=== PATIENT | female | born 1970 | race Two or more races ===

== ENCOUNTER 2022-10-24 08:59 | Outpatient (REF) | payer OTHER, SELFPAY ==
[2022-10-24 09:10] LABS: MANUAL DIFF FLAG NO
[2022-10-24 09:42] LABS: Basophils Percent Auto 0.9 % (0-2); Eosinophils Absolute Auto 0.1 X10*3/uL (0.0-0.4); Eosinophils Percent Auto 2.9 % (0-4); Hematocrit 35.8 % (37.0-47.0); Hemoglobin 11.8 g/dl (12.0-16.0); Imm Gran Abs Auto 0.01 X10*3/uL (0.00-0.03); Imm Gran Pct Auto 0.2 % (0.0-0.4); Lymphocytes Absolute Auto 1.8 X10*3/uL (1.2-4.9); Lymphocytes Percent Auto 39.3 % (20-40); Mean Corpuscular Hemoglobin 30.6 pg (27.0-33.0); Mean Corpuscular Volume 92.7 fL (80.0-98.0); Mean Platelet Volume 9.3 fL (9.4-12.3); Monocytes Absolute Auto 0.5 X10*3/uL (0.1-1.2); Monocytes Percent Auto 10.7 % (2-11); Neutrophils Absolute Auto 2.1 x10*3/uL (2.0-8.3); Platelet Count 305 X10*3/uL (160-400); Red Blood Count 3.86 X10*6/uL (4.20-5.50); Red Cell Distribution Width 13.1 % (11.0-16.0); White Blood Count 4.5 X10*3/uL (4.8-10.8)
[2022-10-24 10:22] LABS: Alanine Aminotransferase 15 U/L (0-31); Albumin Level 4.3 g/dL (3.5-5.0); Alkaline Phosphatase 57 U/L (39-117); Anion Gap 10 (12-20); Aspartate Amino Transferase 18 U/L (5-31); Bilirubin Total 0.9 mg/dL (0.0-1.0); Blood Urea Nitrogen 10 mg/dL (9-16); Calcium 9.6 mg/dL (8.4-10.2); Carbon Dioxide 28 mmol/L (22-29); Chloride 107 mmol/L (96-108); Cholesterol 212 mg/dL; Estimated Glomerular Filt Rate > 60; Glucose Fasting 81 mg/dL (60-99); HDL Cholesterol 83 mg/dL; LDL Cholesterol Calculated 119 mg/dl; Sodium 141 mmol/L (135-145); Total Protein 6.7 g/dL (6.5-8.0); Triglycerides 53 mg/dL
== END 2022-10-24 09:00 | disposition home or self-care (01) ==
LOC: HO.LAB 08:59
PROVIDERS: PCP Internal Medicine; Visit Provider Internal Medicine
DX: Z00.00 Encounter for general adult medical examination without abnormal findings (principal); D64.9 Anemia, unspecified
CPT/HCPCS: 36415; 80053; 80061; 85025

== ENCOUNTER 2022-11-08 12:28 | Outpatient (REF) | payer OTHER, SELFPAY ==
--- NOTE | ~2022-11-08 | MM_ITS ---
EXAMINATION: MM SCREENING DIGITAL BREAST TOMOSYNTHESIS, BILATERAL CLINICAL INFORMATION: Screening. Asymptomatic. The lifetime risk of breast cancer based on the Tyrer-Cuzick Model is 9.5%. COMPARISON: Mammography: and studies dating back to 11/12/2011. TECHNIQUE: Digital breast tomosynthesis was performed in both the craniocaudal and mediolateral oblique views along with computer-aided detection (CAD). Synthesized 2D images were generated from the tomosynthesis. FINDINGS: The breasts are heterogeneously dense, which may obscure small masses (ACR BI-RADS breast composition Category c). These are the first images status post reduction mammoplasty performed in 2020. This will be a new baseline study. No new suspicious left breast lesions are identified. No suspicious grouping of microcalcifications is identified. About the lateral aspect of the right breast, approximately 4 cm from nipple, there is a circumscribed 7 mm density for which a spot compression film is recommended. I do not definitely see a corresponding lesion on the mediolateral oblique projection within the dense parenchyma. MM/MM tomosynthesis screening BI IMPRESSION: Right breast density for further evaluation. ASSESSMENT: BI-RADS 0: Incomplete - Need Additional Imaging Evaluation RECOMMENDATION: 1. Additional views of the right breast. 2. Targeted ultrasound, if warranted, after review of the additional views. 3. Radiology department staff will contact the patient for additional imaging. This patient's information was entered into a reminder system with a target due date for their next mammogram.
== END 2022-11-08 12:29 | disposition home or self-care (01) ==
LOC: HO.MAMMO 12:28
PROVIDERS: PCP Internal Medicine; Visit Provider Internal Medicine
DX: Z12.31 Encounter for screening mammogram for malignant neoplasm of breast (principal); K64.9 Unspecified hemorrhoids
CPT/HCPCS: 46600; 77063; 77067; 99202

== ENCOUNTER 2022-12-03 13:15 | Outpatient (REF) | payer OTHER, SELFPAY ==
--- NOTE | ~2022-12-03 | MM_ITS ---
EXAMINATION: EXAMINATION: MM DIAGNOSTIC DIGITAL BREAST TOMOSYNTHESIS, RIGHT US DIAGNOSTIC ULTRASOUND BREAST, RIGHT CLINICAL INFORMATION: Recall from screening for question of asymmetric density outer right breast 4 cm from nipple, under 1 cm. History reduction mammoplasty since prior mammography 2016. TC score 10%. COMPARISON: Mammography: 11/08/2022, 04/11/2017, 04/03/2016 TECHNIQUE: Digital breast tomosynthesis is performed. 2D images are generated from the tomosynthesis. The following views are obtained: Spot right CC, rolled right CC x2 Ultrasound right breast is targeted to the outer breast using grayscale imaging and color Doppler without and with harmonics. FINDINGS: There are scattered areas of fibroglandular density (ACR BI-RADS breast composition Category b). The additional views demonstrate a smooth macrolobulated nodular asymmetry anterior outer breast, under 1 cm. Not seen with certainty on prior studies. There is no spiculation or associated calcification. Ultrasound demonstrates grouped microcysts 9:00 position 4 cm from nipple measuring 0.5 x 0.4 cm. No associated color flow. No solid mass or architectural abnormality. Results are discussed with the patient at time of visit. The grouped microcysts on ultrasound may correspond to the mammographic finding. As a precaution, short interval six-month follow-up right mammography will be requested, ultrasound if warranted. MM/MM tomosynthesis added views R IMPRESSION: Grouped microcysts anterior outer right breast, possibly corresponding to finding on recent mammography. ASSESSMENT: BI-RADS 3: Probably Benign RECOMMENDATION: Diagnostic right mammography in 6 months. This patient's information was entered into a reminder system with a target due date for their next mammogram.
== END 2022-12-03 13:16 | disposition home or self-care (01) ==
LOC: HO.MAMMO 13:15
PROVIDERS: PCP Internal Medicine; Visit Provider Internal Medicine
DX: R92.2 Inconclusive mammogram (principal)
CPT/HCPCS: 76642; 77061; 77065

== ENCOUNTER 2022-12-14 06:47 | Day surgery (SDC) | payer OTHER, SELFPAY ==
[2022-12-11 14:46] VITALS: BMI 29.3
--- NOTE | 2022-12-13 11:44 | HO.ANESPROP2 ---
Documented by User: Sosa Samuels NP 12/13/22 11:46 HPI - Anesthesia Eval Consult details Narrative: 52yo F for Exam Under Anesthesia, Hemorrhoidectomy PMFSH Active Problems Active Problems: All Active Problems (Updated 11/08/22 @ 10:13 by Manuel Cormier MD) Bleeding hemorrhoids (Acute) Migraine (Acute) Migraines (Acute) Hemorrhoids (Acute) Physical exam (Acute) Upper respiratory tract infection (Acute) Past Medical History Medical History Arthritis Bleeding hemorrhoids Migraine Family History Family History Mother Asthma Dementia Hypertension COPD (chronic obstructive pulmonary disease) Skin cancer Father Heart attack Prostate cancer Surgical History Surgical History H/O colonoscopy History of colon surgery History of hysterectomy Social History Social History Housing: Apartment Alcohol intake: never Patient Tobacco Use Status: Former Tobacco user Quit Date: 1 yr ago Tobacco use type: Cigarette e-Cigarette/Vaping Use: Never Used Second Hand Smoke Exposure: No Use of substances other than those prescribed or required for medical reasons: No Are you DNR?: No Advance Directives: No Advance Directives Information Provided: Yes service: No Current occupational status: unemployed and disabled Cognitive needs: Yes Hearing needs: No Vision needs: Yes Meds Allergies Allergy/AdvReac Type Severity Reaction Status Date / Time varenicline [From Chantix] AdvReac Mild depression, Verified 12/14/22 07:13 nightmares Home Medications Medication Instructions Recorded Confirmed Last Taken Type cyclobenzaprine 5 mg tablet 5 mg PO BID 07/20/22 12/14/22 Unknown History meloxicam 15 mg tablet 15 mg PO DAILY 07/20/22 12/14/22 Unknown History Vitamin C 12/14/22 12/14/22 Unknown History Exam Exam Date and Time: December 13, 2022 1144 Height,Weight and Vital Signs: Height 5 ft 2 in Weight 72.802 kg Pertinent Lab Results Pertinent Lab Results: Laboratory Tests 10/24/22 10/24/22 09:09 09:09 WBC 4.5 L Hgb 11.8 L Hct 35.8 L Plt Count 305 Sodium 141 Potassium 4.0 Chloride 107 Carbon Dioxide 28 BUN 10 Creatinine 0.71 Assessment and Plan Assessment Anesthesia Assessment: Chart Reviewed Documented by User: Sandra Carmona MD 12/14/22 09:08 PMF Active Problems Active Problems: All Active Problems (Updated 11/08/22 @ 10:13 by Manuel Cormier MD) Bleeding hemorrhoids (Acute) Migraines (Acute) Hemorrhoids (Acute) Physical exam (Acute) Former smoker. Quit about a year ago Past Medical History Medical History Arthritis Bleeding hemorrhoids Migraine Family History Family History Mother Asthma Dementia Hypertension COPD (chronic obstructive pulmonary disease) Skin cancer Father Heart attack Prostate cancer Family history of problems with anesthesia: No Surgical History Surgical History H/O colonoscopy History of colon surgery History of hysterectomy History of Problems with Anesthesia: No Social History Social History Housing: Apartment Alcohol intake: never Patient Tobacco Use Status: Former Tobacco user Quit Date: 1 yr ago Tobacco use type: Cigarette e-Cigarette/Vaping Use: Never Used Second Hand Smoke Exposure: No Use of substances other than those prescribed or required for medical reasons: No Are you DNR?: No Advance Directives: No Advance Directives Information Provided: Yes service: No Current occupational status: unemployed and disabled Cognitive needs: Yes Hearing needs: No Vision needs: Yes Meds Allergies Allergy/AdvReac Type Severity Reaction Status Date / Time varenicline [From Chantix] AdvReac Mild depression, Verified 12/14/22 07:13 nightmares Home Medications Medication Instructions Recorded Confirmed Last Taken Type cyclobenzaprine 5 mg tablet 5 mg PO BID 07/20/22 12/14/22 Unknown History meloxicam 15 mg tablet 15 mg PO DAILY 07/20/22 12/14/22 Unknown History Vitamin C 12/14/22 12/14/22 Unknown History Exam Height,Weight and Vital Signs: Height 5 ft 2 in Weight 72.802 kg Vital Signs Temp Pulse Resp BP Pulse Ox O2 Del Method 12/14/22 07:37 97.0 F 61 16 129/83 98 Room Air Airway Mallampati Class: II TM Dist: >3cm Neck ROM: Full Partial: Upper Loose/Missing/Broken Teeth: Yes (Missing some teeth top and bottom back. Denies broken,loose teeth) Heart: RRR Lungs: CTAB Assessment and Plan Assessment Anesthesia Assessment: Anesthesia Plan Discussed Final Anesthetic Review Family History of Problems with Anesthesia: No History of Problems with Anesthesia: No NPO: Yes ASA Class: II Final Preanesthetic Review: No Changes in Pt Med Stat, Meds/Allgs Chart Reviewed, Consent Obtained/Reviewed and Anes Risks/Benef Reviewed Patient Risk: Low Procedure Risk: Low Assessment/Block/Sedation in SS: Assess/Block/Sedation-SS Anesthetic Plan Anesthetic Plan: GA Disposition: Standard PACU
[2022-12-14] VITALS (11 sets, daily range): BP systolic 115–134; BP diastolic 71–83; PULSE 61–90; RESP 13–18; TEMP 36.1–36.4; O2SAT 94–100
[2022-12-14] MEDS: Lactated Ringers 1,000 ML 100 ML IVCONT (07:52)
--- NOTE | 2022-12-14 08:16 | MHC.SHP ---
Pre-Procedural Eval Section A Date of Service: 12/14/22 Section B Chief Complaint: Unspecified hemorrhoids Details of Present Illness: has bleeding hemorrhoids and wants to proceed with hemorrhoidectomy Relevant Social History: Other (specify) Present Medications: see Short Stay Collaborative assessment Medical History: Significant History ( migraine) Allergies: Allergies Allergy/AdvReac Type Severity Reaction Status Date / Time varenicline [From Chantix] AdvReac Mild depression, Verified 12/14/22 07:13 nightmares Review of Systems Sugical H&P ROS: Negative: Constitution, Cardiovascular, Respiratory, Neurological, Psychiatric, Hem-Onc, Allergic/Immunologic, Gastrointestinal, Musculoskeletal, Integumentary, Endocrine and Eyes/Ears/Nose/Throat and Yes, Specify: Genitourinary ( passage of blood per rectum) Exam Surgical H&P Exam: Normal: HEENT, Normal: Heart, Normal: Lungs, Normal: Extremities, Normal: Abdomen, Normal: Skin and Normal: Neurological Exam Comment: hemorrhoids Plan Diagnosis/Plan: Unchanged I have reviewed the history and physical and performed a pertinent physical examination on my patient. No changes have occurred unless specified. Time Spent With Patient Time: Total time managing care of this patient today ____ minutes.
--- NOTE | 2022-12-14 09:21 | W.PM.OPN ---
Operative Note Operative Note Date of Service: 12/14/22 Narrative: Preop diagnosis: Bleeding hemorrhoids, internal external Postop diagnosis: The same Procedure: Exam under anesthesia, hemorrhoidectomy x2 columns Surgeon: Manuel Cormier MD The patient is a 52-year-old female with a long history of bleeding with her hemorrhoids. She therefore wanted to proceed with hemorrhoidectomy. She understood the technique of the procedure. She was aware of the risks, benefits, and alternatives She was brought to the operating room. She was placed in prone paul-knife position under general anesthesia via endotracheal tube. The buttocks were retracted wide tape laterally. The perianal area was prepped and draped in the usual sterile fashion. A surgical time-out was done. The patient received Cefotan 2 g IV preoperatively Examination of the anal orifice revealed external hemorrhoids on the left and right side. I inserted a Vernon Kearns retractor. I examined the anal canal circumferentially. These hemorrhoidal columns were noted and appeared to be actually a mix of internal and external. There were no other lesions. I applied the Stanley clamp on the hemorrhoidal column on the left to retract this into the field. I made a figure of 8 stitch at its pedicle past the dentate line using chromic 3-0. I made an incision around this hemorrhoidal column to the perianal skin using blade 15. I excised this hemorrhoidal column above the plane of sphincters using Metzenbaum scissors. I closed the incision with a running chromic 3-0 stitch with additional hemostatic [id number] sutures being placed She had was duplicated on the hemorrhoidal column on the right side. Again this was retracted with a Stanley clamp. I made a figure of 8 stitch its pedicle using a chromic 3-0 and made an incision around this hemorrhoidal column to the perianal skin using blade 15. I excised this column about the plane of sphincters enclosed incision with a running chromic 3-0 stitch. I placed a rolled Gelfoam into the anal canal for additional hemostasis. Once hemostasis was confirmed, I infiltrated the perianal area of Marcaine 0.5% for postop analgesia. The procedure was completed . The patient tolerated procedure well. There were no immediate complications. Initial and final counts sponges instruments were correct. Estimated blood loss about 25 cc. The patient was extubated without difficulty and transferred to recovery room stable signs.
[2022-12-14] MEDS: oxyCODONE HCl Immed Release 5 MG TABLET PO (09:43)
[2022-12-14] MEDS: fentaNYL citrate/PF 100 MCG/2 ML VIAL 25 MCG IVPUSH ×4 (09:43→10:23)
[2022-12-14] MEDS: Acetaminophen 325 MG TABLET 650 MG PO (09:48)
== END 2022-12-14 11:43 | disposition home or self-care (01) ==
PROVIDERS: PCP Internal Medicine; Visit Provider Surgery
PROC: (CPT 46260; principal; 2022-12-14 08:30)
PROC: (CPT 46260; 2022-12-14 08:30)
DX: K64.8 Other hemorrhoids (principal); K64.4 Residual hemorrhoidal skin tags; G43.909 Migraine, unspecified, not intractable, without status migrainosus; Z79.1 Long term (current) use of non-steroidal anti-inflammatories (NSAID); Z79.899 Other long term (current) drug therapy; Z88.8 Allergy status to other drugs, medicaments and biological substances; Z87.891 Personal history of nicotine dependence
CPT/HCPCS: 46260; 88304; J1100; J1885; J2250; J2405; J2795; J3010

== ENCOUNTER → 2022-12-27 08:48 | Outpatient (BNVA) | payer OTHER, SELFPAY | PROVIDERS: PCP Family Medicine; Visit Provider Surgery ==

== ENCOUNTER → 2023-01-24 09:14 | Outpatient (BNVA) | payer OTHER, SELFPAY | PROVIDERS: PCP Internal Medicine; Visit Provider Surgery ==

== ENCOUNTER 2023-02-06 10:12 | Emergency (ER) | payer OTHER, SELFPAY ==
--- NOTE | ~2023-02-06 | CT_ITS ---
EXAMINATION: CT ABDOMEN AND PELVIS WITHOUT CONTRAST CLINICAL INFORMATION: Right lower quadrant pain stone versus appendicitis COMPARISON: None available. TECHNIQUE: Multidetector volumetric imaging was performed from the superior aspect of the liver through the pubic symphysis. Sagittal and coronal reformatted images were obtained on the technologist's workstation. This CT examination was performed using dose optimization techniques as appropriate, variously including the following: *Automated exposure control *Adjustment of mA and/or kV according to patient size (this includes techniques or standardized protocols for targeted exams where dose is matched to indication/reason for exam; i.e. extremities or head) *Use of iterative reconstruction technique DLP: 533 mGy-cm FINDINGS: LUNG BASES: Bibasilar atelectasis versus scarring. No pneumothorax. No large pleural effusion. LIVER, GALLBLADDER, AND BILIARY TREE: The liver is normal in size, shape, and attenuation. No focal hepatic lesion or biliary ductal dilatation is present. The gallbladder is unremarkable with no evidence of radiopaque gallstones, gallbladder wall thickening, or obvious pericholecystic inflammatory changes. PANCREAS: Unremarkable. SPLEEN: Unremarkable. ADRENAL GLANDS: Unremarkable. KIDNEYS AND URETERS: Slight dilatation of the right proximal ureter with a 2 mm calcification at the right ureterovesicular junction. No right-sided hydronephrosis. 3 mm calculus in the left renal interpolar/lower pole region without hydronephrosis. BLADDER: Unremarkable. GASTROINTESTINAL TRACT: Post surgical changes with suture anastomosis along the sigmoid colon unremarkable. The small and large bowel are unremarkable. The appendix is unremarkable. ABDOMINAL WALL: No significant hernia is appreciated. LYMPH NODES: No enlarged lymph nodes per size criteria. VASCULAR: Abdominal aorta is nonaneurysmal. PELVIC VISCERA: Unremarkable. OSSEOUS STRUCTURES: Multilevel degenerative changes of the thoracolumbar lumbosacral. Bilateral L5 pars defects. CT/CT abdomen pelvis wo IV con IMPRESSION: 1. Slight dilatation of the right proximal ureter with a 2 mm calcification at the right ureterovesicular junction versus phlebolith in this region. No right-sided hydronephrosis. Correlation with symptomatology. 2. 3 mm calculus in the left renal interpolar/lower pole region without hydronephrosis. 3. Post surgical changes with suture anastomosis along the sigmoid colon unremarkable. 4. Bilateral L5 pars defects.
[2023-02-06 11:12] VITALS: BP 145/85; PULSE 66; RESP 18; TEMP 36.6; O2SAT 98; BMI 29.8
--- NOTE | 2023-02-06 11:12 | ED_ITS ---
HPI - Abdominal Pain General Chief Complaint: Abdominal Pain <JOON Daniels - Last Filed: 02/06/23 11:38> Stated Complaint: low abd pain <JOON Daniels - Last Filed: 02/06/23 11:38> Time Seen by Provider: 02/06/23 13:44 <JOON Daniels - Last Filed: 02/06/23 11:38> Source: patient <Tisha Loja NP - Last Filed: 02/06/23 15:10> Mode of arrival: ambulatory <Tisha Loja NP - Last Filed: 02/06/23 15:10> Limitations: no limitations <Tisha Loja NP - Last Filed: 02/06/23 15:10> History of Present Illness HPI narrative: 52 yo female with history of renal colic who presents to the ER with complaints of right-sided abdominal pain for the last 5 days with no complaints of vomiting, urinary symptoms, fevers or chills. <Tisha Loja NP - Last Filed: 02/06/23 15:10> Related Data Home Medications: Home Medications Medication Instructions Recorded Confirmed cyclobenzaprine 5 mg tablet 5 mg PO BID 07/20/22 02/06/23 meloxicam 15 mg tablet 15 mg PO DAILY 07/20/22 02/06/23 Vitamin C 12/14/22 02/06/23 cholecalciferol (vitamin D3) 10 10 mcg PO DAILY 01/24/23 02/06/23 mcg (400 unit) capsule Previous Rx's Medication Instructions Recorded sumatriptan succinate 25 mg tablet 25 mg PO ONCE PRN migraine 10/18/22 headache 30 days #9 tabs lidocaine 5 % topical patch 1 patch topical DAILY 30 days #30 11/27/22 ea docusate sodium 100 mg capsule 100 mg PO BID #60 caps 12/14/22 (Colace) ibuprofen 800 mg tablet 800 mg PO Q8H #20 tabs 01/17/23 polyethylene glycol 3350 17 17 g PO DAILY PRN constipation 90 01/17/23 gram/dose oral powder (Miralax) days #1,530 grams oxycodone 5 mg tablet 5 mg PO Q8H PRN pain #5 tabs 02/06/23 tamsulosin 0.4 mg capsule (Flomax) 0.4 mg PO DAILY #30 caps 02/06/23 <JOON Daniels - Last Filed: 02/06/23 11:38> Allergies/Adverse Reactions: Allergies Allergy/AdvReac Type Severity Reaction Status Date / Time varenicline [From Chantix] AdvReac Mild depression, Verified 02/06/23 09:58 nightmares <JOON Daniels - Last Filed: 02/06/23 11:38> Review of Systems Review of Systems Yes all other systems are reviewed and are negative <Tisha Loja NP - Last Filed: 02/06/23 15:10> Constitutional: Reports no additional constitutional complaints, Denies body ache(s), Denies chills, Denies fever(s), Denies headache(s) and Denies weakness <Tisha Loja NP - Last Filed: 02/06/23 15:10> Eyes: Reports no additional eye complaints and Denies change in vision <Tisha Loja NP - Last Filed: 02/06/23 15:10> Reports system reviewed and no additional complaints, except as documented, Denies dizziness, Denies headache(s), Denies nasal congestion, Denies nasal discharge and Denies neck pain <Tisha Loja NP - Last Filed: 02/06/23 15:10> Cardiovascular: Reports no additional cardiovascular complaints, Denies chest pain, Denies leg edema and Denies dyspnea <Tisha Loja NP - Last Filed: 02/06/23 15:10> Respiratory: Reports no additional respiratory complaints, Denies cough and Denies dyspnea <Tisha Loja NP - Last Filed: 02/06/23 15:10> Gastrointestinal: Reports no additional gastrointestinal complaints, Reports abdominal pain, Denies diarrhea, Denies nausea and Denies vomiting <Tisha Loja NP - Last Filed: 02/06/23 15:10> Genitourinary: Reports no additional female genitourinary complaints and Denies urinary incontinence <Tisha Loja NP - Last Filed: 02/06/23 15:10> Musculoskeletal: Reports no additional musculoskeletal complaints, Denies back pain, Denies arthralgias, Denies joint swelling, Denies neck pain, Denies numbness and Denies tingling <Tisha Loja NP - Last Filed: 02/06/23 15:10> Skin/Breast: Reports system reviewed and no additional complaints, except as docu and Denies rash <Tisha Loja NP - Last Filed: 02/06/23 15:10> Reports system reviewed and no additional complaints, except as documented, Denies dizziness, Denies headache(s), Denies numbness, Denies tingling and Denies weakness <Tisha Loja NP - Last Filed: 02/06/23 15:10> [facility] Past Medical History Attestation statement: The following information was validated with the patient. <Tisha Loja NP - Last Filed: 02/06/23 15:10> Source: old records reviewed and nursing notes reviewed <Tisha Loja NP - Last Filed: 02/06/23 15:10> Medical History: Medical History Arthritis Bleeding hemorrhoids Migraine <JOON Daniels - Last Filed: 02/06/23 11:38> Surgical History: Surgical History H/O colonoscopy History of colon surgery History of hysterectomy <JOON Daniels - Last Filed: 02/06/23 11:38> Family History Family History: Family History Mother Asthma Dementia Hypertension COPD (chronic obstructive pulmonary disease) Skin cancer Father Heart attack Prostate cancer <JOON Daniels - Last Filed: 02/06/23 11:38> Social History Social History: Social History Housing: Apartment Alcohol intake: never Patient Tobacco Use Status: Former Tobacco user Quit Date: 1 yr ago Tobacco use type: Cigarette Smoked in Last 30 Days: No e-Cigarette/Vaping Use: Never Used Second Hand Smoke Exposure: No Use of substances other than those prescribed or required for medical reasons: No Advance Directives: No Advance Directives Information Provided: No service: No Current occupational status: unemployed and disabled Cognitive needs: Yes Hearing needs: No Vision needs: Yes <JOON Daniels - Last Filed: 02/06/23 11:38> Physical Exam ED Vital Signs: Vital Signs - 24 hr 02/06/23 11:12 02/06/23 14:23 Temperature 98 F 97.5 F Pulse Rate 66 63 Respiratory Rate 18 20 Blood Pressure 145/85 H Pulse Oximetry 98 100 Oxygen Delivery Method Room Air Room Air BMI result Body Mass Index 29.8 <JOON Daniels - Last Filed: 02/06/23 11:38> Vital Signs - 24 hr 02/06/23 11:12 02/06/23 14:23 Temperature 98 F 97.5 F Pulse Rate 66 63 Respiratory Rate 18 20 Blood Pressure 145/85 H Pulse Oximetry 98 100 Oxygen Delivery Method Room Air Room Air BMI result Body Mass Index 29.8 <Tisha Loja NP - Last Filed: 02/06/23 15:10> Const General: cooperative, healthy appearing, comfortable and no acute distress <Tisha Loja NP - Last Filed: 02/06/23 15:10> Orientation/consciousness: patient oriented x3 <Tisha Loja NP - Last Filed: 02/06/23 15:10> Limitations: no limitations <Tisha Loja NP - Last Filed: 02/06/23 15:10> HENMT Head: Yes normal to inspection <Tisha Loja NP - Last Filed: 02/06/23 15:10> Ears: hearing grossly normal bilaterally <Tisha Loja NP - Last Filed: 02/06/23 15:10> Eyes General: appearance normal, both eyes and all related structures <Tisha Loja NP - Last Filed: 02/06/23 15:10> Pupils: Equal, round and reactive pupils present <Tisha Loja NP - Last Filed: 02/06/23 15:10> Neck Neck: Yes normal visual inspection <Tisha Loja METAL SPONGE MAKING MACHINE OPERATOR - Last Filed: 02/06/23 15:10> Chest Chest palpation & inspection: normal inspection of the chest <Tisha Loja METAL SPONGE MAKING MACHINE OPERATOR - Last Filed: 02/06/23 15:10> Resp Effort & Inspection: normal respiratory effort <Tisha Loja METAL SPONGE MAKING MACHINE OPERATOR - Last Filed: 02/06/23 15:10> Cardio Peripheral pulses: Peripheral pulses 2+ throughout <Tisha Loja METAL SPONGE MAKING MACHINE OPERATOR - Last Filed: 02/06/23 15:10> GI Inspection: Yes normal to inspection <Tisha Loja METAL SPONGE MAKING MACHINE OPERATOR - Last Filed: 02/06/23 15:10> Palpation (GI): Soft to palpation and Tenderness to palpation present (GI) in the RLQ <Tisha Loja METAL SPONGE MAKING MACHINE OPERATOR - Last Filed: 02/06/23 15:10> Auscultation: normal bowel sounds <Tisha Loja METAL SPONGE MAKING MACHINE OPERATOR - Last Filed: 02/06/23 15:10> General: Yes no CVA tenderness <Tisha Loja METAL SPONGE MAKING MACHINE OPERATOR - Last Filed: 02/06/23 15:10> Back/Spine/Pelvis Back: no CVA tenderness <Tisha Loja METAL SPONGE MAKING MACHINE OPERATOR - Last Filed: 02/06/23 15:10> Thoracic/Lumbar Spine: thoracic and lumbar spine normal to inspection <Tisha Loja METAL SPONGE MAKING MACHINE OPERATOR - Last Filed: 02/06/23 15:10> Skin General skin exam: no rashes or lesions noted <Tisha Loja METAL SPONGE MAKING MACHINE OPERATOR - Last Filed: 02/06/23 15:10> Neuro General: patient oriented x3 and moves all extremities <Tisha Loja METAL SPONGE MAKING MACHINE OPERATOR - Last Filed: 02/06/23 15:10> Cranial nerves: Yes Equal, round and reactive pupils present <Tisha Loja METAL SPONGE MAKING MACHINE OPERATOR - Last Filed: 02/06/23 15:10> Cognition (Neuro): normal cognition <Tisha Loja METAL SPONGE MAKING MACHINE OPERATOR - Last Filed: 02/06/23 15:10> Gait exam (Neuro): Normal gait present <Tisha Loja METAL SPONGE MAKING MACHINE OPERATOR - Last Filed: 02/06/23 15:10> Extrem General: Yes normal to inspection, Yes no pedal edema and Yes no calf tenderness <Tisha Loja NP - Last Filed: 02/06/23 15:10> Course Course Course Narrative: This is an RME: Additional HPI, ROS, PE not included below will be deferred to primary provider.52-year-old female presents with right lower quadrant pain, told to come in from check be walking in, they were concerned for appendicitis versus kidney stone. Patient reports a stabbing pain to the right lower quadrant intermittent in nature, history of kidney stones. Patient denies urinary symptoms. Denies fevers, chills, chest pain, shortness of breath. Physical exam right lower quadrant tenderness. Vital signs stable. Patient nontoxic appearing. Plan labs, imaging, urine. <JOON Daniels - Last Filed: 02/06/23 11:38> Reevaluation(s) Reevaluation #1: 1355 Ct shows IMPRESSION: 1.? Slight dilatation of the right proximal ureter with a 2 mm calcification at the right ureterovesicular junction versus phlebolith in this region. No right-sided hydronephrosis. Correlation with symptomatology. 2.? 3 mm calculus in the left renal interpolar/lower pole region without hydronephrosis. 3.? Post surgical changes with suture anastomosis along the sigmoid colon unremarkable. 4.? Bilateral L5 pars defects. -labs are unremarkable. UA is negative for infection. patient will be provided with pain control. Anticipate discharge <MARK Webb Last Filed: 02/06/23 15:10> Reevaluation #2: Pain is improved-tolerating p.o., plan for discharge home with patient following up with her own urologist. Reviewed worrisome signs and symptoms of when to return to the emergency room. Comfortable plan for discharge home. <MARK Webb Last Filed: 02/06/23 15:10> Medical Decision Making Medical Decision Making MDM Narrative: 52-year-old female here with 5 days of right-sided abdominal pain with no other associated symptoms. Patient tenderness to the right abdomen with no rebound or guarding. No CVA tenderness. Will check labs, UA, CT <MARK Webb Last Filed: 02/06/23 15:10> Differential Diagnosis Differential Diagnoses: The differential diagnosis associated with the presentation includes <Tisha Loja NP - Last Filed: 02/06/23 15:10> Renal colic, pyelonephritis, appendicitis <Tisha Loja NP - Last Filed: 02/06/23 15:10> Lab Data MDM Lab Attestation statement: I reviewed the patient's lab results. <Tisha Loja NP - Last Filed: 02/06/23 15:10> Result Diagrams: 02/06/23 11:29 02/06/23 11:29 <Te Holm PA - Last Filed: 02/06/23 11:38> Labs: Lab Results 02/06/23 02/06/23 02/06/23 Range/Units 11:28 11:29 11:29 WBC 5.6 (4.8-10.8) X10*3/uL RBC 4.11 L (4.20-5.50) X10*6/uL Hgb 12.9 (12.0-16.0) g/dl Hct 38.3 (37.0-47.0) % MCV 93.2 (80.0-98.0) fL MCH 31.4 (27.0-33.0) pg MCHC 33.7 (31.0-35.0) g/dl RDW 13.7 (11.0-16.0) % Plt Count 352 (160-400) X10*3/uL MPV 9.1 L (9.4-12.3) fL Immature Gran % (Auto) 0.2 (0.0-0.4) % Neut % (Auto) 48.5 (45-73) % Lymph % (Auto) 38.5 (20-40) % [place] % (Auto) 10.7 (2-11) % Eos % (Auto) 1.6 (0-4) % Baso % (Auto) 0.5 (0-2) % Lymph # (Auto) 2.2 (1.2-4.9) X10*3/uL [place] # (Auto) 0.6 (0.1-1.2) X10*3/uL Eos # (Auto) 0.1 (0.0-0.4) X10*3/uL Baso # (Auto) 0.0 (0.0-0.2) X10*3/uL Abs Immat Gran (auto) 0.01 (0.00-0.03) X10*3/uL Absolute Neuts (auto) 2.7 (2.0-8.3) x10*3/uL Absolute Nucleated RBC 0.000 (0.0-0.012) X10*3/uL Nucleated RBC % (auto) 0.0 (0.0-0.2) /100WBC Sodium 142 (135-145) mmol/L Potassium 4.6 (3.3-5.1) mmol/L Chloride 108 (96-108) mmol/L Carbon Dioxide 30 H (22-29) mmol/L Anion Gap 9 L (12-20) BUN 9 (9-16) mg/dL Creatinine 0.72 (0.5-1.4) mg/dL Estim Creat Clear Calc 86.0 Estimated GFR > 60 Random Glucose 89 (60-115) mg/dL Calcium 9.6 (8.4-10.2) mg/dL Magnesium 2.0 (1.6-2.6) mg/dL Total Bilirubin 1.2 H (0.0-1.0) mg/dL AST 26 (5-31) U/L ALT 33 H (0-31) U/L Alkaline Phosphatase 82 (39-117) U/L Total Protein 7.2 (6.5-8.0) g/dL Albumin 4.5 (3.5-5.0) g/dL Lipase 16 (8-78) U/L Urine Color Urine Appearance Urine pH (5.0-9.0) Ur Specific [place] (1.005-1.025) Urine Protein (Neg-Trace) mg/dL Urine Glucose (UA) (Negative) mg/dL Urine Ketones (Negative) mg/dL Urine Blood (Negative) Urine Nitrite (Negative) Ur Leukocyte Esterase (Negative) Urine Test (NEGATIVE) COVID-19 ([facility]ISHA) Negative (Negative) COVID-19 Clin Com See Note 02/06/23 02/06/23 Range/Units 11:29 11:29 WBC (4.8-10.8) X10*3/uL RBC (4.20-5.50) X10*6/uL Hgb (12.0-16.0) g/dl Hct (37.0-47.0) % MCV (80.0-98.0) fL MCH (27.0-33.0) pg MCHC (31.0-35.0) g/dl RDW (11.0-16.0) % Plt Count (160-400) X10*3/uL MPV (9.4-12.3) fL Immature Gran % (Auto) (0.0-0.4) % Neut % (Auto) (45-73) % Lymph % (Auto) (20-40) % [place] % (Auto) (2-11) % Eos % (Auto) (0-4) % Baso % (Auto) (0-2) % Lymph # (Auto) (1.2-4.9) X10*3/uL [place] # (Auto) (0.1-1.2) X10*3/uL Eos # (Auto) (0.0-0.4) X10*3/uL Baso # (Auto) (0.0-0.2) X10*3/uL Abs Immat Gran (auto) (0.00-0.03) X10*3/uL Absolute Neuts (auto) (2.0-8.3) x10*3/uL Absolute Nucleated RBC (0.0-0.012) X10*3/uL Nucleated RBC % (auto) (0.0-0.2) /100WBC Sodium (135-145) mmol/L Potassium (3.3-5.1) mmol/L Chloride (96-108) mmol/L Carbon Dioxide (22-29) mmol/L Anion Gap (12-20) BUN (9-16) mg/dL Creatinine (0.5-1.4) mg/dL Estim Creat Clear Calc Estimated GFR Random Glucose (60-115) mg/dL Calcium (8.4-10.2) mg/dL Magnesium (1.6-2.6) mg/dL Total Bilirubin (0.0-1.0) mg/dL AST (5-31) U/L ALT (0-31) U/L Alkaline Phosphatase (39-117) U/L Total Protein (6.5-8.0) g/dL Albumin (3.5-5.0) g/dL Lipase (8-78) U/L Urine Color Yellow Urine Appearance Clear Urine pH 7.5 (5.0-9.0) Ur Specific [place] 1.010 (1.005-1.025) Urine Protein Negative (Neg-Trace) mg/dL Urine Glucose (UA) Negative (Negative) mg/dL Urine Ketones Negative (Negative) mg/dL Urine Blood Negative (Negative) Urine Nitrite Negative (Negative) Ur Leukocyte Esterase Negative (Negative) Urine Test NEGATIVE (NEGATIVE) COVID-19 (AISHA) (Negative) COVID-19 Clin Com <Te Holm PA - Last Filed: 02/06/23 11:38> Lab Results 02/06/23 02/06/23 02/06/23 Range/Units 11:28 11:29 11:29 WBC 5.6 (4.8-10.8) X10*3/uL RBC 4.11 L (4.20-5.50) X10*6/uL Hgb 12.9 (12.0-16.0) g/dl Hct 38.3 (37.0-47.0) % MCV 93.2 (80.0-98.0) fL MCH 31.4 (27.0-33.0) pg MCHC 33.7 (31.0-35.0) g/dl RDW 13.7 (11.0-16.0) % Plt Count 352 (160-400) X10*3/uL MPV 9.1 L (9.4-12.3) fL Immature Gran % (Auto) 0.2 (0.0-0.4) % Neut % (Auto) 48.5 (45-73) % Lymph % (Auto) 38.5 (20-40) % [place] % (Auto) 10.7 (2-11) % Eos % (Auto) 1.6 (0-4) % Baso % (Auto) 0.5 (0-2) % Lymph # (Auto) 2.2 (1.2-4.9) X10*3/uL [place] # (Auto) 0.6 (0.1-1.2) X10*3/uL Eos # (Auto) 0.1 (0.0-0.4) X10*3/uL Baso # (Auto) 0.0 (0.0-0.2) X10*3/uL Abs Immat Gran (auto) 0.01 (0.00-0.03) X10*3/uL Absolute Neuts (auto) 2.7 (2.0-8.3) x10*3/uL Absolute Nucleated RBC 0.000 (0.0-0.012) X10*3/uL Nucleated RBC % (auto) 0.0 (0.0-0.2) /100WBC Sodium 142 (135-145) mmol/L Potassium 4.6 (3.3-5.1) mmol/L Chloride 108 (96-108) mmol/L Carbon Dioxide 30 H (22-29) mmol/L Anion Gap 9 L (12-20) BUN 9 (9-16) mg/dL Creatinine 0.72 (0.5-1.4) mg/dL Estim Creat Clear Calc 86.0 Estimated GFR > 60 Random Glucose 89 (60-115) mg/dL Calcium 9.6 (8.4-10.2) mg/dL Magnesium 2.0 (1.6-2.6) mg/dL Total Bilirubin 1.2 H (0.0-1.0) mg/dL AST 26 (5-31) U/L ALT 33 H (0-31) U/L Alkaline Phosphatase 82 (39-117) U/L Total Protein 7.2 (6.5-8.0) g/dL Albumin 4.5 (3.5-5.0) g/dL Lipase 16 (8-78) U/L Urine Color Urine Appearance Urine pH (5.0-9.0) Ur Specific [place] (1.005-1.025) Urine Protein (Neg-Trace) mg/dL Urine Glucose (UA) (Negative) mg/dL Urine Ketones (Negative) mg/dL Urine Blood (Negative) Urine Nitrite (Negative) Ur Leukocyte Esterase (Negative) Urine Test (NEGATIVE) COVID-19 ([facility]ISHA) Negative (Negative) COVID-19 Clin Com See Note 02/06/23 02/06/23 Range/Units 11:29 11:29 WBC (4.8-10.8) X10*3/uL RBC (4.20-5.50) X10*6/uL Hgb (12.0-16.0) g/dl Hct (37.0-47.0) % MCV (80.0-98.0) fL MCH (27.0-33.0) pg MCHC (31.0-35.0) g/dl RDW (11.0-16.0) % Plt Count (160-400) X10*3/uL MPV (9.4-12.3) fL Immature Gran % (Auto) (0.0-0.4) % Neut % (Auto) (45-73) % Lymph % (Auto) (20-40) % [place] % (Auto) (2-11) % Eos % (Auto) (0-4) % Baso % (Auto) (0-2) % Lymph # (Auto) (1.2-4.9) X10*3/uL [place] # (Auto) (0.1-1.2) X10*3/uL Eos # (Auto) (0.0-0.4) X10*3/uL Baso # (Auto) (0.0-0.2) X10*3/uL Abs Immat Gran (auto) (0.00-0.03) X10*3/uL Absolute Neuts (auto) (2.0-8.3) x10*3/uL Absolute Nucleated RBC (0.0-0.012) X10*3/uL Nucleated RBC % (auto) (0.0-0.2) /100WBC Sodium (135-145) mmol/L Potassium (3.3-5.1) mmol/L Chloride (96-108) mmol/L Carbon Dioxide (22-29) mmol/L Anion Gap (12-20) BUN (9-16) mg/dL Creatinine (0.5-1.4) mg/dL Estim Creat Clear Calc Estimated GFR Random Glucose (60-115) mg/dL Calcium (8.4-10.2) mg/dL Magnesium (1.6-2.6) mg/dL Total Bilirubin (0.0-1.0) mg/dL AST (5-31) U/L ALT (0-31) U/L Alkaline Phosphatase (39-117) U/L Total Protein (6.5-8.0) g/dL Albumin (3.5-5.0) g/dL Lipase (8-78) U/L Urine Color Yellow Urine Appearance Clear Urine pH 7.5 (5.0-9.0) Ur Specific [place] 1.010 (1.005-1.025) Urine Protein Negative (Neg-Trace) mg/dL Urine Glucose (UA) Negative (Negative) mg/dL Urine Ketones Negative (Negative) mg/dL Urine Blood Negative (Negative) Urine Nitrite Negative (Negative) Ur Leukocyte Esterase Negative (Negative) Urine Test NEGATIVE (NEGATIVE) COVID-19 ([facility]HA) (Negative) COVID-19 Clin Com <Tisha Loja NP - Last Filed: 02/06/23 15:10> Independent Interpretation I performed an independent interpretation of an: CT Scan <Tisha Loja NP - Last Filed: 02/06/23 15:10> Interpretation: I independently reviewed the CT scan of your the radiologist's report <Tisha Loja NP - Last Filed: 02/06/23 15:10> Radiology Impression Discussion of test interpretation with radiology: I have reviewed the radiologist's reading. <Tisha Loja NP - Last Filed: 02/06/23 15:10> Radiologist Impression: [place] [id number] CT Scan Report Signed Patient: Padma Melo MR#: [id number] : 1970 Acct:[id number] Age/Sex: 52 / F ADM Date: 02/06/23 Loc: .ED Attending Dr: Ordering Physician: Te Holm Date of Service: 02/06/23 Procedure(s): CT abdomen pelvis wo IV con Accession Number(s): [id number] cc: Te Holm~ EXAMINATION: CT ABDOMEN AND PELVIS WITHOUT CONTRAST? CLINICAL INFORMATION: Right lower quadrant pain stone versus appendicitis? COMPARISON: None available. TECHNIQUE: Multidetector volumetric imaging was performed from the superior aspect of the liver through the pubic symphysis. Sagittal and coronal reformatted images were obtained on the technologist's workstation.? This CT examination was performed using dose optimization techniques as appropriate, variously including the following: *Automated exposure control *Adjustment of mA and/or kV according to patient size (this includes techniques or standardized protocols for targeted exams where dose is matched to indication/reason for exam; i.e. extremities or head) *Use of iterative reconstruction technique DLP: 533 mGy-cm FINDINGS: LUNG BASES: Bibasilar atelectasis versus scarring. No pneumothorax. No large pleural effusion.? LIVER, GALLBLADDER, AND BILIARY TREE: The liver is normal in size, shape, and attenuation. No focal hepatic lesion or biliary ductal dilatation is present. The gallbladder is unremarkable with no evidence of radiopaque gallstones, gallbladder wall thickening, or obvious pericholecystic inflammatory changes.? PANCREAS: Unremarkable.? SPLEEN: Unremarkable.? ADRENAL GLANDS: Unremarkable.? KIDNEYS AND URETERS: Slight dilatation of the right proximal ureter with a 2 mm calcification at the right ureterovesicular junction. No right-sided hydronephrosis. 3 mm calculus in the left renal interpolar/lower pole region without hydronephrosis. BLADDER: Unremarkable.? GASTROINTESTINAL TRACT: Post surgical changes with suture anastomosis along the sigmoid colon unremarkable. The small and large bowel are unremarkable. The appendix is unremarkable.? ABDOMINAL WALL: No significant hernia is appreciated.? LYMPH NODES: No enlarged lymph nodes per size criteria. VASCULAR: Abdominal aorta is nonaneurysmal. PELVIC VISCERA: Unremarkable.? OSSEOUS STRUCTURES: Multilevel degenerative changes of the thoracolumbar lumbosacral. Bilateral L5 pars defects.? CT/CT abdomen pelvis wo IV con IMPRESSION: 1.? Slight dilatation of the right proximal ureter with a 2 mm calcification at the right ureterovesicular junction versus phlebolith in this region. No right-sided hydronephrosis. Correlation with symptomatology. 2.? 3 mm calculus in the left renal interpolar/lower pole region without hydronephrosis. 3.? Post surgical changes with suture anastomosis along the sigmoid colon unremarkable. <Tisha Loja NP - Last Filed: 02/06/23 15:10> Medications Administered Discontinued Medications Generic Name Dose Route Start Last Admin Trade Name Freq PRN Reason Stop Dose Admin Ketorolac Tromethamine 60 mg 02/06/23 13:51 02/06/23 14:19 Ketorolac Tromethamine 60 Mg/2 Ml Vial IM 02/06/23 13:52 60 mg ONCE ONE Administration <JOON Daniels - Last Filed: 02/06/23 11:38> Medications Administered Discontinued Medications Generic Name Dose Route Start Last Admin Trade Name Fabienne PRN Reason Stop Dose Admin Ketorolac Tromethamine 60 mg 02/06/23 13:51 02/06/23 14:19 Ketorolac Tromethamine 60 Mg/2 Ml Vial IM 02/06/23 13:52 60 mg ONCE ONE Administration <Tisha Loja NP - Last Filed: 02/06/23 15:10> Discharge Plan Discharge Clinical Impression: Calculus of kidney <JOON Daniels - Last Filed: 02/06/23 11:38> Patient Disposition: Home, Self-Care <JOON Daniels - Last Filed: 02/06/23 11:38> Instructions: Kidney Stones (ED) <JOON Daniels - Last Filed: 02/06/23 11:38> Additional Instructions: Follow-up with your urology Return for worsening pain, fever, vomiting <JOON Daniels - Last Filed: 02/06/23 11:38> Prescriptions: New tamsulosin [Flomax] 0.4 mg capsule 0.4 mg PO DAILY Qty: 30 0RF oxycodone 5 mg tablet 5 mg PO Q8H PRN (Reason: pain) Qty: 5 0RF Rx Instructions: Partial Fill upon patient request. No Action lidocaine 5 % adhesive patch,medicated 1 patch topical DAILY 30 Days Qty: 30 0RF Rx Instructions: leave on most painful area for up to 12 hrs ibuprofen 800 mg tablet 800 mg PO Q8H Qty: 20 0RF polyethylene glycol 3350 [Miralax] 17 gram/dose powder 17 g PO DAILY PRN (Reason: constipation) 90 Days Qty: 1530 0RF Vitamin C docusate sodium [Colace] 100 mg capsule 100 mg PO BID Qty: 60 2RF cyclobenzaprine 5 mg tablet 5 mg PO BID meloxicam 15 mg tablet 15 mg PO DAILY sumatriptan succinate 25 mg tablet 25 mg PO ONCE PRN (Reason: migraine headache) 30 Days Qty: 9 1RF cholecalciferol (vitamin D3) 10 mcg (400 unit) capsule 10 mcg PO DAILY <JOON Daniels - Last Filed: 02/06/23 11:38> Referrals: Eusebia Calderon MD [Primary Care Provider] - 1 week <JOON Daniels - Last Filed: 02/06/23 11:38> Interventions: ED Discharge Assessment Last Done: 02/06/23 15:07 <JOON Daniels - Last Filed: 02/06/23 11:38> Discharge Date/Time: 02/06/23 15:07 <JOON Daniels - Last Filed: 02/06/23 11:38>
[2023-02-06 11:35] LABS: MANUAL DIFF FLAG NO
[2023-02-06 11:38] LABS: Basophils Percent Auto 0.5 % (0-2); Eosinophils Absolute Auto 0.1 X10*3/uL (0.0-0.4); Eosinophils Percent Auto 1.6 % (0-4); Hematocrit 38.3 % (37.0-47.0); Hemoglobin 12.9 g/dl (12.0-16.0); Imm Gran Abs Auto 0.01 X10*3/uL (0.00-0.03); Imm Gran Pct Auto 0.2 % (0.0-0.4); Lymphocytes Absolute Auto 2.2 X10*3/uL (1.2-4.9); Lymphocytes Percent Auto 38.5 % (20-40); Mean Corpuscular HGB Conc 33.7 g/dl (31.0-35.0); Mean Corpuscular Hemoglobin 31.4 pg (27.0-33.0); Mean Corpuscular Volume 93.2 fL (80.0-98.0); Mean Platelet Volume 9.1 fL (9.4-12.3); Monocytes Absolute Auto 0.6 X10*3/uL (0.1-1.2); Monocytes Percent Auto 10.7 % (2-11); Neutrophils Absolute Auto 2.7 x10*3/uL (2.0-8.3); Neutrophils Percent Auto 48.5 % (45-73); Platelet Count 352 X10*3/uL (160-400); Red Blood Count 4.11 X10*6/uL (4.20-5.50); Red Cell Distribution Width 13.7 % (11.0-16.0); White Blood Count 5.6 X10*3/uL (4.8-10.8)
[2023-02-06 11:43] LABS: Appearance Urine Clear; Color Urine Yellow; Glucose Urine UA Negative (Negative); Leukocyte Esterase Urine Negative (Negative); Nitrite Urine Negative (Negative); PH 7.5 (5.0-9.0); Urine Blood Negative (Negative); Urine Ketones Negative (Negative); Urine Protein Negative (Neg-Trace)
[2023-02-06 11:52] LABS: Alanine Aminotransferase 33 U/L (0-31); Albumin Level 4.5 g/dL (3.5-5.0); Alkaline Phosphatase 82 U/L (39-117); Anion Gap 9 (12-20); Aspartate Amino Transferase 26 U/L (5-31); Bilirubin Total 1.2 mg/dL (0.0-1.0); Blood Urea Nitrogen 9 mg/dL (9-16); Calcium 9.6 mg/dL (8.4-10.2); Carbon Dioxide 30 mmol/L (22-29); Chloride 108 mmol/L (96-108); Estimated Glomerular Filt Rate > 60; Glucose Random 89 mg/dL (60-115); Lipase 16 U/L (8-78); Potassium 4.6 mmol/L (3.3-5.1); Sodium 142 mmol/L (135-145); Total Protein 7.2 g/dL (6.5-8.0)
[2023-02-06 11:53] LABS: UPreg QC Valid YES; Urine Pregnancy NEGATIVE (NEGATIVE)
[2023-02-06 12:13] LABS: COVID-19 Test Negative (Negative); IDNOW Serial# BCCEAD1C
[2023-02-06] MEDS: Ketorolac Tromethamine 60 MG/2 ML VIAL IM (14:19)
[2023-02-06 14:23] VITALS: PULSE 63; RESP 20; TEMP 36.4; O2SAT 100
== END 2023-02-06 15:07 | disposition home or self-care (01) ==
PROVIDERS: Physician Assistant; Emergency Provider Student in an Organized Health Care Education/Training Program; PCP Internal Medicine
DX: N20.0 Calculus of kidney (principal); R10.30 Lower abdominal pain, unspecified; Z20.822 Contact with and (suspected) exposure to COVID-19; Z87.891 Personal history of nicotine dependence
CPT/HCPCS: 74176; 80053; 81003; 81025; 83690; 83735; 85025; 87635; 96372; 99284; J1885

== ENCOUNTER 2023-02-19 08:08 | Outpatient (REF) | payer OTHER, SELFPAY ==
--- NOTE | ~2023-02-19 | XR_ITS ---
EXAMINATION: XR CERVICAL SPINE CLINICAL INFORMATION: Neck pain COMPARISON: None available. TECHNIQUE: 3 views of the cervical spine were obtained. FINDINGS: Bone alignment is normal. No fracture or dislocation. Degenerative spondylosis from C4-C5 to C6-C7. Normal disc spaces. Normal prevertebral soft tissues. XR/XR cervical spine 2V IMPRESSION: Degenerative changes.
== END 2023-02-19 08:09 | disposition home or self-care (01) ==
LOC: HO.XRAY 08:08
PROVIDERS: PCP Internal Medicine; Visit Provider Internal Medicine
DX: M54.2 Cervicalgia (principal)
CPT/HCPCS: 72040

== ENCOUNTER → 2023-04-05 08:35 | Outpatient (BNVA) | payer OTHER, SELFPAY | PROVIDERS: PCP Internal Medicine; Visit Provider Registered Nurse Emergency | DX: M47.812 Spondylosis without myelopathy or radiculopathy, cervical region (principal); M47.816 Spondylosis without myelopathy or radiculopathy, lumbar region; M51.36 Other intervertebral disc degeneration, lumbar region | CPT/HCPCS: 99202 ==

== ENCOUNTER 2023-04-08 06:28 | Outpatient (REF) | payer OTHER, SELFPAY ==
--- NOTE | ~2023-04-08 | XR_ITS ---
EXAMINATION: XR LUMBOSACRAL SPINE WITH OBLIQUES CLINICAL INFORMATION: Spondylosis without myelopathy or radiculopathy lumbar region COMPARISON: None available. TECHNIQUE: 7 views total including AP, both oblique, and lateral views of the lumbar spine. Lateral view of the lumbosacral junction. FINDINGS: Right ureteral stent overlies the right kidney approximately and the bladder distally. Mild rightward curvature of the lumbar spine. Facet arthritis in the lower lumbar spine. Lumbar vertebral body heights are preserved. Degenerative changes in the imaged lower thoracic spine. Mild multilevel lumbar spondylosis with mild loss of disc space height most notable at L2-L3 and L5-S1. Mild anterolisthesis of L5 on S1. Possible bilateral pars defects difficult to confirm as visualization limited due to overlying bowel. Mild degenerative changes bilateral sacroiliac joints XR/XR lumbar spine 6V w bending IMPRESSION: 1. Right ureteral stent. 2. Mild multilevel lumbar spondylosis with mild loss of disc space height most notable at L2-L3 and L5-S1. Mild anterolisthesis of L5 on S1. Possible bilateral pars defects difficult to confirm as visualization limited due to overlying bowel.
== END 2023-04-08 06:29 | disposition home or self-care (01) ==
LOC: HO.XRAY 06:28
PROVIDERS: PCP Internal Medicine; Visit Provider Registered Nurse Emergency
DX: M47.816 Spondylosis without myelopathy or radiculopathy, lumbar region (principal); M51.36 Other intervertebral disc degeneration, lumbar region
CPT/HCPCS: 72114

== ENCOUNTER 2023-04-15 07:00 | Outpatient (RCR) | payer OTHER, SELFPAY ==
--- NOTE | 2023-03-19 11:11 | MHC.PT.EP ---
[facility] [place] Office [place] Office [place] Office [address] Quarles [address] [phone] F: [phone] F: [phone] F: [phone] F: [phone] Physical Therapy Plan of Care Date of Evaluation: Date of Surgery: Diagnosis: CERVICALGIA Assessment: 52 YO FEMALE REF TO PT FOR CERVICALGIA x 3 YRS , SHE HAS A H/O MIGRAINES AND DENIES RADIC SXS- SHE IS ON DISABILITY FOR LBP AND SPENDS HER DAYS READING THE BIBLE AND GOING TO BUDDHISM- SHE NOTES SHE IS CURRENTLY NOT EXER AND HAS NOT HAD PRIOR PT FOR CERVICALGIA. THE Pt HAS DECR CERV AND ROSA ELENA SH AROM, (+) TISSUE TENSION IN ROSA ELENA UT/ CERV PS MM, (+) POST RC/ SCAP/ CERV MM STRENGTH DEFICITS, DECR POSTURAL AWARENESS, AND FLUCTUATING PAIN IN ROSA ELENA SUBOCCIP/ UT TISSUES. SHE HAS DECR BRENDA TO DRIVING, SLEEPING COMFORTABLY, PROLONGED SITTING, AND PROLONGED READING. THE Pt MAY BENEFIT FROM A TRIAL OF PT TO ADDRESS POSTURE, SOFT TISSUE MOBILITY, DEV A HEP, AND DEV SELF-SX MGMT TECHN. Frequency and Duration: The patient will be seen 2 x WK x 5 WKS Short Term Goals: *Pt INDEP W SELF-CORRECT POSTURE AND DEMON IMPROVED, MORE EFFICIENT BODY MECH W SIMUL ADLs/ WORK TASKS *DECR NECK PAIN TO 2-3/10 W REG ADLs *IMPROVE CERV AND END RANGE SHOULDER AROM Longterm Goals: *Pt WILL IMPROVE UEs/ SCAP / POST RC STRENGTHBY 1 GRADE *Pt RESUME REG ADLs AND INITIATE A FITNESS ROUTINE EVIDENT W IMPROVED NPDI SCORE (AT EVAL 31/50 ) *Pt INDEP W PROGR HEP AND SELF-SX MGMT TECHN Treatment Plan: Modalities to reduce pain, spasms and effusion. Manual therapy to restore motion and function. Therapeutic exercise to improve strength and flexibility. Neuromuscular re-education for posture and balance. Therapeutic activities to return to functional activities of daily living. Electronically signed by: FLACO RAGLAND,PT Please sign and return to therapist. Thank you for your referral.
--- NOTE | 2023-04-15 13:50 | MHC.PT.DC ---
[facility] [place] Office [place] Office [place] Office [address] Abiel Quarles [address] [phone] F: [phone] F: [phone] F: [phone] F: [phone] Physical Therapy Discharge Report Diagnosis: CERVICALGIA Date of Surgery: Date of Evaluation: 03/19/23 Date of Discharge: 04/15/23 Treatments to Date: 5 Cancellations to Date: 3 No Shows to Date: 1 Discharge Status: Achieved Goals Improved Function Independent with HEP Patient Elected to Stop Discharge Summary: THE Pt HAS PROGRESSED IN PT FOR TREATMENT OF HER CERVICALGIA- WE HAVE EDUC HER RE IMPROVED BODY MECHANICS AND POSTURAL AWARENESS TO REDUCE PAIN AND TISSUE TENSION. SHE HAS IMPROVED CERV AROM AND CAN NOW DEMON APPROPRIATE SCAPULAR RETRACTION/ POST RC/ SCAP MUSCLE ACTIV. THE Pt IS INDEP W HER HEP AND FEELS READY FOR DISCHARGE FROM PT AT THIS TIME. HER NPDI SCORE IMPROVED FROM 31/50 AT EVAL TO 16/50 AT D/C. Electronically signed by: FLACO RAGLAND,PT Please sign and return to therapist. Thank you for your referral.
== END 2023-04-15 13:50 | disposition home or self-care (01) ==
LOC: HO.PT 07:00
PROVIDERS: PCP Internal Medicine; Visit Provider Internal Medicine
DX: M54.2 Cervicalgia (principal)
CPT/HCPCS: 97110; 97140; 97162; 97530

== ENCOUNTER 2023-05-03 08:23 | Outpatient (AMB) | payer OTHER, SELFPAY ==
--- NOTE | 2023-05-03 08:29 | A.OFFVIS_ITS ---
Intake Vital Signs 05/03/23 08:30 Height 5 ft 2 in Weight 160 lb 6 oz BMI 29.3 BP 140/84 H Blood Pressure Location Rt brachial Position Sitting Respiration 14 Pulse 72 Pulse Source Pulse Oximeter Pulse Oximetry (%) 98 Oxygen Delivery Method Room Air Intake Visit Reasons: 1 Month Follow Up Allergies sumatriptan Adverse Reaction (Mild, Verified 05/03/23 08:29) sleepiness varenicline [From Chantix] Adverse Reaction (Mild, Verified 05/03/23 08:29) depression, nightmares HPI HPI Comments History of Present Illness Details Padma is a very pleasant 52 year old female who presents back to the [facility] today for follow up. Patient reports that she has been doing PT with minimal relief. It helps when I'm there but then the pain just comes back . Has lidocaine patches at home that she uses with some relief. Denies improvement with baclofen. Today she also c/o bilateral upper neck pain, tried PT in the past but could not tolerate the positioning d/t her lower back pain. Interested in attempting PT again. Prior: Padma is a pleasant 52-year-old female who presents today for evaluation and management of her chronic lower back pain. Patient reports that this pain has been ongoing for at least 10 years without inciting event. Patient denies any radiation of the pain down the leg on either side. Currently pain is an 8/10, but will be 10/10 at times. Patient describes the pain as aching, stabbing, burning. She reports the pain is constant throughout the day and worse with sitting, moving, activity. Patient denies red flag symptoms including loss of bowel, bladder or saddle anesthesia. In terms of conservative therapy patient has a attempted physical therapy in the past without effect, NSAIDs with minimal improvement, muscle relaxants with minimal movement, currently using lidocaine patches with some relief, she has had 1 injection in her back about 2 years ago at [facility] which she reports did not provide her any relief. In terms of muscle damage condition is described as aching, shooting, cramping, spasming, dull, squeezing, burning, tiring, throbbing, stabbing, sharp and tingling. Patient also reported today that she has ongoing neck pain that is causing her headaches. She is currently attending physical therapy for this pain and is under management by her PCP but would like to follow up here at a future date for this pain. Additionally, she has pain in her knee that she would like addressed at a future visit also. Patient's past medical history significant for migraines, eczema, arthritis and hypovitaminosis D. Patient denies implantable devices, pacemaker or defibrillator. Patient denies current use of alcohol, tobacco or illicit substances. [facility] Medical History Abdominal pain Arthritis Bleeding hemorrhoids Constipation by delayed colonic transit Eczema Hemorrhoids Hypovitaminosis D Migraine Surgical History H/O colonoscopy History of colon surgery History of hysterectomy Family History Mother Asthma Dementia Hypertension COPD (chronic obstructive pulmonary disease) Skin cancer Father Heart attack Prostate cancer Social History Housing: Apartment Alcohol intake: never Patient Tobacco Use Status: Former Tobacco user Quit Date: 1 yr ago Tobacco use type: Cigarette e-Cigarette/Vaping Use: Never Used Second Hand Smoke Exposure: No service: No Current occupational status: unemployed and disabled Cognitive needs: Yes Hearing needs: No Vision needs: Yes Review of Systems Const All systems reviewed & are unremarkable except as noted in HPI and below Physical Exam Vital Signs: Last Vital Signs Pulse 72 05/03/23 08:30 Resp 14 05/03/23 08:30 BP 140/84 H 05/03/23 08:30 Pulse Ox 98 05/03/23 08:30 Oxygen Delivery Method Room Air 05/03/23 08:30 BMI result Body Mass Index 29.3 General: awake, alert, oriented. Answers questions appropriately. Fully engaged in examination. Skin: warm, dry, intact without visible rashes or lesions. HEENT: Normocephalic. Conjuntivae clear without exudate. Sclera non-icteric. Hearing intact. Cardiac: External chest normal in appearance. Respiratory: No signs of trauma. No signs of respiratory distress. No cough, audible wheezing or stridor. Abdomen: without gross distension. MS: No obvious swelling or deformities. Able to transition from sit to stand unassisted. Ambulates with bilaterally normal heel strike and toe off Tenderness to palpation across middle trapezius with palpable trigger points Neurological: Oriented to person, place, time and situation. Thought process intact. No gait abnormalities appreciated. Psychiatric: Appropriate mood and affect. Good judgment and insight. Results Reviewed Results Reviewed: 02/19/2023 EXAMINATION: XR CERVICAL SPINE FINDINGS: Bone alignment is normal. No fracture or dislocation. Degenerative spondylosis from C4-C5 to C6-C7. Normal disc spaces. Normal prevertebral soft tissues. IMPRESSION: Degenerative changes. Assessment & Plan Assessment & Plan (1) Spondylosis of cervical spine: Code(s): M47.812 - Spondylosis without myelopathy or radiculopathy, cervical region (2) Facet arthritis of lumbar region: Code(s): M47.816 - Spondylosis without myelopathy or radiculopathy, lumbar region (3) Degenerative disc disease, lumbar: Code(s): M51.36 - Other intervertebral disc degeneration, lumbar region (4) Trapezius muscle strain: Code(s): S46.819A - Strain of other muscles, fascia and tendons at shoulder and upper arm level, unspecified arm, initial encounter Plan Padma is a pleasant 52-year-old female who presented to the office today for f/u lower back pain and upper bilateral neck pain. Will retry PT for bilateral middle trapezius strain. Patient does not want to continue with muscle relaxers as they do not help. She has lidocaine patches at home, declines refill. Again discussed options for treatment including diagnostic interventional testing, epidural steroid injections, peripheral nerve stimulation with Sprint, RFA and more permanent neuromodulation. Informational pamphlets provided. Patient declines injections at this time. She will call if she reconsiders and we will schedule her for fluoroscopy guided L3-L4-DRL5 MBB's under local anesthetic. All questions and concerns have been answered and patient agrees with the plan. Follow up as needed. Orders: Orders PT Evaluation and Treatment Today S46.819A - Strain of other muscles, fascia and tendons at shoulder and upper arm level, unspecified arm, initial encounter Medications: New meloxicam 15 mg PO DAILY 30 tabs 1RF M47.812 - Spondylosis without myelopathy or radiculopathy, cervical region, M47.816 - Spondylosis without myelopathy or radiculopathy, lumbar region, M51.36 - Other intervertebral disc degeneration, lumbar region Coding Level of Care Code Est Pt Level 3 (63270) Diagnoses Spondylosis of cervical spine M47.812 Facet arthritis of lumbar region M47.816 Degenerative disc disease, lumbar M51.36 Trapezius muscle strain S46.811D
[2023-05-03 08:30] VITALS: BP 140/84; PULSE 72; RESP 14; O2SAT 98; BMI 29.3
== END 2023-05-03 09:00 | disposition home or self-care (01) ==
PROVIDERS: PCP Internal Medicine; Visit Provider Registered Nurse Emergency
DX: M47.812 Spondylosis without myelopathy or radiculopathy, cervical region (principal); M47.816 Spondylosis without myelopathy or radiculopathy, lumbar region; M51.36 Other intervertebral disc degeneration, lumbar region; S46.819A Strain of other muscles, fascia and tendons at shoulder and upper arm level, unspecified arm, initial encounter
CPT/HCPCS: 99214

== ENCOUNTER → 2023-05-03 08:23 | Outpatient (BNVA) | payer OTHER, SELFPAY | PROVIDERS: PCP Internal Medicine; Visit Provider Registered Nurse Emergency | DX: S46.819D Strain of other muscles, fascia and tendons at shoulder and upper arm level, unspecified arm, subsequent encounter (principal); M47.812 Spondylosis without myelopathy or radiculopathy, cervical region; M47.816 Spondylosis without myelopathy or radiculopathy, lumbar region; M51.36 Other intervertebral disc degeneration, lumbar region | CPT/HCPCS: 99212 ==

== ENCOUNTER 2023-05-20 07:00 | Outpatient (RCR) | payer OTHER, SELFPAY ==
--- NOTE | 2023-04-17 15:22 | MHC.PT.EP ---
[facility] [place] Office [place] Office [place] Office [address] [phone] F: [phone] F: [phone] F: [phone] F: [phone] Physical Therapy Plan of Care Date of Evaluation: Date of Surgery: Diagnosis: DISC DEGENERATION, LUMBAR REGION, FACET ARTHRITIS, SPONDYLOSIS Assessment: 52 YO FEMALE REF TO PT FOR CHRONIC LBP x APPROX 10 YRS. SHE RESIDES ALONE IN AN APT AND SPENDS HER DAYS READING THE BIBLE AND GOING TO ORIENTAL ORTHODOX- SHE NOTES SHE IS CURRENTLY NOT EXER AND HAS NOT HAD PRIOR PT FOR CERVICALGIA. THE Pt HAS DECR TRUNK AND HIP AROM, (+) TISSUE TENSION IN ROSA ELENA THORACOLUMB PS MM, (+) LUMBOPELVIC/PROX LEs STRENGTH DEFICITS, DECR POSTURAL AWARENESS, AND FLUCTUATING PAIN IN ROSA ELENA LUMBOSACRAL REGION / INTERM Rt PROX LE. SHE HAS DECR BRENDA TO DRIVING, SLEEPING COMFORTABLY, PROLONGED SITTING, AND INCR ACTIVITY. THE Pt MAY BENEFIT FROM PT TO ADDRESS POSTURE, SOFT TISSUE MOBILITY, DEV A HEP, IMPROVE POSTURE, AND DEV SELF-SX MGMT TECHN. [ End ] Frequency and Duration: The patient will be seen 2 x WK x 6 WKS Short Term Goals: *Pt INDEP SELF CORRECT POSTURE AND DEMON WFL SQUAT *INITIATE HEP TO ADDRESS HIP/ LUMBOPELVIC FLEXIBILITY AND STRENGTH *DECR LBP TO 2-3/10 Java Systems Analyst Goals: *Pt INDEP HEP AND SELF-SX MGMT TECHN *Pt INDEP W REG ADLs/ EXER ROUTINE REFLECTED WITH IMPROVED OSWESTRY SCORE (AT EVAL 29/50) *Pt DEMON PROPER BODY MECH W 3:3 SIMUL WORK TASKS Treatment Plan: Modalities to reduce pain, spasms and effusion. Manual therapy to restore motion and function. Therapeutic exercise to improve strength and flexibility. Neuromuscular re-education for posture and balance. Therapeutic activities to return to functional activities of daily living. Electronically signed by: FLACO RAGLAND,PT Please sign and return to therapist. Thank you for your referral.
--- NOTE | 2023-05-20 08:48 | MHC.PT.DC ---
[facility] [place] Office [place] Office [place] Office [address] Abiel Quarles [address] [phone] F: [phone] F: [phone] F: [phone] F: [phone] Physical Therapy Discharge Report Diagnosis: DISC DEGENERATION, LUMBAR REGION, FACET ARTHRITIS, SPONDYLOSIS Date of Surgery: Date of Evaluation: 04/17/23 Date of Discharge: 05/20/23 Treatments to Date: 7 Cancellations to Date: 0 No Shows to Date: 0 Discharge Status: Achieved Goals Improved Function Independent with HEP Discharge Summary: THE Pt IS DISPLAYING OVERALL IMPROVED FUNCT MOB WITHOUT THE PAIN AND GUARDING SHE INITIALLY PRESENTED WITH. HER ADL TOLERANCE HAS INCREASED-> SHE DID A LOT OF SHOPPING OVER THE WEEKEND W/O EXACERBATION OF SXS. THE Pt IS INDEP W HER HEP AND SELF-SX MGMT TECHN. SHE HAS MET HER PT GOALS, DISPLAYING WNL FUNCT SQUAT, HIP MOB, AND TRUNK AROM. SHE IS D/C THIS DATE W HER HEP. Electronically signed by: FLACO RAGLAND,PT Please sign and return to therapist. Thank you for your referral.
== END 2023-05-20 08:47 | disposition home or self-care (01) ==
LOC: HO.PT 07:00
PROVIDERS: PCP Internal Medicine; Visit Provider Registered Nurse Emergency
DX: M51.36 Other intervertebral disc degeneration, lumbar region (principal); M47.816 Spondylosis without myelopathy or radiculopathy, lumbar region
CPT/HCPCS: 97110; 97162; 97530

== ENCOUNTER 2023-06-11 10:46 | Outpatient (REF) | payer OTHER, SELFPAY ==
--- NOTE | ~2023-06-11 | US_ITS ---
EXAMINATION: MM DIAGNOSTIC DIGITAL BREAST TOMOSYNTHESIS, RIGHT US BREAST LIMITED, RIGHT MAMMOGRAPHY: CLINICAL INFORMATION: 6 month Follow-up complicated cluster of cysts right breast 9:00 axis, 4 cm from the nipple. COMPARISON: Mammography: 12/03/2022. 11/08/2022. TECHNIQUE: Digital breast tomosynthesis is performed utilizing full-field digital right 3-D CC and MLO projections along with computer-aided detection (CAD). Synthesized 2D images are generated from the tomosynthesis. FINDINGS: There are scattered areas of fibroglandular density (ACR BI-RADS breast composition Category b). There is a stable oval circumscribed isodense mass in the 9:00 axis of the right breast, anterior one third, measuring 7 mm in length. This will again be evaluated by ultrasound. Otherwise, no suspicious masses, grouped calcifications, or developing architectural distortion are identified in the right breast. ULTRASOUND: CLINICAL INFORMATION: 6 month Follow-up complicated cluster of cysts right breast 9:00 axis, 4 cm from the nipple. COMPARISON: 12/03/2022 ultrasound. TECHNIQUE: Targeted sonographic evaluation right breast was performed using a high frequency linear transducer. Selected archived documentation. FINDINGS: RIGHT BREAST: At the 9:00 axis, 4 cm from the nipple, there is redemonstration of a complicated cyst or cluster of cysts measuring approximately 0.4 x 0.4 x 0.5 cm (previously approximately the same) with a small amount of internal color Doppler signal, and good through transmission. This remains probably benign. US/US breast RT limited mamm only IMPRESSION: Stable probably benign complicated cyst right breast 9:00 axis. Six-month interval follow-up right breast targeted ultrasound recommended to ensure stability when the patient is due for bilateral screening. OVERALL ASSESSMENT: Mammography: BI-RADS 3 - Probably benign finding(s) - 6 month follow-up suggested Ultrasound: BI-RADS 3 - Probably benign finding(s) - 6 month follow-up suggested RECOMMENDATION: 6 Month F/U Results were provided to the patient at time of visit by the technologist. This patient's information was entered into a reminder system with a target due date for their next mammogram.
== END 2023-06-11 10:47 | disposition home or self-care (01) ==
LOC: HO.MAMMO 10:46
PROVIDERS: PCP Internal Medicine; Visit Provider Internal Medicine
DX: R92.2 Inconclusive mammogram (principal)
CPT/HCPCS: 76642; 77061; 77065

== ENCOUNTER → 2023-06-11 11:15 | Outpatient (BNV) | payer OTHER, SELFPAY | PROVIDERS: PCP Internal Medicine; Visit Provider Radiology Diagnostic Radiology | DX: N60.01 Solitary cyst of right breast (principal) | CPT/HCPCS: 76642; 77061; 77065 ==

== ENCOUNTER 2023-07-02 07:16 | Outpatient (AMB) | payer OTHER, SELFPAY ==
--- NOTE | 2023-07-02 07:36 | MHC.PC.OV ---
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 Accompanied by: Self / Same As Patient Allergies sumatriptan Adverse Reaction (Mild, Verified 07/02/23 07:43) sleepiness varenicline [From Chantix] Adverse Reaction (Mild, Verified 07/02/23 07:43) depression, nightmares Medication List - Last Reconciled 07/02/23 by Eusebia Syed MD baclofen 5 mg PO BID PRN [bio freeze roll As directed] cholecalciferol (vitamin D3) 10 mcg PO DAILY docusate sodium (Colace) 100 mg PO BID ibuprofen 800 mg PO Q8H lidocaine 5% 1 patch topical TID PRN 30 days [medline phytoplex lotion As directed] meloxicam 15 mg PO DAILY menthol 0.1% (Eucerin Itch Relief) 1 ea topical .once a day 30 days polyethylene glycol 3350 (Miralax) 17 grams PO DAILY PRN 90 days tamsulosin (Flomax) 0.4 mg PO DAILY [Vitamin C ] Tobacco use date assessed: 10/18/22 Dental Screening Dental Screen Date: 07/02/23 Did you have a dental visit in the last 12 months?: Yes Did you have a dental problem in the last 6 months where you did not have access to dental care?: No Was dental information given to patient?: Patient has dentist HPI HPI Comments History of Present Illness Details This is a 52-year-old female that comes for her physical exam. Last mammogram was this month and showed benign findings and next mammogram should be in 6 months. Last colonoscopy was 2021 in [place], [place] and she said she has colonoscopy every 2 years due to hemicolectomy. She also has constipation and will be referred to Gastroenterology. Complains of diffuse joint pain with no fever or rash and will be referred to rheumatology. No need for Pap smear due to hysterectomy. [facility] Medical History (Updated 07/02/23 @ 08:03 by Eusebia Syed MD) Eczema Constipation by delayed colonic transit Hypovitaminosis D Abdominal pain Arthritis Bleeding hemorrhoids Migraine Hemorrhoids Surgical History History of hemorrhoidectomy H/O colonoscopy History of hysterectomy History of colon surgery Family History (Updated 07/02/23 @ 07:48 by Eusebia Syed MD) Mother Asthma Dementia Hypertension COPD (chronic obstructive pulmonary disease) Skin cancer Father Heart attack Prostate cancer Social History Housing: Apartment Alcohol intake: never Patient Tobacco Use Status: Former Tobacco user Quit Date: 1 yr ago Tobacco use type: Cigarette e-Cigarette/Vaping Use: Never Used Second Hand Smoke Exposure: No service: No Current occupational status: unemployed and disabled Cognitive needs: Yes Hearing needs: No Vision needs: Yes Questionnaire Thrive Questionnaire Date Thrive assessed: 10/18/22 EDIN-7 AMB Questionnaire EDIN-7 Date EDIN - 7 assessed: 10/18/22 Source: Developed by Drs. Owen Hernández, Jamila Lares, Ernie Garcia and colleagues, with an educational zia from [employer]. Review of Systems Const All systems reviewed & are unremarkable except as noted in HPI and below Eyes Reports no additional complaints, Denies change in vision and Denies other visual disturbances Card Denies chest pain at rest, Denies chest pain with activity, Denies edema, Denies irregular heart rhythm, Denies claudication, Denies dyspnea, Denies dyspnea on exertion, Denies orthopnea, Denies paroxysmal nocturnal dyspnea and Denies slow heart rate Resp Denies cough, Denies dyspnea and Denies dyspnea on exertion GI Denies abdominal pain, Denies change in bowel habits, Denies excessive flatus, Denies nausea and Denies vomiting Denies urinary incontinence, Denies urinary hesitancy and Denies urinary urgency Musc Denies atrophy, Denies deformity and Denies limited range of motion Physical exam (Primary Care) Vital Signs: Last Vital Signs BP 122/80 07/02/23 07:37 BMI result Body Mass Index 30.2 Tobacco/Smoking Status: Tobacco use Status Tobacco use date assessed 10/18/22 07/02/23 07:42 Patient Tobacco Use Status Former Tobacco user 07/02/23 07:42 Tobacco use type Cigarette 07/02/23 07:42 e-Cigarette/Vaping Use Never Used 07/02/23 07:42 Thrive Assessment: Date of Thrive Assessment Date Thrive assessed 10/18/22 07/02/23 07:42 Const Orientation/consciousness: patient oriented x3 HENMT Head: Yes normal to inspection, Yes normocephalic and Yes atraumatic Ears: external ears normal Eyes General: appearance normal, both eyes and all related structures Eyelids: Yes eyelids normal Conjunctivae: conjunctivae normal Neck Neck: Yes normal visual inspection and Yes supple Resp Effort & Inspection: normal respiratory effort Auscultation: clear to auscultation bilaterally Cardio Jugular venous distension: no JVD Rate: regular rate Rhythm: regular rhythm Heart sounds: S1 normal heart sound present and S2 normal heart sound present GI Inspection: Yes normal to inspection Palpation (GI): Soft to palpation and nontender Auscultation: normal bowel sounds Skin General skin exam: no rashes or lesions noted Neuro General: patient oriented x3 and no focal motor deficits Extrem General: Yes full ROM Psych Appearance: grossly normal Assessment and Plan Assessment & Plan (1) Physical exam: Code(s): Z00.00 - Encounter for general adult medical examination without abnormal findings Plan: Repeat in a year Orders: Orders EUSEBIA Reflex Titer and Pattern Today M25.50 - Pain in unspecified joint Rheumatoid Factor Today M25.50 - Pain in unspecified joint Erythrocyte Sedimentation Rate Today M25.50 - Pain in unspecified joint CRP High Sensitivity Today M25.50 - Pain in unspecified joint Complete Blood Count Auto Diff Today M25.50 - Pain in unspecified joint XR knee LT 2V Today M25.562 - Pain in left knee XR knee RT 2V Today M25.561 - Pain in right knee Lipid Panel Today E78.5 - Hyperlipidemia, unspecified Comprehensive [place]. Panel Fast Today M25.50 - Pain in unspecified joint Cyclic Citrullinated Peptide Today M25.50 - Pain in unspecified joint Referrals Gastroenterology Referral K59.01 - Slow transit constipation Rheumatology Referral M25.50 - Pain in unspecified joint Orthopedics Referral M25.561 - Pain in right knee, M25.562 - Pain in left knee Medications: Discontinued tamsulosin (Flomax) Discontinued Reason: Patient Completed Course 0.4 mg PO DAILY 30 caps 0RF meloxicam Discontinued Reason: Patient Completed Course 15 mg PO DAILY 30 tabs 1RF M47.812 - Spondylosis without myelopathy or radiculopathy, cervical region, M47.816 - Spondylosis without myelopathy or radiculopathy, lumbar region, M51.36 - Other intervertebral disc degeneration, lumbar region Coding Level of Care Code Est Pt Prev Care 40-64y(74289) Diagnoses Physical exam Z00.00 Time Spent (min) 32
[2023-07-02 07:37] VITALS: BP 122/80; BMI 30.2
== END 2023-07-02 07:59 | disposition home or self-care (01) ==
PROVIDERS: Visit Provider Internal Medicine
DX: Z00.00 Encounter for general adult medical examination without abnormal findings (principal)
CPT/HCPCS: 99396

== ENCOUNTER 2023-07-02 08:09 | Outpatient (REF) | payer OTHER, SELFPAY ==
--- NOTE | ~2023-07-02 | XR_ITS ---
EXAMINATION: XR KNEE, RIGHT XR KNEE, LEFT CLINICAL INFORMATION: Right and left knee pain. COMPARISON: None. TECHNIQUE: AP and lateral views of the right and left knee. FINDINGS: Right Knee: No acute fracture or dislocation. No significant joint space narrowing. Tiny patellofemoral compartment marginal osteophytes. No osseous erosion. Superior patellar enthesophyte. No significant joint effusion. Left Knee: No acute fracture or dislocation. No significant joint space narrowing. Tiny patellofemoral compartment marginal osteophytes. No osseous erosion. Superior patellar enthesophyte. No significant joint effusion. XR/XR knee RT 2V IMPRESSION: Minimal patellofemoral compartment osteoarthritis within the right and left knee.
--- NOTE | ~2023-07-02 | XR_ITS ---
EXAMINATION: XR KNEE, RIGHT XR KNEE, LEFT CLINICAL INFORMATION: Right and left knee pain. COMPARISON: None. TECHNIQUE: AP and lateral views of the right and left knee. FINDINGS: Right Knee: No acute fracture or dislocation. No significant joint space narrowing. Tiny patellofemoral compartment marginal osteophytes. No osseous erosion. Superior patellar enthesophyte. No significant joint effusion. Left Knee: No acute fracture or dislocation. No significant joint space narrowing. Tiny patellofemoral compartment marginal osteophytes. No osseous erosion. Superior patellar enthesophyte. No significant joint effusion. XR/XR knee LT 2V IMPRESSION: Minimal patellofemoral compartment osteoarthritis within the right and left knee.
== END 2023-07-02 08:10 | disposition home or self-care (01) ==
LOC: HO.XRAY 08:09
PROVIDERS: PCP Internal Medicine; Visit Provider Internal Medicine
DX: M25.562 Pain in left knee (principal); M25.561 Pain in right knee
CPT/HCPCS: 73560

== ENCOUNTER 2023-07-03 06:03 | Outpatient (REF) | payer OTHER, SELFPAY ==
[2023-07-03 06:24] LABS: MANUAL DIFF FLAG NO
[2023-07-03 07:32] LABS: Basophils Percent Auto 0.9 % (0-2); Eosinophils Absolute Auto 0.1 X10*3/uL (0.0-0.4); Eosinophils Percent Auto 1.7 % (0-4); Hematocrit 38.2 % (37.0-47.0); Hemoglobin 12.5 g/dl (12.0-16.0); Imm Gran Abs Auto 0.01 X10*3/uL (0.00-0.03); Imm Gran Pct Auto 0.2 % (0.0-0.4); Lymphocytes Absolute Auto 1.7 X10*3/uL (1.2-4.9); Mean Corpuscular HGB Conc 32.7 g/dl (31.0-35.0); Mean Corpuscular Hemoglobin 30.2 pg (27.0-33.0); Mean Corpuscular Volume 92.3 fL (80.0-98.0); Mean Platelet Volume 9.5 fL (9.4-12.3); Monocytes Absolute Auto 0.6 X10*3/uL (0.1-1.2); Monocytes Percent Auto 13.1 % (2-11); Neutrophils Absolute Auto 2.1 x10*3/uL (2.0-8.3); Neutrophils Percent Auto 46.1 % (45-73); Platelet Count 343 X10*3/uL (160-400); Red Blood Count 4.14 X10*6/uL (4.20-5.50); Red Cell Distribution Width 13.3 % (11.0-16.0); White Blood Count 4.6 X10*3/uL (4.8-10.8)
[2023-07-03 08:01] LABS: Alanine Aminotransferase 25 U/L (0-31); Albumin Level 4.2 g/dL (3.5-5.0); Alkaline Phosphatase 69 U/L (39-117); Anion Gap 11 (12-20); Aspartate Amino Transferase 25 U/L (5-31); Bilirubin Direct 0.2 mg/dL (0.0-0.5); Bilirubin Total 0.8 mg/dL (0.0-1.0); Blood Urea Nitrogen 11 mg/dL (9-16); Calcium 9.5 mg/dL (8.4-10.2); Carbon Dioxide 27 mmol/L (22-29); Chloride 106 mmol/L (96-108); Cholesterol 227 mg/dL (<200); Estimated Glomerular Filt Rate > 60; Glucose Fasting 96 mg/dL (60-99); HDL Cholesterol 89 mg/dL (>40); LDL Cholesterol Calculated 127 mg/dL (<100); Sodium 140 mmol/L (135-145); Total Protein 7.4 g/dL (6.5-8.0); Triglycerides 55 mg/dL (<150)
[2023-07-03 08:37] LABS: Erythrocyte Sedimentation Rate 6 MM/HR (0-20)
[2023-07-03 13:05] LABS: Rheumatoid Factor < 13.0 IU/mL (<15.0)
[2023-07-05 11:39] LABS: Cyclic Citrullinated Peptide <16 UNITS
[2023-07-05 15:48] LABS: CRP High Sensitivity 0.7 mg/L
[2023-07-08 14:43] LABS: Anti Nuclear Antibody Screen NEGATIVE (NEGATIVE)
== END 2023-07-03 06:04 | disposition home or self-care (01) ==
LOC: HO.LAB 06:03
PROVIDERS: PCP Internal Medicine; Visit Provider Internal Medicine
DX: M25.50 Pain in unspecified joint (principal); R10.9 Unspecified abdominal pain; E78.5 Hyperlipidemia, unspecified
CPT/HCPCS: 36415; 80053; 80061; 80076; 82248; 85025; 85652; 86038; 86141; 86200; 86431

== ENCOUNTER 2023-07-17 07:54 | Outpatient (AMB) | payer OTHER, SELFPAY ==
--- NOTE | 2023-07-17 07:57 | MHC.OFFVIS ---
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 Patient reports pain has been present for years, that has been recently getting worse. Denies injury. Constant pain at the anterior aspect of knee and occasionally her knees give out. Constant pain at the anterior aspect of knee. States pain, numbness and tingling at the bottom of feet. She has difficulty with stair use. Patient has tried PT in the past that has not helped as well as ibuprofen. Allergies sumatriptan Adverse Reaction (Mild, Verified 07/17/23 08:08) sleepiness varenicline [From Chantix] Adverse Reaction (Mild, Verified 07/17/23 08:08) depression, nightmares Medication List - Last Reconciled 07/17/23 by Roberta Hui PA-C baclofen 5 mg PO BID PRN [bio freeze roll As directed] cholecalciferol (vitamin D3) 10 mcg PO DAILY docusate sodium (Colace) 100 mg PO BID ibuprofen 800 mg PO Q8H lidocaine 5% 1 patch topical TID PRN 30 days [medline phytoplex lotion As directed] menthol 0.1% (Eucerin Itch Relief) 1 ea topical .once a day 30 days polyethylene glycol 3350 (Miralax) 17 grams PO DAILY PRN 90 days [Vitamin C ] 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 She states she has worsening constant pain in the anterior aspect of her knees which is aggravated with ambulation, bending and stair use. She also c/o occasional knee crunching, grinding and giving out and she does experience numbness and tingling at the bottom of her feet as well. She has tried physical therapy and ibuprofen in the past which did not provide her any relief. She has not had any injury in the past. She does not have a history of diabetes. [facility] Medical History Eczema Constipation by delayed colonic transit Hypovitaminosis D Abdominal pain Arthritis Bleeding hemorrhoids Migraine Hemorrhoids Surgical History History of hemorrhoidectomy H/O colonoscopy History of hysterectomy History of colon surgery Family History (Updated 07/02/23 @ 07:48 by Eusebia Syed MD) Mother Asthma Dementia Hypertension COPD (chronic obstructive pulmonary disease) Skin cancer Father Heart attack Prostate cancer Social History Housing: Apartment Alcohol intake: never Patient Tobacco Use Status: Former Tobacco user Quit Date: 1 yr ago Tobacco use type: Cigarette e-Cigarette/Vaping Use: Never Used Second Hand Smoke Exposure: No service: No Current occupational status: unemployed and disabled Cognitive needs: Yes Hearing needs: No Vision needs: Yes Review of Systems Const All systems reviewed & are unremarkable except as noted in HPI and below Physical Exam Vital Signs: BMI result Body Mass Index 30.2 Const General: cooperative, healthy appearing, comfortable, no acute distress, well developed and alert Orientation/consciousness: patient oriented x3 HEENT Head: Yes normal to inspection, Yes normocephalic and Yes atraumatic Eyes General: appearance normal, both eyes and all related structures Resp Effort & Inspection: normal respiratory effort and able to speak in complete sentences Cardio Rate: regular rate Peripheral pulses: Peripheral pulses 2+ throughout GI Palpation (GI): Soft to palpation Skin Lesions: no lesions Rashes: no rashes Neuro General: patient oriented x3 Extrem Other: Bilateral knee: Skin intact, no erythema or joint effusion. Lateral retropatellar tenderness present. Full ROM with crepitus. Negative Randy?s. No ligamentous laxity. NVI. Office Procedures Joint Injection/Drain Joint Injection/Drain Primary Site: right knee Secondary Site: left knee Prep: site was prepped using aseptic technique, ethochloride spray was applied and injection warnings given Injected: 40 mg of, DepoMedrol, with 8 mL of, 1% plain lidocaine and in the joint Approach Used: anterolateral Procedure: The patient tolerated the procedure well and there was some relief with the local anesthesia Coding 99452 - Glenohumeral/Tronchanteric Bursa/Intraarticular Procedure code (CPT) selection complete Results Reviewed Results Reviewed: 07/17/23 08:26 Lidocaine HCl 2 % MPF [Xylocaine 2 % MPF] 5 ml .ROUTE .STK-MED ONE methylPREDNISolone acetate [DEPO-MedroL] 40 mg .ROUTE .STK-MED ONE Xrays were obtained in the office today and personally reviewed by me of both knees show some mild medial joint degeneration with PF oa Assessment & Plan Assessment & Plan (1) Osteoarthritis of both knees: Code(s): M17.0 - Bilateral primary osteoarthritis of knee Qualifiers: Osteoarthritis type: primary Qualified Code(s): M17.0 - Bilateral primary osteoarthritis of knee Plan We discussed options today which include steroid injection. They did consent to move forward with the bilateral knee injection, which was tolerated well. I recommended rest, ice and elevation and OTC anti-inflammatories PRN for discomfort. She was also given a handout of home exercises program and was fit for a Janumet knee brace. If she continues to have discomfort or finds that the home exercises is not helping and would like to have formal therapy, she will contact us for a referral. Orders: Orders XR knee RT 1V Today M25.561 - Pain in right knee XR knee LT 1V Today M25.562 - Pain in left knee XR knee standing BI Today M25.561 - Pain in right knee, M25.562 - Pain in left knee Patient Instructions: Scribed for Roberta Hui PA-C, by Ozzie Downs coroner/medical examiner, on 07/17/2023 at 8:00 AM EST. IRoberta PA-C, have personally reviewed and agree with the information entered by the scribe. Coding Level of Care Code New Pt Level 3 (99885) Diagnoses Primary osteoarthritis of both knees M17.0 Osteoarthritis type: primary CPT Codes Coding - Joint 7: 53884 - Glenohumeral/Tronchanteric Bursa/Intraarticular ([id number])
[2023-07-17 08:06] VITALS: BMI 30.2
== END 2023-07-17 09:16 | disposition home or self-care (01) ==
PROVIDERS: PCP Internal Medicine; Visit Provider Physician Assistant
DX: M17.0 Bilateral primary osteoarthritis of knee (principal)
CPT/HCPCS: 20610; 99204

== ENCOUNTER 2023-07-17 15:56 | Outpatient (REF) | payer OTHER, SELFPAY ==
--- NOTE | ~2023-07-17 | XR_ITS ---
EXAMINATION: XR KNEE STANDING, BILATERAL XR KNEE, RIGHT XR KNEE, LEFT CLINICAL INFORMATION: Pain COMPARISON: Left and right knee radiographs from 07/02/2023 TECHNIQUE: Single view of the bilateral standing knee single sunrise view of both knees FINDINGS: RIGHT: No acute visible fracture or dislocation. Slight narrowing of the medial femorotibial compartment and lateral patellofemoral compartment. Joint spaces and alignment are otherwise maintained. Soft tissues are unremarkable. LEFT: No acute visible fracture or dislocation. Slight narrowing of the medial femorotibial compartment and lateral patellofemoral compartment. Joint spaces and alignment are otherwise maintained. Soft tissues are unremarkable. XR/XR knee standing BI IMPRESSION: 1. No acute visible fracture or dislocation. 2. Mild bilateral multicompartment degenerative changes.
--- NOTE | ~2023-07-17 | XR_ITS ---
EXAMINATION: XR KNEE STANDING, BILATERAL XR KNEE, RIGHT XR KNEE, LEFT CLINICAL INFORMATION: Pain COMPARISON: Left and right knee radiographs from 07/02/2023 TECHNIQUE: Single view of the bilateral standing knee single sunrise view of both knees FINDINGS: RIGHT: No acute visible fracture or dislocation. Slight narrowing of the medial femorotibial compartment and lateral patellofemoral compartment. Joint spaces and alignment are otherwise maintained. Soft tissues are unremarkable. LEFT: No acute visible fracture or dislocation. Slight narrowing of the medial femorotibial compartment and lateral patellofemoral compartment. Joint spaces and alignment are otherwise maintained. Soft tissues are unremarkable. XR/XR knee RT 1V IMPRESSION: 1. No acute visible fracture or dislocation. 2. Mild bilateral multicompartment degenerative changes.
--- NOTE | ~2023-07-17 | XR_ITS ---
EXAMINATION: XR KNEE STANDING, BILATERAL XR KNEE, RIGHT XR KNEE, LEFT CLINICAL INFORMATION: Pain COMPARISON: Left and right knee radiographs from 07/02/2023 TECHNIQUE: Single view of the bilateral standing knee single sunrise view of both knees FINDINGS: RIGHT: No acute visible fracture or dislocation. Slight narrowing of the medial femorotibial compartment and lateral patellofemoral compartment. Joint spaces and alignment are otherwise maintained. Soft tissues are unremarkable. LEFT: No acute visible fracture or dislocation. Slight narrowing of the medial femorotibial compartment and lateral patellofemoral compartment. Joint spaces and alignment are otherwise maintained. Soft tissues are unremarkable. XR/XR knee LT 1V IMPRESSION: 1. No acute visible fracture or dislocation. 2. Mild bilateral multicompartment degenerative changes.
== END 2023-07-17 15:57 | disposition home or self-care (01) ==
LOC: HO.HOSX 15:56
PROVIDERS: Visit Provider Physician Assistant
DX: M17.0 Bilateral primary osteoarthritis of knee (principal)
CPT/HCPCS: 20610; 73560; 73565; 99202; J1020

== ENCOUNTER 2023-10-02 14:39 | Outpatient (AMB) | payer OTHER, SELFPAY ==
[2023-10-02 14:45] VITALS: BP 116/74; PULSE 79; TEMP 36.5; O2SAT 97; BMI 30.9
--- NOTE | 2023-10-02 14:45 | A.OFFVIS_ITS ---
Intake Vital Signs 10/02/23 14:45 Height 5 ft 2 in Weight 169 lb 1.513 oz BMI 30.9 BP 116/74 Blood Pressure Location Rt brachial Position Sitting Pulse 79 Pulse Source Pulse Oximeter Temp 97.7 F Temp Source Skin Pulse Oximetry (%) 97 Oxygen Delivery Method Room Air Intake Visit Reasons: Joint Pain Intake Note: New pt presents today for consult. No prior rn icu. C/o joint pain, multiple areas for approx 4 years. Reports pressure between the ribs and the hips. Feels a current on arms and tights. Low back keeping her up at night. Has tried PT and medications. 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 Accompanied by: Self / Same As Patient Allergies sumatriptan Adverse Reaction (Mild, Verified 07/17/23 08:08) sleepiness varenicline [From Chantix] Adverse Reaction (Mild, Verified 07/17/23 08:08) depression, nightmares Medication List - Last Reconciled 10/02/23 by Scott Costa MD baclofen 5 mg PO BID PRN [bio freeze roll As directed] cholecalciferol (vitamin D3) 10 mcg PO DAILY docusate sodium (Colace) 100 mg PO BID ibuprofen 800 mg PO Q8H lidocaine 5% 1 patch topical TID PRN 30 days [medline phytoplex lotion As directed] menthol 0.1% (Eucerin Itch Relief) 1 ea topical .once a day 30 days polyethylene glycol 3350 (Miralax) 17 grams PO DAILY PRN 90 days rizatriptan 5 mg PO Q2-4H PRN 30 days [Vitamin C ] HPI HPI Comments History of Present Illness Details This is a 53-year-old female who presents for evaluation of diffuse pain. She states that she has had pain for at least 4 years. Usually and her neck, upper back, shoulders, knees, arms thighs. She tried different treatments including physical therapy, medications such as different NSAIDs and muscle relaxants. She also tried lidocaine patches. She also had a procedure by Pain Management years ago and did not feel it was helpful. She is unaware of any family history of an autoimmune rheumatic disease [facility] Medical History Eczema Constipation by delayed colonic transit Hypovitaminosis D Abdominal pain Arthritis Bleeding hemorrhoids Migraine Hemorrhoids Surgical History History of hemorrhoidectomy H/O colonoscopy History of hysterectomy History of colon surgery Family History Mother Asthma Dementia Hypertension COPD (chronic obstructive pulmonary disease) Skin cancer Osteoarthritis Father Heart attack Prostate cancer Sister Osteoarthritis Social History Housing: Apartment Alcohol intake: former Patient Tobacco Use Status: Former Tobacco user Quit Date: 1 yr ago Tobacco use type: Cigarette e-Cigarette/Vaping Use: Never Used Second Hand Smoke Exposure: No service: No Current occupational status: unemployed and disabled Cognitive needs: Yes Hearing needs: No Vision needs: Yes Female Reproductive History Menstrual Total pregnancies: 5 Ab induced: 1 Ab spontaneous: 1 Review of Systems Const Reports headache(s) Eyes Reports diplopia ENT Reports dizziness, Reports headache(s) and Reports neck pain Card Reports chest pain GI Reports constipation Musc Reports back pain, Reports arthralgias, Reports neck pain, Reports radiating pain into limb, Reports stiffness and Reports tingling Skin/Breast Reports pruritus and Reports rash Neuro Reports dizziness, Reports headache(s), Reports memory loss and Reports tingling Psych Reports memory loss Physical Exam Vital Signs: Last Vital Signs Temp 97.7 F 10/02/23 14:45 Pulse 79 10/02/23 14:45 BP 116/74 10/02/23 14:45 Pulse Ox 97 10/02/23 14:45 Oxygen Delivery Method Room Air 10/02/23 14:45 BMI result Body Mass Index 30.9 Const General: cooperative, healthy appearing and comfortable Nutritional Appearance: overweight Orientation/consciousness: patient oriented x3 Limitations: no limitations HEENT Head: Yes normocephalic and Yes atraumatic Mouth: moist mucous membranes Resp Effort & Inspection: normal respiratory effort and able to speak in complete sentences Auscultation: clear to auscultation bilaterally Cardio Rate: regular rate Rhythm: regular rhythm GI Palpation (GI): Soft to palpation Skin General skin exam: no rashes or lesions noted Neuro General: patient oriented x3 Extrem Other: No active synovitis Normal range of motion of her neck Bilateral lumbar paraspinal muscle tenderness Normal nailfold capillaroscopy Assessment & Plan Assessment & Plan (1) Polyarthralgia: Code(s): M25.50 - Pain in unspecified joint Plan: This is a 53-year-old female who is referred for evaluation of diffuse pain. I do not see any signs of an autoimmune rheumatic disease. Clinical picture rather consistent with degenerative arthritis. Follow-up as needed Plan I spent 18 minutes reviewing patient's chart, evaluating patient, counseling patient and documenting in the chart Coding Level of Care Code New Pt Level 3 (23668) Diagnoses Polyarthralgia M25.50
== END 2023-10-02 15:21 | disposition home or self-care (01) ==
PROVIDERS: PCP Internal Medicine; Visit Provider Student in an Organized Health Care Education/Training Program
DX: M25.50 Pain in unspecified joint (principal)
CPT/HCPCS: 99203

== ENCOUNTER → 2023-10-02 14:39 | Outpatient (BNVA) | payer OTHER, SELFPAY | PROVIDERS: PCP Internal Medicine; Visit Provider Student in an Organized Health Care Education/Training Program | DX: M25.50 Pain in unspecified joint (principal) | CPT/HCPCS: 99202 ==

== ENCOUNTER 2023-12-18 10:45 | Outpatient (REF) | payer OTHER, SELFPAY ==
--- NOTE | ~2023-12-18 | US_ITS ---
EXAMINATION: MM DIAGNOSTIC DIGITAL BREAST TOMOSYNTHESIS, BILATERAL US BREAST LIMITED, RIGHT MAMMOGRAPHY: CLINICAL INFORMATION: Patient due for bilateral screening. History of breast reduction surgery since prior mammogram of 2017. Six-month follow-up for complicated cluster of cysts right breast 9:00 axis, 4 cm from the nipple. COMPARISON: Mammography: 06/11/2023, 12/03/2022, 11/08/2022. Ultrasound right breast 06/11/2023. TECHNIQUE: Digital breast tomosynthesis is performed in both the craniocaudal and mediolateral oblique views along with computer-aided detection (CAD). Synthesized 2D images are generated from the tomosynthesis. In addition to standard views, a full-field right 3-D mediolateral view was obtained. This was followed by targeted right breast ultrasound. FINDINGS: There are scattered areas of fibroglandular density (ACR BI-RADS breast composition Category b). There is a stable oval circumscribed isodense mass in the 9:00 axis of the right breast, anterior one third, measuring 7 mm in length. This will again be evaluated by ultrasound. Otherwise, there are stable changes of post mammoplasty scarring bilaterally. No suspicious masses, suspicious grouped calcifications, or developing architectural distortion identified in either breast. No skin or axillary changes. ULTRASOUND: CLINICAL INFORMATION: Follow-up complicated cluster of cysts 9:00 axis right breast, 4 cm from the nipple. COMPARISON: 06/11/2023. TECHNIQUE: Targeted sonographic evaluation was performed using a high frequency linear transducer. Attention was given to the 9:00 axis of the right breast. Selected archived documentation. FINDINGS: RIGHT BREAST: There is redemonstration of a complicated cyst or cluster of cysts at the 9:00 axis, 4 cm from the nipple, measuring approximately 4 x 4 x 5 mm (previously approximately the same), with a small amount of peripheral color Doppler signal, and good through transmission. The cystic component appears slightly larger, and the complicated component appears smaller on today's exam, otherwise it is an unchanged in size and morphology. This remains probably benign. US/US breast RT limited mamm only IMPRESSION: No findings in either breast suspicious for malignancy. Stable post mammoplasty changes in both breasts. Essentially stable benign complicated cyst right breast 9:00 axis. One-year follow-up targeted right breast ultrasound recommended to establish a two-year stability. OVERALL ASSESSMENT: Mammography: BI-RADS 3 - Probably benign finding(s) - 12 month follow-up suggested Ultrasound: BI-RADS 3 - Probably benign finding(s) - 12 month follow-up suggested RECOMMENDATION: 12 month diagnostic follow up This patient's information was entered into a reminder system with a target due date for their next mammogram.
== END 2023-12-18 10:46 | disposition home or self-care (01) ==
LOC: HO.MAMMO 10:45
PROVIDERS: PCP Internal Medicine; Visit Provider Internal Medicine
DX: R92.2 Inconclusive mammogram (principal)
CPT/HCPCS: 76642; 77062; 77066

== ENCOUNTER → 2023-12-18 11:00 | Outpatient (BNV) | payer OTHER, SELFPAY | PROVIDERS: PCP Internal Medicine; Visit Provider Radiology Diagnostic Radiology | DX: N60.01 Solitary cyst of right breast (principal) | CPT/HCPCS: 76642; 77066; G0279 ==

== ENCOUNTER 2024-02-28 06:23 | Day surgery (SDC) | payer OTHER, SELFPAY ==
[2024-02-27 06:58] VITALS: BMI 30.5
--- NOTE | 2024-02-27 10:15 | P.CONAN_ITS ---
Documented by User: Sosa Samuels NP 02/27/24 10:16 HPI - Anesthesia Eval Consult details Narrative: 53yo F for Colonoscopy PMFSH Active Problems Active Problems: All Active Problems Osteoarthritis of both knees (Acute) Right knee pain (Acute) Left knee pain (Acute) Knee pain, bilateral (Acute) Polyarthralgia (Acute) Trapezius muscle strain (Acute) Hemorrhoids (Acute) Constipation by delayed colonic transit (Acute) Abdominal pain (Acute) Eczema (Acute) Hypovitaminosis D (Acute) Facet arthritis of lumbar region (Acute) Degenerative disc disease, lumbar (Acute) Spondylosis of cervical spine (Acute) Back pain (Acute) Neck pain (Acute) Upper respiratory tract infection (Acute) Physical exam (Acute) Migraines (Acute) Bleeding hemorrhoids (Acute) Migraine (Acute) Past Medical History Medical History Eczema Constipation by delayed colonic transit Hypovitaminosis D Abdominal pain Arthritis Bleeding hemorrhoids Migraine Hemorrhoids Family History Family History Mother Asthma Dementia Hypertension COPD (chronic obstructive pulmonary disease) Skin cancer Osteoarthritis Father Heart attack Prostate cancer Sister Osteoarthritis Family history of problems with anesthesia: No Surgical History Surgical History History of hemorrhoidectomy H/O colonoscopy History of hysterectomy History of colon surgery History of Problems with Anesthesia: No Social History Social History Housing: Apartment Alcohol intake: former Patient Tobacco Use Status: Former Tobacco user Quit Date: 1 yr ago Tobacco use type: Cigarette e-Cigarette/Vaping Use: Never Used Second Hand Smoke Exposure: No Use of substances other than those prescribed or required for medical reasons: No Are you DNR?: No Advance Directives: No Advance Directives Information Provided: Yes service: No Current occupational status: unemployed and disabled Cognitive needs: Yes Hearing needs: No Vision needs: Yes Meds Allergies Allergy/AdvReac Type Severity Reaction Status Date / Time sumatriptan AdvReac Mild sleepiness Verified 07/17/23 08:08 varenicline [From Chantix] AdvReac Mild depression, Verified 07/17/23 08:08 nightmares Home Medications ?Medication ?Instructions ?Recorded ?Confirmed ?Last Taken ?Type Vitamin C 12/14/22 10/02/23 Unknown History cholecalciferol (vitamin D3) 10 10 mcg PO DAILY 01/24/23 02/27/24 02/27/24 History mcg (400 unit) capsule Exam Height,Weight and Vital Signs: Height 5 ft 2 in Weight 75.75 kg Assessment and Plan Assessment Anesthesia Assessment: Chart Reviewed Final Anesthetic Review Family History of Problems with Anesthesia: No History of Problems with Anesthesia: No Documented by User: Marilia Bear MD 02/28/24 07:26 [facility] Past Medical History Medical History Eczema Constipation by delayed colonic transit Hypovitaminosis D Abdominal pain Arthritis Bleeding hemorrhoids Migraine Hemorrhoids Family History Family History Mother Asthma Dementia Hypertension COPD (chronic obstructive pulmonary disease) Skin cancer Osteoarthritis Father Heart attack Prostate cancer Sister Osteoarthritis Surgical History Surgical History History of hemorrhoidectomy H/O colonoscopy History of hysterectomy History of colon surgery Social History Social History Housing: Apartment Alcohol intake: former Patient Tobacco Use Status: Former Tobacco user Quit Date: 1 yr ago Tobacco use type: Cigarette e-Cigarette/Vaping Use: Never Used Second Hand Smoke Exposure: No Use of substances other than those prescribed or required for medical reasons: No Are you DNR?: No Advance Directives: No Advance Directives Information Provided: Yes service: No Current occupational status: unemployed and disabled Cognitive needs: Yes Hearing needs: No Vision needs: Yes Meds Allergies Allergy/AdvReac Type Severity Reaction Status Date / Time sumatriptan AdvReac Mild sleepiness Verified 07/17/23 08:08 varenicline [From Chantix] AdvReac Mild depression, Verified 07/17/23 08:08 nightmares Home Medications ?Medication ?Instructions ?Recorded ?Confirmed ?Last Taken ?Type Vitamin C 12/14/22 10/02/23 Unknown History cholecalciferol (vitamin D3) 10 10 mcg PO DAILY 01/24/23 02/27/24 02/27/24 History mcg (400 unit) capsule Exam Airway Mallampati Class: II TM Dist: >3cm Neck ROM: Full Loose/Missing/Broken Teeth: No Heart: RRR Lungs: CTA Assessment and Plan Assessment Anesthesia Assessment: Anesthesia Plan Discussed Final Anesthetic Review NPO: Yes ASA Class: II Final Preanesthetic Review: Meds/Allgs Chart Reviewed, Consent Obtained/Reviewed and Anes Risks/Benef Reviewed Patient Risk: Low Procedure Risk: Low Anesthetic Plan Anesthetic Plan: MAC: Disposition: Standard PACU
[2024-02-28 06:29] VITALS: BMI 30.2
[2024-02-28 06:47] VITALS: BP 124/75; PULSE 71; RESP 16; TEMP 36.4; O2SAT 97
[2024-02-28] MEDS: Lactated Ringers 1,000 ML 100 ML IVCONT (06:48)
[2024-02-28 08:08] VITALS: BP 124/77; PULSE 71; RESP 18; TEMP 36.1; O2SAT 97
--- NOTE | 2024-02-28 08:10 | P.BOP_ITS ---
Brief Operative Note Date of Service: 02/28/24 Pre-op diagnosis: Screening Post-op diagnosis: other (Diverticulosis) Procedure: Colonoscopy to the cecum and TI Surgeon: Owen Simon MD Anesthesia: MAC Was an Supervisor Carbon Electrodes used for this Procedure?: No Estimated blood loss (mL): 0 Pathology: none sent Condition: stable Disposition: PACU
[2024-02-28 08:23] VITALS: BP 128/85; PULSE 75; RESP 16; TEMP 36.1; O2SAT 97
--- NOTE | 2024-02-28 08:32 | OP_ITS ---
DATE OF SERVICE: 02/28/2024 SURGEON: Owen Simon MD INDICATIONS: The patient presents for evaluation of personal history of colon polyps and colorectal cancer screening. Full consent has been obtained from her for this, including risks of bleeding and perforation. PREOPERATIVE DIAGNOSIS: POSTOPERATIVE DIAGNOSIS: PROCEDURE PERFORMED: Colonoscopy to cecum and terminal ileum. ESTIMATED BLOOD LOSS: COMPLICATIONS: ANESTHESIA: Medication used, monitored anesthesia care. ASSISTANTS: SPECIMENS: PREOPERATIVE DIAGNOSES: Colorectal cancer screening and personal history of colon polyps. POSTOPERATIVE DIAGNOSES: Colorectal cancer screening and personal history of colon polyps, mild diverticulosis, normal anastomosis. DESCRIPTION OF PROCEDURE: The patient was placed in the left lateral decubitus position. The digital rectal exam revealed no abnormalities. The Olympus video pediatric colonoscope was entered into the rectum and advanced easily to the region of the cecum. Once in the cecum I did identify cecal pouch with appendiceal orifice and a normal-appearing ileocecal valve. The terminal ileum was cannulated and appeared normal. The scope was withdrawn back in the colon. There was some residual stool in the cecum, which prevented complete visualization of the cecum, but the majority of the cecum was visualized and appeared normal. The scope was then slowly withdrawn assessing all mucosal surfaces carefully. Portions of the colon were obscured by some solid stool, but the majority of the colon was well visualized and did appear normal. The anastomosis was seen at approximately 60 cm and appeared normal. There was no sign of any narrowing. There was a mild amount of sigmoid diverticulosis. In the rectum, scope was retroflexed visualizing scarring from her previous hemorrhoid surgery, but no other pathology. The rectal mucosa appeared normal. I did not visualize any sign of polyps, colitis, nor angiodysplasia throughout the colon. The scope was withdrawn from the patient. She tolerated the procedure well and was returned to recovery area in stable condition. IMPRESSION: 1. Diverticulosis. 2. Normal anastomosis. PLAN: Given her previous history and the somewhat limited prep, I would recommend a repeat colonoscopy in 3 years. At that point, I would recommend a 2 day prep. She does report that her bowel movements have improved by using MiraLax twice a day on a regular basis and I did advise her to continue that. She will otherwise see me on a p.r.n. basis. MD LUIS A Monson/GRAY / [id number]
== END 2024-02-28 08:38 | disposition home or self-care (01) ==
PROVIDERS: PCP Internal Medicine; Visit Provider Internal Medicine
PROC: 0DJD8ZZ Inspection of Lower Intestinal Tract, Via Natural or Artificial Opening Endoscopic (ICD-10-PCS; CPT 45378; principal; 2024-02-28 07:30)
DX: Z12.11 Encounter for screening for malignant neoplasm of colon (principal); K57.30 Diverticulosis of large intestine without perforation or abscess without bleeding; K63.89 Other specified diseases of intestine; R19.5 Other fecal abnormalities; Z86.010 Personal history of colon polyps; Z87.891 Personal history of nicotine dependence
CPT/HCPCS: G0105; J2704

== ENCOUNTER 2024-06-16 14:15 | Outpatient (AMB) | payer OTHER, SELFPAY ==
--- NOTE | 2024-06-16 14:30 | MHC.PC.OV ---
Vital Signs 06/16/24 14:32 06/16/24 20:05 Height 5 ft 2 in Weight 167 lb BMI 30.5 BP 152/84 H 150/80 H Blood Pressure Location Lt brachial Lt brachial Position Sitting Sitting Intake Visit Reasons: severe headaches for over a year Intake Note: Patient here c/o severe back of head pains trouble with vision, dizziness Settlement Clerk Required: No Accompanied by: Self / Same As Patient Allergies sumatriptan Adverse Reaction (Mild, Verified 06/16/24 14:51) sleepiness varenicline [From Chantix] Adverse Reaction (Mild, Verified 06/16/24 14:51) depression, nightmares Medication List - Last Reconciled 06/16/24 by Eusebia Syed MD [bio freeze roll As directed] cholecalciferol (vitamin D3) 10 mcg PO DAILY docusate sodium (Colace) 100 mg PO BID ibuprofen 800 mg PO Q8H lidocaine 4% (AsperFlex (lidocaine)) 1 patch topical DAILY PRN 30 days [medline phytoplex lotion As directed] rizatriptan 5 mg PO Q2-4H PRN 30 days [Vitamin C ] Tobacco use date assessed: 06/16/24 Dental Screening Dental Screen Date: 06/16/24 Did you have a dental visit in the last 12 months?: Yes Did you have a dental problem in the last 6 months where you did not have access to dental care?: No Was dental information given to patient?: Patient has dentist HPI HPI Comments History of Present Illness Details This is a 53-year-old female with constipation that complains of occipital migraine that radiates to the temples that happened on a daily basis associated with photosensitivity and started about 5 months ago. She has also dizziness associated with this headache. Will order MRI and start her on triptans. Will do propranolol for prophylaxis. Constipation stable with medications. Will be referred to Neurology. Blood pressure is elevated and will be recheck in 3 weeks by nurse navigator. [facility] Medical History (Updated 06/16/24 @ 20:07 by Eusebia Syed MD) Eczema Constipation by delayed colonic transit Hypovitaminosis D Abdominal pain Arthritis Bleeding hemorrhoids Migraine Hemorrhoids Surgical History History of hemorrhoidectomy H/O colonoscopy History of hysterectomy History of colon surgery Family History Mother Asthma Dementia Hypertension COPD (chronic obstructive pulmonary disease) Skin cancer Osteoarthritis Father Heart attack Prostate cancer Sister Osteoarthritis Social History Housing: Apartment Alcohol intake: former Patient Tobacco Use Status: Former Tobacco user Tobacco use type: Cigarette e-Cigarette/Vaping Use: Never Used Second Hand Smoke Exposure: No service: No Current occupational status: unemployed and disabled Cognitive needs: Yes Hearing needs: No Vision needs: Yes Questionnaire PHQ-9 Over the last 2 weeks, how often have you been bothered by any of the following problems? 1. Little interest or pleasure in doing things: not at all 2. Feeling down, depressed, or hopeless: not at all 3. Trouble falling or staying asleep, or sleeping too much: not at all 4. Feeling tired or having little energy: not at all 5. Poor appetite or overeating: not at all 6. Feeling bad about yourself - or that you are a failure or have let yourself or your family down: not at all 7. Trouble concentrating on things, such as reading the newspaper or watching television: not at all 8. Moving or speaking so slowly that other people could have noticed. Or the opposite - being so fidgety or restless that you have been moving around a lot more than usual: not at all 9. Thoughts that you would be better off or of hurting yourself in some way: not at all Total score: 0 Depression Screening Interpretation: Negative Depression Screening Done: Yes 43495 - PHQ-9 Billing: Yes Source: Developed by Drs. Owen Hernández, Jamila Lares, Ernie Garcia and colleagues, with an educational zia from [employer]. Thrive Questionnaire Date Thrive assessed: 06/16/24 I am a: Patient What is your living situation today?: I have a steady place to live Within the past 12 months, did the food you bought not last and you didn't have the money to get more?: Never true Within the past 12 months, did you worry whether your food would run out before you got money to buy more?: Never true Do you have trouble paying for medicines?: No Do you have trouble getting transportation to medical appointments?: No Do you have trouble paying your heating and electricity bill?: No Do you have trouble taking care of your child, family member or friend?: No Do you have trouble with day-to-day activities such as bathing, preparing meals, shopping, managing finances, etc.?: No Are you currently unemployed and looking for a job?: No Are you interested in more education?: No Please select the resources that you would like help with: None Currently or been in a relationship where the following occur: No concerns reported THRIVE Score: 0 AUDIT C Alcohol Use Questionnaire (AUDIT-C) 1. How often do you have a drink containing alcohol?: Never Total Score: 0 Score Reviewed/Action Taken: No EDIN-7 AMB Questionnaire EDIN-7 Date EDIN - 7 assessed: 06/16/24 Feeling nervous, anxious, or on edge: 0 = Not at all Not being able to stop or control worryin = Not at all Worrying too much about different things: 0 = Not at all Trouble relaxin = Not at all Being so restless that it is hard to sit still: 0 = Not at all Becoming easily annoyed or irritable: 0 = Not at all Feeling afraid as if something awful might happen: 0 = Not at all Total EDIN-7 score (0-4 normal; 5-9 mild; 10-14 moderate; 15-21 severe): 0 Source: Developed by Drs. Owen Hernández, Jamila Lares, Ernie Garcia and colleagues, with an educational zia from [employer]. EDIN-7 Assessment Billing EDIN-7 Assessment Tool: EDIN-7 Assessment 05094 Review of Systems Const All systems reviewed & are unremarkable except as noted in HPI and below Reports headache(s) ENT Reports headache(s) Card Denies chest pain at rest, Denies chest pain with activity, Denies edema, Denies irregular heart rhythm, Denies claudication, Denies dyspnea, Denies dyspnea on exertion, Denies orthopnea, Denies paroxysmal nocturnal dyspnea and Denies slow heart rate Resp Denies cough, Denies dyspnea and Denies dyspnea on exertion GI Denies abdominal pain, Denies change in bowel habits, Denies excessive flatus, Denies nausea and Denies vomiting Denies urinary incontinence, Denies urinary hesitancy and Denies urinary urgency Musc Denies abnormal gait, Denies atrophy, Denies deformity and Denies limited range of motion Skin/Breast Denies bleeding lesions, Denies changing lesions and Denies rash Neuro Denies abnormal gait, Denies behavioral changes, Reports headache(s) and Denies lack of coordination Psych Denies behavioral changes Physical exam (Primary Care) Vital Signs: Last Vital Signs BP 152/84 H 06/16/24 14:32 BMI result Body Mass Index 30.5 BMI Assessment/Plan discussion: High BMI High, discussed plan: lifestyle, weight reduction, dietary and physical activity Tobacco/Smoking Status: Tobacco use Status Tobacco use date assessed 06/16/24 06/16/24 14:37 Patient Tobacco Use Status Former Tobacco user 06/16/24 14:37 Tobacco use type Cigarette 06/16/24 14:37 e-Cigarette/Vaping Use Never Used 06/16/24 14:37 PHQ-9: PHQ-9 Score PHQ-9: Total score 0 06/16/24 14:53 Depression Screening Interpretation: Negative Thrive Assessment: Date of Thrive Assessment Date Thrive assessed 06/16/24 06/16/24 14:37 Currently or been in a relationship where the following occur: No concerns reported Resp Effort & Inspection: normal respiratory effort Auscultation: clear to auscultation bilaterally Cardio Jugular venous distension: no JVD Rate: regular rate Rhythm: regular rhythm Heart sounds: S1 normal heart sound present and S2 normal heart sound present Neuro General: no focal motor deficits Extrem General: Yes full ROM Assessment and Plan Assessment & Plan (1) New daily persistent headache: Code(s): G44.52 - New daily persistent headache (NDPH) Plan: Start Triptan as needed. MRI ordered. (2) Constipation by delayed colonic transit: Code(s): K59.01 - Slow transit constipation Plan: Continue Colace as needed. (3) Elevated blood pressure reading without diagnosis of hypertension: Code(s): R03.0 - Elevated blood-pressure reading, without diagnosis of hypertension Plan: Recheck blood pressure with nurse navigator in 3 weeks. Blood pressure goal is equal or less than 130/80. Orders: Orders MR head/brain wo con Today G44.52 - New daily persistent headache (NDPH) Comprehensive [place]. Panel Fast Today G44.52 - New daily persistent headache (NDPH) Lipid Panel Today E78.5 - Hyperlipidemia, unspecified Complete Blood Count Auto Diff Today G44.52 - New daily persistent headache (NDPH) Medications: New propranolol 20 mg PO BID 60 tabs 3RF 30 days G44.52 - New daily persistent headache (NDPH) Coding Level of Care Code Est Pt Level 3 (80484) Complex EM visit Add On G2211 Diagnoses New daily persistent headache G44.52 Constipation by delayed colonic transit K59.01 Elevated blood pressure reading without diagnosis of hypertension R03.0 Additional Codes EDIN-7 Assessment Billing - EDIN-7 Assessment Tool: EDIN-7 Assessment 55148 ([id number]) Time Spent (min) 19
[2024-06-16 14:32] VITALS: BP 152/84; BMI 30.5
[2024-06-16 20:05] VITALS: BP 150/80
== END 2024-06-16 15:04 | disposition home or self-care (01) ==
PROVIDERS: PCP Internal Medicine; Visit Provider Internal Medicine
DX: G44.52 New daily persistent headache (NDPH) (principal); K59.01 Slow transit constipation; R03.0 Elevated blood-pressure reading, without diagnosis of hypertension
CPT/HCPCS: 99213; G2211

== ENCOUNTER 2024-06-26 07:17 | Outpatient (REF) | payer OTHER, SELFPAY ==
[2024-06-26 07:24] LABS: MANUAL DIFF FLAG NO
[2024-06-26 07:57] LABS: Basophils Absolute Auto 0.1 X10*3/uL (0.0-0.2); Basophils Percent Auto 1.2 % (0-2); Eosinophils Absolute Auto 0.1 X10*3/uL (0.0-0.4); Eosinophils Percent Auto 2.3 % (0-4); Hematocrit 37.1 % (37.0-47.0); Hemoglobin 12.3 g/dl (12.0-16.0); Imm Gran Abs Auto 0.01 X10*3/uL (0.00-0.03); Imm Gran Pct Auto 0.2 % (0.0-0.4); Lymphocytes Absolute Auto 2.5 X10*3/uL (1.2-4.9); Mean Corpuscular HGB Conc 33.2 g/dl (31.0-35.0); Mean Corpuscular Hemoglobin 30.7 pg (27.0-33.0); Mean Corpuscular Volume 92.5 fL (80.0-98.0); Mean Platelet Volume 9.2 fL (9.4-12.3); Monocytes Absolute Auto 0.6 X10*3/uL (0.1-1.2); Monocytes Percent Auto 11.1 % (2-11); Neutrophils Absolute Auto 1.9 x10*3/uL (2.0-8.3); Neutrophils Percent Auto 37.2 % (45-73); Platelet Count 317 X10*3/uL (160-400); Red Blood Count 4.01 X10*6/uL (4.20-5.50); Red Cell Distribution Width 13.1 % (11.0-16.0); White Blood Count 5.2 X10*3/uL (4.8-10.8)
[2024-06-26 08:35] LABS: Alanine Aminotransferase 22 U/L (0-31); Albumin Level 4.2 g/dL (3.5-5.0); Alkaline Phosphatase 62 U/L (39-117); Anion Gap 11 (12-20); Aspartate Amino Transferase 19 U/L (5-31); Bilirubin Total 0.8 mg/dL (0.0-1.0); Blood Urea Nitrogen 10 mg/dL (9-16); Calcium 9.9 mg/dL (8.4-10.2); Carbon Dioxide 29 mmol/L (22-29); Chloride 107 mmol/L (96-108); Cholesterol 250 mg/dL (<200); Estimated Glomerular Filt Rate > 60; Glucose Fasting 99 mg/dL (60-99); HDL Cholesterol 98 mg/dL (>40); LDL Cholesterol Calculated 141 mg/dL (<100); Sodium 143 mmol/L (135-145); Total Protein 7.3 g/dL (6.5-8.0); Triglycerides 56 mg/dL (<150)
== END 2024-06-26 07:18 | disposition home or self-care (01) ==
LOC: HO.LAB 07:17
PROVIDERS: PCP Internal Medicine; Visit Provider Internal Medicine
DX: G44.52 New daily persistent headache (NDPH) (principal); E78.5 Hyperlipidemia, unspecified
CPT/HCPCS: 36415; 80053; 80061; 85025

== ENCOUNTER → 2024-07-06 08:20 | Outpatient (BNVA) | payer OTHER, SELFPAY | PROVIDERS: PCP Internal Medicine ==

== ENCOUNTER 2024-07-06 12:30 | Outpatient (REF) | payer OTHER, SELFPAY ==
--- NOTE | ~2024-07-06 | MR_ITS ---
EXAMINATION: MR BRAIN WITHOUT CONTRAST CLINICAL INFORMATION: Headaches for years. Increasing, getting worse. COMPARISON: None available. TECHNIQUE: MRI of the brain was obtained using routine sequences without contrast. FINDINGS: There is no area of abnormal restricted diffusion to indicate an acute/subacute cerebral or cerebellar infarction. There is no intracranial hemorrhage. There are several subcortical, and to a lesser extent periventricular T2/FLAIR hyperintense foci. These areas of abnormal signal intensity do not demonstrate mass effect. The appearance is entirely nonspecific. They may represent the sequelae of chronic migraine headache. There is no mass effect or midline shift. There is no extra-axial fluid collection. The ventricles are normal in size. The flow voids at the base of the brain are maintained. The midline structures are normal in appearance. The cerebellar tonsils are normally positioned. The cervicomedullary junction is normal in appearance. The orbits are symmetric and within normal limits. There is minimal scattered ethmoid air cell mucosal disease. The mastoid air cells are well aerated. MR/MR head/brain wo con IMPRESSION: No acute intracranial abnormality. There are several subcortical, and to a lesser extent periventricular T2/FLAIR hyperintense foci. These areas of abnormal signal intensity do not demonstrate mass effect. The appearance is entirely nonspecific. They may represent the sequelae of chronic migraine headache. Electronically signed by: Juan Alberto Sotomayor DO 07/06/2024 01:22 PM EDT
== END 2024-07-06 12:31 | disposition home or self-care (01) ==
LOC: HO.MRI 12:30
PROVIDERS: PCP Internal Medicine; Visit Provider Internal Medicine
DX: G44.52 New daily persistent headache (NDPH) (principal)
CPT/HCPCS: 70551

== ENCOUNTER 2024-07-13 14:15 | Outpatient (REF) | payer OTHER, SELFPAY ==
--- NOTE | ~2024-07-13 | XR_ITS ---
EXAMINATION: XR LUMBOSACRAL SPINE CLINICAL INFORMATION: Lower back pain. COMPARISON: Lumbar spine radiographs dated 04/08/2023. TECHNIQUE: Three views of the lumbosacral spine. FINDINGS: Normal vertebral body alignment. The lumbar lordosis is maintained. No acute fracture or subluxation. No loss of vertebral body height. Multilevel loss of intervertebral disc height with anterior endplate osteophytes throughout the lumbar spine, progressed when compared to the prior radiographs. No concerning lytic or blastic osseous lesion. No abnormal soft tissue calcification. XR/XR lumbar spine 2-3V IMPRESSION: [id number] multilevel degenerative disc disease, progressed when compared to the prior radiographs. Electronically signed by: Marcello Villar MD 07/21/2024 09:04 PM EDT
== END 2024-07-13 14:16 | disposition home or self-care (01) ==
LOC: HO.XRAY 14:15
PROVIDERS: PCP Internal Medicine; Visit Provider Internal Medicine
DX: Z00.00 Encounter for general adult medical examination without abnormal findings (principal); G43.909 Migraine, unspecified, not intractable, without status migrainosus; M54.50 Low back pain, unspecified; Z79.899 Other long term (current) drug therapy; Z28.21 Immunization not carried out because of patient refusal
CPT/HCPCS: 72100; 90471; 96127; 99212; 99396

== ENCOUNTER 2024-07-13 14:15 | Outpatient (AMB) | payer OTHER, SELFPAY ==
--- NOTE | 2024-07-13 14:24 | MHC.PC.OV ---
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 Required: No Accompanied by: Self / Same As Patient Allergies sumatriptan Adverse Reaction (Mild, Verified 07/13/24 14:47) sleepiness varenicline [From Chantix] Adverse Reaction (Mild, Verified 07/13/24 14:47) depression, nightmares Medication List - Last Reconciled 07/13/24 by Eusebia Syed MD [bio freeze roll As directed] cholecalciferol (vitamin D3) 10 mcg PO DAILY docusate sodium (Colace) 100 mg PO BID ibuprofen 800 mg PO Q8H lidocaine 4% (AsperFlex (lidocaine)) 1 patch topical DAILY PRN 30 days [medline phytoplex lotion As directed] propranolol 20 mg PO BID 30 days rizatriptan 5 mg PO Q2-4H PRN 30 days [Vitamin C ] Tobacco use date assessed: 06/16/24 Dental Screening Dental Screen Date: 06/16/24 HPI HPI Comments History of Present Illness Details This is a 53-year-old female with migraines that comes for her physical exam. No need for Pap smear due to hysterectomy. Mammogram done 2023. Colonoscopy done 2023. Migraines are still present and MRI of the brain was discussed. I will add amitriptyline at bedtime for prophylaxis and magnesium. Will be referred to Neurology. She also complains of low back pain that is not radiating to the legs but feels like a belt in her waist and I will refer her to pain management. No chest pain or shortness on breath. [facility] Medical History (Updated 07/13/24 @ 14:58 by Eusebia Syed MD) Eczema Constipation by delayed colonic transit Hypovitaminosis D Abdominal pain Arthritis Bleeding hemorrhoids Migraine Hemorrhoids Surgical History History of hemorrhoidectomy H/O colonoscopy History of hysterectomy History of colon surgery Family History Mother Asthma Dementia Hypertension COPD (chronic obstructive pulmonary disease) Skin cancer Osteoarthritis Father Heart attack Prostate cancer Sister Osteoarthritis Social History Housing: Apartment Alcohol intake: former Patient Tobacco Use Status: Former Tobacco user Tobacco use type: Cigarette e-Cigarette/Vaping Use: Never Used Second Hand Smoke Exposure: No service: No Current occupational status: unemployed and disabled Cognitive needs: Yes Hearing needs: No Vision needs: Yes Questionnaire PHQ-9 Over the last 2 weeks, how often have you been bothered by any of the following problems? 1. Little interest or pleasure in doing things: not at all 2. Feeling down, depressed, or hopeless: not at all 3. Trouble falling or staying asleep, or sleeping too much: not at all 4. Feeling tired or having little energy: not at all 5. Poor appetite or overeating: not at all 6. Feeling bad about yourself - or that you are a failure or have let yourself or your family down: not at all 7. Trouble concentrating on things, such as reading the newspaper or watching television: not at all 8. Moving or speaking so slowly that other people could have noticed. Or the opposite - being so fidgety or restless that you have been moving around a lot more than usual: not at all 9. Thoughts that you would be better off or of hurting yourself in some way: not at all Total score: 0 Depression Screening Interpretation: Negative Depression Screening Done: Yes 12839 - PHQ-9 Billing: Yes Source: Developed by Drs. Owen Hernández, Jamila Lares, Ernie Garcia and colleagues, with an educational zia from [email or web address]. Thrive Questionnaire Date Thrive assessed: 07/13/24 I am a: Patient What is your living situation today?: I have a steady place to live Within the past 12 months, did the food you bought not last and you didn't have the money to get more?: I choose not to answer this question Within the past 12 months, did you worry whether your food would run out before you got money to buy more?: Never true Do you have trouble paying for medicines?: No Do you have trouble getting transportation to medical appointments?: No Do you have trouble paying your heating and electricity bill?: No Do you have trouble taking care of your child, family member or friend?: No Do you have trouble with day-to-day activities such as bathing, preparing meals, shopping, managing finances, etc.?: No Are you currently unemployed and looking for a job?: No Are you interested in more education?: No Please select the resources that you would like help with: None Currently or been in a relationship where the following occur: No concerns reported THRIVE Score: 0 AUDIT C Alcohol Use Questionnaire (AUDIT-C) 1. How often do you have a drink containing alcohol?: Never 3. How often do you have six or more drinks on one occasion?: Never Total Score: 0 Score Reviewed/Action Taken: No EDIN-7 AMB Questionnaire EDIN-7 Date EDIN - 7 assessed: 06/16/24 Feeling nervous, anxious, or on edge: 0 = Not at all Not being able to stop or control worryin = Not at all Worrying too much about different things: 1 = Several days Trouble relaxin = Several days Being so restless that it is hard to sit still: 1 = Several days Becoming easily annoyed or irritable: 1 = Several days Feeling afraid as if something awful might happen: 1 = Several days Total EDIN-7 score (0-4 normal; 5-9 mild; 10-14 moderate; 15-21 severe): 5 Source: Developed by Drs. Owen Hernández, Jamila Lares, Ernie Garcia and colleagues, with an educational zia from [email or web address]. EDIN-7 Assessment Billing EDIN-7 Assessment Tool: EDIN-7 Assessment 61064 Review of Systems Const All systems reviewed & are unremarkable except as noted in HPI and below Card Denies chest pain at rest, Denies chest pain with activity, Denies edema, Denies irregular heart rhythm, Denies claudication, Denies dyspnea, Denies dyspnea on exertion, Denies orthopnea, Denies paroxysmal nocturnal dyspnea and Denies slow heart rate Resp Denies cough, Denies dyspnea and Denies dyspnea on exertion GI Denies abdominal pain, Denies change in bowel habits, Denies excessive flatus, Denies nausea and Denies vomiting Physical exam (Primary Care) Vital Signs: Last Vital Signs BP 122/72 07/13/24 14:28 BMI result Body Mass Index 30.5 BMI Assessment/Plan discussion: High BMI High, discussed plan: lifestyle, weight reduction, dietary and physical activity Tobacco/Smoking Status: Tobacco use Status Tobacco use date assessed 06/16/24 07/13/24 14:27 Patient Tobacco Use Status Former Tobacco user 07/13/24 14:27 Tobacco use type Cigarette 07/13/24 14:27 e-Cigarette/Vaping Use Never Used 07/13/24 14:27 PHQ-9: PHQ-9 Score PHQ-9: Total score 0 07/13/24 15:53 Depression Screening Interpretation: Negative Thrive Assessment: Date of Thrive Assessment Date Thrive assessed 07/13/24 07/13/24 14:27 Currently or been in a relationship where the following occur: No concerns reported HENMT Head: Yes normal to inspection, Yes normocephalic and Yes atraumatic Ears: external ears normal Eyes General: appearance normal, both eyes and all related structures Eyelids: Yes eyelids normal Conjunctivae: conjunctivae normal Neck Neck: Yes normal visual inspection and Yes supple Resp Effort & Inspection: normal respiratory effort Auscultation: clear to auscultation bilaterally Cardio Jugular venous distension: no JVD Rate: regular rate Rhythm: regular rhythm Heart sounds: S1 normal heart sound present and S2 normal heart sound present GI Inspection: Yes normal to inspection Palpation (GI): Soft to palpation and nontender Auscultation: normal bowel sounds Skin General skin exam: no rashes or lesions noted Neuro General: no focal motor deficits Extrem General: Yes full ROM Psych Appearance: grossly normal Office Procedures Flu Questionnaire Does the patient have a severe egg allergy?: No Immunizations Fluarix Triv [id number] (PF) 45 mcg (15 mcg x 3)/0.5 mL IM syringe Performing Provider: Eusebia Syed MD Performing Location: [facility] Documented (not given) by: SEGUNDO Medrano on 07/13/24 14:32 Reason Not Given: Patient Refused Coding Level of Care Code Est Pt Level 3 (50785) Est Pt Prev Care 40-64y(86080) Diagnoses Physical exam Z00.00 Migraines G43.909 Lumbar pain M54.50 Additional Codes EDIN-7 Assessment Billing - EDIN-7 Assessment Tool: EDIN-7 Assessment 79073 ([id number]) Time Spent (min) 35 Assessment & Plan Assessment & Plan (1) Physical exam: Code(s): Z00.00 - Encounter for general adult medical examination without abnormal findings Category: Medical Plan: Repeat in a year. (2) Migraines: Code(s): G43.909 - Migraine, unspecified, not intractable, without status migrainosus Category: Medical Plan: Continue rizatriptan as needed. Start amitriptyline at bedtime. Start magnesium. Referred to neurology. (3) Lumbar pain: Code(s): M54.50 - Low back pain, unspecified Category: Medical Plan: X-ray ordered. Referred to pain management. Orders: Orders Influenza [id number] Immunization Today Z23 - Encounter for immunization XR lumbar spine 2-3V Today M54.50 - Low back pain, unspecified Referrals Neurology Referral G43.909 - Migraine, unspecified, not intractable, without status migrainosus Pain Management Referral M54.50 - Low back pain, unspecified Medications: New amitriptyline 10 mg PO BEDTIME 90 days 90 tabs 1RF magnesium oxide 400 mg PO DAILY 90 days 90 tabs 0RF Discontinued propranolol Discontinued Reason: Patient Completed Course 20 mg PO BID 30 days 60 tabs 3RF G44.52 - New daily persistent headache (NDPH)
[2024-07-13 14:28] VITALS: BP 122/72; BMI 30.5
== END 2024-07-13 15:06 | disposition home or self-care (01) ==
PROVIDERS: PCP Internal Medicine; Visit Provider Internal Medicine
DX: Z00.00 Encounter for general adult medical examination without abnormal findings (principal); G43.909 Migraine, unspecified, not intractable, without status migrainosus; M54.50 Low back pain, unspecified; Z23 Encounter for immunization

== ENCOUNTER 2024-07-23 08:48 | Outpatient (AMB) | payer OTHER, SELFPAY ==
--- NOTE | 2024-07-23 09:01 | MHC.OFFVIS ---
Vital Signs 07/23/24 09:02 Height 5 ft 2 in Weight 167 lb BMI 30.5 BP 134/79 Blood Pressure Location Rt brachial Position Sitting Pulse 71 Pulse Source Pulse Oximeter Pulse Oximetry (%) 98 Oxygen Delivery Method Room Air Intake Visit Reasons: Low Back Pain/Discuss X-Ray Results Allergies sumatriptan Adverse Reaction (Mild, Verified 07/23/24 09:02) sleepiness varenicline [From Chantix] Adverse Reaction (Mild, Verified 07/23/24 09:02) depression, nightmares Medication List - Last Reconciled 07/23/24 by Deedee Mascorro amitriptyline 10 mg PO BEDTIME 90 days [bio freeze roll As directed] cholecalciferol (vitamin D3) 10 mcg PO DAILY docusate sodium (Colace) 100 mg PO BID ibuprofen 800 mg PO Q8H lidocaine 4% (AsperFlex (lidocaine)) 1 patch topical DAILY PRN 30 days magnesium oxide 400 mg PO DAILY 90 days [medline phytoplex lotion As directed] rizatriptan 5 mg PO Q2-4H PRN 30 days [Vitamin C ] HPI Comments Details: Patient presents back to the office today for follow-up lower back pain Recent x-ray reviewed, results as per below She has stopped taking the muscle relaxers as they made her too sleepy. Interested in restarting physical therapy for her lower back. Still not interested in injections Denies any new injury Denies changes in medications, medical history, allergies Prior: Padma is a very pleasant 52 year old female who presents back to the office today for follow up. Patient reports that she has been doing PT with minimal relief. It helps when I'm there but then the pain just comes back . Has lidocaine patches at home that she uses with some relief. Denies improvement with baclofen. Today she also c/o bilateral upper neck pain, tried PT in the past but could not tolerate the positioning d/t her lower back pain. Interested in attempting PT again. Prior: Padma is a pleasant 52-year-old female who presents today for evaluation and management of her chronic lower back pain. Patient reports that this pain has been ongoing for at least 10 years without inciting event. Patient denies any radiation of the pain down the leg on either side. Currently pain is an 8/10, but will be 10/10 at times. Patient describes the pain as aching, stabbing, burning. She reports the pain is constant throughout the day and worse with sitting, moving, activity. Patient denies red flag symptoms including loss of bowel, bladder or saddle anesthesia. In terms of conservative therapy patient has a attempted physical therapy in the past without effect, NSAIDs with minimal improvement, muscle relaxants with minimal movement, currently using lidocaine patches with some relief, she has had 1 injection in her back about 2 years ago at [facility] which she reports did not provide her any relief. In terms of muscle damage condition is described as aching, shooting, cramping, spasming, dull, squeezing, burning, tiring, throbbing, stabbing, sharp and tingling. Patient also reported today that she has ongoing neck pain that is causing her headaches. She is currently attending physical therapy for this pain and is under management by her PCP but would like to follow up here at a future date for this pain. Additionally, she has pain in her knee that she would like addressed at a future visit also. Patient's past medical history significant for migraines, eczema, arthritis and hypovitaminosis D. Patient denies implantable devices, pacemaker or defibrillator. Patient denies current use of alcohol, tobacco or illicit substances. [facility] Medical History Eczema Constipation by delayed colonic transit Hypovitaminosis D Abdominal pain Arthritis Bleeding hemorrhoids Migraine Hemorrhoids Surgical History History of hemorrhoidectomy H/O colonoscopy History of hysterectomy History of colon surgery Family History Mother Asthma Dementia Hypertension COPD (chronic obstructive pulmonary disease) Skin cancer Osteoarthritis Father Heart attack Prostate cancer Sister Osteoarthritis Social History Housing: Apartment Alcohol intake: former Patient Tobacco Use Status: Former Tobacco user Tobacco use type: Cigarette e-Cigarette/Vaping Use: Never Used Second Hand Smoke Exposure: No service: No Current occupational status: unemployed and disabled Cognitive needs: Yes Hearing needs: No Vision needs: Yes Physical Exam Vital Signs: Last Vital Signs Pulse 71 07/23/24 09:02 BP 134/79 07/23/24 09:02 Pulse Ox 98 07/23/24 09:02 Oxygen Delivery Method Room Air 07/23/24 09:02 BMI result Body Mass Index 30.5 General: awake, alert, oriented. Answers questions appropriately. Fully engaged in examination. Skin: warm, dry, intact without visible rashes or lesions. HEENT: Normocephalic. Conjuntivae clear without exudate. Sclera non-icteric. Hearing intact. Cardiac: External chest normal in appearance. Respiratory: No signs of trauma. No signs of respiratory distress. No cough, audible wheezing or stridor. Abdomen: without gross distension. MS: No obvious swelling or deformities. Able to transition from sit to stand unassisted. Ambulates with bilaterally normal heel strike and toe off Tenderness to palpation across middle trapezius with palpable trigger points Neurological: Oriented to person, place, time and situation. Thought process intact. No gait abnormalities appreciated. Psychiatric: Appropriate mood and affect. Good judgment and insight. Results Reviewed Results Reviewed: 07/13/2024 XR/XR lumbar spine 2-3V FINDINGS: Normal vertebral body alignment. The lumbar lordosis is maintained. No acute fracture or subluxation. No loss of vertebral body height. Multilevel loss of intervertebral disc height with anterior endplate osteophytes throughout the lumbar spine, progressed when compared to the prior radiographs. No concerning lytic or blastic osseous lesion. No abnormal soft tissue calcification. IMPRESSION: Yget-dt-cerzmlwv multilevel degenerative disc disease, progressed when compared to the prior radiographs. 02/19/2023 EXAMINATION: XR CERVICAL SPINE FINDINGS: Bone alignment is normal. No fracture or dislocation. Degenerative spondylosis from C4-C5 to C6-C7. Normal disc spaces. Normal prevertebral soft tissues. IMPRESSION: Degenerative changes. Assessment & Plan Assessment & Plan (1) Lumbar pain: Code(s): M54.50 - Low back pain, unspecified Category: Medical (2) Thoracic back pain: Code(s): M54.6 - Pain in thoracic spine Category: Medical (3) Spondylosis of cervical spine: Code(s): M47.812 - Spondylosis without myelopathy or radiculopathy, cervical region Category: Medical (4) Facet arthritis of lumbar region: Code(s): M47.816 - Spondylosis without myelopathy or radiculopathy, lumbar region Category: Medical (5) Degenerative disc disease, lumbar: Code(s): M51.36 - Other intervertebral disc degeneration, lumbar region Category: Medical (6) Trapezius muscle strain: Code(s): S46.819A - Strain of other muscles, fascia and tendons at shoulder and upper arm level, unspecified arm, initial encounter Category: Medical Plan Padma presented back to the office today for follow-up lower back pain She would like to continue with PT for her lower back, requesting office in [place]. Referral has been placed Will try methocarbamol 500 mg p.o. t.i.d. as needed. Patient advised on cautions for use Again discussed at length options for treatment including diagnostic interventional testing, epidural steroid injections, peripheral nerve stimulation with Sprint, RFA and more permanent neuromodulation. Declines injections at this time. She will call if she reconsiders and we will schedule her for fluoroscopy guided L3-L4-DRL5 MBB's under local anesthetic. All questions and concerns have been answered and patient agrees with the plan. Follow up as needed. Orders: Orders PT Evaluation and Treatment Today M54.50 - Low back pain, unspecified, M54.6 - Pain in thoracic spine Medications: New methocarbamol No driving while taking this medication. Do no take with alcohol or other [employer] Depressants 500 mg PO TID PRN 90 tabs 1RF muscle spasm Coding Level of Care Code Est Pt Level 3 (66615) Complex EM visit Add On G2211 Diagnoses Lumbar pain M54.50 Thoracic back pain M54.6 Spondylosis of cervical spine M47.812 Facet arthritis of lumbar region M47.816 Degenerative disc disease, lumbar M51.36 Trapezius muscle strain S46.819A
[2024-07-23 09:02] VITALS: BP 134/79; PULSE 71; O2SAT 98; BMI 30.5
== END 2024-07-23 09:23 | disposition home or self-care (01) ==
PROVIDERS: PCP Internal Medicine; Visit Provider Registered Nurse Emergency
DX: M54.50 Low back pain, unspecified (principal); M54.6 Pain in thoracic spine; M47.812 Spondylosis without myelopathy or radiculopathy, cervical region; M47.816 Spondylosis without myelopathy or radiculopathy, lumbar region; M51.369 Other intervertebral disc degeneration, lumbar region without mention of lumbar back pain or lower extremity pain; S46.819A Strain of other muscles, fascia and tendons at shoulder and upper arm level, unspecified arm, initial encounter
CPT/HCPCS: 99213; G2211

== ENCOUNTER → 2024-07-23 08:48 | Outpatient (BNVA) | payer OTHER, SELFPAY | PROVIDERS: PCP Internal Medicine; Visit Provider Registered Nurse Emergency | DX: M54.50 Low back pain, unspecified (principal); M54.6 Pain in thoracic spine; M47.816 Spondylosis without myelopathy or radiculopathy, lumbar region; M47.812 Spondylosis without myelopathy or radiculopathy, cervical region; M51.369 Other intervertebral disc degeneration, lumbar region without mention of lumbar back pain or lower extremity pain; S46.819A Strain of other muscles, fascia and tendons at shoulder and upper arm level, unspecified arm, initial encounter; G89.29 Other chronic pain; X58.XXXA Exposure to other specified factors, initial encounter; Y93.9 Activity, unspecified; Y92.9 Unspecified place or not applicable; Y99.9 Unspecified external cause status | CPT/HCPCS: 99212 ==

== ENCOUNTER 2024-12-21 11:41 | Outpatient (REF) | payer OTHER, SELFPAY ==
--- NOTE | ~2024-12-21 | US_ITS ---
EXAMINATION: MM DIAGNOSTIC DIGITAL BREAST TOMOSYNTHESIS, BILATERAL Limited right breast ultrasound. CLINICAL INFORMATION: Two-year follow-up for corticated cyst in the right breast on ultrasound. COMPARISON: Mammography: Comparison is made with relevant prior exams. TECHNIQUE: Digital breast mammography with tomosynthesis is performed in both the craniocaudal and mediolateral oblique views along with computer-aided detection (CAD). FINDINGS: The breasts are heterogeneously dense, which may obscure small masses (ACR BI-RADS breast composition Category c). There are no significant masses, abnormal calcifications, or other abnormalities. Targeted color Doppler ultrasound scanning in the area of the previously seen complicated cyst at 9:00 4 cm from nipple demonstrates interval decreased size of the simple to minimally corticated cyst measuring 2 x 2 x 2 mm. Results are provided to the patient at time of visit by the technologist. US/US breast RT limited mamm only IMPRESSION: Minimally complicated cyst which is significantly decreased in size over 2 years follow-up. Benign. ASSESSMENT: BI-RADS BI-RADS 2 - Benign Findings RECOMMENDATION: 1 year F/U This patient's information was entered into a reminder system with a target due date for their next mammogram. Electronically signed by: Amanda Givens DO 12/21/2024 12:35 PM EDT
--- OUTSIDE RECORDS SUMMARY | 2024-12-21 13:57 | XMS_ITS ---
Author Organization [facility] Address [address] [place] [address] Care Team Providers Care Indexer Name Role Phone Eusebia Calderon Primary Care Provider Owen Page Unavailable [phone] Allergies No Known Allergies REASON FOR VISIT Patient presents today for a Slow Transit Constipation Medications Medication SIG (Take, Route, Frequency, Duration) Notes Start Date End Date Status MiraLax 17 GM 1 packet mixed with 8 ounces of fluid Orally Twice a day for 30 day(s) 11/21/2023 Active Docusate Sodium 100 MG Oral for 30 Active Cyclobenzaprine HCl 5 MG TAKE 1 TABLET B Y MOUTH UP TO TWICE DAILY FOR MUSCLE SPASM Oral for 85 Not-Taking Meloxicam 15 MG Oral for 90 Ac tive Rizatriptan Benzoate 5 MG Oral for 30 Active ibuprofen Active Vitamin D Active Vitamin C Active Social History Tobacco Use: Social History Observation Description Date Details (start date - stop date) Never Smoker NA - NA Tobacco Use/Smoking Question Answer Notes Patient is a nonsmoker Alcohol Screen Question Answer Notes Did you have a drink containing alcohol in the p ast year? No Points 0 Interpretation Negative Problems Problem Type SNOMED Code ICD Code Onset Dates Problem Status W/U Status Risk Notes Problem Chronic constipation (782413320) Chronic constipation (K59.09) Active confirmed Problem History of polyp of colon (986285591) History of colon polyps (Z86.010) Active confirmed Problem Colon cancer screening (175085957) Colon cancer screening (Z12.11) Active confirmed Vital Signs Temperature 97.5 degrees Fahrenheit 11/21/19 24 Blood pressure systolic 00 mm Hg 11/21/19 24 Blood pressure diastolic 00 mm Hg 024 Height 5 ft 2 in in 11/21/2023 Weight 167 lbs 11/21/2023 BMI 30.54 kg/m2 11/21/2023 Encounters Encounter Location Date Provider Diagnosis [facility] [address] [place] [address] 11/21/2023 Owen Simon Chronic constipation K59.09 ; History of colon polyps Z86.010 and Colon cancer screening Z12.11 Assessments Encounter Date Diagnosis (ICD Code) Assessment Notes Treatment Notes Treatment Clinical Notes Section Notes 11/21/2023 Chronic constipation (ICD-10 - K59.09) Use Miralax twice a day for the constipation Stay on healthy diet with a lot of fruits and vegetables, with a lot of water Overall, Padma appears quite well. Her constipation does not seem overly problematic at the present time. I did advise her to continue at least daily MiraLax but certainly use it twice a day if that would give for better relief. We did review that she should stay on a healthy diet with plenty of fruits, vegetables, and water. I don't think she needs any other treatment for her constipation at this time. In regard to her history of colon polyps, previous colonoscopies, and previous surgery, I will try to obtain copies of her records from the different hospitals she has been at. Given her report of her last colonoscopy being at least 2 years ago and her other physicians having told her to have a colonoscopy every 2-3 years, I shall schedule her for a followup colonoscopy. We did review the rationale for that in regard to colon cancer prevention. Full consent has been obtained for this, including risks of bleeding and perforation. The procedure will be done with monitored anesthesia care. Depending on the findings of the upcoming colonoscopy, as well as my review of her previous history if I can obtain records, we could then decide definitively as to how often she will need future colonoscopies. Padma was comfortable with this plan. Thank you again for allowing me to participate in Padma's care. I shall continue to keep you advised of her progress. 11/21/2023 History of colon polyps (ICD-10 - Z86.010) Overall, Padma appears quite well. Her constipation does not seem overly problematic at the present time. I did advise her to continue at least daily MiraLax but certainly use it twice a day if that would give for better relief. We did review that she should stay on a healthy diet with plenty of fruits, vegetables, and water. I don't think she needs any other treatment for her constipation at this time. In regard to her history of colon polyps, previous colonoscopies, and previous surgery, I will try to obtain copies of her records from the different hospitals she has been at. Given her report of her last colonoscopy being at least 2 years ago and her other physicians having told her to have a colonoscopy every 2-3 years, I shall schedule her for a followup colonoscopy. We did review the rationale for that in regard to colon cancer prevention. Full consent has been obtained for this, including risks of bleeding and perforation. The procedure will be done with monitored anesthesia care. Depending on the findings of the upcoming colonoscopy, as well as my review of her previous history if I can obtain records, we could then decide definitively as to how often she will need future colonoscopies. Padma was comfortable with this plan. Thank you again for allowing me to participate in Padma's care. I shall continue to keep you advised of her progress. 11/21/2023 Colon cancer screening (ICD-10 - Z12.11) Overall, Padma appears quite well. Her constipation does not seem overly problematic at the present time. I did advise her to continue at least daily MiraLax but certainly use it twice a day if that would give for better relief. We did review that she should stay on a healthy diet with plenty of fruits, vegetables, and water. I don't think she needs any other treatment for her constipation at this time. In regard to her history of colon polyps, previous colonoscopies, and previous surgery, I will try to obtain copies of her records from the different hospitals she has been at. Given her report of her last colonoscopy being at least 2 years ago and her other physicians having told her to have a colonoscopy every 2-3 years, I shall schedule her for a followup colonoscopy. We did review the rationale for that in regard to colon cancer prevention. Full consent has been obtained for this, including risks of bleeding and perforation. The procedure will be done with monitored anesthesia care. Depending on the findings of the upcoming colonoscopy, as well as my review of her previous history if I can obtain records, we could then decide definitively as to how often she will need future colonoscopies. Padma was comfortable with this plan. Thank you again for allowing me to participate in Padma's care. I shall continue to keep you advised of her progress. Plan Of Treatment Medication Medication Name Sig Start Date Stop Date Notes MiraLax 17 GM 1 packet mixed with 8 ounces of fluid Orally Twice a day for 30 day(s) 11/21/2023 Treatment Notes Assessment Notes Chronic constipation Use Miralax twice a day for the constipation Stay on healthy diet with a lot of fruits and vegetables, with a lot of water Future Test Test Name Order Date COLONOSCOPY 11/21/2023 Next Appt Details Follow Up: prn, Reason: Progress Notes * PADMA LIPSCOMBDOB: 0 (53 yo F)Acc No.[id number]:11/21/2023 Progress Notes Patient:?PADMA LIPSCOMB Provider:?Owen Simon MD :1970???Age:53 Y???Sex:Female D ate:11/21/2023 Address:[address] [place], [place] [address] Pcp:Eusebia Syed Subjective: * Chief Complaints: * ???Patient presents today fo r a Slow Transit Constipation * HPI: ???incontinence:? I saw Padma in consultation today in regard to further evaluation of her constipation, personal history of colon polyps, and need for colorectal cancer screening. ?As you know, Padma is a generally healthy 53-year-old female who describes a long-standing history of constipation. She is presently using one packet of MiraLax daily with fairly good relief. She describes a bowel movement just about every day but does still have some straining with that. She denies any signs of bleeding. She did have a hemorrhoidectomy in December of [address] Cormier which did help her in regard to previous pain and bleeding with bowel movements. ?She describes having had colonoscopies in various hospitals including [facility] and [facility]. She describes a colon resection at [facility] for polyps as well. She describes that her brother may have had colon cancer but is not definitive about that. ?She enjoys a good appetite, without any significant heartburn or dysphagia. She denies any abdominal pain, jaundice, nor weight loss. She has not noticed any recent melena nor hematochezia. * ROS:?General/Constitutional:?Change in appetite?denies.?Chills?denies.?Fatigue?denies.?Ophthalmologic:?Comments?all negative.?ENT:?Comments?all negative.?Respiratory:?hemoptysis?denies.?Cough?denies.?Cardiovascular:?Chest pain?denies.?Orthopnea?denies.?Gastrointestinal:?Comments?See HPI for details.?Genitourinary:?Hematuria?denies.?Dysuria?denies.?Musculoskeletal:?Painful joints?denies.?Weakness?denies.?Skin:?Itching?denies.?Rash?denies.?Neurologic:?Headache?denies.?Seizures?denies.?Psychiatric:?Comments?all negative.? * Medical History:? * Surgical History:?Some type of partial colectomy at [facility] for polyps Hysterectomy Hemorrhoids with Dr. Cormier in December of 2022 * Hospitalization/Major Diagno stic Procedure:?No Hospitalization History. * Family History:?Father: dece ased, heart attack, diagnosed with Heart disease.?Mother: , dementia.?Siblings: Possible colon cancer, diagnosed with Colon cancer, HTN (hypertension).? * Social History:?Tobacco Use:?Tobacco Use/Smoking?Patient is a?nonsmoker.?Drugs/Alcohol:?Alcohol Screen?Did you have a drink containing alcohol in the past year??No,?Points?0,?Interpretation?Negative.?Miscellaneous:?Marital status: single. Occupation: disabled. * Medications:?Takingibuprofen Vitamin C Vitamin D Rizatriptan Benzoate 5 MG Tablet Oral Meloxicam 15 MG Tablet Oral Docusate Sodium 100 MG Capsule Oral Taking ibuprofen Taking Vitamin C Taking Vitamin D Taking Rizatriptan Benzoate 5 MG Tablet Oral Taking Meloxicam 15 MG Tablet Oral Taking Docusate Sodium 100 MG Capsule Oral Not-Taking/PRNCyclobenzaprine HCl 5 MG Tablet TAKE 1 TABLET BY MOUTH UP TO TWICE DAILY FOR MUSCLE SPASM Oral Medication List reviewed and reconciled with the patientNot-Taking/PRN Cyclobenzaprine HCl 5 MG Tablet TAKE 1 TABLET BY MOUTH UP TO TWICE DAILY FOR MUSCLE SPASM Oral Medication List reviewed and reconciled with the patient * Allergies:?N.K.D.A.yes[Aller gies Verified] Objective: * Vitals:?Wt: 167 lbs, Ht: 5 f t 2 in, BMI:30.54 Index, BP: 00/00 mm Hg, Temp: 97.5. * Examination: ???General Examination: ?GENERAL APPEARANCE:?pleasant, well nourished, well developed, in no acute distress.?EYES:?sclera non-icteric.?ORAL CAVITY:?mucosa moist.?NECK/THYROID:?no cervical lymphadenopathy, neck supple.?SKIN:?nonjaundiced, no spider angiomata.?HEART:?S1, S2 normal.?LUNGS:?clear to auscultation bilaterally.?ABDOMEN:?normal bowel sounds, no guarding or rigidity, no guarding or rigidity, no masses palpable, soft, nontender, nondistended.?EXTREMITIES:?no edema.?NEUROLOGIC:?alert and oriented.? Assessment: * Assessment: 1.?Chronic constipation - K5 9.09 (Primary)?2.?History of colon polyps - Z86.010?3.?Colon cancer screening - Z12.11? Overall, Padma appears quit e well. Her constipation does not seem overly problematic at the present time. I did advise her to continue at least daily MiraLax but certainly use it twice a day if that would give for better relief. We did review that she should stay on a healthy diet with plenty of fruits, vegetables, and water. I don't think she needs any other treatment for her constipation at this time. In regard to her history of colon polyps, previous colonoscopies, and previous surgery, I will try to obtain copies of her records from the different hospitals she has been at. Given her report of her last colonoscopy being at least 2 years ago and her other physicians having told her to have a colonoscopy every 2-3 years, I shall schedule her for a followup colonoscopy. We did review the rationale for that in regard to colon cancer prevention. Full consent has been obtained for this, including risks of bleeding and perforation. The procedure will be done with monitored anesthesia care. Depending on the findings of the upcoming colonoscopy, as well as my review of her previous history if I can obtain records, we could then decide definitively as to how often she will need future colonoscopies. Padma was comfortable with this plan. Thank you again for allowing me to participate in Padma's care. I shall continue to keep you advised of her progress. Plan: * Treatment: 2.?History of colon polyps?Procedure: COLONOSCOPY (Ordered for 11/21/2023) 3.?Colon cancer screening?Procedure: COLONOSCOPY (Ordered for 11/21/2023)* with MACsched for 02/28/24 at 7:30 ammiralax * Procedure Codes:?3017F COLOR ECTAL CA SCREEN DOC [id number] TOBACCO [id number] BP SCR NOT PRFRM REC REASON NOS * Preventive Medicine:? ??Counseling:?Care goal follow-up plan:?Above Normal BMI Follow-up?Giving encouragement to exercise,?BMI management provided?Yes.? * Follow Up:?prn * * Sign off status: Completed true * Provider:?Owen Simon MD Date:? 024 Generated for Yordy blum/Maxim/Benjaminsmitting on:?12/21/2024 01:57 PM EDT History and Physical Notes * HPI (History of Present Illness) Category Sub-Category Detail Notes Category Not es incontinence I saw Padma in consultation today in regard to further evaluation of her constipation, personal history of colon polyps, and need for colorectal cancer screening. As you know, Padma is a generally healthy 53-year-old female who describes a long-standing history of constipation. She is presently using one packet of MiraLax daily with fairly good relief. She describes a bowel movement just about every day but does still have some straining with that. She denies any signs of bleeding. She did have a hemorrhoidectomy in December of [address] Cormier which did help her in regard to previous pain and bleeding with bowel movements. She describes having had colonoscopies in various hospitals including [facility] and [facility]. She describes a colon resection at [facility] for polyps as well. She describes that her brother may have had colon cancer but is not definitive about that. She enjoys a good appetite, without any significant heartburn or dysphagia. She denies any abdominal pain, jaundice, nor weight loss. She has not noticed any recent melena nor hematochezia. Examination Category Sub-Category Detail Notes Category Not es General Examination GENERAL APPEARANCE: pleasant , well nourished, well developed, in no acute distress HEAD: EYES: sclera non-icteric EARS: NOSE: THROAT: NECK/THYROID: no cervical lymphade nopathy, neck supple HEART: S1, S2 normal CHEST: LUNGS: clear to auscultatio n bilaterally ABDOMEN: normal bowel sounds, no guarding or rigidity, no guarding or rigidity, no masses palpable, soft, nontender, nondistended NEUROLOGIC: alert and oriented SKIN: nonjaundiced, no spi yuan angiomata EXTREMITIES: no edema PERIPHERAL PULSES: BACK: BREASTS: MUSCULOSKELETAL: MALE GENITOURINARY: LYMPH NODES: RECTAL EXAM: FEMALE GENITOURINARY: ORAL CAVITY: mucosa moist
--- OUTSIDE RECORDS SUMMARY | 2024-12-21 13:57 | XMS_ITS ---
Author Organization [facility] Address [address] [place] [address] Care Team Providers Care Marketing Professor Name Role Phone Eusebia Calderon Primary Care Provider Owen Page [phone] REASON FOR VISIT bowel prep Medications Medication SIG (Take, Route, Frequency, Duration) Notes Start Date End Date Status Dulcolax (colon prep) 5 MG take at 3:00 p.m and 7:00p.m. Orally two tablets twice a day for one day for 1 day 11/21/2023 Active MiraLax (colon prep) 17 GM/SCOOP 1 238 Gm bottle mixed with Gatorade or Crystal Light Orally begin at 5:00 p.m. the day before the procedure for 1 day 11/21/2023 Active Encounters Encounter Location Date Provider Diagnosis [facility] [address] [place] [phone] 11/21/2023 Owen Simon Plan Of Treatment Medication Medication Name Sig Start Date Stop Date Notes Dulcolax (colon prep) 5 MG take at 3:00 p.m and 7:00p.m. Orally two tablets twice a day for one day for 1 day 11/21/2023 MiraLax (colon prep) 17 GM/SCOOP 1 238 Gm bottle mixed with Gatorade or Crystal Light Orally begin at 5:00 p.m. the day before the procedure for 1 day 11/21/2023 Progress Notes * NEAL LIPSCOMBDOB: 0 (53 yo F)Acc No.[id number]:11/21/2023 Patient:?NEAL LIPSCOMB :1970???Age:53 Y???Sex:Female Address:[address] [place] [address] [address], [place], [address] * Refills? Start MiraLax (colon prep) Powder, 17 GM/SCOOP, Orally, 1, 1 238 Gm bottle mixed with Gatorade or Crystal Light, begin at 5:00 p.m. the day before the procedure, 1 day, Refills=0 Start Dulcolax (colon prep) Tablet Delayed Release, 5 MG, Orally, 4, take at 3:00 p.m and 7:00p.m., two tablets twice a day for one day, 1 day, Refills=0 * true * Date:? Generated for Yordy blum/Maxim/Korina on:?12/21/2024 01:57 PM EDT
--- OUTSIDE RECORDS SUMMARY | 2024-12-21 13:57 | XMS_ITS ---
Author Organization [facility] Address [address] [place] [address] Care Team Providers Care Paper Cup Machine Tender Name Role Phone Eusebia Calderon Primary Care Provider Unavailab Owen Stern Unavailable [phone] REASON FOR VISIT screening,hx polyps Problems Problem Type SNOMED Code ICD Code Onset Dates Problem Status W/U Status Risk Notes Problem History of polyp of colon (situation) (611997189) Personal history of colonic polyps (Z86.010) Active confirmed Encounters Encounter Location Date Provider Diagnosis [facility] [place] [address] [place] [phone] 02/28/2024 Owen Simon Encounter for scre ening colonoscopy Z12.11 and Personal history of colonic polyps Z86.010 Assessments Encounter Date Diagnosis (ICD Code) Assessment Notes Treatment Notes Treatment Clinical Notes Section Notes 02/28/2024 Encounter for screening colonoscopy (ICD-10 - Z12.11) 02/28/2024 Personal history of colonic polyps (ICD-10 - Z86.010) Plan Of Treatment No Information Progress Notes * NEAL LIPSCOMBDOB: 0 (54 yo F)Acc No.[id number]:02/28/2024 COLON WITH MAC Patient:?NEAL LIPSCOMB Provider:?Owen Simon MD :1970???Age:53 Y???Sex:Female D ate:02/28/2024 Address:[address] [place] [address] [address], [place], [place] Pcp:Eusebia Syed Subjective: * Chief Complaints: * ???1. Screening,hx polyps. * Medical History:? Objective: * Vitals:? Assessment: * Assessment: 1.?Encounter for screening c olonoscopy - Z12.11 (Primary)???2.?Personal history of colonic polyps - Z86.010??? Plan: * Treatment: * Procedure Codes:?54836 DIAGN OSTIC COLONOSCOPY, Modifiers: 53 * * The named appointment provid er may or may not be the originator of this progress note, and it is not deemed complete until electronically signed by the appointment provider. Sign off status: Pending * Provider:?Owen Simon MD Date:? 024 Generated for Yordy blum/Maxim/Benjaminsmitting on:?12/21/2024 01:56 PM EDT
--- OUTSIDE RECORDS SUMMARY | 2024-12-21 13:57 | XMS_ITS | Clinical Summary ---
Author Organization [facility] Address [address] [place] [address] Care Team Providers Care Building Certifier Name Role Phone Unavailable Primary Care Provider Unavailabl e Social History Tobacco Use Types Packs/Day Years Used Date Smoking Tobacco: Never Assessed Sex and Gender Information Value Date Recorded Sex Assigned at Not on file Gender Identity Not on file Sexual Orientation Not on file Job Start Date Occupation Industry Not on file Not on file Not on file Plan of Treatment Not on file
--- OUTSIDE RECORDS SUMMARY | 2024-12-21 13:57 | XMS_ITS | Patient Health Record ---
Author Organization [facility] Address [address] [place] [address] Care Team Providers Care Coating Engineer Name Role Phone Eusebia Calderon Primary Care Provider UnavailOwen Bernardo Unavailable [phone] Allergies No Known Allergies Reason For Referral No Information Medications Medication SIG (Take, Route, Frequency, Duration) Notes Start Date End Date Status Dulcolax (colon prep) 5 MG take at 3:00 p.m and 7:00p.m. Orally two tablets twice a day for one day for 1 day 11/21/2023 Active MiraLax 17 GM 1 packet mixed with 8 ounces of fluid Orally Twice a day for 30 day(s) 11/21/2023 Active MiraLax (colon prep) 17 GM/SCOOP 1 238 Gm bottle mixed with Gatorade or Crystal Light Orally begin at 5:00 p.m. the day before the procedure for 1 day 11/21/2023 Active ibuprofen Active Docusate Sodium 100 MG Oral for 30 Active Cyclobenzaprine HCl 5 MG TAKE 1 TABLET B Y MOUTH UP TO TWICE DAILY FOR MUSCLE SPASM Oral for 85 Not-Taking Meloxicam 15 MG Oral for 90 Ac tive Vitamin D Active Rizatriptan Benzoate 5 MG Oral for 30 Active Vitamin C Active Social History Tobacco [...] Problem Status W/U Status Risk Notes Problem Colon cancer screening (208070173) Colon cancer screening (Z12.11) Active confirmed Problem History of polyp of colon (situation) (735117670) Personal history of colonic polyps (Z86.010) Active confirmed Problem History of polyp of colon (012132726) History of colon polyps (Z86.010) Active confirmed Problem Chronic constipation (896080641) Chronic constipation (K59.09) Active confirmed Encounters Encounter Location Date Provider Diagnosis [facility] [place] [address] [place] [phone] 02/28/2024 Owen Simon Encounter for scre ening colonoscopy Z12.11 and Personal history of colonic polyps Z86.010 Assessments Encounter Date Diagnosis (ICD Code) Assessment Notes Treatment Notes Treatment Clinical Notes Section Notes 02/28/2024 Encounter for screening colonoscopy (ICD-10 - Z12.11) 02/28/2024 Personal history of colonic polyps (ICD-10 - Z86.010) Plan Of Treatment Future Test Test Name Order Date COLONOSCOPY 11/21/2023 Insurance Providers Payer Name Payer Address Payer Phone Subscriber Number Group Number Insured Name Patient Relationship to Insured Coverage Start Date Coverage End Date [facility] [address] [place] [address] [id number] NEAL LIPSCOMB Self - patient is the insured Medical (General) History Medical History History ICD Code kidney stones She describes colonoscopies with removal of polyps and both [facility] and [facility] migraines Denies MD,DM,CVA,Lung disease,renal dise ase Surgical History Surgery Date(Month/Year) Some type of partial colecto my at [facility] for polyps Hysterectomy Hemorrhoids with Dr. Cormier in December
== END 2024-12-21 11:42 | disposition home or self-care (01) ==
LOC: HO.MAMMO 11:41
PROVIDERS: PCP Internal Medicine; Visit Provider Internal Medicine
DX: R92.2 Inconclusive mammogram (principal)
CPT/HCPCS: 76642; 77062; 77066

== ENCOUNTER → 2024-12-21 12:00 | Outpatient (BNV) | payer OTHER, SELFPAY | PROVIDERS: PCP Internal Medicine; Visit Provider Internal Medicine | DX: N60.01 Solitary cyst of right breast (principal) | CPT/HCPCS: 76642; 77066; G0279 ==

== ENCOUNTER 2025-01-11 07:56 | Outpatient (REF) | payer OTHER, SELFPAY ==
--- NOTE | ~2025-01-11 | XR_ITS ---
CLINICAL HISTORY: M25.512 - Pain in left shoulder For view left shoulder Comparison: None Findings: Normal congruency of the glenohumeral joint. AC joint intact. AC joint arthrosis subtle undersurface spurring No fractures or bony erosions. No greater tuberosity cysts. Normal bone mineralization. Soft tissue calcifications near the greater tuberosity. Normal visualized left chest. Impression: 1. No fracture, subluxations or dislocations left shoulder. 2. AC joint arthrosis subtle undersurface spurring. Suspect calcific tendinopathy rotator cuff This document has been electronically signed by: Sukumar Erickson MD on 01/12/2025 10:29:47
--- NOTE | ~2025-01-11 | XR_ITS ---
CLINICAL HISTORY: M79.642 - Pain in left hand , PAIN in right hand Three views of the right and left hand. COMPARISON: None FINDINGS: Right hand: Distal radius and ulna appear intact. Carpals, metacarpals and phalanges of the right hand appear intact and normal in alignment. No lytic or sclerotic lesion. No periostitis. No erosion identified. Left hand: Distal radius appears intact. 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 Carpals, metacarpals and phalanges of the left hand appear intact and normal in alignment. No lytic or sclerotic lesion. No periostitis. No erosion identified. IMPRESSION: 1. No radiographic evidence of acute injury to the right or left hand. No erosions identified. 2. 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 This document has been electronically signed by: Marlo Ko MD on 01/11/2025 17:57:24
--- NOTE | ~2025-01-11 | XR_ITS ---
CLINICAL HISTORY: M25.511 - Pain in right shoulder Four views of the right shoulder. COMPARISON: None FINDINGS: Proximal right humerus, the right scapula, and the right clavicle appear intact. Humeral head is appropriately seated in the glenoid. Mild hypertrophy of the right acromioclavicular joint. Visualized portions of the right lung are clear. IMPRESSION: 1. No radiographic evidence of acute injury to the right shoulder. This document has been electronically signed by: Marlo Ko MD on 01/11/2025 17:52:58
--- NOTE | ~2025-01-11 | XR_ITS ---
CLINICAL HISTORY: M54.12 - Radiculopathy, cervical region Five views of the cervical spine. COMPARISON: None FINDINGS: Normal vertebral body alignment. No evidence of acute vertebral body injury. Normal C1-C2 articulation. Marginal osteophytes present throughout the mid to lower cervical spine. Vertebral disc space heights are preserved. Uncovertebral joint hypertrophy present at C5-6. Visualized paravertebral soft tissues and lung apices are unremarkable. IMPRESSION: 1. No radiographic evidence of acute injury to the cervical spine. 2. [id number] mid to lower cervical spondylosis. This document has been electronically signed by: Marlo Ko MD on 01/11/2025 17:03:13
--- OUTSIDE RECORDS SUMMARY | 2025-01-11 09:53 | XMS_ITS | Clinical Summary ---
Author Organization [facility] Address [address] [place] [address] Care Team Providers Care Communications Administrator Name Role Phone Unavailable Primary Care Provider [...]
== END 2025-01-11 07:57 | disposition home or self-care (01) ==
LOC: HO.XRAY 07:56
PROVIDERS: PCP Internal Medicine; Visit Provider Internal Medicine
DX: G43.909 Migraine, unspecified, not intractable, without status migrainosus (principal); M54.50 Low back pain, unspecified; M25.511 Pain in right shoulder; M25.512 Pain in left shoulder; M54.12 Radiculopathy, cervical region; M79.641 Pain in right hand; M79.642 Pain in left hand
CPT/HCPCS: 72040; 73030; 73120; 96127; 99212

== ENCOUNTER 2025-01-11 07:56 | Outpatient (AMB) | payer OTHER, SELFPAY ==
--- OUTSIDE RECORDS SUMMARY | 2025-01-11 08:01 | XMS_ITS | Patient Health Record ---
Author Organization [facility] Address [address] [place] [address] Care Team Providers Care Quantometer Operator Name Role Phone Eusebia Calderon Primary Care Provider UnavailOwen Bernardo Unavailable [phone] Allergies No Known Allergies Reason For Referral [...] Status Risk Notes Problem Colon cancer screening (850059576) Colon cancer screening (Z12.11) Active confirmed Problem History of polyp of colon (situation) (502444075) Personal history of colonic polyps (Z86.010) Active confirmed Problem History of polyp of colon (364272356) History of colon polyps (Z86.010) Active confirmed Problem Chronic constipation (057280901) Chronic constipation (K59.09) Active confirmed Encounters Encounter Location Date Provider Diagnosis [facility] [place] [address] [place] [phone] 02/28/2024 Owen Simon Encounter for scre ening [...] Insured Coverage Start Date Coverage End Date [facility] [address] [place] [id number] NEAL LIPSCOMB Self - patient is the insured Medical (General) History Medical History History ICD Code kidney stones She describes colonoscopies with removal of polyps and both [facility] and [facility] migraines Denies MS,DM,CVA,Lung disease,renal dise ase Surgical History Surgery Date(Month/Year) Some type of partial colecto my at [facility] for polyps Hysterectomy Hemorrhoids with Dr. Cormier in December
--- OUTSIDE RECORDS SUMMARY | 2025-01-11 08:01 | XMS_ITS ---
Author Organization [facility] Address [address] [place] [address] Care Team Providers Care Abrasive Sawyer Name Role Phone Eusebia Calderon Primary Care Provider Owen Page Unavailable [phone] Allergies No Known Allergies REASON FOR VISIT [...] W/U Status Risk Notes Problem Chronic constipation (034248637) Chronic constipation (K59.09) Active confirmed Problem History of polyp of colon (549647741) History of colon polyps (Z86.010) Active confirmed Problem Colon cancer screening (751878657) Colon cancer screening (Z12.11) Active confirmed Vital Signs Temperature 97.5 degrees Fahrenheit 11/21/19 24 Blood pressure systolic 00 mm Hg 11/21/19 24 Blood pressure diastolic 00 mm Hg 024 Height 5 ft 2 in in 11/21/2023 Weight 167 lbs 11/21/2023 BMI 30.54 kg/m2 11/21/2023 Encounters Encounter Location Date Provider Diagnosis [facility] [address] [place] [address] 11/21/2023 Owen Simon Chronic constipation K59.09 ; [...] * PADMA LIPSCOMBDOB: 0 (53 yo F)Acc No.[id number]:11/21/2023 Progress Notes Patient:?PADMA LIPSCOMB Provider:?Owen Simon MD :1970???Age:53 Y???Sex:Female D ate:11/21/2023 Address:[address] [place], [place] [id number] Pcp:Eusebia Syed Subjective: * Chief Complaints: * [...] having had colonoscopies in various hospitals including [facility] and [facility]. She describes a colon resection at [facility] for polyps as well. She describes [...] Surgical History:?Some type of partial colectomy at [facility] for polyps Hysterectomy Hemorrhoids with Dr. [...] Procedure Codes:?3017F COLOR ECTAL CA SCREEN DOC [id number] TOBACCO NON-[id number] BP SCR NOT PRFRM REC REASON NOS * Preventive Medicine:? ??Counseling:?Care goal follow-up plan:?Above Normal BMI Follow-up?Giving encouragement to exercise,?BMI management provided?Yes.? * Follow Up:?prn * * Sign off status: Completed true * Provider:?Owen Simon MD Date:? 024 Generated for Yordy blum/Maxim/Benjaminsmitting on:?01/11/2025 08:01 AM EDT History and Physical Notes * HPI [...] having had colonoscopies in various hospitals including [facility] and [facility]. She describes a colon resection at [facility] for polyps as well. She describes [...]
--- OUTSIDE RECORDS SUMMARY | 2025-01-11 08:01 | XMS_ITS ---
Author Organization [facility] Address [address] [place] [address] Care Team Providers Care Bracelet Maker Novelty Name Role Phone Eusebia Calderon Primary Care Provider Owen Page [phone] REASON FOR VISIT bowel prep Medications Medication [...] Active Encounters Encounter Location Date Provider [facility] [address] [facility] [address] [place] [address] 11/21/2023 Owen Simon Plan Of Treatment Medication [...] * NEAL LIPSCOMBDOB: 0 (53 yo F)Acc No.[id number]:11/21/2023 Patient:?NEAL LIPSCOMB :1970???Age:53 Y???Sex:Female Address:[address] [place] [address] [address], [place], [address] * Refills? Start MiraLax (colon prep) Powder, [...] * true * Date:? Generated for Yordy blum/Maxim/Lorenzoitting on:?01/11/2025 08:01 AM EDT
--- OUTSIDE RECORDS SUMMARY | 2025-01-11 08:01 | XMS_ITS ---
Author Organization [facility] Address [address] [place] [address] Care Team Providers Care Ground Control Approach Technician Name Role Phone Eusebia Calderon Primary Care Provider Unavailab Owen Stern Unavailable [phone] REASON FOR VISIT screening,hx polyps Problems Problem Type SNOMED Code ICD Code Onset Dates Problem Status W/U Status Risk Notes Problem History of polyp of colon (situation) (870853152) Personal history of colonic polyps (Z86.010) Active confirmed Encounters Encounter Location Date Provider Diagnosis [facility] [place] [address] [place] [phone] 02/28/2024 Owen Simon Encounter for scre ening colonoscopy Z12.11 and Personal history of colonic polyps Z86.010 Assessments Encounter Date Diagnosis (ICD Code) Assessment Notes Treatment Notes Treatment Clinical Notes Section Notes 02/28/2024 Encounter for screening colonoscopy (ICD-10 - Z12.11) 02/28/2024 Personal history of colonic polyps (ICD-10 - Z86.010) Plan Of Treatment No Information Progress Notes * NEAL LIPSCOMBDOB: 0 (54 yo F)Acc No.[id number]:02/28/2024 COLON WITH MAC Patient:?NEAL LIPSCOMB Provider:?Owen Simon MD :1970???Age:53 Y???Sex:Female D ate:02/28/2024 Address:[address] [place] [address] [address], [place], [place] Pcp:Eusebia Syed Subjective: * Chief Complaints: * ???1. Screening,hx polyps. * Medical History:? Objective: * Vitals:? Assessment: * Assessment: 1.?Encounter for screening c olonoscopy - Z12.11 (Primary)???2.?Personal history of colonic polyps - Z86.010??? Plan: * Treatment: * Procedure Codes:?35148 DIAGN OSTIC COLONOSCOPY, Modifiers: 53 * * The named appointment provid er may or may not be the originator of this progress note, and it is not deemed complete until electronically signed by the appointment provider. Sign off status: Pending * Provider:?Owen Simon MD Date:? 024 Generated for Yordy blum/Maxim/Benjaminsmitting on:?01/11/2025 08:01 AM EDT
--- OUTSIDE RECORDS SUMMARY | 2025-01-11 08:01 | XMS_ITS | Clinical Summary ---
Author Organization [facility] Address [address] [place] [address] Care Team Providers Care Computer Forensic Specialist Name Role Phone Unavailable Primary Care Provider [...]
--- NOTE | 2025-01-11 08:20 | MHC.PC.OV ---
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 Accompanied by: Self / Same As Patient Allergies sumatriptan Adverse Reaction (Mild, Verified 01/11/25 08:35) sleepiness varenicline [From Chantix] Adverse Reaction (Mild, Verified 01/11/25 08:35) depression, nightmares Medication List - Last Reconciled 01/11/25 by Eusebia Syed MD amitriptyline 10 mg PO BEDTIME 90 days [bio freeze roll As directed] cholecalciferol (vitamin D3) 10 mcg PO DAILY docusate sodium (Colace) 100 mg PO BID ibuprofen 800 mg PO Q8H lidocaine 4% (AsperFlex (lidocaine)) 1 patch topical DAILY PRN 30 days magnesium oxide 400 mg PO DAILY 90 days [medline phytoplex lotion As directed] methocarbamol 500 mg PO TID PRN rizatriptan 5 mg PO Q2-4H PRN 30 days [Vitamin C ] Tobacco use date assessed: 01/11/25 Dental Screening Dental Screen Date: 01/11/25 Did you have a dental visit in the last 12 months?: Yes Did you have a dental problem in the last 6 months where you did not have access to dental care?: No Was dental information given to patient?: Patient has dentist HPI HPI Comments History of Present Illness Details The patient is a 54-year-old female presenting with a follow-up appointment for the management of chronic migraine and back pain. She reports significant neck and shoulder pain, describing these symptoms as severe and debilitating, impacting her daily functions such as driving. She notes an inability to fully bend her fingers, which affects her range of motion. Additionally, she experiences morning stiffness and tension in her neck that alleviates somewhat as the day progresses. Her chronic migraines, previously occurring daily, have shown some reduction in frequency due to her current medication regimen, including amitriptyline and magnesium oxide. She experienced significant improvement with injectable treatments, though coverage issues through insurance pose a challenge. She has allergies to sumatriptan and Chantix, both of which induced adverse reactions. The patient is actively managing her longstanding back pain with ibuprofen and other supportive measures but continues to experience discomfort. Her treatment history includes encounters with specialists and adjustments to her therapeutic regimen. She expresses a need for orthopedic evaluation for neck and potential radiological imaging to assess her current musculoskeletal symptoms. [facility], [facility] Medical History (Updated 01/11/25 @ 08:43 by Eusebia Syed MD) Eczema Constipation by delayed colonic transit Hypovitaminosis D Abdominal pain Arthritis Bleeding hemorrhoids Migraine Hemorrhoids Surgical History History of hemorrhoidectomy H/O colonoscopy History of hysterectomy History of colon surgery Family History Mother Asthma Dementia Hypertension COPD (chronic obstructive pulmonary disease) Skin cancer Osteoarthritis Father Heart attack Prostate cancer Sister Osteoarthritis Social History Housing: Apartment Alcohol intake: former Patient Tobacco Use Status: Former Tobacco user Tobacco use type: Cigarette e-Cigarette/Vaping Use: Never Used Second Hand Smoke Exposure: No service: No Current occupational status: unemployed and disabled Cognitive needs: Yes Hearing needs: No Vision needs: Yes Questionnaire PHQ-9 Over the last 2 weeks, how often have you been bothered by any of the following problems? 1. Little interest or pleasure in doing things: not at all 2. Feeling down, depressed, or hopeless: not at all 3. Trouble falling or staying asleep, or sleeping too much: not at all 4. Feeling tired or having little energy: not at all 5. Poor appetite or overeating: not at all 6. Feeling bad about yourself - or that you are a failure or have let yourself or your family down: not at all 7. Trouble concentrating on things, such as reading the newspaper or watching television: not at all 8. Moving or speaking so slowly that other people could have noticed. Or the opposite - being so fidgety or restless that you have been moving around a lot more than usual: not at all 9. Thoughts that you would be better off or of hurting yourself in some way: not at all Total score: 0 Depression Screening Interpretation: Negative Depression Screening Done: Yes 02003 - PHQ-9 Billing: Yes Source: Developed by Drs. Owen Hernández, Jamila LaresErnie and colleagues, with an educational zia from [employer]. Thrive Questionnaire Date Thrive assessed: 01/11/25 I am a: Patient What is your living situation today?: I have a steady place to live Within the past 12 months, did the food you bought not last and you didn't have the money to get more?: I choose not to answer this question Within the past 12 months, did you worry whether your food would run out before you got money to buy more?: Never true Do you have trouble paying for medicines?: No Do you have trouble getting transportation to medical appointments?: No Do you have trouble paying your heating and electricity bill?: No Do you have trouble taking care of your child, family member or friend?: No Do you have trouble with day-to-day activities such as bathing, preparing meals, shopping, managing finances, etc.?: No Are you currently unemployed and looking for a job?: No Are you interested in more education?: No Please select the resources that you would like help with: None Currently or been in a relationship where the following occur: No concerns reported THRIVE Score: 0 AUDIT C Alcohol Use Questionnaire (AUDIT-C) 1. How often do you have a drink containing alcohol?: Never Total Score: 0 Score Reviewed/Action Taken: No EDIN-7 AMB Questionnaire EDIN-7 Date EDIN - 7 assessed: 01/11/25 Feeling nervous, anxious, or on edge: 0 = Not at all Not being able to stop or control worryin = Not at all Worrying too much about different things: 0 = Not at all Trouble relaxin = Not at all Being so restless that it is hard to sit still: 0 = Not at all Becoming easily annoyed or irritable: 0 = Not at all Feeling afraid as if something awful might happen: 0 = Not at all Total EDIN-7 score (0-4 normal; 5-9 mild; 10-14 moderate; 15-21 severe): 0 Source: Developed by Drs. Owen Hernández, Ernie Del Angel and colleagues, with an educational zia from [employer]. EDIN-7 Assessment Billing EDIN-7 Assessment Tool: EDIN-7 Assessment 13108 Review of Systems Const All systems reviewed & are unremarkable except as noted in HPI and below ENT Reports neck pain Card Denies chest pain at rest, Denies chest pain with activity, Denies edema, Denies irregular heart rhythm, Denies claudication, Denies dyspnea, Denies dyspnea on exertion, Denies orthopnea, Denies paroxysmal nocturnal dyspnea and Denies slow heart rate Resp Denies cough, Denies dyspnea and Denies dyspnea on exertion GI Denies abdominal pain, Denies change in bowel habits, Denies excessive flatus, Denies nausea and Denies vomiting Musc Reports back pain, Reports arthralgias, Reports limited range of motion, Reports neck pain, Reports numbness and Reports radiating pain into limb Neuro Denies lack of coordination and Reports numbness Physical exam (Primary Care) Vital Signs: Last Vital Signs BP 132/84 01/11/25 08:21 BMI result Body Mass Index 32.0 BMI Assessment/Plan discussion: High BMI High, discussed plan: lifestyle, weight reduction, dietary and physical activity Tobacco/Smoking Status: Tobacco use Status Tobacco use date assessed 01/11/25 01/11/25 08:27 Patient Tobacco Use Status Former Tobacco user 01/11/25 08:27 Tobacco use type Cigarette 01/11/25 08:27 e-Cigarette/Vaping Use Never Used 01/11/25 08:27 PHQ-9: PHQ-9 Score PHQ-9: Total score 0 01/11/25 10:34 Depression Screening Interpretation: Negative Thrive Assessment: Date of Thrive Assessment Date Thrive assessed 01/11/25 01/11/25 08:27 Currently or been in a relationship where the following occur: No concerns reported Neck Neck: Yes tender Resp Effort & Inspection: normal respiratory effort Auscultation: clear to auscultation bilaterally Cardio Jugular venous distension: no JVD Rate: regular rate Rhythm: regular rhythm Heart sounds: S1 normal heart sound present and S2 normal heart sound present Extrem Right upper extremity: shoulder/upper arm Details: tenderness and abnormal ROM Details: pain with active ROM Details: in ABduction and in extension Left upper extremity: shoulder/upper arm Details: tenderness and abnormal ROM Details: pain with active ROM Details: in ABduction and in extension Coding Level of Care Code Est Pt Level 4 (86191) Complex EM visit Add On G2211 Diagnoses Right shoulder pain M25.511 Left shoulder pain M25.512 Right hand pain M79.641 Left hand pain M79.642 Cervical radiculopathy M54.12 Migraines G43.909 Lumbar pain M54.50 Additional Codes EDIN-7 Assessment Billing - EDIN-7 Assessment Tool: EDIN-7 Assessment 75901 ([id number]) PHQ-9 - 27307 - PHQ-9 Billing: Yes ([id number]) Time Spent (min) 22 Assessment & Plan Assessment & Plan (1) Right shoulder pain: Code(s): M25.511 - Pain in right shoulder Category: Medical (2) Left shoulder pain: Code(s): M25.512 - Pain in left shoulder Category: Medical (3) Right hand pain: Code(s): M79.641 - Pain in right hand Category: Medical (4) Left hand pain: Code(s): M79.642 - Pain in left hand Category: Medical (5) Cervical radiculopathy: Code(s): M54.12 - Radiculopathy, cervical region Category: Medical (6) Migraines: Code(s): G43.909 - Migraine, unspecified, not intractable, without status migrainosus Category: Medical (7) Lumbar pain: Code(s): M54.50 - Low back pain, unspecified Category: Medical Plan The patient has found notable relief in the management of chronic migraines when using amitriptyline and magnesium oxide, with a significant reduction in episode frequency. Insurance challenges for injectable therapies warrant further coordination with her neurologist during the pending visit. The chronic back pain management plan includes continued ibuprofen use, pending further assessment through radiographic imaging and consultation with an orthopedic dentist to address musculoskeletal symptoms, particularly those highlighted in the cervical and shoulder regions. Continued weight management efforts and cholesterol control are essential, with dietary recommendations aimed at reducing cholesterol. A follow-up for hypercholesterolemia is pending before her annual physical examination, which will determine the need for pharmacological interventions if required. Patient was informed and verbally consented to the use of an ambient scribe for clinic note documentation during this visit. During the consultation, we discussed the ongoing management and necessary interdisciplinary coordination for chronic migraine and back pain. The patient experiences notable improvement with current migraine medication; however, insurance coverage for injectables is an issue that will be addressed during her scheduled neurology follow-up. We plan for additional diagnostic imaging to better understand her neck and shoulder symptoms, associated with severe pain and functional limitations. I discussed the potential orthopedic evaluation, which will provide insights into any structural concerns. We reviewed her medication allergies and rationalized alternative treatments to avoid adverse effects. Furthermore, we emphasized the importance of ongoing lifestyle modifications to manage her obesity and hypercholesterolemia, informing her of upcoming laboratory assessments and the subsequent action plan if cholesterol levels remain elevated. Orders: Orders XR hand RT 2V Today M79.641 - Pain in right hand XR shoulder RT min 2V Today M25.511 - Pain in right shoulder Lipid Panel 6 Months E78.5 - Hyperlipidemia, unspecified XR cervical spine 2V Today M54.12 - Radiculopathy, cervical region XR shoulder LT min 2V Today M25.512 - Pain in left shoulder Vitamin D 25-OH Total 6 Months E55.9 - Vitamin D deficiency, unspecified Comprehensive [place]. Panel Fast 6 Months G44.52 - New daily persistent headache (NDPH) Referrals Orthopedics Referral M54.12 - Radiculopathy, cervical region Medications: Refilled magnesium oxide 400 mg PO DAILY 90 tabs 1RF 90 days Patient Instructions: - Continue current medication regimen for migraines and back pain. - Schedule follow-up with the neurologist as planned. - Obtain prescribed imaging (neck, shoulder, hand X-rays) to be reviewed during orthopedic consultation. - Maintain dietary changes, focusing on reduced rice intake and increased vegetable consumption. - Plan for laboratory testing for hypercholesterolemia two weeks before the annual physical. - Follow up for the results and management plan for cholesterol control, including potential medications if levels are elevated. - Seek immediate care if experiencing undue symptoms such as severe pain, immobility, or signs of adverse drug reactions.
[2025-01-11 08:21] VITALS: BP 132/84; BMI 32.0
== END 2025-01-11 08:48 | disposition home or self-care (01) ==
LOC: HO.HMCH 07:56
PROVIDERS: PCP Internal Medicine; Visit Provider Internal Medicine
DX: M25.511 Pain in right shoulder (principal); M25.512 Pain in left shoulder; M79.641 Pain in right hand; M79.642 Pain in left hand; M54.12 Radiculopathy, cervical region; G43.909 Migraine, unspecified, not intractable, without status migrainosus; M54.50 Low back pain, unspecified

== ENCOUNTER → 2025-01-11 09:01 | Outpatient (BNV) | payer OTHER, SELFPAY | PROVIDERS: PCP Internal Medicine; Visit Provider Radiology Diagnostic Radiology | DX: M47.892 Other spondylosis, cervical region (principal); M75.31 Calcific tendinitis of right shoulder; M19.011 Primary osteoarthritis, right shoulder; S52.512A Displaced fracture of left radial styloid process, initial encounter for closed fracture | CPT/HCPCS: 72040; 73030; 73120 ==

== ENCOUNTER 2025-04-07 13:58 | Outpatient (AMB) | payer OTHER, SELFPAY ==
--- NOTE | 2025-04-07 14:00 | MHC.OFFVIS ---
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 The pain is aggravated by activities such as bending and twisting, and can occur during sleep. She recently experienced a pinched feeling causing discomfort in the middle of her back. The patient has been using methocarbamol for pain relief, but insurance issues have necessitated a change in medication. Baclofen was previously ineffective, prompting the switch to methocarbamol. She is reluctant to pursue injections due to a previous adverse reaction to a cortisone injection, which resulted in dizziness. The patient resides on the second floor and experiences severe pain when climbing stairs, occasionally needing to crawl due to the intensity of the pain. - Onset: Chronic, persistent pain - Quality: Described as pinching and severe at times - Location: Middle of the back - Exacerbating factors: Bending, twisting, and certain movements during sleep - Relieving factors: Use of methocarbamol, although insurance coverage is an issue - Interference: Affects ability to climb stairs, sometimes requiring crawling - Affect: Pain impacts daily activities, causing significant discomfort - Analgesia: Previously used methocarbamol, insurance no longer covers it; baclofen was ineffective - Adverse Effects: Experienced dizziness from cortisone injection - Activities of Daily Living: Pain affects mobility, especially when climbing stairs - Aberrant Drug Related Behaviors: None reported [facility] Medical History Eczema Constipation by delayed colonic transit Hypovitaminosis D Abdominal pain Arthritis Bleeding hemorrhoids Migraine Hemorrhoids Surgical History History of hemorrhoidectomy H/O colonoscopy History of hysterectomy History of colon surgery Family History Mother Asthma Dementia Hypertension COPD (chronic obstructive pulmonary disease) Skin cancer Osteoarthritis Father Heart attack Prostate cancer Sister Osteoarthritis Social History Housing: Apartment Alcohol intake: former Patient Tobacco Use Status: Former Tobacco user Tobacco use type: Cigarette e-Cigarette/Vaping Use: Never Used Second Hand Smoke Exposure: No service: No Current occupational status: unemployed and disabled Cognitive needs: Yes Hearing needs: No Vision needs: Yes Review of Systems Const Details: - Musculoskeletal: Reports chronic back pain - Neurological: Reports dizziness following cortisone injection to the knee Physical Exam Vital Signs: Last Vital Signs Pulse 75 04/07/25 14:02 Resp 16 04/07/25 14:02 BP 143/81 H 04/07/25 14:02 Pulse Ox 98 04/07/25 14:02 Oxygen Delivery Method Room Air 04/07/25 14:02 BMI result Body Mass Index 32.0 General: awake, alert, oriented. Answers questions appropriately. Fully engaged in examination. Skin: warm, dry, intact without visible rashes or lesions. HEENT: Normocephalic. Conjuntivae clear without exudate. Sclera non-icteric. Hearing intact. Cardiac: External chest normal in appearance. Respiratory: No signs of trauma. No signs of respiratory distress. No cough, audible wheezing or stridor. Abdomen: without gross distension. MS: No obvious swelling or deformities. Able to transition from sit to stand unassisted. Ambulates with bilaterally normal heel strike and toe off Neurological: Oriented to person, place, time and situation. Thought process intact. No gait abnormalities appreciated. Psychiatric: Appropriate mood and affect. Good judgment and insight. Results Reviewed Results Reviewed: 07/13/2024 XR/XR lumbar spine 2-3V FINDINGS: Normal vertebral body alignment. The lumbar lordosis is maintained. No acute fracture or subluxation. No loss of vertebral body height. Multilevel loss of intervertebral disc height with anterior endplate osteophytes throughout the lumbar spine, progressed when compared to the prior radiographs. No concerning lytic or blastic osseous lesion. No abnormal soft tissue calcification. IMPRESSION: Crlv-ih-yvtuzobb multilevel degenerative disc disease, progressed when compared to the prior radiographs. 02/19/2023 EXAMINATION: XR CERVICAL SPINE FINDINGS: Bone alignment is normal. No fracture or dislocation. Degenerative spondylosis from C4-C5 to C6-C7. Normal disc spaces. Normal prevertebral soft tissues. IMPRESSION: Degenerative changes. Assessment & Plan Assessment & Plan (1) Lumbar pain: Code(s): M54.50 - Low back pain, unspecified Category: Medical (2) Thoracic back pain: Code(s): M54.6 - Pain in thoracic spine Category: Medical (3) Spondylosis of cervical spine: Code(s): M47.812 - Spondylosis without myelopathy or radiculopathy, cervical region Category: Medical (4) Facet arthritis of lumbar region: Code(s): M47.816 - Spondylosis without myelopathy or radiculopathy, lumbar region Category: Medical (5) Degenerative disc disease, lumbar: Code(s): M51.36 - Other intervertebral disc degeneration, lumbar region Category: Medical (6) Trapezius muscle strain: Code(s): S46.819A - Strain of other muscles, fascia and tendons at shoulder and upper arm level, unspecified arm, initial encounter Category: Medical (7) Myofascial low back pain: Code(s): M54.50 - Low back pain, unspecified Category: Medical Plan The plan involves prescribing an alternative muscle relaxant due to insurance issues with methocarbamol. We reviewed her poor tolerance to bilateral knee cortisone injections and agreed to hold off injections at this time. I emphasized the importance of monitoring her pain levels and communicating any changes. Pain worsens we will plan for bilateral diagnostic L3-L4 DR L5 medial branch blocks with local anesthetic. Patient will call the office at a time if she wishes to proceed with injections. Patient was informed and verbally consented to the use of an ambient scribe for clinic note documentation during this visit. Medications: New tizanidine Discontinue methocarbamol. No driving while taking this medication. May cause drowsiness. Do not take with alcohol or other MEDICAL SALES REPRESENTATIVE Depressants. 2 mg PO TID PRN 90 tabs 1RF muscle spasticity Discontinued methocarbamol No driving while taking this medication. Do no take with alcohol or other MEDICAL SALES REPRESENTATIVE Depressants Discontinued Reason: Insurance Denied 500 mg PO TID PRN 90 tabs 1RF muscle spasm Patient Instructions: - Take the new muscle relaxant as prescribed. - call the office if he wished to proceed with injections - Monitor pain levels and report any significant changes. Coding Level of Care Code Est Pt Level 3 (86052) Complex EM visit Add On G2211 Diagnoses Lumbar pain M54.50 Thoracic back pain M54.6 Spondylosis of cervical spine M47.812 Facet arthritis of lumbar region M47.816 Degenerative disc disease, lumbar M51.36 Trapezius muscle strain S46.819A Myofascial low back pain M54.50
[2025-04-07 14:02] VITALS: BP 143/81; PULSE 75; RESP 16; O2SAT 98; BMI 32.0
--- OUTSIDE RECORDS SUMMARY | 2025-04-07 14:35 | XMS_ITS | Patient Health Record ---
Author Organization [facility] Address [address] [place] [address] Care Team Providers Care Ammonium Hydroxide Operator Name Role Phone Eusebia Calderon Primary Care Provider UnavailOwen Bernardo Unavailable [phone] Allergies No Known Allergies Reason For Referral [...] Status Risk Notes Problem Colon cancer screening (520259023) Colon cancer screening (Z12.11) Active confirmed Problem Personal history of colonic polyps (Z86.010) Active confirmed Problem History of polyp of colon (818948560) History of colon polyps (Z86.010) Active confirmed Problem Chronic constipation (219970554) Chronic constipation (K59.09) Active confirmed Plan Of Treatment Future Test Test Name Order Date COLONOSCOPY 11/21/2023 Insurance Providers Payer Name Payer Address Payer Phone Subscriber Number Group Number Insured Name Patient Relationship to Insured Coverage Start Date Coverage End Date [facility] [address] Attn Claims [place] [id number] NEAL LIPSCOMB Self - patient is the insured Medical (General) History Medical History History ICD Code kidney stones She describes colonoscopies with removal of polyps and both [facility] and [facility] migraines Denies [place],DM,CVA,Lung disease,renal dise ase Surgical History Surgery Date(Month/Year) Some type of partial colecto my at [facility] for polyps Hysterectomy Hemorrhoids with Dr. Cormier in December
--- OUTSIDE RECORDS SUMMARY | 2025-04-07 14:35 | XMS_ITS | Clinical Summary ---
Author Organization [facility] Address [address] [place] [address] Care Team Providers Care Seasonal Driver Name Role Phone Unavailable Primary Care Provider [...]
== END 2025-04-07 14:18 | disposition home or self-care (01) ==
LOC: HO.PMC 13:58
PROVIDERS: PCP Internal Medicine; Visit Provider Registered Nurse Emergency
DX: M54.50 Low back pain, unspecified (principal); M54.6 Pain in thoracic spine; M47.812 Spondylosis without myelopathy or radiculopathy, cervical region; M47.816 Spondylosis without myelopathy or radiculopathy, lumbar region; M51.369 Other intervertebral disc degeneration, lumbar region without mention of lumbar back pain or lower extremity pain; S46.819A Strain of other muscles, fascia and tendons at shoulder and upper arm level, unspecified arm, initial encounter
CPT/HCPCS: 99213; G2211

== ENCOUNTER → 2025-04-07 13:58 | Outpatient (BNVA) | payer OTHER, SELFPAY | PROVIDERS: PCP Internal Medicine; Visit Provider Registered Nurse Emergency | DX: M54.6 Pain in thoracic spine (principal); M47.812 Spondylosis without myelopathy or radiculopathy, cervical region; M47.816 Spondylosis without myelopathy or radiculopathy, lumbar region; M51.360 Other intervertebral disc degeneration, lumbar region with discogenic back pain only | CPT/HCPCS: 99212 ==

== ENCOUNTER 2025-04-15 15:05 | Outpatient (AMB) | payer OTHER, SELFPAY ==
--- OUTSIDE RECORDS SUMMARY | 2025-04-15 15:09 | XMS_ITS | Clinical Summary ---
Author Organization [facility] [facility] Address [address] [place] [address] Care Team Providers Care Slate Roofer Helper Name Role Phone Unavailable Primary Care Provider [...]
--- OUTSIDE RECORDS SUMMARY | 2025-04-15 15:09 | XMS_ITS | Patient Health Record ---
Author Organization [facility] Address [address] [place] [address] Care Team Providers Care Dental Hygienist Name Role Phone Eusebia Calderon Primary Care Provider UnavailOwen Bernardo Unavailable [phone] Allergies No Known Allergies Reason For Referral [...] Status Risk Notes Problem Colon cancer screening (962877370) Colon cancer screening (Z12.11) Active confirmed Problem History of polyp of colon (situation) (774005454) Personal history of colonic polyps (Z86.010) Active confirmed Problem History of polyp of colon (639896579) History of colon polyps (Z86.010) Active confirmed Problem Chronic constipation (811734289) Chronic constipation (K59.09) Active confirmed Plan Of Treatment Future Test Test Name Order Date COLONOSCOPY 11/21/2023 Insurance Providers Payer Name Payer Address Payer Phone Subscriber Number Group Number Insured Name Patient Relationship to Insured Coverage Start Date Coverage End Date [facility] [address] [place] [address] [id number] NEAL [id number] Self - patient is the insured Medical (General) History Medical History History ICD Code kidney stones She describes colonoscopies with removal of polyps and both [facility] and [facility] migraines Denies [place],DM,CVA,Lung disease,renal dise ase Surgical History Surgery Date(Month/Year) Some type of partial colecto my at [facility] for polyps Hysterectomy Hemorrhoids with Dr. Cormier in December
--- NOTE | 2025-04-15 15:20 | MHC.OFFVIS ---
Vital Signs 04/15/25 15:20 Height 5 ft 2 in Intake Visit Reasons: Pt wants sooner appt Migraine meds not working Allergies varenicline (From salgomedtiAFreeze) Adverse Reaction (Mild, Verified 04/15/25 15:28) depression, nightmares Medication List - Last Reconciled 04/15/25 by Anastacia Bose CNP amitriptyline 10 mg PO BEDTIME 90 days [bio freeze roll As directed] cholecalciferol (vitamin D3) 10 mcg PO DAILY docusate sodium (Colace) 100 mg PO BID fremanezumab-vfrm (Ajovy) 225 mg subcut [id number] galcanezumab-gnlm (Emgality Pen) mg subcut ibuprofen 800 mg PO Q8H lidocaine 4% (AsperFlex (lidocaine)) 1 patch topical DAILY PRN 30 days magnesium oxide 400 mg PO DAILY 90 days [medline phytoplex lotion As directed] ondansetron 4 mg PO DAILY PRN sumatriptan succinate mg PO tizanidine 2 mg PO TID PRN [Vitamin C ] HPI Comments Details: 54-year-old RH woman with headaches. She has been having headaches for more than 5 years. Headaches were much better with Ajovy and she was very happy with medication, but medication was not covered by insurance and she was switched to Emgality. She has been taking Emgality since 02/2025 and medication was not helping. She was having headache almost every day, about 5-6x/week. Pain could be all over head, sometimes to sides of head or back of head, sharp or throbbing-type, with photophobia, sonophobia, nausea, blurred vision, and sometimes dizziness. It could last all day. She had to lay down with an ice pack on her head in a dark, quiet room. No specific triggers. Sleep was not so good with headaches. With the Ajovy, headaches were less frequent and less severe, happening 1-2x/week and she wanted to try this medication again. [facility] Medical History (Updated 04/15/25 @ 15:26 by Anastacia Bose CNP) Migraine without aura Eczema Constipation by delayed colonic transit Hypovitaminosis D Abdominal pain Arthritis Bleeding hemorrhoids Migraine Hemorrhoids Surgical History History of hemorrhoidectomy H/O colonoscopy History of hysterectomy History of colon surgery Family History Mother Asthma Dementia Hypertension COPD (chronic obstructive pulmonary disease) Skin cancer Osteoarthritis Father Heart attack Prostate cancer Sister Osteoarthritis Social History Housing: Apartment Alcohol intake: former Patient Tobacco Use Status: Former Tobacco user Tobacco use type: Cigarette e-Cigarette/Vaping Use: Never Used Second Hand Smoke Exposure: No service: No Current occupational status: unemployed and disabled Cognitive needs: Yes Hearing needs: No Vision needs: Yes Review of Systems Const Denies chills, Denies daytime sleepiness, Denies difficulty sleeping, Denies fatigue, Denies fever(s), Denies frequent falls, Reports headache(s), Denies increased appetite, Denies poor appetite, Denies snoring, Denies weakness, Denies weight gain and Denies weight loss Eyes Denies loss of vision ENT Denies vertigo, Reports dizziness and Reports headache(s) Card Denies chest pain at rest, Denies chest pain with activity, Denies leg edema and Denies palpitations Resp Denies snoring GI Denies constipation, Denies heartburn, Denies diarrhea and Denies nausea Denies urinary frequency, Denies urinary incontinence and Denies urinary urgency Musc Denies abnormal gait, Reports numbness and Reports tingling Skin/Breast Denies dry skin and Denies rash Neuro Denies abnormal gait, Denies vertigo, Reports dizziness, Denies frequent falls, Reports headache(s), Denies lack of coordination, Denies loss of vision, Denies memory loss, Reports numbness, Denies restless legs, Denies seizure-like activity, Reports tingling, Denies paresthesias, Denies tremor(s) and Denies weakness Psych Denies anxiety, Denies depression, Denies auditory hallucinations, Denies memory loss, Denies visual hallucinations and Denies suicidal ideation Endo Denies fatigue and Denies palpitations Physical Exam Const Other: General Appearance:? normal, in no acute distress. Skin:? no rashes, no significant birthmarks. Heart:? S1, S2 normal, no murmurs. Lungs:? clear anteriorly and posteriorly. Extremities:? no edema. Psych:? alert, oriented, cognitive function intact, cooperative with exam. Neuro Other: Mental Status:?Normal attention, orientation, memory and affect.? Cranial Nerves:?Pupils are equal, round and reactive to light. External occular muscles are intact. Visual harry are full. Face is symmetrical. Facial sensations are normal. Tongue is midline. Palate elevates symmetrically. Shoulder shrugging is normal. Hearing to bedside conversation is normal. Motor Examination:?Normal muscle tone, bulk and strength,?Deep tendon reflexes are 2+,?Plantars are flexor.? Sensory Exam:?....? Coordination:?No ataxia,?no titubation.? Gait Exam: Within normal limits. Cerebellar Signs:?Gsdnhq-ie-wfce and wjtu-dk-omgi is normal.? Extrapyramidal System:?No tremor, rigidity with normal facial expressions.? Pronator Drift:?Not present.? Involuntary Movements:?No tremors seen.? Speech:?Normal.? Results Reviewed Results Reviewed: MRI brain WO at [facility] in Jun 2024: Minimal MVD Assessment & Plan Assessment & Plan (1) Migraine without aura: Code(s): G43.009 - Migraine without aura, not intractable, without status migrainosus Category: Medical Qualifiers: Status migrainosus presence: without status migrainosus Intractability: not intractable Qualified Code(s): G43.009 - Migraine without aura, not intractable, without status migrainosus Plan: More migraines since switching from Ajovy to Emgality due to insurance reasons in 02/2025. Migraines were well controlled with Ajovy, happening 1-2x/week and less severe. She was currently getting headache 5-6 days/week with Emgality. Stop Emgality. Will try to restart Ajovy as this medication worked for her in the past. She has tried and failed multiple medications in the past including propranolol, amitriptyline, topiramate, verapamil, depakote, and Emgality. Plan Meds tried: Propranolol, amitriptyline, topiramate, verapamil, depakote, Ajovy (worked, but not covered by insurance), rizatriptan, sumatriptan Medications: New fremanezumab-vfrm (Ajovy) 225 mg (1.5 mL) subcut Q1M 1.5 mL 5RF 30 days sumatriptan succinate take 1 tab at onset of headache; if no relief may repeat 1 tab after at least 2 hrs; PO 10 tabs 5RF 30 days Discontinued sumatriptan succinate Discontinued Reason: Order PO Coding Level of Care Code Est Pt Level 3 (04413) Diagnoses Migraine without aura and without status migrainosus, not intractable G43.009 Status migrainosus presence: without status migrainosus Intractability: not intractable
== END 2025-04-15 16:15 | disposition home or self-care (01) ==
LOC: HO.HSM 15:06
PROVIDERS: PCP Internal Medicine; Visit Provider Registered Nurse
DX: G43.009 Migraine without aura, not intractable, without status migrainosus (principal)
CPT/HCPCS: 99213

== ENCOUNTER → 2025-04-15 15:05 | Outpatient (BNVA) | payer OTHER, SELFPAY | PROVIDERS: PCP Internal Medicine; Visit Provider Registered Nurse | DX: G43.009 Migraine without aura, not intractable, without status migrainosus (principal) | CPT/HCPCS: 99212 ==

== ENCOUNTER 2025-04-29 10:57 | Outpatient (AMB) | payer OTHER, SELFPAY ==
--- OUTSIDE RECORDS SUMMARY | 2024-02-28 03:30 | XMS_ITS ---
Author Organization [facility] Address [address] [place] [address] Care Team Providers Care Open Hearth Helper Name Role Phone Eusebia Calderon Primary Care Provider UnavailOwen Bernardo [phone] REASON FOR VISIT screening,hx polyps Problems Problem Type SNOMED Code ICD Code Onset Dates Problem Status W/U Status Risk Notes Problem Personal history of colonic polyps (Z86.010) Active confirmed Encounters Encounter Location Date Provider Diagnosis [facility] [place] [address] [place] [id number] 02/28/2024 Owen Simon Encounter for scre ening colonoscopy Z12.11 and Personal history of colonic polyps Z86.010 Assessments Encounter Date Diagnosis (ICD Code) Assessment Notes Treatment Notes Treatment Clinical Notes Section Notes 02/28/2024 Encounter for screening colonoscopy (ICD-10 - Z12.11) 02/28/2024 Personal history of colonic polyps (ICD-10 - Z86.010) Plan Of Treatment No Information Progress Notes * NEAL LIPSCOMBDOB: 0 (54 yo F)Acc No.[id number]:02/28/2024 COLON WITH MAC Patient: NEAL WEINSTEIN Provider: Maia Simon MD :1970 A ge:53 Y S ex:Female Date:02/28/2024 Address:[address] [place] [address] [address], [place], [place] Pcp:Eusebia Syed Subjective: * Chief Complaints: * [...] MD Date: 0 02/28/2024 Generated for Yordy blum/Maxim/Lorenzoitting on: 0 04/29/2025 11:46 AM EDT
--- NOTE | 2025-04-29 11:00 | MHC.OFFVIS ---
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 Referred [facility]. Owen who notes lower back pain since 06/2022. She has been a patient with Pain Management where they have discussed possible L3-4 Medial Branch Blocks and prescribed muscle relaxers. Has completed Physical therapy for her lower back. At today's visit she states that the neck pain has been going on for about 6 years and radiates down both arms. Patient reports that on 04/26/25 she went to [facility] ER due to the pain, she states that they did an injection in the left arm but no X-rays or CT scan was done. No numbness or tinging to report at this time. Allergies varenicline (From Chantix) Adverse Reaction (Mild, Verified 04/29/25 11:04) depression, nightmares depomedrol Adverse Reaction (Intermediate, Uncoded 04/29/25 11:23) mouth bad taste HPI Comments Details: Chronic neck pain, shoots to both shoulders and arms. No numbness. But she does wake up with tightness/cramps on fingers. Left more than right weakness on arm with pain. Difficult to open bottles. Limited shoulder ROM, left worse. Shoulder xray did show degenerative changes. Difficult to sleep due to neck pain, with hear somethings is breaking . No injections to neck or shoulder. Waiting for PT to start again, referred by PCP. She did finish PT last year for lower back, neck, shoulder without relief. [facility] Medical History (Updated 04/29/25 @ 11:32 by Tyesha Florian MD) Migraine without aura Eczema Constipation by delayed colonic transit Hypovitaminosis D Abdominal pain Arthritis Bleeding hemorrhoids Migraine Hemorrhoids Surgical History History of hemorrhoidectomy H/O colonoscopy History of hysterectomy History of colon surgery Family History Mother Asthma Dementia Hypertension COPD (chronic obstructive pulmonary disease) Skin cancer Osteoarthritis Father Heart attack Prostate cancer Sister Osteoarthritis Social History Housing: Apartment Alcohol intake: former Patient Tobacco Use Status: Former Tobacco user Tobacco use type: Cigarette e-Cigarette/Vaping Use: Never Used Second Hand Smoke Exposure: No service: No Current occupational status: unemployed and disabled Cognitive needs: Yes Hearing needs: No Vision needs: Yes Review of Systems Const All systems reviewed & are unremarkable except as noted in HPI and below Physical Exam Exam Exam: Constitutional: Patient appears to be in no acute distress, well nourished and well developed. MSK: Inspection reveals appropriate head and neck positioning. No pain with palpation over the neck musculature. Some tightness on upper trapezius bilateral. Rhomboids nontender. No scapular winging. Cervical ROM was limited on extension with pain. Spurling's sign negative. Limited range of motion bilateral shoulder due to pain. Empty can test is positive right, deferred left. Drop arm test is deferred. Speed's test is positive right, deferred left. Neer's test is positive right, deferred left. Hawkin's test is positive right, deferred left. Give-way weakness upper extremities due to pain. Neurological: Dawsno?s negative bilaterally. Babinski was down going bilaterally. Clonus was negative. Gait is non-antalgic without loss of balance. Vital Signs: BMI result Body Mass Index 29.6 Results Reviewed Results Reviewed: Ordering Physician: Eusebia Calderon MD Date of Service: 01/11/25 Procedure(s): XR cervical spine 2V Accession Number(s): [id number] cc: Eusebia Calderon MD~ CLINICAL HISTORY: M54.12 - Radiculopathy, cervical region Five views of the cervical spine. COMPARISON: None FINDINGS: Normal vertebral body alignment. No evidence of acute vertebral body injury. Normal C1-C2 articulation. Marginal osteophytes present throughout the mid to lower cervical spine. Vertebral disc space heights are preserved. Uncovertebral joint hypertrophy present at C5-6. Visualized paravertebral soft tissues and lung apices are unremarkable. IMPRESSION: 1. No radiographic evidence of acute injury to the cervical spine. 2. Ajao-xq-mhwhppoa mid to lower cervical spondylosis. Ordering Physician: Eusebia Calderon MD Date of Service: 01/11/25 Procedure(s): XR shoulder LT min 2V Accession Number(s): [id number] cc: Eusebia Calderon MD~ CLINICAL HISTORY: M25.512 - Pain in left shoulder For view left shoulder Comparison: None Findings: Normal congruency of the glenohumeral joint. AC joint intact. AC joint arthrosis subtle undersurface spurring No fractures or bony erosions. No greater tuberosity cysts. Normal bone mineralization. Soft tissue calcifications near the greater tuberosity. Normal visualized left chest. Impression: 1. No fracture, subluxations or dislocations left shoulder. 2. AC joint arthrosis subtle undersurface spurring. Suspect calcific tendinopathy rotator cuff Ordering Physician: Eusebia Calderon MD Date of Service: 01/11/25 Procedure(s): XR shoulder RT min 2V Accession Number(s): [id number] cc: Eusebia Calderon MD~ CLINICAL HISTORY: M25.511 - Pain in right shoulder Four views of the right shoulder. COMPARISON: None FINDINGS: Proximal right humerus, the right scapula, and the right clavicle appear intact. Humeral head is appropriately seated in the glenoid. Mild hypertrophy of the right acromioclavicular joint. Visualized portions of the right lung are clear. IMPRESSION: 1. No radiographic evidence of acute injury to the right shoulder. This document has been electronically signed by: Marlo Ko MD on 01/11/2025 17:52:58 I reviewed records from the following: She follows neurology for migraine She follows pain management for lumbar spine Seen by Rheumatology 09/28, no signs of autoimmune or rheumatic disorder. Assessment & Plan Assessment & Plan (1) Tendonitis of left rotator cuff: Code(s): M75.82 - Other shoulder lesions, left shoulder Category: Medical (2) Bilateral shoulder pain: Code(s): M25.511 - Pain in right shoulder; M25.512 - Pain in left shoulder Category: Medical Qualifiers: Chronicity: chronic Qualified Code(s): M25.511 - Pain in right shoulder; M25.512 - Pain in left shoulder; G89.29 - Other chronic pain (3) Spondylosis of cervical spine: Code(s): M47.812 - Spondylosis without myelopathy or radiculopathy, cervical region Category: Medical (4) Numbness and tingling in both hands: Code(s): R20.0 - Anesthesia of skin; R20.2 - Paresthesia of skin Category: Medical Plan Suspect her issues are primarily from her shoulder, left worse than right. Worried about left rotator cuff tendinopathy or tear. We could not even do full shoulder exam today due to pain and limitations of range of motion. Patient had undergone adequate conservative management including PT without improvement of condition. It would be reasonable to obtain further imaging such as MRI left shoulder. An MRI would help rule out any serious condition, guide treatment and assess prognosis for recovery. Specifically ruling out left rotator cuff tear. Would offer steroid injection today but she had adverse reaction from knee steroid injections in 2022. Perhaps in the future, we could consider ketorolac injections instead of steroid. Updated her allergy list. No signs of cervical radiculitis or myelopathy today. Hand numbness especially in the morning. We will schedule for EMG to rule out Carpal Tunnel Syndrome. Assessment and plan discussed with patient, and patient was agreeable. All questions were answered thoroughly. Follow up after MRI. Tyesha Florian MD, MERRILL Board Certified, [place] Board of Physical Medicine and Rehabilitation (ABPMR) Board Certified, [place] Board of Electrodiagnostic Medicine (ABEM) Orders: Orders NE nerve conduction velocity Today R20.0 - Anesthesia of skin, R20.2 - Paresthesia of skin MR shoulder LT wo con Today M75.82 - Other shoulder lesions, left shoulder, R20.0 - Anesthesia of skin, R20.2 - Paresthesia of skin NE electromyogram (EMG) Today R20.0 - Anesthesia of skin, R20.2 - Paresthesia of skin Coding Level of Care Code New Pt Level 4 (28490) Complex EM visit Add On G2211 Diagnoses Tendonitis of left rotator cuff M75.82 Chronic pain of both shoulders M25.511; M25.512; G89.29 Chronicity: chronic Spondylosis of cervical spine M47.812 Numbness and tingling in both hands R20.0; R20.2
[2025-04-29 11:06] VITALS: BMI 29.6
--- OUTSIDE RECORDS SUMMARY | 2025-04-29 11:46 | XMS_ITS | Clinical Summary ---
Author Organization [facility] Address [address] [place] [address] Care Team Providers Care Fig Bar Machine Operator Name Role Phone Unavailable Primary Care Provider [...]
--- OUTSIDE RECORDS SUMMARY | 2025-04-29 11:46 | XMS_ITS | Encounter Summary ---
Author Organization [facility] Address [address] [place] [address] Phone Care Team Providers Care Meat Processing Center Manager Name Role Phone Jenni Baltazar MD Primary Care Provider + [phone] Jenni Baltazar MD Primary Care Provider + [phone] Encounter Details Date Type Department Care Team (Late st Contact Info) Description 07/06/2022 Procedure Pass [facility], Ct Scan - [facility] [address] [place] [address] Social History Tobacco Use Types Packs/Day Years Used Date Smoking Tobacco: Every Day Cigarettes 0.3 15 Smokeless Tobacco: Never Comments:smokes 5 cigarettes a day Alcohol Use Standard Drinks/Week Comments Not Currently 0 (1 standard drink = 0.6 oz pur e alcohol) Comments No Sex and Gender Information Value Date Recorded Sex Assigned at Female 07/06/2022 9:33 AM EDT Legal Sex Female 1:47 PM EST Gender Identity Female 07/06/2022 9:33 AM EDT Sexual Orientation Not on file documented as of this encounter Functional Status * Calculated C-SSRS Risk Score (Lifetime/Recent) Answer Date of Assessment Author No Risk Indicated 07/06/2022 9:33 AM JAYNAT Harry Christie RN * [place] Suicide Severity Rating Scale (Screener/Recent Self-Report) Question Answer Date of Assessment Author 1. Wish to be (Past 1 Month) No 022 9:33 AM EDT Harry Christie, LAMONTE 2. Non-Specific Active Suici michelle Thoughts (Past 1 Month) No 07/06/2022 9:33 AM EDT Florentino Christie RN 6. Suicidal Behavior (Lifetime) No 9:33 AM EDT Harry Christie RN documented as of this encounter Plan of Treatment Not on file documented as of this encounter Visit Diagnoses Not on filedocumented in this encounter Additional Health Concerns Infection Onset Date Last Indicated Resolved Time CoV-Risk 09/19/2024 09/19/2024 09/30/2024 1:22 AM EST documented as of this encounter Care Teams Meat Processing Center Manager Relationship Specialty Start Date End Date Jenni Baltazar MD [email or web address] PCP - General Family Medicine 01/28/19 09/18/24 Jenni Baltazar MD [address] [place] [id number] PCP - General Family Medicine 09/19/24 documented as of this encounter Additional Source Comments The information contained in this document represents components of the legal health record. It is not the complete legal health record.[facility]
== END 2025-04-29 11:27 | disposition home or self-care (01) ==
LOC: HO.HOS 10:58
PROVIDERS: PCP Internal Medicine; Visit Provider Physical Medicine & Rehabilitation
DX: M75.82 Other shoulder lesions, left shoulder (principal); M25.511 Pain in right shoulder; M25.512 Pain in left shoulder; G89.29 Other chronic pain; M47.812 Spondylosis without myelopathy or radiculopathy, cervical region; R20.0 Anesthesia of skin; R20.2 Paresthesia of skin
CPT/HCPCS: 99204; G2211

== ENCOUNTER → 2025-04-29 10:57 | Outpatient (BNVA) | payer OTHER, SELFPAY | PROVIDERS: PCP Internal Medicine; Visit Provider Physical Medicine & Rehabilitation | DX: M75.82 Other shoulder lesions, left shoulder (principal); R20.0 Anesthesia of skin; R20.2 Paresthesia of skin; M25.511 Pain in right shoulder; M25.512 Pain in left shoulder; M47.812 Spondylosis without myelopathy or radiculopathy, cervical region | CPT/HCPCS: 99202 ==

== ENCOUNTER 2025-05-17 07:06 | Outpatient (REF) | payer OTHER, SELFPAY ==
--- OUTSIDE RECORDS SUMMARY | 2024-02-28 03:30 | XMS_ITS ---
Author Organization [facility] Address [address] [place] [phone] Care Team Providers Care Regional Sales Coordinator Name Role Phone Eusebia Calderon Primary Care Provider UnavailOwen Bernardo [phone] REASON FOR VISIT screening,hx polyps Problems Problem Type SNOMED Code ICD Code Onset Dates Problem Status W/U Status Risk Notes Problem Personal history of colonic polyps (Z86.010) Active confirmed Encounters Encounter Location Date Provider Diagnosis [facility] [place] [address] [place] [phone] 02/28/2024 Owen Simon Encounter for scre ening colonoscopy Z12.11 and Personal history of colonic polyps Z86.010 Assessments Encounter Date Diagnosis (ICD Code) Assessment Notes Treatment Notes Treatment Clinical Notes Section Notes 02/28/2024 Encounter for screening colonoscopy (ICD-10 - Z12.11) 02/28/2024 Personal history of colonic polyps (ICD-10 - Z86.010) Plan Of Treatment No Information Progress Notes * NEAL LIPSCOMBDOB: 0 (54 yo F)Acc No.[id number]:02/28/2024 COLON WITH MAC Patient: NEAL WEINSTEIN Provider: Maia Simon MD :1970 A ge:53 Y S ex:Female Date:02/28/2024 Address:[address] [place] [address] [address], [place], [place] Pcp:Eusebia Syed Subjective: * Chief Complaints: * [...] 02/28/2024 Generated for Yordy blum/Maxim/Lorenzoitting on: 0 05/17/2025 07:07 AM EDT
--- NOTE | ~2025-05-17 | MR_ITS ---
CLINICAL HISTORY: Other shoulder lesions, left shoulder tendonitis rtc tear --- Additional Notes or Special Instructions: Evaluate for rotator cuff tear Exam: MRI of the left shoulder without intravenous contrast. Comparison: Radiographs January 11, 2025. Findings: No rotator cuff tears are identified. Mild tendinopathy of the distal infraspinatus and supraspinatus tendons with areas of fraying along the bursal surface of the distal supraspinatus tendon. No discrete tear is identified. Teres minor and subscapularis tendons are intact. There are no tears of the glenoid labrum. Specifically, no tear of the superior labrum of the anteroinferior labrum is identified. The tendon of the long head of the biceps is appropriately positioned within the bicipital groove. Type 2 acromion. Moderate degenerative change of the AC joint with mild juxta-articular edema. Impression: 1. Supraspinatus and infraspinatus tendinopathy without rotator cuff tear. 2. AC joint DJD. This document has been electronically signed by: Pradeep Christie MD on 05/19/2025 08:42:03
--- OUTSIDE RECORDS SUMMARY | 2025-05-17 07:08 | XMS_ITS | Clinical Summary ---
Author Organization [facility] Address [address] [place] [address] Care Team Providers Care Window Systems Administrator Name Role Phone Unavailable Primary Care [...]
--- OUTSIDE RECORDS SUMMARY | 2025-05-17 07:08 | XMS_ITS | Encounter Summary ---
Author Organization [facility] Address [address] [place] [address] Phone Care Team Providers Care Advertising Copywriter Name Role Phone Jenni Baltazar MD Primary Care Provider + [phone] Jenni Baltazar MD Primary Care Provider + [phone] Encounter Details Date Type Department Care Team (Late st Contact Info) Description 07/06/2022 Procedure Pass [facility], Ct Scan - [facility] [address] [place] [address] Social History Tobacco Use Types Packs/Day Years [...] 9:33 AM JAYNAT Harry Christie RN * [place] Suicide Severity Rating Scale (Screener/Recent Self-Report) Question [...] documented as of this encounter Care Teams Advertising Copywriter Relationship Specialty Start Date End Date Jenni Baltazar MD PCP - General Family Medicine 01/28/19 09/18/24 Jenni Baltazar MD [address] [place] [id number] PCP - General Family Medicine 09/19/24 documented as of this encounter Additional Source Comments The information contained in this document represents components of the legal health record. It is not the complete legal health record.[facility]
== END 2025-05-17 07:07 | disposition home or self-care (01) ==
LOC: HO.MRI 07:06
PROVIDERS: PCP Internal Medicine; Visit Provider Physical Medicine & Rehabilitation
DX: M75.82 Other shoulder lesions, left shoulder (principal); R20.0 Anesthesia of skin; R20.2 Paresthesia of skin
CPT/HCPCS: 73221

== ENCOUNTER → 2025-05-17 07:13 | Outpatient (BNV) | payer OTHER, SELFPAY | PROVIDERS: PCP Internal Medicine; Visit Provider Radiology Diagnostic Radiology | DX: M75.112 Incomplete rotator cuff tear or rupture of left shoulder, not specified as traumatic (principal) | CPT/HCPCS: 73221 ==

== ENCOUNTER 2025-05-20 13:12 | Outpatient (AMB) | payer OTHER, SELFPAY ==
--- OUTSIDE RECORDS SUMMARY | 2024-02-28 03:30 | XMS_ITS ---
Author Organization [facility] Address [address] [place] [phone] Care Team Providers Care Director Of Admissions Name Role Phone Eusebia Claderon Primary Care Provider UnavailOwen Bernardo [phone] REASON FOR VISIT screening,hx polyps Problems Problem Type SNOMED Code ICD Code Onset Dates Problem Status W/U Status Risk Notes Problem Personal history of colonic polyps (Z86.010) Active confirmed Encounters Encounter Location Date Provider Diagnosis [facility] Outpatient [address] [place] [phone] 02/28/2024 Owen Simon Encounter for scre ening colonoscopy Z12.11 and Personal history of colonic polyps Z86.010 Assessments Encounter Date Diagnosis (ICD Code) Assessment Notes Treatment Notes Treatment Clinical Notes Section Notes 02/28/2024 Encounter for screening colonoscopy (ICD-10 - Z12.11) 02/28/2024 Personal history of colonic polyps (ICD-10 - Z86.010) Plan Of Treatment No Information Progress Notes * NEAL LIPSCOMBDOB: 0 (54 yo F)Acc No.[id number]:02/28/2024 COLON WITH MAC Patient: NEAL WEINSTEIN Provider: Maia Simon MD :1970 A ge:53 Y S ex:Female Date:02/28/2024 Address:[address] [place] [address] [address], [place], [place] Pcp:Eusebia Syed Subjective: * Chief Complaints: * [...] 02/28/2024 Generated for Yordy blum/Maxim/Lorenzoitting on: 0 05/20/2025 02:07 PM EDT
--- NOTE | 2025-05-20 13:18 | MHC.OFFVIS ---
Vital Signs 05/20/25 13:37 Height 5 ft 2 in Weight 162 lb BMI 29.6 Intake Visit Reasons: Inj-B/L knee cortisone inj-last one 07/17/23 Intake Note: Padma a 52 year old female who presents today as a new patient with complaints of bilateral knee OA, last injection 07/17/23. Patient reports having a bad reaction in office after her having an injection. States dizziness and an odd taste in mouth as well as weakness. States her pain has been getting worse. Finds it difficult with bending of knee and stair use. Her pain is equal in both knees making it difficult to perform AODL. Finds no relief with ibuprofen or Tylenol. She has attended physical therapy, with mild relief. Allergies varenicline (From Chantix) Adverse Reaction (Mild, Verified 05/20/25 13:24) depression, nightmares depomedrol Adverse Reaction (Intermediate, Uncoded 05/20/25 13:24) mouth bad taste HPI HPI Inj-B/L knee cortisone inj-last one 07/17/23: Details: 54-year-old female returns to the office today for bilateral knee pain. She had seen me back in July of 2023 for both knees where she had a steroid injection but states she had a bad reaction from this. She continues to have ongoing discomfort in both knees primarily with stair use. The discomfort is limiting her ability to perform daily activities. No new injuries. She is currently attending physical therapy for her left shoulder. [facility] Medical History (Updated 04/29/25 @ 11:32 by Tyesha Florian MD) Migraine without aura Eczema Constipation by delayed colonic transit Hypovitaminosis D Abdominal pain Arthritis Bleeding hemorrhoids Migraine Hemorrhoids Surgical History History of hemorrhoidectomy H/O colonoscopy History of hysterectomy History of colon surgery Family History Mother Asthma Dementia Hypertension COPD (chronic obstructive pulmonary disease) Skin cancer Osteoarthritis Father Heart attack Prostate cancer Sister Osteoarthritis Social History Housing: Apartment Alcohol intake: former Patient Tobacco Use Status: Former Tobacco user Tobacco use type: Cigarette e-Cigarette/Vaping Use: Never Used Second Hand Smoke Exposure: No service: No Current occupational status: unemployed and disabled Cognitive needs: Yes Hearing needs: No Vision needs: Yes Review of Systems Const All systems reviewed & are unremarkable except as noted in HPI and below Physical Exam Vital Signs: BMI result Body Mass Index 29.6 Const General: cooperative, healthy appearing, comfortable, no acute distress, well developed and alert Orientation/consciousness: patient oriented x3 HEENT Head: Yes normal to inspection, Yes normocephalic and Yes atraumatic Eyes General: appearance normal, both eyes and all related structures Resp Effort & Inspection: normal respiratory effort and able to speak in complete sentences Cardio Rate: regular rate Peripheral pulses: Peripheral pulses 2+ throughout GI Palpation (GI): Soft to palpation Skin Lesions: no lesions Rashes: no rashes Neuro General: patient oriented x3 Extrem Other: Bilateral knee: Skin intact, no erythema or joint effusion. Lateral retropatellar tenderness present. Full ROM with crepitus. Negative Randy?s. No ligamentous laxity. NVI. Assessment & Plan Assessment & Plan (1) Osteoarthritis of both knees: Code(s): M17.0 - Bilateral primary osteoarthritis of knee Category: Medical Qualifiers: Osteoarthritis type: primary Qualified Code(s): M17.0 - Bilateral primary osteoarthritis of knee Plan: Patient has trialed and failed corticosteroid injections in both knees. I did place an order for physical therapy to work on strengthening and conditioning exercises. She was fit for bilateral knee braces in the office today. We discussed other options which includes gel injections which she is interested in. I did place a referral for these to be approved and once they are obtained we will contact her to schedule. Coding Level of Care Code Est Pt Level 3 (32258) Complex EM visit Add On G2211 Diagnoses Primary osteoarthritis of both knees M17.0 Osteoarthritis type: primary
[2025-05-20 13:37] VITALS: BMI 29.6
--- OUTSIDE RECORDS SUMMARY | 2025-05-20 14:07 | XMS_ITS | Encounter Summary ---
Author Organization [facility] Address [address] [place] [address] Phone Care Team Providers Care Shipping Weigher Name Role Phone Jenni Baltazar MD Primary Care Provider + [phone] Jenni Baltazar MD Primary Care Provider + [phone] Encounter Details Date Type Department Care Team (Late st Contact Info) Description 07/06/2022 Procedure Pass [facility], Ct Scan - [facility] [address] [place] [address] Social History Tobacco Use Types Packs/Day Years [...] 9:33 AM JAYNAT Harry Christie RN * [place] Suicide Severity Rating Scale (Screener/Recent Self-Report) Question [...] documented as of this encounter Care Teams Shipping Weigher Relationship Specialty Start Date End Date Jenni Baltazar MD PCP - General Family Medicine 01/28/19 09/18/24 Jenni Baltzaar MD [address] [place] [id number] PCP - General Family Medicine 09/19/24 documented as of this encounter Additional Source Comments The information contained in this document represents components of the legal health record. It is not the complete legal health record.[facility]
--- OUTSIDE RECORDS SUMMARY | 2025-05-20 14:07 | XMS_ITS | Clinical Summary ---
Author Organization [facility] Address [address] [place] [address] Care Team Providers Care Risk Management Manager Name Role Phone Unavailable Primary Care Provider [...]
== END 2025-05-20 14:05 | disposition home or self-care (01) ==
LOC: HO.HOS 13:13
PROVIDERS: PCP Internal Medicine; Visit Provider Physician Assistant
DX: M17.0 Bilateral primary osteoarthritis of knee (principal)
CPT/HCPCS: 99213; G2211

== ENCOUNTER → 2025-05-20 13:12 | Outpatient (BNVA) | payer OTHER, SELFPAY | PROVIDERS: PCP Internal Medicine; Visit Provider Physician Assistant | DX: M17.0 Bilateral primary osteoarthritis of knee (principal) | CPT/HCPCS: 99212 ==

== ENCOUNTER 2025-06-28 09:00 | Outpatient (RCR) | payer OTHER, SELFPAY ==
--- NOTE | 2025-05-27 11:21 | MHC.PT.EP ---
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 female who is referred to PT by Dr. Eusebia Syed [place] [facility] [place] with Dx of LEFT shoulder tendonitis. Her recent shoulder MRI 05/17/25 reveals LEFT shoulder ACJ Type 2 acromion with Mod OA/DJD, Supraspinatus and infraspinatus tendinopathy without rotator cuff tear. PT Dx also includes subacromial impingement syndrome. Patient impairments include limited cervical ROM, UE radiculopathy, limited L shoulder ROM, weakness L shoulder. Patient current functional limitations are reaching overhead/cabinets, wash hair, driving (turning to look over shoulders), vacuuming/cleaning, sleeping, lift/carry groceries. Patient will benefit from skilled PT to address aforementioned impairments and functional limitations to meet established goals. Frequency and Duration: The patient will be seen 1-2x/week for 4 weeks Short Term Goals: 2 weeks Patient demonstrates consistency and independence with HEP to self manage symptoms. Senior Care Goals: 4 weeks Padma presents with increased L shoulder AROM flexion 130 degrees to be able to wash and style her hair without difficulty. Padma presents with increased L shoulder flexion strength 4+/5 to be able to lift/carry groceries and put them away. Treatment Plan: Modalities to reduce pain, spasms and effusion. Manual therapy to restore motion and function. Therapeutic exercise to improve strength and flexibility. Neuromuscular re-education for posture and balance. Therapeutic activities to return to functional activities of daily living. Electronically signed by: Desiree Lewis, PT, DPT Please sign and return to therapist. Thank you for your referral.
--- NOTE | 2025-09-06 09:37 | MHC.PT.DC ---
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 At time of last visit, Padma did well with AAROM stretching into flexion. She reports challenge and soreness after both ER strengthening and scapular stabilization exercises. Ended with moist heat for relief. Encouarged any lifting to have thumb up to make space in ACJ as she demonstrates painful abduction with closed pack position. Electronically signed by: Kath Pena PT Please sign and return to therapist. Thank you for your referral.
== END 2025-09-06 09:38 | disposition home or self-care (01) ==
LOC: HO.PT 09:00
PROVIDERS: PCP Internal Medicine; Visit Provider Internal Medicine
DX: M77.8 Other enthesopathies, not elsewhere classified (principal)
CPT/HCPCS: 97014; 97110; 97140; 97162; 97530

== ENCOUNTER 2025-07-07 08:38 | Outpatient (AMB) | payer OTHER, SELFPAY ==
--- OUTSIDE RECORDS SUMMARY | 2024-02-28 03:30 | XMS_ITS ---
Author Organization [facility] Address [address] [place] [phone] Care Team Providers Care Solution Coordinator Name Role Phone Eusebia Calderon Primary Care Provider UnavailOwen Bernardo Unavailable [phone] REASON FOR VISIT screening,hx polyps Problems Problem Type SNOMED Code ICD Code Onset Dates Problem Status W/U Status Risk Notes Problem History of polyp of colon (situation) (857380492) Personal history of colonic polyps (Z86.010) Active confirmed Encounters Encounter Location Date Provider Diagnosis [facility] [place] [address] [place] [phone] 02/28/2024 Owen Simon Encounter for scre ening colonoscopy Z12.11 and Personal history of colonic polyps Z86.010 Assessments Encounter Date Diagnosis (ICD Code) Assessment Notes Treatment Notes Treatment Clinical Notes Section Notes 02/28/2024 Encounter for screening colonoscopy (ICD-10 - Z12.11) 02/28/2024 Personal history of colonic polyps (ICD-10 - Z86.010) Plan Of Treatment No Information Progress Notes * NEAL LIPSCOMBDOB: 0 (54 yo F)Acc No.[id number]:02/28/2024 COLON WITH MAC Patient: NEAL WEINSTEIN Provider: Maia Simon MD :1970 A ge:53 Y S ex:Female Date:02/28/2024 Address:[address] [place] [address] [address], [place], [place] Pcp:Eusebia Syed Subjective: * Chief Complaints: * [...] 0 02/28/2024 Generated for Yordy blum/Maxim/eTransmitting on: 09:10 AM EDT
--- NOTE | 2025-07-07 08:43 | MHC.OFFVIS ---
Vital Signs 07/07/25 08:52 Height 5 ft 2 in Weight 162 lb BMI 29.6 Intake Visit Reasons: INJ- B/L knee Durolane injection Intake Note: Padma is a 54 year old female who presents today for bilateral knee durolane injections. Allergies varenicline (From Chantix) Adverse Reaction (Mild, Verified 07/07/25 08:52) depression, nightmares depomedrol Adverse Reaction (Intermediate, Uncoded 07/07/25 08:52) mouth bad taste HPI HPI INJ- B/L knee Durolane injection: Details: 54-year-old female presents to the office today for bilateral knee drilling injections. She continues to have discomfort in both knees with daily activities such as walking long distances and stairs. [facility] Medical History (Updated 04/29/25 @ 11:32 by Tyesha Florian MD) Migraine without aura Eczema Constipation by delayed colonic transit Hypovitaminosis D Abdominal pain Arthritis Bleeding hemorrhoids Migraine Hemorrhoids Surgical History History of hemorrhoidectomy H/O colonoscopy History of hysterectomy History of colon surgery Family History Mother Asthma Dementia Hypertension COPD (chronic obstructive pulmonary disease) Skin cancer Osteoarthritis Father Heart attack Prostate cancer Sister Osteoarthritis Social History Housing: Apartment Alcohol intake: former Patient Tobacco Use Status: Former Tobacco user Tobacco use type: Cigarette e-Cigarette/Vaping Use: Never Used Second Hand Smoke Exposure: No service: No Current occupational status: unemployed and disabled Cognitive needs: Yes Hearing needs: No Vision needs: Yes Review of Systems Const All systems reviewed & are unremarkable except as noted in HPI and below Physical Exam Vital Signs: BMI result Body Mass Index 29.6 Const General: cooperative, healthy appearing, comfortable, no acute distress, well developed and alert Orientation/consciousness: patient oriented x3 HEENT Head: Yes normal to inspection, Yes normocephalic and Yes atraumatic Eyes General: appearance normal, both eyes and all related structures Resp Effort & Inspection: normal respiratory effort and able to speak in complete sentences Cardio Rate: regular rate Peripheral pulses: Peripheral pulses 2+ throughout GI Palpation (GI): Soft to palpation Skin Lesions: no lesions Rashes: no rashes Neuro General: patient oriented x3 Extrem Other: Bilateral knee: Skin intact, no erythema or joint effusion. Lateral retropatellar tenderness present. Full ROM with crepitus. Negative Randy?s. No ligamentous laxity. NVI. Office Procedures AMB Joint Injection/Aspiration Joint Injection/Aspiration Details: Durolane Primary Site: left knee Prep: site was prepped using aseptic technique, ethochloride spray was applied and injection warnings given Injected: in the joint Approach Used: anterolateral Procedure: The patient tolerated the procedure well and but had some pain with the injection Coding 08735 - Glenohumeral/Tronchanteric Bursa/Intraarticular Procedure code (CPT) selection complete Assessment & Plan Assessment & Plan (1) Osteoarthritis of both knees: Code(s): M17.0 - Bilateral primary osteoarthritis of knee Category: Medical Qualifiers: Osteoarthritis type: primary Qualified Code(s): M17.0 - Bilateral primary osteoarthritis of knee Plan: The left knee was injected with gel today. The patient tolerated the procedure well it had some mild discomfort. She decided to not proceed with right knee injection. She was advised to rest ice and use NSAIDs as needed and if she decides she wants to do the right knee she can contact our office to schedule. Coding Level of Care Code Procedure Only Diagnoses Primary osteoarthritis of both knees M17.0 Osteoarthritis type: primary CPT Codes Coding - Joint 7: 31433 - Glenohumeral/Tronchanteric Bursa/Intraarticular ([id number])
[2025-07-07 08:52] VITALS: BMI 29.6
--- OUTSIDE RECORDS SUMMARY | 2025-07-07 09:11 | XMS_ITS | Clinical Summary ---
Author Organization [facility] Address [address] [place] [address] Care Team Providers Care Load Dispatcher Name Role Phone Unavailable Primary Care Provider [...]
--- OUTSIDE RECORDS SUMMARY | 2025-07-07 09:11 | XMS_ITS | Data Portability ---
Author Organization [facility] [employer] Address [address] [place] [id number] Care Team Providers Care Treatment Plant Operator Name Role Phone ANIBAL LARIOS Primary Care Provider [phone] Assessment No assessment recorded. Plan of Treatment Reminders Order Date Submit Date Provider Last Modified By Organization Details Last Modified Time Details Appointments None recorded. Lab None recorded. Referral neurologic physical therapist referral - for myofascial release, with home exercises to be done at least 5 times a day for muscular part of headache. muscles involved include right greater than left splenius and semispinali s at skull base and lateral neck, mid and upper sternocleid omastoid and right side temporalis and masseter. 2020 Susanne zhou [address] Deysi Robertson [facility], [address] [place], [address], 1 16:48:17 Procedures None recorded. Surgeries None recorded. Imaging None recorded. Medication Orders None recorded. Patient TargetsNo targets recorded. Patient InstructionsNo instructions recorded. Reason for Referral for myofascial release, with home exercises to be done at least 5 times a day for muscular part of headache. muscles involved include right greater than left splenius and semispinalis at skull base and lateral neck, mid and upper sternocleidomastoid and right side temporalis and masseter. Referring Physician: Eric Truong, Neurology, Encounter Date: 01/16/2021 Medical Equipment None Reported. Allergies Allergen ID Allergen Name Allergen Category Reaction Reaction Severity Criticality Documentation Date Start Date Code Code System Note Provider Name and Address Organization Details Recorded Time 21 Chantix medicatio n Not available Not available Not available 01/16/2021 00340 0 [facility] [place] 09:04:28 Medications Name Sig Start Date Stop Date Status Note LastModified by Organization Details LastModified Time acetaminophen 325 mg tablet TK 2 TS PO Q 6 H PRN active Not Available Not Available No t Available citalopram 40 mg tablet TAKE 1 TABLET BY MOUTH EVERY MORNING active Not Available Not Available No t Available trazodone 50 mg tablet TAKE 1 TABLET BY MOUTH AT BEDTIME NEEDED FOR SLEEP active Not Available Not Available No t Available ibuprofen 800 mg tablet TAKE 1 TABLET BY MOUTH THREE TIMES DAILY NEEDED active Not Available Not Available No t Available tizanidine 4 mg tablet TAKE 1 TABLET BY MOUTH THREE TIMES DAILY NEEDED active Not Available Not Available No t Available ondansetron HCl 4 mg tablet TAKE 1 TABLET BY MOUTH EVERY 8 HOURS active Not Available Not Available No t Available gabapentin 400 mg capsule TAKE 1 CAPSULE BY MOUTH EVERY DAY AT BEDTIME active Not Available Not Available No t Available tramadol 50 mg tablet TAKE 1 TABLET BY MOUTH EVERY 6 HOURS NEEDED active Not Available Not Available No t Available tamsulosin 0.4 mg capsule TAKE 1 CAPSULE BY MOUTH EVERY DAY FOR 7 DAYS active Not Available Not Available No t Available indomethacin 25 mg capsule TK ONE C PO TID FOR 5 DAYS WF THEN OFF FOR 2 DAYS. MAY REPEAT PRN active Not Available Not Available No t Available gabapentin 300 mg capsule TK 1 C PO QHS active Not Available Not Available No t Available amoxicillin 875 mg-potassium clavulanate 125 mg tablet TK 1 T PO Q 12 H FOR 7 DAYS active Not Available Not Available No t Available buspirone 15 mg tablet TAKE 1 TABLET BY MOUTH TWICE DAILY active Not Available Not Available No t Available oxycodone 5 mg tablet TAKE 1 TO 2 TABLETS BY MOUTH EVERY 4 HOURS NEEDED FOR PAIN active Not Available Not Available No t Available nicotine (polacrilex) 4 mg buccal lozenge DIS 1 LISSETH PO Q 2 H active Not Available Not Available No t Available cyclobenzaprine 5 mg tablet TAKE 1 TABLET BY MOUTH UP TO TWICE DAILY FOR MUSCLE SPASM active Not Available Not Available No t Available acetaminophen active Not Available Not Available Not Available tizanidine active Not Available Not Av ailable Not Available citalopram active Not Available Not Av ailable Not Available tramadol active Not Available Not Avai lable Not Available ibuprofen active Not Available Not Gema ilable Not Available cyclobenzaprine active Not Available N ot Available Not Available trazodone active Not Available Not Gema ilable Not Available buspirone active Not Available Not Gema ilable Not Available ondansetron active Not Available Not A vailable Not Available quetiapine 50 mg tablet TK 1 TO 2 TS PO HS PRN active Not Available Not Available No t Available Vitals Date Recorded Body height Body mass index (BMI) Body weight Respiratory rate Provider Name and Address Organization Details Last Updated DateTime 01/16/2021 157.48 cm 29.4 kg/m2 16195.37 g 12 /min [facility] 01/16/2021 09:04:09 Social History Question Answer Notes LastModified by Organizat ion Details LastModified Time Tobacco Smoking Status Current Every Day Smoker [facility] 01/16/2021 09:13:43 What Is Your Level Of Caffeine Consumption? Moderate Information not available 01/16/2021 What Is Your Relationship Status? Unknown Information not available 01/16/2021 How Much Tobacco Do You Smoke? 0.25 PPD Information not available 01/16/2021 Sex: Unknown Functional Status Question Answer Note LastModified by Organization D etails LastModified Time What is your level of alcohol consumption? None Information not available 01/16/2021 Mental Status None recorded. Family History Relationship Description Onset Age of this Age Resolved Age Notes LastModified by Organization Details LastModified Time Brother Diabetes mellitus Type 1 [email or web address] Not available 09/2021 09:11:10 Brother Diabetes mellitus Type II [email or web address] Not available 01/16/2021 09:11:43 Father Cerebrovascu lar accident [email or web address] Not available 01/16/2021 09:12:14 Notes:father Medical History Condition Response Headaches Y Gynecological HistoryNo gynecological history recorded. Obstetrics History GPAL:G 0 P 0 0 0 0 Past Encounters Encounter ID Performer Location Encounter Start Date Encounter Closed Date Diagnosis/Indication Diagnosis SNOMED-CT Code Diagnosis ICD10 Code Diagnosis IMO Codes Diagnosis Note [id number] Eric Truong MD [facility] [address] [place] [address] [place] [id number] 01/16/2021 08:56:23 01/16/2021 10:28:41 Migraine without aura 05330039 G43.009 Health Concerns Section Related Observation LastModified by Organization Detai ls LastModified Time None Recorded Concern Status LastModified by Organization Details LastModified Time None Recorded Advance Directives Directive None Recorded Payers Insurance Date Sequence Insurance Name Policy Number Policy Rushing Covered Member ID Rushing Member ID Guarantor Name 01/16/2021 1 [facility] - DOS PRIOR TO 2023 - DUAL ELIGIBLE (MEDICARE REPLACEMENT/AD VANTAGE - HMO) Padma Goncalveskacey [id number] Padmarobert Goncalveskacey 01/16/2021 2 [employer] [facility] [employer] [facility] [facility] - DOS PRIOR TO 2023 - DUAL ELIGIBLE (MEDICARE REPLACEMENT/AD VANTAGE - HMO) Padma Goncalveskacey [id number] Padma Goncalveskacey Notes Date Note Type Note Provider Name and Address Organization Details Recorded Time 01/16/2021 text/html She presents for initial neurology consultation for assessment and management of spring 2019 onset of right sided headache that has slowly worsened and is now nearly every day. History per chart includes depression, anxiety, lumbar spondylosis and knee pain. She is unaccompanied. At baseline she gets headaches that are m inor and are rare, maybe once a year, bilaterally at temples and sides of forehead. Baseline neck pain has been about twice per week right worse than left. Her major Baseline pain is back pain that has been 2 4 7 for years. In spring 2019, ~year ago, she began getting more frequent and more intense headaches on the right side of the head. There has been slow increase of frequency from monthly to weekly, several times a week and in recent times a lmost every day. She can think of no specific reason for the emergence of these headaches. It was no trauma and no stress particular to her life. Coronavirus emerged around spring 2020 and she has been inside much of the time since then but this has not felt like much of a burden as she is not 1 to socialize a lot anyway. Headaches may start at any time of the day. Once they start they last the rest of the day. She is able to get to sleep and they are often gone in the morning but not always. Headache at the beginning feels like a hammer at the side of her head. It subsequently localizes more at the right occiput. There is a sick nauseous feeling but she does not throw up. There is a dizziness that feels a little like lightheadedness and does not bother her balance walking. There is light sensitivity so that she needs to wear sunglasses watching TV. Her twice a week right worse than left neck pain has become nearly daily, emerging dependably after the headache with even more focus on the right. She has taken cyclobenzaprine 5 mg daily, tizanidine 4 mg as needed, gabapentin 300 mg nightly Tylenol 650 mg as needed and ibuprofen 800 mg as needed for a long time for her back pain, with only partial benefit. These medications have not helped her headache. For anxiety, depression and insomnia she has taken buspirone 15 mg daily, citalopram 40 mg every morning and trazodone 50 mg at bedtime as needed. She also has ondansetron 4 mg every 8 hours and tramadol 50 mg every hours, the latter is being tapered in the context of kidney stone that has been treated and who is associated pain is now going away. When I mentioned there is also quetiapine on her medication list in the chart, she says she might be on another psychiatry medication, she is not sure. She would have to look at her medicine bottles at home. Eric Truong MD [address] [place] [address] [place], [phone], [facility] 01/16/2021 10:20:08 OBGyn Episode No OBEpisode recorded.
--- OUTSIDE RECORDS SUMMARY | 2025-07-07 09:11 | XMS_ITS | Encounter Summary ---
Author Organization [facility] Address [address] [place] [address] Phone Care Team Providers Care Mascara Molder Name Role Phone Jenni Baltazar MD Primary Care Provider + [phone] Jenni Baltazar MD Primary Care Provider + [phone] Encounter Details Date Type Department Care Team (Late st Contact Info) Description 07/06/2022 Procedure Pass [facility], Ct Scan - [facility] [address] [place] [address] Social History Tobacco Use Types Packs/Day Years [...] 9:33 AM JAYNAT Harry Christie RN * [place] Suicide Severity Rating Scale (Screener/Recent Self-Report) Question [...] documented as of this encounter Care Teams Mascara Molder Relationship Specialty Start Date End Date Jenni Baltazar MD PCP - General Family Medicine 01/28/19 09/18/24 Jenni Baltazar MD [address] [place] [address] PCP - General Family Medicine 09/19/24 documented as of this encounter Additional Source Comments The information contained in this document represents components of the legal health record. It is not the complete legal health record.[facility]
--- OUTSIDE RECORDS SUMMARY | 2025-07-07 09:11 | XMS_ITS | Patient Health Record ---
Author Organization [facility] Address [address] [place] [address] Care Team Providers Care Splicing Machine Operator Name Role Phone Eusebia Calderon Primary Care Provider UnavailOwen Bernardo Unavailable [phone] Allergies No Known Allergies Reason For Referral [...] Status Risk Notes Problem Colon cancer screening (025581407) Colon cancer screening (Z12.11) Active confirmed Problem History of polyp of colon (situation) (464762762) Personal history of colonic polyps (Z86.010) Active confirmed Problem History of polyp of colon (929769581) History of colon polyps (Z86.010) Active confirmed Problem Chronic constipation (309426443) Chronic constipation (K59.09) Active confirmed Plan Of Treatment Future Test Test Name Order Date COLONOSCOPY 11/21/2023 Insurance Providers Payer Name Payer Address Payer Phone Subscriber Number Group Number Insured Name Patient Relationship to Insured Coverage Start Date Coverage End Date [facility] [address] [place] [address] [id number] NEAL [id number] Self - patient is the insured Medical (General) History Medical History History ICD Code kidney stones She describes colonoscopies with removal of polyps and both [facility] and [facility] migraines Denies RI,DM,CVA,Lung disease,renal dise ase Surgical History Surgery Date(Month/Year) Some type of partial colecto my at [facility] for polyps Hysterectomy Hemorrhoids with Dr. Cormier in December
--- OUTSIDE RECORDS SUMMARY | 2025-07-07 09:11 | XMS_ITS | Encounter Summary ---
Author Organization [facility] Address [address] [place] [address] Phone Care Team Providers Care Individualized Education Plan Aide Name Role Phone Jonny Infante MD Primary Care Provider [phone] Jonny Infante MD Unavailable Jenni Baltazar MD Primary Care Provider [phone] Jenni Baltazar MD Unavailable [phone] Jenni Baltazar MD Primary Care Provider [phone]- [phone] Encounter Details Date Type Department Care Team (Late st Contact Info) Description 03/20/2018 Procedure Pass [facility], Ct Scan - [facility] [address] [place] [address] Social History Tobacco Use Types Packs/Day Years Used Date Smoking Tobacco: Every Day Cigarettes Smokeless Tobacco: Never Comments:smokes 3 cigarettes a day Alcohol Use Standard Drinks/Week Comments Yes 6 (1 standard drink = 0.6 oz pur e alcohol) only on the weekends Comments Unknown Sex and Gender Information Value Date Recorded Sex Assigned at Female 07/06/2022 9:33 AM EDT Legal Sex Female 1:47 PM EST Gender Identity Female 07/06/2022 9:33 AM EDT Sexual Orientation Not on file documented as of this encounter Plan of Treatment Not on file documented as of this encounter Visit Diagnoses Not on filedocumented in this encounter Additional Health Concerns Infection Onset Date Last Indicated Resolved Time CoV-Risk 09/19/2024 09/19/2024 09/30/2024 1:22 AM EST documented as of this encounter Care Teams Individualized Education Plan Aide Relationship Specialty Start Date End Date Jonny Infante MD [address] [place] [phone] [email or web address] PCP - General 10/31/17 01/27/19 Jenni Baltazar MD [address] [place] [address] PCP - General Family Medicine 01/28/19 09/18/24 Jenni Baltazar MD [address] [place] [address] PCP - General Family Medicine 09/19/24 Jonny Infante MD [address] [place] [address] [email or web address] Insurance Assigned Provider 08/09/18 Jenni Baltazar MD [address] [place] [address] Insurance Assigned Provider 04/11/1911/12/20 documented as of this encounter Additional Source Comments The information contained in this document represents components of the legal health record. It is not the complete legal health record.[facility]
--- OUTSIDE RECORDS SUMMARY | 2025-07-07 09:11 | XMS_ITS | Encounter Summary ---
Author Organization [facility] Address [address] [place] [address] Phone Care Team Providers Care Black Top Raker Name Role Phone Jenni Baltazar MD Primary Care Provider [phone] Jenni Baltazar MD Unavailable [phone] Jenni Baltazar MD Primary Care Provider [phone] Encounter Details Date Type Department Care Team (Late st Contact Info) Description 07/01/2019 Procedure Pass [place] Admitting Dept - Virtual Department [address] [place] [address] Social History Tobacco Use Types Packs/Day Years Used Date Smoking Tobacco: Every Day Cigarettes 0.3 15 Smokeless Tobacco: Never Comments:smokes 5 cigarettes a day Alcohol Use Standard Drinks/Week Comments Yes 6 (1 standard drink = 0.6 oz pur e alcohol) only on the weekends Comments No Sex and Gender Information Value [...] documented as of this encounter Care Teams Black Top Raker Relationship Specialty Start Date End Date Jenni Baltazar MD PCP - General Family Medicine 01/28/19 09/18/24 Jenni Baltazar MD [address] [place] [address] PCP - General Family Medicine 09/19/24 Jenni Baltazar MD [address] [place] [id number] Insurance Assigned Provider 04/11/1911/12/20 documented as of this encounter Additional Source Comments The information contained in this document represents components of the legal health record. It is not the complete legal health record.[facility]
--- OUTSIDE RECORDS SUMMARY | 2025-07-07 09:11 | XMS_ITS | Encounter Summary ---
Author Organization [facility] Address [address] [place] [address] Phone Care Team Providers Care Conciliation Court Judge Name Role Phone Jonny Infante MD Primary Care Provider [phone] Jonny Infante MD Unavailable Jenni Baltazar MD Primary Care Provider [phone] Jenni Baltazar MD Unavailable [phone] Jenni Baltazar MD Primary Care Provider [phone] Encounter Details Date Type Department Care Team (Latest Contact Info) Description 06/23/2018 Ancillary Orders Virtual Department [address] [place] [address] Salvador Godoy MD [address] [place] [phone] [email or web address] Lumbar radiculopathy Social History Tobacco Use Types Packs/Day Years [...] documented as of this encounter Visit Diagnoses Diagnosis Lumbar radiculopathy Thoracic or lumbosacral neuritis or radiculitis, unspecified documented in this encounter Additional Health Concerns Infection Onset Date Last Indicated Resolved Time CoV-Risk 09/19/2024 09/19/2024 09/30/2024 1:22 AM EST documented as of this encounter Care Teams Conciliation Court Judge Relationship Specialty Start Date End Date Jonny Infante MD [address] [place] [phone] [email or web address] PCP - General 10/31/17 01/27/19 Jenni Baltazar MD [address] [place] [phone] [email or web address] PCP - General Family Medicine 01/28/19 09/18/24 Jenni Baltazar MD [address] [place] [address] [email or web address] PCP - General Family Medicine 09/19/24 Jonny Infante MD [address] [place] [address] [email or web address] Insurance Assigned Provider 08/09/18 Jenni Baltazar MD [address] [place] [address] [email or web address] Insurance Assigned Provider 04/11/1911/12/20 documented as of this encounter Additional Source Comments The information contained in this document represents components of the legal health record. It is not the complete legal health record.[facility]
--- OUTSIDE RECORDS SUMMARY | 2025-07-07 09:11 | XMS_ITS | Encounter Summary ---
Author Organization [facility] Address [address] [place] [address] Phone Care Team Providers Care Monogram And Letter Paster Name Role Phone Jenni Baltazar MD Primary Care Provider [phone] Jenni Baltazar MD Primary Care Provider [phone] Encounter Details Date Type Department Care Team (Latest Contact Info) Description 10/03/2021 Transcribe Orders Virtual Department [address] [place] [address] Jenni Baltazar MD [address] [place] [address] [email or web address] Encounter for laboratory testing for COVID-19 virus (Primary Dx) Social History Tobacco Use Types Packs/Day Years [...] as of this encounter Plan of Treatment Pending Results Name Type Priority Associated Diagnoses Date /Time COVID-19 PCR Order Lab Routine Encounter for laboratory testing for COVID-19 virus 10/14/2021 1:29 PM EST documented as of this encounter Visit Diagnoses Diagnosis Encounter for laboratory testing for COVID-19 virus- Primary documented in this encounter Additional Health Concerns Infection Onset Date Last Indicated Resolved Time CoV-Risk 09/19/2024 09/19/2024 09/30/2024 1:22 AM EST documented as of this encounter Care Teams Monogram And Letter Paster Relationship Specialty Start Date End Date Jenni Baltazar MD PCP - General Family Medicine 01/28/19 09/18/24 Jenni Baltazar MD [address] [place] [id number] PCP - General Family Medicine 09/19/24 documented as of this encounter Additional Source Comments The information contained in this document represents components of the legal health record. It is not the complete legal health record.[facility]
--- OUTSIDE RECORDS SUMMARY | 2025-07-07 09:11 | XMS_ITS | Encounter Summary ---
Author Organization [facility] Address [address] [place] [address] Phone Care Team Providers Care Backend Java Developer Name Role Phone Jonny Infante MD Primary Care Provider [phone] Jonny Infante MD Unavailable Jenni Baltazar MD Primary Care Provider [phone] Jenni Baltazar MD Unavailable [phone] Jenni Baltazar MD Primary Care Provider [phone] Encounter Details Date Type Department Care Team (Latest Contact Info) Description 06/23/2018 Ancillary Orders Virtual Department [address] [place] [address] Salvador Godoy MD [address] [place] [phone] [email or web address] Lumbar radiculopathy; Other intervertebral disc degeneration, lumbar region Social History Tobacco Use Types Packs/Day Years [...] on file documented as of this encounter Results * MRI LUMBAR SPINE (NEURO) WITHOUT CONTRAST (07/04/2018 1:32 PM EDT) Anatomical Region Laterality Modality L-spine Magnetic Resonan ce 07/04/2018 1:46 PM EDT Impressions 07/04/2018 1:49 PM EDT 1. No focal disc protrusion at any level. 2. Facet hypertrophy in the lower levels but no significant stenosis at any level. POS - [id number] Narrative 07/04/2018 1:49 PM EDT TECHNIQUE: 1.5 Vane high-field MRI scanner. Sagittal T1, T2 and STIR, axial T1 and T2 sequences . Compare to reconstructions of CT abdomen 03/25/2018 Well aligned vertebral bodies. No worrisome marrow changes. Normal conus position and appearance. T11-L2: No disc bulge or protrusion. No stenosis. L2-3: Moderate broad disc bulge. No focal protrusion. The degree of disc narrowing is unchanged from the CT in March. Moderate facet hypertrophy but no significant stenosis. L3-4: Moderate broad disc bulge but no focal protrusion. Facet and ligamentous hypertrophy but no significant stenosis. L4-5: No disc bulge or protrusion nor stenosis. L5-S1: Minimal broad disc bulge. No focal protrusion or stenosis. Procedure Note Ike Fisher MD - 07/04/2018 TECHNIQUE: 1.5 Vane high-field MRI scanner. Sagittal T1, T2 and STIR, axial T1 and T2 sequences . Compare to reconstructions of CT abdomen 03/25/2018 Well aligned vertebral bodies. No worrisome marrow changes. Normal conus position and appearance. T11-L2: No disc bulge or protrusion. No stenosis. L2-3: Moderate broad disc bulge. No focal protrusion. The degree of discnarrowing is unchanged from the CT in March. Moderate facet hypertrophy butno significant stenosis. L3-4: Moderate broad disc bulge but no focal protrusion. Facet andligamentous hypertrophy but no significant stenosis. L4-5: No disc bulge or protrusion nor stenosis. L5-S1: Minimal broad disc bulge. No focal protrusion or stenosis. IMPRESSION: 1. No focal disc protrusion at any level. 2. Facet hypertrophy in the lower levels but no significant stenosis atany level. POS - [id number] Salvador Godoy MD IMG MR XSPECIALTY Final Result documented in this encounter Visit Diagnoses Diagnosis Lumbar radiculopathy Thoracic or lumbosacral neuritis or radiculitis, unspecified Other intervertebral disc degeneration, lumbar region Lumbar radiculopathy Thoracic or lumbosacral neuritis or radiculitis, unspecified Other intervertebral disc degeneration, lumbar region documented in this encounter Additional Health Concerns Infection Onset Date Last Indicated Resolved Time CoV-Risk 09/19/2024 09/19/2024 09/30/2024 1:22 AM EST documented as of this encounter Care Teams Backend Java Developer Relationship Specialty Start Date End Date Jonny Infante MD [address] [place] [phone] [email or web address] PCP - General 10/31/17 01/27/19 Jenni Baltazar MD [address] [place] [phone] PCP - General Family Medicine 01/28/19 09/18/24 Jenni Baltazar MD [address] [place] [address] [email or web address] PCP - General Family Medicine 09/19/24 Jonny Infante MD [address] [place] [phone] [email or web address] Assigned Provider 08/09/18 Jenni Baltazar MD [address] [place] [address] [email or web address] Insurance Assigned Provider 04/11/1911/12/20 documented as of this encounter Additional Source Comments The information contained in this document represents components of the legal health record. It is not the complete legal health record.[facility]
--- OUTSIDE RECORDS SUMMARY | 2025-07-07 09:11 | XMS_ITS | Encounter Summary ---
Author Organization [facility] Address [address] [place] [address] Phone Care Team Providers Care Artist And Repertoire Manager Name Role Phone Jonny Infante MD Unavailable Jenni Baltazar MD Primary Care Provider [phone] Jenni Baltazar MD Unavailable [phone] Jenni Baltazar MD Primary Care Provider [phone] Encounter Details Date Type Department Care Team (Late st Contact Info) Description 02/27/2019 Procedure Pass [facility] Admitting Dept Virtual Department [address] [place] [address] Social History Tobacco Use Types Packs/Day Years [...] documented as of this encounter Care Teams Artist And Repertoire Manager Relationship Specialty Start Date End Date Jenni Baltazar MD [address] [facility] [address] [place] [address] [email or web address] PCP - General Family Medicine 01/28/19 09/18/24 Jenni Baltazar MD [address] [place] [address] [email or web address] PCP - General Family Medicine 09/19/24 Jonny Infante MD [address] [facility] [address] [place] [phone] [email or web address] Insurance Assigned Provider 08/09/18 Jenni Baltazar MD [address] [place] [address] [email or web address] Insurance Assigned Provider 04/11/1911/12/20 documented as of this encounter Additional Source Comments The information contained in this document represents components of the legal health record. It is not the complete legal health record.[facility]
--- OUTSIDE RECORDS SUMMARY | 2025-07-07 09:11 | XMS_ITS | Clinical Summary ---
Author Organization [facility] Address [address] [place] [address] Phone Care Team Providers Care Director Software Quality Assurance Name Role Phone Jenni Baltazar MD Primary Care Provider [phone] Allergies Active Allergy Reactions Criticality Noted Date Comments Varenicline Other (See Comments) Medium 06/25/2019 hallucinations Medications citalopram (CELEXA) 40 MG tablet Take 40 mg by mouth daily. Active busPIRone (BUSPAR) 15 MG tablet Take 15 mg by mouth 2 (two) times a day. Active acetaminophen (TYLENOL) 500 MG tablet Take 1,000 mg by mouth every 6 (six) hours as needed for pain (specific location in comments) or fever. Active clonazePAM (KLONOPIN) 0.5 MG tablet TAKE 1 TABLET TWICE DAILY NEEDED FOR ANXIETY 0 02/06/2018 Active QUEtiapine (SEROQUEL) 50 MG tablet TAKE 1 TO 2 TABLETS BY MOUTH AT BEDTIME 2 03/18/2018 Active cholecalciferol , vitamin D3, (VITAMIN D3 ORAL) Take by mouth daily. Active calcium carbonate (CALCIUM 500 ORAL) Take by mouth daily. Active ibuprofen (ADVIL,MOTRIN) 800 MG tablet Take 800 mg by mouth 3 (three) times a day as needed. 11/22/2020 Active traZODone (DESYREL) 50 MG tablet Take 50 mg by mouth nightly at bedtime as needed. 11/16/2020 Active cyclobenzaprine (FLEXERIL) 5 MG tablet TAKE 1 TABLET BY MOUTH UP TO TWICE DAILY FOR MUSCLE SPASM 11/17/2020 Active gabapentin (NEURONTIN) 400 MG capsule TAKE 1 CAPSULE BY MOUTH EVERY DAY AT BEDTIME 10/11/2020 Active ibuprofen (ADVIL,MOTRIN) 600 MG tablet Take 1 tablet (600 mg total) by mouth every 6 (six) hours as needed for pain (specific location in comments). 16 tablet 07/06/2022 Active Active Problems Problem Noted Date Diagnosed Date Breast hypertrophy in female 05/08/2019 Soft tissue mass 03/21/2018 Pelvic pain 03/21/2018 Resolved Problems Problem Noted Date Diagnosed Date Resolved Date Colon polyp 01/14/2018 02/21/2018 Adenomatous polyp of transverse colon 01/03/2018 01/27/2018 Assessment & Plan (01/03/2018 4:18 PM EDT): We discussed the path report in detail. I huseyin a picture of colon anatomy including the vasculature and lymph nodes. We discussed the steps of excision with stapled anastomosis and need for at least 3 cm skin incision/extraction port. We discussed the risks of surgery including bleeding/hematoma, anastomotic leak, intraabdominal abscess, incisional infection, hernia, need for ostomy, injury to adjacent structures/ureter, complications of anesthesia. We discussed the components of the enhanced recovery protocol including carb loading for 2 days preop, bowel prep with antibiotics, Gatorade the morning of surgery, preop pain control, tap block, ambulation the day of surgery, low fiber diet, and minimizing narcotic use. We discussed the stipulations for discharge home usually on postop day 1 including ability to void, safely ambulate, control pain, and tolerate by mouth intake. We discussed expected postoperative course with activity/heavy lifting restriction for 1 month. We discussed TNM staging and possibility of upstaging. All questions answered. Encounters Date Type Department Care Team Description 04/26/2025 3:15 PM EDT - 04/26/2025 6:27 PM EDT Emergency [facility] [address] [place] [address] Discharge Disposition: Home or Self Care from Last 3 Months Family History Medical History Relation Comments Stroke Father COPD Mother Skin cancer Mother Relation Status Comments Father Mother Alive Social History Tobacco Use Types Packs/Day Years Used Date Smoking Tobacco: Every Day Cigarettes 0.3 15 Smokeless Tobacco: Never Tobacco Cessation:Ready to Q uit: Yes Comments:smokes 5 cigarettes a day Alcohol Use Standard Drinks/Week Comments Not Currently 0 (1 standard drink = 0.6 oz pur e alcohol) Education Answer Date Recorded Are you interested in more education? Not on amaury e 02/01/2023 Are you concerned about learning? Not on file 02/01/2023 No 02/01/2023 No 02/01/2023 Food Answer Date Recorded Within the past 6 months we worried whether our food would run out before we got money to buy more. Never True 04/26/2025 Within the past 6 months the food we bought just didn't last and we didn't have enough money to get more. Never True Residential Stability Answer Date Recor ded What is your housing situation today? I have tavo sing 04/26/2025 How many times have you move d in the past 12 months? Zero (I did not move) 04/26/2025 Paying for Meds Answer Date Recorded Do you have trouble paying for medicines? No 04/26/2025 Paying Utility Bills Answer Date Record ed Do you have trouble paying your heating or elect ricity bill? No 04/26/2025 Transportation Answer Date Recorded Has the lack of transportati on kept you from medical appointments or from getting medications? No 04/26/2025 Digital Access Answer Date Recorded No 04/26/2025 Yes 04/26/2025 Do you have reliable internet access at home? Ye s 04/26/2025 Do you have a device (e.g., phone, tablet, computer) with a working camera? Yes 04/26/2025 Intimate Partner Violence Answer Date R ecorded Are you denied basic needs s uch as food, clothing, or medical care? No 04/26/2025 In the past 12 months have y ou been in a relationship with a person who hurts, threatens, or tries to control you? No 04/26/2025 Are you denied basic needs s uch as food, clothing, or medical care? No 04/26/2025 In the past 12 months have y ou been in a relationship with a person who hurts, threatens, or tries to control you? No 04/26/2025 Comments No Sex and Gender Information Value Date Recorded Sex Assigned at Female 07/06/2022 9:33 AM EDT Legal Sex Female 1:47 PM EST Gender Identity Female 07/06/2022 9:33 AM EDT Sexual Orientation Not on file Last Filed Vital Signs Vital Sign Reading Time Taken Comments Blood Pressure 163/98 04/26/2025 6:27 PM EDT Pulse 80 04/26/2025 6:27 PM EDT Temperature 36.3 C (97.3 F) 04/26/2025 4:35 PM EDT Respiratory Rate 16 04/26/2025 6:27 PM EDT Oxygen Saturation 98% 04/26/2025 6:27 PM EDT Inhaled Oxygen Concentration - - Weight 72.6 kg (160 lb) 04/26/2025 1:57 PM EDT Height 157.5 cm (5' 2 ) 04/26/2025 1:57 PM EDT Body Mass Index 29.26 04/26/2025 1:57 PM EDT Plan of Treatment Health Maintenance Due Date Last Done Comments DEPRESSION SCREENING 1982 SMOKING Hx and SMOKELESS TOBACCO SCREENING 1983 HEPATITIS C SCREENING 1988 HIV ONE-TIME SCREENING (18-6 5 YEARS) 1988 PNEUMOCOCCAL VACCINES (50+ years) (1 of 2 - PCV) 1989 PAP SMEAR 1991 MAMMOGRAM 2010 COLOGUARD 2015 FIT TEST 2015 FOBT 2015 SIGMOIDOSCOPY 2015 VIRTUAL COLONOSCOPY 2015 ZOSTER VACCINES (1 of 2) 2020 LIPID PANEL 11/19/2023 11/19/2018 Adult Td,Tdap Booster 04/06/2024 04/06/2014 INFLUENZA VACCINE (#1) 2025 COVID-19 VACCINE (3 - 2024-2 6 season) 2025 05/09/2021, 04/18/2021 SCREENING FOR DIABETES 09/19/2027 , 11/19/2018 COLONOSCOPY 02/27/2029 02/27/2019, 12/27/2017 COLORECTAL CANCER SCREENING 02/27/2029 HEPATITIS A VACCINES Aged Out No long er eligible based on patient's age to complete this topic HIB VACCINES Aged Out No longer eligi ble based on patient's age to complete this topic MENINGOCOCCAL VACCINES (ACWY) Aged Out No longer eligible based on patient's age to complete this topic MENINGOCOCCAL VACCINES (B) Aged Out N o longer eligible based on patient's age to complete this topic Medical Devices Not on file Procedures Procedure Name Priority Date/Time Associated Diagnosis Comments ENDOSCOPY, COLON 02/27/2019 10:0 8 AM EDT from Last 3 Months or Most Recently Relevant to Health Maintenance Results * ENDOSCOPY, COLON (02/27/2019 10:08 AM EDT) Narrative Transcriptions Gigi Cam MD - 02/27/2019 10:08 AM EDT Patient Name: Padma Melo Attending MD:: GIGI CAM MD, Procedure Date: 02/27/2019 10:08 AM Date of : 1970 Age: 48 Admit Type: Outpatient Gender: Female Room: [facility] Referring MD: Jenni Baltazar Exam Type: Colonoscopy Indications: High risk colon cancer surveillance: Personal historyof colonic polyps, High risk colon cancer surveillance: Personal history of adenoma (10 mm or greater insize) Medications: Monitored Anesthesia Care Procedure: Informed consent was obtained from the patient after discussion of the indications, limitations,alternatives, benefits, and risks of the procedure. Risksspecifically discussed include but are not limited to medication reactions, missed lesions, bleeding, perforation, orthe need for emergent surgery. Throughout the procedure, the patient's blood pressure, pulse, end-tidal CO2, and oxygen saturations were monitored continuously. The Olympus pediatric variable colonoscope PCF-[id number] was introduced through the anus and advanced to thececum, identified by appendiceal orifice and ileocecal valve.The colonoscopy was performed without difficulty. Thepatient tolerated the procedure well. The quality of the bowel preparation was excellent. The quality of the bowel preparation was evaluated using the BBPS ([place] Bowel Preparation Scale) with scores of: Right Colon = 3, Transverse Colon = 3 and Left Colon = 3 (entire mucosa seen well with no residual staining, small fragments of stool or opaque liquid). The total BBPS score equals9. Complications: No immediate complications. Estimated blood loss:None. Findings: The perianal and digital rectal examinations werenormal. There was evidence of a prior end-to-side colo-colonic anastomosis in the transverse colon. Internal hemorrhoids were found during retroflexion.The hemorrhoids were mild. The exam was otherwise normal throughout the examined colon. Impression: - End-to-side colo-colonic anastomosis. - Internal hemorrhoids. - No specimens collected. Recommendation: - Discharge patient to home. - Repeat colonoscopy in 3 years for surveillance. GIGI CAM MD, 02/27/2019 10:27:20 AM This report has been signed electronically. Number of Addenda: 0 Note Initiated On: 02/27/2019 10:08 AM Procedure Code(s): --- Professional --- 56842, Colonoscopy, flexible; diagnostic, including collection of specimen(s) by brushing or washing, when performed (separateprocedure) --- Technical --- 95650, Colonoscopy, flexible; diagnostic, including collection of specimen(s) by brushing or washing, when performed (separateprocedure) Diagnosis Code(s): --- Professional --- Z98.0, Intestinal bypass and anastomosis status K64.8, Other hemorrhoids Z86.010, Personal history of colonic polyps --- Technical --- Z98.0, Intestinal bypass and anastomosis status K64.8, Other hemorrhoids Z86.010, Personal history of colonic polyps CPT copyright 2016 [employer]. All rights reserved. The codes documented in this report are preliminary and upon clinical documentation specialist reviewmay be revised to meet current compliance requirements. [address] [place], [place] [id number] Jenni Baltazar MD GI PROCEDURE ORDERABLES Yeni l Result from Last 3 Months or Most Recently Relevant to Health Maintenance Insurance [facility] C[facility] MEDICARE REPLACEMENT [facility] CARE MEDICARE REPLACEMENT [facility] CARE MEDICARE REPLACEMENT [facility] CARE MEDICARE REPLACEMENT [facility] CARE MEDICARE [place] [address] [address] [place] [id number] [facility] CARE MEDICARE REPLACEMENT [facility] CARE MEDICARE REPLACEMENT [facility] MEDICARE [place] [address] [address] [place] [id number] [facility] CARE MEDICARE REPLACEMENT Advance Directives For more information, please contact: [phone] (9AM - 5PM Eliane/[facility], Saturday-Saturday) * Full Code (Presumed) (Latest Code Status on File) Date Activated Date Inactivated Comments 07/01/2019 9:40 AM 07/01/2019 8:36 PM * Full Code (Presumed) Date Activated Date Inactivated Comments 01/14/2018 11:29 AM 01/17/2018 5:24 PM * Full Code (Presumed) Date Activated Date Inactivated Comments 01/14/2018 6:31 AM 01/14/2018 11:29 AM Care Teams Director Software Quality Assurance Relationship Specialty Start Date End Date Jenni Baltazar MD [address] [place] [id number] [email or web address] PCP - General Family Medicine 09/19/24 Additional Source Comments The information contained in this document represents components of the legal health record. It is not the complete legal health record.[facility]
--- OUTSIDE RECORDS SUMMARY | 2025-07-07 09:11 | XMS_ITS | Encounter Summary ---
Author Organization [facility] Address [address] [place] [address] Phone Care Team Providers Care Spinning Operator Name Role Phone Jonny Infante MD Primary Care Provider [phone] Jonny Infante MD Unavailable Jenni Baltazar MD Primary Care Provider [phone] Jenni Baltazar MD Unavailable [phone] Jenni Baltazar MD Primary Care Provider [phone] Encounter Details Date Type Department Care Team (Late st Contact Info) Description 06/23/2018 Procedure Pass [facility] [address] [place] [address] Social History Tobacco Use Types Packs/Day Years [...] documented as of this encounter Care Teams Spinning Operator Relationship Specialty Start Date End Date Jonny Infante MD [address] [place] [phone] [email or web address] PCP - General 10/31/17 01/27/19 Jenni Baltazar MD [address] [place] [address] PCP - General Family Medicine 01/28/19 09/18/24 Jenni Baltazar MD [address] [place] [phone] PCP - General Family Medicine 09/19/24 Jonny Infante MD [address] [place] [phone] [email or web address] Insurance Assigned Provider 08/09/18 Jenni Baltazar MD [address] [place] [phone] Insurance Assigned Provider 04/11/1911/12/20 documented as of this encounter Additional Source Comments The information contained in this document represents components of the legal health record. It is not the complete legal health record.[facility]
--- OUTSIDE RECORDS SUMMARY | 2025-07-07 09:12 | XMS_ITS | Encounter Summary ---
Author Organization [facility] Address [address] [place] [address] Phone Care Team Providers Care Nutrition Aides Teacher Name Role Phone Jenni Baltazar MD Primary Care Provider + [phone] Jenni Baltazar MD Primary Care Provider + [phone] Encounter Details Date Type Department Care Team ([facility] st Contact Info) Description 01/04/2021 Procedure Pass [place] Admitting Dept - Virtual Department [address] [place] [address] Social History Tobacco Use Types Packs/Day Years [...] documented as of this encounter Care Teams Nutrition Aides Teacher Relationship Specialty Start Date End Date Jenni Baltazar MD PCP - General Family Medicine 01/28/19 09/18/24 Jenni Baltazar MD [address] [place] [id number] [email or web address] PCP - General Family Medicine 09/19/24 documented as of this encounter Additional Source Comments The information contained in this document represents components of the legal health record. It is not the complete legal health record.[facility]
--- OUTSIDE RECORDS SUMMARY | 2025-07-07 09:12 | XMS_ITS | Encounter Summary ---
Author Organization [facility] Address [address] [place] [address] Phone Care Team Providers Care Bunghole Borer Name Role Phone Jonny Infante MD Primary Care Provider [phone] Jonny Infante MD Unavailable Jenni Baltazar MD Primary Care Provider [phone] Jenni Baltazar MD Unavailable [phone] Jenni Baltazar MD Primary Care Provider [phone] Encounter Details Date Type Department Care Team (Late st Contact Info) Description 12/27/2017 Procedure Pass [facility] Endoscopy Admitting Dept Virtual Department [address] [place] [address] Social History Tobacco Use Types Packs/Day Years Used Date Smoking Tobacco: Every Day Cigarettes Smokeless Tobacco: Never Alcohol Use Standard Drinks/Week Comments Yes 6 [...] documented as of this encounter Care Teams Bunghole Borer Relationship Specialty Start Date End Date Jonny Infante MD [address] [place] [phone] [email or web address] PCP - General 10/31/17 01/27/19 Jenni Baltazar MD [address] [place] [address] PCP - General Family Medicine 01/28/19 09/18/24 Jenni Baltazar MD [address] [place] [phone] PCP - General Family Medicine 09/19/24 Jonny Infante MD [address] [place] [address] [email or web address] Insurance Assigned Provider 08/09/18 Jenni Baltazar MD [address] [place] [phone] Insurance Assigned Provider 04/11/1911/12/20 documented as of this encounter Additional Source Comments The information contained in this document represents components of the legal health record. It is not the complete legal health record.[facility]
--- OUTSIDE RECORDS SUMMARY | 2025-07-07 09:12 | XMS_ITS | Encounter Summary ---
Author Organization [facility] Address [address] [place] [address] Phone Care Team Providers Care Outside Collector Name Role Phone Jonny Infante MD Primary Care Provider [phone] Jonny Infante MD Unavailable Jenni Baltazar MD Primary Care Provider [phone] Jenni Baltazar MD Unavailable [phone] Jenni Baltazar MD Primary Care Provider [phone] Encounter Details Date Type Department Care Team (Late st Contact Info) Description 01/14/2018 Procedure Pass [place] Admitting Dept - Virtual Department [address] [place] [address] Social History Tobacco Use Types Packs/Day Years [...] documented as of this encounter Care Teams Outside Collector Relationship Specialty Start Date End Date Jonny Infante MD [address] [place] [address] [email or web address] PCP - General 10/31/17 01/27/19 Jenni Baltazar MD [address] [place] [address] PCP - General Family Medicine 01/28/19 09/18/24 Jenni Baltazar MD [address] [place] [phone] PCP - General Family Medicine 09/19/24 Jonny Infante MD [address] [place] [address] [email or web address] Insurance Assigned Provider 08/09/18 Jenni Baltazar MD [address] [place] [id number] Insurance Assigned Provider 04/11/1911/12/20 documented as of this encounter Additional Source Comments The information contained in this document represents components of the legal health record. It is not the complete legal health record.[facility]
== END 2025-07-07 09:17 | disposition home or self-care (01) ==
LOC: HO.HOS 08:39
PROVIDERS: PCP Internal Medicine; Visit Provider Physician Assistant
DX: M17.0 Bilateral primary osteoarthritis of knee (principal)
CPT/HCPCS: 20610

== ENCOUNTER → 2025-07-07 08:38 | Outpatient (BNVA) | payer OTHER, SELFPAY | PROVIDERS: PCP Internal Medicine; Visit Provider Physician Assistant | DX: M17.0 Bilateral primary osteoarthritis of knee (principal) | CPT/HCPCS: 20610; J0665; J1100; J7318 ==

== ENCOUNTER 2025-07-08 11:50 | Outpatient (AMB) | payer OTHER, SELFPAY ==
--- OUTSIDE RECORDS SUMMARY | 2024-02-28 03:30 | XMS_ITS ---
Author Organization [facility] Address [address] [place] [id number] Care Team Providers Care Rouge Presser Name Role Phone Eusebia Calderon Primary Care Provider UnavailOwen Bernardo Unavailable [phone] REASON FOR VISIT screening,hx polyps Problems Problem Type SNOMED Code ICD Code Onset Dates Problem Status W/U Status Risk Notes Problem History of polyp of colon (situation) (982887058) Personal history of colonic polyps (Z86.010) Active confirmed Encounters Encounter Location Date Provider Diagnosis [facility] [place] [address] [place] [phone] 02/28/2024 Owen Simon Encounter for scre ening colonoscopy Z12.11 and Personal history of colonic polyps Z86.010 Assessments Encounter Date Diagnosis (ICD Code) Assessment Notes Treatment Notes Treatment Clinical Notes Section Notes 02/28/2024 Encounter for screening colonoscopy (ICD-10 - Z12.11) 02/28/2024 Personal history of colonic polyps (ICD-10 - Z86.010) Plan Of Treatment No Information Progress Notes * NEAL LIPSCOMBDOB: 0 (54 yo F)Acc No.[id number]:02/28/2024 COLON WITH MAC Patient: NEAL WEINSTEIN Provider: Maia Simon MD :1970 A ge:53 Y S ex:Female Date:02/28/2024 Address:[address] [place] [address] [address], [place], [place] Pcp:Eusebia Syed Subjective: * Chief Complaints: * 1 . Screening,hx polyps. * Medical History: Objective: * Vitals: Assessment: * Assessment: 1. E ncounter for screening colonoscopy - Z12.11 (Primary) 2 . P ersonal history of colonic polyps - Z86.010 Plan: * Treatment: * Procedure Codes: 4 5378 DIAGNOSTIC COLONOSCOPY, Modifiers: 53 * * The named appointment provid er may or may not be the originator of this progress note, and it is not deemed complete until electronically signed by the appointment provider. Sign off status: Pending * Provider: Maia Simon MD Date: 0 02/28/2024 Generated for Yordy blum/Maxim/eTransmitting on: 01:33 PM EDT
--- NOTE | 2025-07-08 11:55 | A.OFFVIS_ITS ---
Vital Signs 07/08/25 12:00 Height 5 ft 2 in Weight 160 lb BMI 29.3 Intake Visit Reasons: OV-Lt shoulder MRI review Intake Note: Padma is a 54 year old female who presents today as a MRI Review of her left Shoulder,05/19/25. At today's visit she states that her ROM is still very limited and the pain is the same, no changes. She states that physical therapy was a horrible experience due to them canceling on her, re booking or not calling her in a timely manner. She reports that she only had five appointments and at today's visit she would rather discuss at home exercises that she can work on. Allergies varenicline (From Chantix) Adverse Reaction (Mild, Verified 07/08/25 12:00) depression, nightmares depomedrol Adverse Reaction (Intermediate, Uncoded 07/07/25 08:52) mouth bad taste Medication List - Last Reconciled 07/09/25 by Tyesha Florian MD amitriptyline 10 mg PO BEDTIME 90 days [bio freeze roll As directed] cholecalciferol (vitamin D3) 10 mcg PO DAILY docusate sodium (Colace) 100 mg PO BID fremanezumab-vfrm (Ajovy) 225 mg (1.5 mL) subcut Q1M 30 days ibuprofen 800 mg PO Q8H lidocaine 4% (AsperFlex (lidocaine)) 1 patch topical DAILY PRN 30 days magnesium oxide 400 mg PO DAILY 90 days magnesium oxide 400 mg PO DAILY [medline phytoplex lotion As directed] ondansetron 4 mg PO DAILY PRN sumatriptan succinate take 1 tab at onset of headache; if no relief may repeat 1 tab after at least 2 hrs; PO 30 days tizanidine 2 mg PO TID PRN [Vitamin C ] HPI Comments Details: Chronic neck pain, shoots to both shoulders and arms. No numbness. But she does wake up with tightness/cramps on fingers. Left more than right weakness on arm with pain. Difficult to open bottles. Limited shoulder ROM, left worse. Shoulder xray did show degenerative changes. Difficult to sleep due to neck pain, with hear somethings is breaking . No injections to neck or shoulder. I thought most of her symptoms were coming from the shoulder, left more than right, rather than cervical. MRI left shoulder showed possible supraspinatus tendonitis but no tears. She has been going to physical therapy with progress, based on last progress note 06/28/2025. But patient says they have switched her to different therapists and cancelled sessions after. Left shoulder a little better but still pain with ROM, feels like clicking. She also follows with ortho for knee pain; pain management for lower back pain. [facility] Medical History (Updated 04/29/25 @ 11:32 by Tyesha Florian MD) Migraine without aura Eczema Constipation by delayed colonic transit Hypovitaminosis D Abdominal pain Arthritis Bleeding hemorrhoids Migraine Hemorrhoids Surgical History History of hemorrhoidectomy H/O colonoscopy History of hysterectomy History of colon surgery Family History Mother Asthma Dementia Hypertension COPD (chronic obstructive pulmonary disease) Skin cancer Osteoarthritis Father Heart attack Prostate cancer Sister Osteoarthritis Social History Housing: Apartment Alcohol intake: former Patient Tobacco Use Status: Former Tobacco user Tobacco use type: Cigarette e-Cigarette/Vaping Use: Never Used Second Hand Smoke Exposure: No service: No Current occupational status: unemployed and disabled Cognitive needs: Yes Hearing needs: No Vision needs: Yes Physical Exam Exam Exam: Constitutional: Patient appears to be in no acute distress, well nourished and well developed. MSK: Inspection reveals appropriate head and neck positioning. No pain with palpation over the neck musculature. Some tightness on upper trapezius bilateral. Rhomboids nontender. No scapular winging. Cervical ROM was limited on extension with pain. Spurling's sign negative. Range of motion for shoulders are both full now Empty can sign, drop-arm test, Speed's test, Cooper sign all normal now. Neurological: Dawson?s negative bilaterally. Babinski was down going bilaterally. Clonus was negative. Gait is non-antalgic without loss of balance. Vital Signs: BMI result Body Mass Index 29.3 Results Reviewed Results Reviewed: Ordering Physician: Tyesha Galan Date of Service: 05/17/25 Procedure(s): MR shoulder LT wo con Accession Number(s): [id number] cc: Eusebia Calderon MD; Tyesha Galan~ CLINICAL HISTORY: Other shoulder lesions, left shoulder tendonitis rtc tear --- Additional Notes or Special Instructions: Evaluate for rotator cuff tear Exam: MRI of the left shoulder without intravenous contrast. Comparison: Radiographs January 11, 2025. Findings: No rotator cuff tears are identified. Mild tendinopathy of the distal infraspinatus and supraspinatus tendons with areas of fraying along the bursal surface of the distal supraspinatus tendon. No discrete tear is identified. Teres minor and subscapularis tendons are intact. There are no tears of the glenoid labrum. Specifically, no tear of the superior labrum of the anteroinferior labrum is identified. The tendon of the long head of the biceps is appropriately positioned within the bicipital groove. Type 2 acromion. Moderate degenerative change of the AC joint with mild juxta-articular edema. Impression: 1. Supraspinatus and infraspinatus tendinopathy without rotator cuff tear. 2. AC joint DJD. This document has been electronically signed by: Pradeep Christie MD on 05/19/2025 08:42:03 Assessment & Plan Assessment & Plan (1) Tendonitis of left rotator cuff: Code(s): M75.82 - Other shoulder lesions, left shoulder Category: Medical Plan Rotator cuff tendonitis without any tear on MRI. There is some improvement with PT but sessions have been canceled, no showed. We talked about exercises she can do at home safely. Assessment and plan discussed with patient, and patient was agreeable. All questions were answered thoroughly. Follow up 3 months. Total of 30 minutes spent today including chart review, results review, history taking, physical examination, discussion of assessment and plan, and coordination of care. Tyesha Florian MD, MERRILL Board Certified, [place] Board [employer] and Rehabilitation (ABPMR) Board Certified, [place] Board of Electrodiagnostic Medicine (ABEM) Coding Level of Care Code Est Pt Level 4 (24812) Diagnoses Tendonitis of left rotator cuff M75.82
[2025-07-08 12:00] VITALS: BMI 29.3
--- OUTSIDE RECORDS SUMMARY | 2025-07-08 13:33 | XMS_ITS | Encounter Summary ---
Author Organization [facility] Address [address] [place] [address] Phone Care Team Providers Care Superintendent Automotive Name Role Phone Jonny Infante MD Primary Care Provider [phone] Jonny Infante MD Unavailable Jenni Baltazar MD Primary Care Provider [phone] Jenni Baltazar MD Unavailable [phone] Jenni Baltazar MD Primary Care Provider [phone]- [phone] Encounter Details Date Type Department Care Team (Latest Contact Info) Description 06/23/2018 Ancillary Orders Virtual Department [address] [place] [address] Salvador Godoy MD [address] [place] [phone] [email or web address] Lumbar radiculopathy; Other intervertebral disc degeneration, lumbar [...] documented as of this encounter Care Teams Superintendent Automotive Relationship Specialty Start Date End Date Jonny Infante MD [address] [place] [phone] [email or web address] PCP - General 10/31/17 01/27/19 Jenni Baltazar MD [address] [place] [phone] PCP - General Family Medicine 01/28/19 09/18/24 Jenni Baltazar MD [address] [place] [address] [email or web address] PCP - General Family Medicine 09/19/24 Jonny Infante MD [address] [place] [address] [email or web address] Insurance Assigned Provider 08/09/18 Jenni Baltazar MD [address] [place] [address] [email or web address] Insurance Assigned Provider 04/11/1911/12/20 documented as of this encounter Additional Source Comments The information contained in this document represents components of the legal health record. It is not the complete legal health record.[facility]
--- OUTSIDE RECORDS SUMMARY | 2025-07-08 13:33 | XMS_ITS | Encounter Summary ---
Author Organization [facility] Address [address] [place] [address] Phone Care Team Providers Care Maintenance Of Way Superintendent Name Role Phone Jonny Infante MD Primary Care Provider [phone] Jonny Infante MD Unavailable Jenni Baltazar MD Primary Care Provider [phone] Jenni Baltazar MD Unavailable [phone] Jenni Baltazar MD Primary Care Provider [phone] Encounter Details Date Type Department Care Team (Late st Contact Info) Description 03/20/2018 Procedure Pass [facility], Ct Scan - [facility] [address] [place] [address] Social History Tobacco Use Types Packs/Day Years [...] documented as of this encounter Care Teams Maintenance Of Way Superintendent Relationship Specialty Start Date End Date Jonny Infante MD [address] [place] [phone] [email or web address] PCP - General 10/31/17 01/27/19 Jenni Baltazar MD [address] [place] [phone] [email or web address] PCP - General Family Medicine 01/28/19 09/18/24 Jenni Baltazar MD [address] [place] [address] [email or web address] PCP - General Family Medicine 09/19/24 Jonny Infante MD [address] [place] [address] [email or web address] Insurance Assigned Provider 08/09/18 Jenni Baltazar MD [address] [place] [address] [email or web address] Insurance Assigned Provider 04/11/1911/12/20 documented as of this encounter Additional Source Comments The information contained in this document represents components of the legal health record. It is not the complete legal health record.[facility]
--- OUTSIDE RECORDS SUMMARY | 2025-07-08 13:33 | XMS_ITS | Encounter Summary ---
Author Organization [facility] Address [address] [place] [address] Phone Care Team Providers Care Precipitation Equipment Tender Name Role Phone Jonny Infante MD Primary Care Provider [phone] Jonny Infante MD Unavailable Jenni Baltazar MD Primary Care Provider [phone] Jenni Baltazar MD Unavailable [phone] Jenni Baltazar MD Primary Care Provider [phone] Encounter Details Date Type Department Care Team (Late st Contact Info) Description 06/23/2018 Procedure Pass [facility] [address] [place] [address] Social History Tobacco Use Types Packs/Day Years [...] documented as of this encounter Care Teams Precipitation Equipment Tender Relationship Specialty Start Date End Date Jonny Infante MD [address] [place] [phone] [email or web address] PCP - General 10/31/17 01/27/19 Jenni Baltazar MD [address] [place] [address] [email or web address] PCP - General Family Medicine 01/28/19 09/18/24 Jenni Baltazar MD [address] [place] [address] [email or web address] PCP - General Family Medicine 09/19/24 Jonny Infante MD [address] [place] [address] [email or web address] Insurance Assigned Provider 08/09/18 Jenni Baltazar MD [address] [place] [address] [email or web address] Insurance Assigned Provider 04/11/1911/12/20 documented as of this encounter Additional Source Comments The information contained in this document represents components of the legal health record. It is not the complete legal health record.[facility]
--- OUTSIDE RECORDS SUMMARY | 2025-07-08 13:33 | XMS_ITS | Encounter Summary ---
Author Organization [facility] Address [address] [place] [address] Phone Care Team Providers Care Utilities Estimator And Drafter Name Role Phone Jenni Baltazar MD Primary Care Provider + [phone] Jenni Baltazar MD Primary Care Provider + [phone] Encounter Details Date Type Department Care Team (Late st Contact Info) Description 07/06/2022 Procedure Pass [facility], Ct Scan - [facility] [address] [place] [address] Social History Tobacco Use Types Packs/Day Years [...] 9:33 AM JAYNAT Harry Christie RN * [place] Suicide Severity Rating Scale (Screener/Recent Self-Report) Question [...] documented as of this encounter Care Teams Utilities Estimator And Drafter Relationship Specialty Start Date End Date Jenni Baltazar MD [email or web address] PCP - General Family Medicine 01/28/19 09/18/24 Jenni Baltazar MD [address] [place] [address] PCP - General Family Medicine 09/19/24 documented as of this encounter Additional Source Comments The information contained in this document represents components of the legal health record. It is not the complete legal health record.[facility]
--- OUTSIDE RECORDS SUMMARY | 2025-07-08 13:33 | XMS_ITS | Encounter Summary ---
Author Organization [facility] Address [address] [place] [address] Phone Care Team Providers Care Farm Tractor Operator Name Role Phone Jenni Baltazar MD Primary Care Provider [phone] Jenni Baltazar MD Primary Care Provider [phone] Encounter Details Date Type Department Care Team (Latest Contact Info) Description 10/03/2021 Transcribe Orders Virtual Department [address] [place] [address] Jenni Baltazar MD [address] [place] [address] [email or web address] Encounter for laboratory testing for COVID-19 [...] documented as of this encounter Care Teams Farm Tractor Operator Relationship Specialty Start Date End Date Jenni Baltazar MD PCP - General Family Medicine 01/28/19 09/18/24 Jenni Baltazar MD [address] [place] [address] PCP - General Family Medicine 09/19/24 documented as of this encounter Additional Source Comments The information contained in this document represents components of the legal health record. It is not the complete legal health record.[facility]
--- OUTSIDE RECORDS SUMMARY | 2025-07-08 13:33 | XMS_ITS | Encounter Summary ---
Author Organization [facility] Address [address] [place] [address] Phone Care Team Providers Care Automobile Glass Technician Name Role Phone Jonny Infante MD Primary Care Provider [phone] Jonny Infante MD Unavailable Jenni Baltazar MD Primary Care Provider [phone] Jenni Baltazar MD Unavailable [phone] Jenni Baltazar MD Primary Care Provider [phone] Encounter Details Date Type Department Care Team (Latest Contact Info) Description 06/23/2018 Ancillary Orders Virtual Department [address] [place] [address] Salvador Godoy MD [address] [place] [phone] [email or web address] Lumbar radiculopathy Social History Tobacco Use Types [...] documented as of this encounter Care Teams Automobile Glass Technician Relationship Specialty Start Date End Date Jonny Infante MD [address] [place] [address] [email or web address] PCP - General 10/31/17 01/27/19 Jenni Baltazar MD [address] [place] [address] [email or web address] PCP - General Family Medicine 01/28/19 09/18/24 Jenni Baltazar MD [address] [place] [address] [email or web address] PCP - General Family Medicine 09/19/24 Jonny Infante MD [address] [place] [address] [email or web address] Insurance Assigned Provider 08/09/18 Jenni Baltazar MD [address] [place] [address] [email or web address] Insurance Assigned Provider 04/11/1911/12/20 documented as of this encounter Additional Source Comments The information contained in this document represents components of the legal health record. It is not the complete legal health record.[facility]
--- OUTSIDE RECORDS SUMMARY | 2025-07-08 13:34 | XMS_ITS | Encounter Summary ---
Author Organization [facility] Address [address] [place] [address] Phone Care Team Providers Care Supervisor Shuttle Fitting Name Role Phone Jenni Baltazar MD Primary Care Provider [phone] Jenni Baltazar MD Unavailable [phone] Jenni Baltazar MD Primary Care Provider [phone] Encounter Details Date Type Department Care Team (Late st Contact Info) Description 07/01/2019 Procedure Pass [place] Admitting Dept - Virtual Department [address] [place] [address] Social History Tobacco Use Types Packs/Day Years [...] documented as of this encounter Care Teams Supervisor Shuttle Fitting Relationship Specialty Start Date End Date Jenni Baltazar MD PCP - General Family Medicine 01/28/19 09/18/24 Jenni Baltazar MD [address] [place] [address] PCP - General Family Medicine 09/19/24 Jenni Baltazar MD [address] [place] [address] Insurance Assigned Provider 04/11/1911/12/20 documented as of this encounter Additional Source Comments The information contained in this document represents components of the legal health record. It is not the complete legal health record.[facility]
--- OUTSIDE RECORDS SUMMARY | 2025-07-08 13:34 | XMS_ITS | Encounter Summary ---
Author Organization [facility] Address [address] [place] [address] Phone Care Team Providers Care Mat Machine Tender Name Role Phone Jonny Infante MD Primary Care Provider [phone] Jonny Infante MD Unavailable Jenni Baltazar MD Primary Care Provider [phone] Jenni Baltazar MD Unavailable [phone] Jenni Baltazar MD Primary Care Provider [phone] Encounter Details Date Type Department Care Team (Late st Contact Info) Description 12/27/2017 Procedure Pass [facility] Admitting Dept Virtual Department [address] [place] [address] Social History Tobacco Use Types Packs/Day Years [...] documented as of this encounter Care Teams Mat Machine Tender Relationship Specialty Start Date End Date Jonny Infante MD [address] [place] [address] [email or web address] PCP - General 10/31/17 01/27/19 Jenni Baltazar MD [address] [place] [address] [email or web address] PCP - General Family Medicine 01/28/19 09/18/24 Jenni Baltazar MD [address] [place] [address] [email or web address] PCP - General Family Medicine 09/19/24 Jonny Infante MD [address] [place] [address] [email or web address] Insurance Assigned Provider 08/09/18 Jenni Baltazar MD [address] [place] [address] [email or web address] Insurance Assigned Provider 04/11/1911/12/20 documented as of this encounter Additional Source Comments The information contained in this document represents components of the legal health record. It is not the complete legal health record.[facility]
--- OUTSIDE RECORDS SUMMARY | 2025-07-08 13:34 | XMS_ITS | Patient Health Record ---
Author Organization [facility] Address [address] [place] [phone] Care Team Providers Care Law Librarian Name Role Phone Eusebia Calderon Primary Care Provider UnavailOwen Bernardo Unavailable [phone] Allergies No Known Allergies Reason For Referral [...] Status Risk Notes Problem Colon cancer screening (832163070) Colon cancer screening (Z12.11) Active confirmed Problem History of polyp of colon (situation) (810032811) Personal history of colonic polyps (Z86.010) Active confirmed Problem History of polyp of colon (664460403) History of colon polyps (Z86.010) Active confirmed Problem Chronic constipation (245401521) Chronic constipation (K59.09) Active confirmed Plan Of Treatment Future Test Test Name Order Date COLONOSCOPY 11/21/2023 Insurance Providers Payer Name Payer Address Payer Phone Subscriber Number Group Number Insured Name Patient Relationship to Insured Coverage Start Date Coverage End Date [facility] [address] [place] [address] [id number] NEAL LIPSCOMB Self - patient is the insured Medical (General) History Medical History History ICD Code kidney stones She describes colonoscopies with removal of polyps and both [facility] and [facility] migraines Denies VT,DM,CVA,Lung disease,renal dise ase Surgical History Surgery Date(Month/Year) Some type of partial colecto my at [facility] for polyps Hysterectomy Hemorrhoids with Dr. Cormier in December
--- OUTSIDE RECORDS SUMMARY | 2025-07-08 13:34 | XMS_ITS | Clinical Summary ---
Author Organization [facility] Address [address] [place] [address] Phone Care Team Providers Care Lining Feller Blindstitch Name Role Phone Jenni Baltazar MD Primary Care Provider [phone] Allergies Active Allergy Reactions Criticality Noted Date [...] 6:27 PM EDT Emergency [facility] [address] [place] [address] Discharge Disposition: Home or Self Care from [...] 48 Admit Type: Outpatient Gender: Female Room: [facility] Referring MD: Jenni Baltazar Exam Type: Colonoscopy [...] bowel preparation was evaluated using the BBPS ([place] Bowel Preparation Scale) with scores of: Right [...] 10:08 AM Procedure Code(s): --- Professional --- 55804, Colonoscopy, flexible; diagnostic, including collection of specimen(s) by brushing or washing, when performed (separateprocedure) --- Technical --- 56750, Colonoscopy, flexible; diagnostic, including collection of specimen(s) by brushing or washing, when performed (separateprocedure) Diagnosis Code(s): --- Professional --- Z98.0, Intestinal bypass and anastomosis status K64.8, Other hemorrhoids Z86.010, Personal history of colonic polyps --- Technical --- Z98.0, Intestinal bypass and anastomosis status K64.8, Other hemorrhoids Z86.010, Personal history of colonic polyps CPT copyright 2016 [employer]. All rights reserved. The codes documented in this report are preliminary and upon fur matcher reviewmay be revised to meet current compliance requirements. [address] [place], [place] [id number] Jenni Baltazar MD GI PROCEDURE ORDERABLES Yeni l Result from Last 3 Months or Most Recently Relevant to Health Maintenance Insurance [facility] MEDICARE REPLACEMENT [facility] MEDICARE REPLACEMENT [facility] MEDICARE REPLACEMENT [facility] MEDICARE REPLACEMENT [facility] MEDICARE REPLACEMENT [address] [id number] [facility] MEDICARE REPLACEMENT [facility] MEDICARE REPLACEMENT [facility] MEDICARE REPLACEMENT [place] [phone] [facility] MEDICARE REPLACEMENT Advance Directives For more information, please contact: [phone] (9AM - 5PM Eliane/[facility], Saturday-Saturday) * Full Code (Presumed) (Latest Code Status on File) Date Activated Date Inactivated Comments 07/01/2019 9:40 AM 07/01/2019 8:36 PM * Full Code (Presumed) Date Activated Date Inactivated Comments 01/14/2018 11:29 AM 01/17/2018 5:24 PM * Full Code (Presumed) Date Activated Date Inactivated Comments 01/14/2018 6:31 AM 01/14/2018 11:29 AM Care Teams Lining Feller Blindstitch Relationship Specialty Start Date End Date Jenni Baltazar MD [address] [place] [address] [email or web address] PCP - General Family Medicine 09/19/24 Additional Source Comments The information contained in this document represents components of the legal health record. It is not the complete legal health record.[facility]
--- OUTSIDE RECORDS SUMMARY | 2025-07-08 13:34 | XMS_ITS | Encounter Summary ---
Author Organization [facility] Address [address] [place] [address] Phone Care Team Providers Care Ethnology Teacher Name Role Phone Jonny Infante MD Unavailable Jenni Baltazar MD Primary Care Provider [phone] Jenni Baltazar MD Unavailable [phone] Jenni Baltazar MD Primary Care Provider +[phone]- [phone] Encounter Details Date Type Department Care Team (Late st Contact Info) Description 02/27/2019 Procedure Pass [facility] Endoscopy Admitting Dept Virtual Department [address] [place] [address] Social History Tobacco Use Types Packs/Day Years [...] documented as of this encounter Care Teams Ethnology Teacher Relationship Specialty Start Date End Date Jenni Baltazar MD [address] [facility] [address] [place] [address] [email or web address] PCP - General Family Medicine 01/28/19 09/18/24 Jenni Baltazar MD [address] [place] [address] [email or web address] PCP - General Family Medicine 09/19/24 Jonny Infante MD [address] [facility] [address] [place] [address] [email or web address] Insurance Assigned Provider 08/09/18 Jenni Baltazar MD [address] [place] [address] [email or web address] Insurance Assigned Provider 04/11/1911/12/20 documented as of this encounter Additional Source Comments The information contained in this document represents components of the legal health record. It is not the complete legal health record.[facility]
--- OUTSIDE RECORDS SUMMARY | 2025-07-08 13:34 | XMS_ITS | Clinical Summary ---
Author Organization [employer] [facility] Address [address] [place] [address] Care Team Providers Care Improvement Nurse Name Role Phone Unavailable Primary Care Provider [...]
--- OUTSIDE RECORDS SUMMARY | 2025-07-08 13:34 | XMS_ITS | Encounter Summary ---
Author Organization [facility] Address [address] [place] [address] Phone Care Team Providers Care Medical Advisor Name Role Phone Jenni Baltazar MD Primary Care Provider + [phone] Jenni Baltazar MD Primary Care Provider + [phone] Encounter Details Date Type Department Care Team ([facility] st Contact Info) Description 01/04/2021 Procedure Pass [place] Admitting Dept - Virtual Department [address] [place] [address] Social History Tobacco Use Types Packs/Day Years [...] documented as of this encounter Care Teams Medical Advisor Relationship Specialty Start Date End Date Jenni Baltazar MD PCP - General Family Medicine 01/28/19 09/18/24 Jenni Baltazar MD [address] [place] [address] [email or web address] PCP - General Family Medicine 09/19/24 documented as of this encounter Additional Source Comments The information contained in this document represents components of the legal health record. It is not the complete legal health record.[facility]
--- OUTSIDE RECORDS SUMMARY | 2025-07-08 13:34 | XMS_ITS | Encounter Summary ---
Author Organization [facility] Address [address] [place] [address] Phone Care Team Providers Care Graphic User Interface Designer Name Role Phone Jonny Infante MD Primary Care Provider [phone] Jonny Infante MD Unavailable Jenni Baltazar MD Primary Care Provider [phone] Jenni Baltazar MD Unavailable [phone] Jenni Baltazar MD Primary Care Provider +[phone]- [phone] Encounter Details Date Type Department Care Team (Late st Contact Info) Description 01/14/2018 Procedure Pass [place] Admitting Dept - Virtual Department [address] [place] [address] Social History Tobacco Use Types Packs/Day Years [...] documented as of this encounter Care Teams Graphic User Interface Designer Relationship Specialty Start Date End Date Jonny Infante MD [address] [place] [address] [email or web address] PCP - General 10/31/17 01/27/19 Jenni Baltazar MD [address] [place] [address] PCP - General Family Medicine 01/28/19 09/18/24 Jenni Baltazar MD [address] [place] [address] PCP - General Family Medicine 09/19/24 Jonny Infante MD [address] [place] [address] [email or web address] Insurance Assigned Provider 08/09/18 Jenni Baltazar MD [address] [place] [address] Insurance Assigned Provider 04/11/1911/12/20 documented as of this encounter Additional Source Comments The information contained in this document represents components of the legal health record. It is not the complete legal health record.[facility]
== END 2025-07-08 12:11 | disposition home or self-care (01) ==
LOC: HO.HOS 11:51
PROVIDERS: PCP Internal Medicine; Visit Provider Physical Medicine & Rehabilitation
DX: M75.82 Other shoulder lesions, left shoulder (principal)
CPT/HCPCS: 99214

== ENCOUNTER → 2025-07-08 11:50 | Outpatient (BNVA) | payer OTHER, SELFPAY | PROVIDERS: PCP Internal Medicine; Visit Provider Physical Medicine & Rehabilitation | DX: M75.82 Other shoulder lesions, left shoulder (principal) | CPT/HCPCS: 99212 ==

== ENCOUNTER 2025-07-14 07:38 | Outpatient (REF) | payer OTHER, SELFPAY ==
--- OUTSIDE RECORDS SUMMARY | 2024-02-28 03:30 | XMS_ITS ---
Author Organization [facility] Address [address] [place] [phone] Care Team Providers Care Employee Wellness/Fitness Coordinator Name Role Phone Eusebia Calderon Primary Care Provider UnavailOwen Bernardo Unavailable [phone] REASON FOR VISIT screening,hx polyps Problems Problem Type SNOMED Code ICD Code Onset Dates Problem Status W/U Status Risk Notes Problem History of polyp of colon (situation) (382070202) Personal history of colonic polyps (Z86.010) Active confirmed Encounters Encounter Location Date Provider Diagnosis [facility] [place] [address] [place] [phone] 02/28/2024 Owen Simon Encounter for scre ening colonoscopy Z12.11 and Personal history of colonic polyps Z86.010 Assessments Encounter Date Diagnosis (ICD Code) Assessment Notes Treatment Notes Treatment Clinical Notes Section Notes 02/28/2024 Encounter for screening colonoscopy (ICD-10 - Z12.11) 02/28/2024 Personal history of colonic polyps (ICD-10 - Z86.010) Plan Of Treatment No Information Progress Notes * NEAL LIPSCOMBDOB: 0 (54 yo F)Acc No.[id number]:02/28/2024 COLON WITH MAC Patient: NEAL WEINSTEIN Provider: Maia Simon MD :1970 A ge:53 Y S ex:Female Date:02/28/2024 Address:[address] [place] [address] [address], [place], [place] Pcp:Eusebia Syed Subjective: * Chief Complaints: * [...] 0 02/28/2024 Generated for Yordy blum/Maxim/eTransmitting on: 1 07:42 AM EDT
--- OUTSIDE RECORDS SUMMARY | 2025-07-14 07:42 | XMS_ITS | Encounter Summary ---
Author Organization [facility] Address [address] [place] [address] Phone Care Team Providers Care Log Grader Name Role Phone Jonny Infante MD Primary Care Provider [phone] Jonny Infante MD Unavailable Jenni Baltazar MD Primary Care Provider [phone] Jenni Baltazar MD Unavailable [phone] Jenni Baltazar MD Primary Care Provider +[phone]- [phone] Encounter Details Date Type Department Care Team (Latest Contact Info) Description 06/23/2018 Ancillary Orders Virtual Department [address] [place] [address] Salvador Godoy MD [address] [place] [phone] [email or web address] Lumbar radiculopathy; Other intervertebral disc degeneration, lumbar [...] documented as of this encounter Care Teams Log Grader Relationship Specialty Start Date End Date Jonny Infante MD [address] [place] [phone] [email or web address] PCP - General 10/31/17 01/27/19 Jenni Baltazar MD [address] [place] [address] PCP - General Family Medicine 01/28/19 09/18/24 Jenni Baltazar MD [address] [place] [address] PCP - General Family Medicine 09/19/24 Jonny Infante MD [address] [place] [address] [email or web address] Insurance Assigned Provider 08/09/18 Jenni Baltazar MD [address] [place] [address] [email or web address] Insurance Assigned Provider 04/11/1911/12/20 documented as of this encounter Additional Source Comments The information contained in this document represents components of the legal health record. It is not the complete legal health record.[facility]
--- OUTSIDE RECORDS SUMMARY | 2025-07-14 07:42 | XMS_ITS | Clinical Summary ---
Author Organization [facility] Address [address] [place] [address] Phone Care Team Providers Care Tire Fixer Name Role Phone Jenni Baltazar MD Primary Care Provider [phone] Allergies Active Allergy Reactions Criticality Noted Date [...] 6:27 PM EDT Emergency [facility] Emergency [address] [place] [address] Discharge Disposition: Home or Self Care from [...] 48 Admit Type: Outpatient Gender: Female Room: [facility] Referring MD: Jenni Baltazar Exam Type: [...] bowel preparation was evaluated using the BBPS ([place] Bowel Preparation Scale) with scores of: Right [...] 10:08 AM Procedure Code(s): --- Professional --- 73401, Colonoscopy, flexible; diagnostic, including collection of specimen(s) by brushing or washing, when performed (separateprocedure) --- Technical --- 57242, Colonoscopy, flexible; diagnostic, including collection of specimen(s) by brushing or washing, when performed (separateprocedure) Diagnosis Code(s): --- Professional --- Z98.0, Intestinal bypass and anastomosis status K64.8, Other hemorrhoids Z86.010, Personal history of colonic polyps --- Technical --- Z98.0, Intestinal bypass and anastomosis status K64.8, Other hemorrhoids Z86.010, Personal history of colonic polyps CPT copyright 2016 [employer]. All rights reserved. The codes documented in this report are preliminary and upon emt reviewmay be revised to meet current compliance requirements. [address] [place], [place] [id number] Jenni Baltazar MD GI PROCEDURE ORDERABLES Yeni l Result from Last 3 Months or Most Recently Relevant to Health Maintenance Insurance [facility] MEDICARE REPLACEMENT [facility] MEDICARE REPLACEMENT [facility] MEDICARE REPLACEMENT [facility] MEDICARE REPLACEMENT [facility] MEDICARE REPLACEMENT [place] [id number] [facility] MEDICARE REPLACEMENT [facility] MEDICARE REPLACEMENT [facility] MEDICARE REPLACEMENT [place] [phone] [facility] MEDICARE REPLACEMENT Advance Directives For more information, please contact: [phone] (9AM - 5PM Eliane/[facility], Saturday-Saturday) * Full Code (Presumed) (Latest Code Status on File) Date Activated Date Inactivated Comments 07/01/2019 9:40 AM 07/01/2019 8:36 PM * Full Code (Presumed) Date Activated Date Inactivated Comments 01/14/2018 11:29 AM 01/17/2018 5:24 PM * Full Code (Presumed) Date Activated Date Inactivated Comments 01/14/2018 6:31 AM 01/14/2018 11:29 AM Care Teams Tire Fixer Relationship Specialty Start Date End Date Jenni Baltazar MD [address] [place] [address] [email or web address] PCP - General Family Medicine 09/19/24 Additional Source Comments The information contained in this document represents components of the legal health record. It is not the complete legal health record.[facility]
--- OUTSIDE RECORDS SUMMARY | 2025-07-14 07:42 | XMS_ITS | Encounter Summary ---
Author Organization [facility] Address [address] [place] [address] Phone Care Team Providers Care Police Communications Dispatcher Name Role Phone Jonny Infante MD Unavailable Jenni Baltazar MD Primary Care Provider [phone] Jenni Baltazar MD Unavailable [phone] Jenni Baltazar MD Primary Care Provider [phone] Encounter Details Date Type Department Care Team (Late st Contact Info) Description 02/27/2019 Procedure Pass [facility] Endoscopy Admitting Dept Virtual Department [address] [place] [address] Social History Tobacco Use Types Packs/Day Years [...] documented as of this encounter Care Teams Police Communications Dispatcher Relationship Specialty Start Date End Date Jenni Baltazar MD [address] [facility] [address] [place] [address] [email or web address] PCP - General Family Medicine 01/28/19 09/18/24 Jenni Baltazar MD [address] [place] [address] [email or web address] PCP - General Family Medicine 09/19/24 Jonny Infante MD [address] [facility] [address] [place] [address] [email or web address] Insurance Assigned Provider 08/09/18 Jenni Baltazar MD [address] [place] [address] [email or web address] Insurance Assigned Provider 04/11/1911/12/20 documented as of this encounter Additional Source Comments The information contained in this document represents components of the legal health record. It is not the complete legal health record.[facility]
--- OUTSIDE RECORDS SUMMARY | 2025-07-14 07:42 | XMS_ITS | Encounter Summary ---
Author Organization [facility] Address [address] [place] [address] Phone Care Team Providers Care Supervisor Frame Sample And Pattern Name Role Phone Jenni Baltazar MD Primary Care Provider + [phone] Jenni Baltazar MD Primary Care Provider + [phone] Encounter Details Date Type Department Care Team (Late st Contact Info) Description 07/06/2022 Procedure Pass [facility], Ct Scan - [facility] [address] [place] [address] Social History Tobacco Use Types Packs/Day Years [...] 9:33 AM JAYNAT Harry Christie RN * [place] Suicide Severity Rating Scale (Screener/Recent Self-Report) Question [...] as of this encounter Care Teams Supervisor Frame Sample And Pattern Relationship Specialty Start Date End Date Jenni Baltazar MD [email or web address] PCP - General Family Medicine 01/28/19 09/18/24 Jenni Baltazar MD [address] [place] [address] PCP - General Family Medicine 09/19/24 documented as of this encounter Additional Source Comments The information contained in this document represents components of the legal health record. It is not the complete legal health record.[facility]
--- OUTSIDE RECORDS SUMMARY | 2025-07-14 07:42 | XMS_ITS | Encounter Summary ---
Author Organization [facility] Address [address] [place] [address] Phone Care Team Providers Care Compress Trucker Name Role Phone Jenni Baltazar MD Primary Care Provider [phone] Jenni Baltazar MD Unavailable [phone] Jenni Baltazar MD Primary Care Provider [phone] Encounter Details Date Type Department Care Team (Late st Contact Info) Description 07/01/2019 Procedure Pass OR Admitting Dept - Virtual Department [address] [place] [address] Social History Tobacco Use Types Packs/Day Years [...] documented as of this encounter Care Teams Compress Trucker Relationship Specialty Start Date End Date Jenni Baltazar MD PCP - General Family Medicine 01/28/19 09/18/24 Jenni Baltazar MD [address] [place] [address] PCP - General Family Medicine 09/19/24 Jenni Baltazar MD [address] [place] [phone] Insurance Assigned Provider 04/11/1911/12/20 documented as of this encounter Additional Source Comments The information contained in this document represents components of the legal health record. It is not the complete legal health record.[facility]
--- OUTSIDE RECORDS SUMMARY | 2025-07-14 07:42 | XMS_ITS | Patient Health Record ---
Author Organization [facility] Address [address] [place] [address] Care Team Providers Care Station Repairer Name Role Phone Eusebia Calderon Primary Care Provider UnavailOwen Bernardo Unavailable [phone] Allergies No Known Allergies Reason For Referral [...] Status Risk Notes Problem Colon cancer screening (785972185) Colon cancer screening (Z12.11) Active confirmed Problem History of polyp of colon (situation) (434559468) Personal history of colonic polyps (Z86.010) Active confirmed Problem History of polyp of colon (651662341) History of colon polyps (Z86.010) Active confirmed Problem Chronic constipation (753477367) Chronic constipation (K59.09) Active confirmed Plan Of Treatment Future Test Test Name Order Date COLONOSCOPY 11/21/2023 Insurance Providers Payer Name Payer Address Payer Phone Subscriber Number Group Number Insured Name Patient Relationship to Insured Coverage Start Date Coverage End Date [facility] [address] [place] [address] [id number] NEAL LIPSCOMB Self - patient is the insured Medical (General) History Medical History History ICD Code kidney stones She describes colonoscopies with removal of polyps and both [facility] and [facility] migraines Denies ME,DM,CVA,Lung disease,renal dise ase Surgical History Surgery Date(Month/Year) Some type of partial colecto my at [facility] for polyps Hysterectomy Hemorrhoids with Dr. Cormier in December
--- OUTSIDE RECORDS SUMMARY | 2025-07-14 07:42 | XMS_ITS | Encounter Summary ---
Author Organization [facility] Address [address] [place] [address] Phone Care Team Providers Care Fire Behavior Analyst Name Role Phone Jonny Infante MD Primary Care Provider [phone] Jonny Infante MD Unavailable Jenni Baltazar MD Primary Care Provider [phone] Jenni Baltazar MD Unavailable [phone] Jenni Baltazar MD Primary Care Provider [phone]- [phone] Encounter Details Date Type Department Care Team (Late st Contact Info) Description 03/20/2018 Procedure Pass [facility], Ct Scan - [facility] [address] [place] [address] Social History Tobacco Use Types Packs/Day Years [...] documented as of this encounter Care Teams Fire Behavior Analyst Relationship Specialty Start Date End Date Jonny Infante MD [address] [place] [address] [email or web address] PCP - General 10/31/17 01/27/19 Jenni Baltazar MD [address] [place] [address] PCP - General Family Medicine 01/28/19 09/18/24 Jenni Baltazar MD [address] [place] [address] PCP - General Family Medicine 09/19/24 Jonny Infante MD [address] [place] [address] [email or web address] Insurance Assigned Provider 08/09/18 Jenni Baltazar MD [address] [place] [phone] Insurance Assigned Provider 04/11/1911/12/20 documented as of this encounter Additional Source Comments The information contained in this document represents components of the legal health record. It is not the complete legal health record.[facility]
--- OUTSIDE RECORDS SUMMARY | 2025-07-14 07:42 | XMS_ITS | Encounter Summary ---
Author Organization [facility] Address [address] [place] [address] Phone Care Team Providers Care Preconstruction Manager Name Role Phone Jenni Baltazar MD Primary Care Provider [phone] Jenni Baltazar MD Primary Care Provider [phone] Encounter Details Date Type Department Care Team (Latest Contact Info) Description 10/03/2021 Transcribe Orders Virtual Department [address] [place] [address] Jenni Baltazar MD [address] [place] [address] [email or web address] [...] documented as of this encounter Care Teams Preconstruction Manager Relationship Specialty Start Date End Date Jenni Baltazar MD PCP - General Family Medicine 01/28/19 09/18/24 Jenni Baltazar MD [address] [place] [address] PCP - General Family Medicine 09/19/24 documented as of this encounter Additional Source Comments The information contained in this document represents components of the legal health record. It is not the complete legal health record.[facility]
--- OUTSIDE RECORDS SUMMARY | 2025-07-14 07:42 | XMS_ITS | Clinical Summary ---
Author Organization [facility] Address [address] [place] [address] Care Team Providers Care Agri Business Agent Name Role Phone Unavailable Primary Care Provider [...]
--- OUTSIDE RECORDS SUMMARY | 2025-07-14 07:42 | XMS_ITS | Encounter Summary ---
Author Organization [facility] Address [address] [place] [address] Phone Care Team Providers Care Process Stripper Name Role Phone Jonny Infante MD Primary Care Provider [phone] Jonny Infante MD Unavailable Jenni Baltazar MD Primary Care Provider [phone] Jenni Baltazar MD Unavailable [phone] Jenni Baltazar MD Primary Care Provider +[phone]- [phone] Encounter Details Date Type Department Care Team (Late st Contact Info) Description 06/23/2018 Procedure Pass [facility], [facility] [address] [place] [address] Social History Tobacco Use Types Packs/Day Years [...] documented as of this encounter Care Teams Process Stripper Relationship Specialty Start Date End Date Jonny Infante MD [address] [place] [address] [email or web address] PCP - General 10/31/17 01/27/19 Jenni Baltazar MD [address] [place] [address] PCP - General Family Medicine 01/28/19 09/18/24 Jenni Baltazar MD [address] [place] [address] PCP - General Family Medicine 09/19/24 Jonny Infante MD [address] [facility] [facility] [place] [address] [email or web address] Insurance Assigned Provider 08/09/18 Jenni Baltazar MD [address] [place] [phone] Insurance Assigned Provider 04/11/1911/12/20 documented as of this encounter Additional Source Comments The information contained in this document represents components of the legal health record. It is not the complete legal health record.[facility]
--- OUTSIDE RECORDS SUMMARY | 2025-07-14 07:42 | XMS_ITS | Encounter Summary ---
Author Organization [facility] Address [address] [place] [address] Phone Care Team Providers Care Boiler Maker Name Role Phone Jonny Infante MD Primary Care Provider [phone] Jonny Infante MD Unavailable Jenni Baltazar MD Primary Care Provider +[phone]- [phone] Jenni Baltazar MD Unavailable [phone] Jenni Baltazar MD Primary Care Provider +[phone]- [phone] Encounter Details Date Type Department Care Team (Latest Contact Info) Description 06/23/2018 Ancillary Orders Virtual Department [address] [place] [address] Salvador Godoy MD [address] [place] [phone] [email or web address] Lumbar radiculopathy Social History Tobacco Use Types [...] documented as of this encounter Care Teams Boiler Maker Relationship Specialty Start Date End Date Jonny Infante MD [address] [place] [address] [email or web address] PCP - General 10/31/17 01/27/19 Jenni Baltazar MD [address] [place] [address] PCP - General Family Medicine 01/28/19 09/18/24 Jenni Baltazar MD [address] [place] [address] PCP - General Family Medicine 09/19/24 Jonny Infante MD [address] [place] [address] [email or web address] Insurance Assigned Provider 08/09/18 Jenni Baltazar MD [address] [place] [address] Insurance Assigned Provider 04/11/1911/12/20 documented as of this encounter Additional Source Comments The information contained in this document represents components of the legal health record. It is not the complete legal health record.[facility]
--- OUTSIDE RECORDS SUMMARY | 2025-07-14 07:43 | XMS_ITS | Encounter Summary ---
Author Organization [facility] Address [address] [place] [address] Phone Care Team Providers Care Car Worker Name Role Phone Jonny Infante MD Primary Care Provider [phone] Jonny Infante MD Unavailable Jenni Baltazar MD Primary Care Provider +[phone] Jenni Baltazar MD Unavailable [phone] Jenni Baltazar MD Primary Care Provider +[phone]- [phone] Encounter Details Date Type Department Care Team (Late st Contact Info) Description 01/14/2018 Procedure Pass [place] Admitting Dept - Virtual Department [address] [place] [address] Social History Tobacco Use Types Packs/Day Years [...] documented as of this encounter Care Teams Car Worker Relationship Specialty Start Date End Date Jonny Infante MD [address] [place] [address] [email or web address] PCP - General 10/31/17 01/27/19 Jenni Baltazar MD [address] [place] [address] [email or web address] PCP - General Family Medicine 01/28/19 09/18/24 Jenni Baltazar MD [address] [place] [address] [email or web address] PCP - General Family Medicine 09/19/24 Jonny Infante MD [address] [place] [address] [email or web address] Insurance Assigned Provider 08/09/18 Jenni Baltazar MD [address] [place] [address] [email or web address] Insurance Assigned Provider 04/11/1911/12/20 documented as of this encounter Additional Source Comments The information contained in this document represents components of the legal health record. It is not the complete legal health record.[facility]
--- OUTSIDE RECORDS SUMMARY | 2025-07-14 07:43 | XMS_ITS | Encounter Summary ---
Author Organization [facility] Address [address] [place] [address] Phone Care Team Providers Care Bass Guitar Teacher Name Role Phone Jonny Infante MD Primary Care Provider [phone] Jonny Infante MD Unavailable Jenni Baltazar MD Primary Care Provider [phone] Jenni Baltazar MD Unavailable [phone] Jenni Baltazar MD Primary Care Provider +[phone]- [phone] Encounter Details Date Type Department Care Team (Late st Contact Info) Description 12/27/2017 Procedure Pass [facility] Endoscopy Admitting Dept Virtual Department [address] [place] [address] Social History Tobacco Use Types Packs/Day Years [...] documented as of this encounter Care Teams Bass Guitar Teacher Relationship Specialty Start Date End Date Jonny Infante MD [address] [place] [address] [email or web address] PCP - General 10/31/17 01/27/19 Jenni Baltazar MD [address] [place] [address] PCP - General Family Medicine 01/28/19 09/18/24 Jenni Baltazar MD [address] [place] [address] PCP - General Family Medicine 09/19/24 Jonny Infante MD [address] [place] [address] [email or web address] Insurance Assigned Provider 08/09/18 Jenni Baltazar MD [address] [place] [address] Insurance Assigned Provider 04/11/1911/12/20 documented as of this encounter Additional Source Comments The information contained in this document represents components of the legal health record. It is not the complete legal health record.[facility]
--- OUTSIDE RECORDS SUMMARY | 2025-07-14 07:43 | XMS_ITS | Data Portability ---
Author Organization [facility] [employer] Address [address] [place] [address] Care Team Providers Care Crab Meat Processor Name Role Phone ANIBAL LARIOS Primary Care Provider Assessment No assessment recorded. Plan of Treatment [...] Susanne zhou 1 Deysi Robertson PT, [address] [place], [address], 1 16:48:17 Procedures None recorded. Surgeries None [...] Not available Not available Not available 01/16/2021 [id number] [facility] 09:04:28 Medications [...] Updated DateTime 01/16/2021 157.48 cm 29.4 kg/m2 44997.37 g 12 /min [facility] 01/16/2021 09:04:09 Social History Question Answer Notes LastModified by Organizat ion Details LastModified Time Tobacco Smoking Status Current Every Day Smoker [facility] 01/16/2021 09:13:43 What Is Your Level Of [...] Codes Diagnosis Note 114 Eric Truong MD [facility] [address] [place] [address] [place] [address] 01/16/2021 08:56:23 01/16/2021 10:28:41 Migraine without aura 49601274 G43.009 Health Concerns Section Related Observation LastModified by Organization Detai ls LastModified Time None Recorded Concern Status LastModified by Organization Details LastModified Time None Recorded Advance Directives Directive None Recorded Payers Insurance Date Sequence Insurance Name Policy Number Policy Rushing Covered Member ID Rushing Member ID Guarantor Name 01/16/2021 1 [facility] - DOS PRIOR TO 2023 - DUAL ELIGIBLE (MEDICARE REPLACEMENT/AD VANTAGE - HMO) Padma Goncalveskacey [id number] Padmarobert Goncalveskacey 01/16/2021 2 [facility] - DOS PRIOR TO 2023 - DUAL ELIGIBLE (MEDICARE REPLACEMENT/AD VANTAGE - HMO) Padma Goncalveskacey [id number] Padma Goncalveskacey Notes Date Note Type Note [...] medicine bottles at home. Eric Truong MD [address] [place] [address] [place], [phone], [facility] Neurology [facility] 01/16/2021 10:20:08 OBGyn Episode No OBEpisode recorded.
--- OUTSIDE RECORDS SUMMARY | 2025-07-14 07:43 | XMS_ITS | Encounter Summary ---
Author Organization [facility] Address [address] [place] [address] Phone Care Team Providers Care Handkerchief Folder Name Role Phone Jenni Baltazar MD Primary Care Provider + [phone] Jenni Baltazar MD Primary Care Provider + [phone] Encounter Details Date Type Department Care Team ([facility] st Contact Info) Description 01/04/2021 Procedure Pass [place] Admitting Dept - Virtual Department [address] [place] [address] Social History Tobacco Use Types Packs/Day Years [...] documented as of this encounter Care Teams Handkerchief Folder Relationship Specialty Start Date End Date Jenni Baltazar MD PCP - General Family Medicine 01/28/19 09/18/24 Jenni Baltazar MD [address] [place] [phone] [email or web address] PCP - General Family Medicine 09/19/24 documented as of this encounter Additional Source Comments The information contained in this document represents components of the legal health record. It is not the complete legal health record.[facility]
--- NOTE | 2025-07-14 08:00 | EMG_ITS ---
Chief complaint: Hand numbness Reason for referral: Evaluate for Carpal Tunnel Syndrome Procedure done: Bilateral Upper extremity NCS/EMG Precautions and/or limitations: None The limb temperature was monitored continuously and remained between 32-36 degrees C during the performance of the NCS. Nerve Conduction Studies Anti Sensory Summary Table ?Stim Site NR Onset (ms) Norm Onset (ms) Peak (ms) Norm Peak (ms) O-P Amp (?V) Norm O-P Amp Site1 Site2 Delta-0 (ms) Dist (cm) Nakul (m/s) Norm Nakul (m/s) Right Median Anti Sensory (2nd Digit) Wrist ? 2.5 3.2 <3.6 20.1 >10 Wrist 2nd Digit 2.5 14.0 56 Right Ulnar Anti Sensory (5th Digit) Wrist ? 2.2 2.8 <3.7 32.0 >15.0 Wrist 5th Digit 2.2 14.0 64 Motor Summary Table ?Stim Site NR Onset (ms) Norm Onset (ms) O-P Amp (mV) Norm O-P Amp iAmp (mV) Amp (1st) (%) Site1 Site2 Delta-0 (ms) Dist (cm) Nakul (m/s) Norm Nakul (m/s) Left Median Motor (Abd Poll Brev) Wrist ? 3.4 <3.9 9.2 >4.5 10.4 100.0 Elbow Wrist 3.2 18.0 56 >45 Elbow ? 6.6 8.0 9.3 87.0 Right Median Motor (Abd Poll Brev) Wrist ? 3.0 <3.9 9.2 >4.5 10.1 100.0 Elbow Wrist 3.4 20.0 59 >45 Elbow ? 6.4 8.3 9.2 90.2 Left Ulnar Motor (Abd Dig Minimi) Wrist ? 2.4 <3.0 6.5 >5 8.3 100.0 B Elbow Wrist 2.7 17.0 63 >45 B Elbow ? 5.1 6.1 8.1 93.8 A Elbow B Elbow 1.5 10.0 67 >45 A Elbow ? 6.6 6.2 8.0 95.4 Right Ulnar Motor (Abd Dig Minimi) Wrist ? 2.5 <3.0 9.5 >5 11.5 100.0 B Elbow Wrist 2.7 18.5 69 >45 B Elbow ? 5.2 9.2 11.2 96.8 A Elbow B Elbow 1.4 10.0 71 >45 A Elbow ? 6.6 8.9 11.3 93.7 Comparison Summary Table ?Stim Site NR Peak (ms) Norm Peak (ms) P-T Amp (?V) Site1 Site2 Delta-P (ms) Norm Delta (ms) Right Median/Radial Dig I Comparison (Digit 1 - 10cm) Median ? 2.6 <2.9 85.6 Median Radial 0.4 Radial ? 2.2 <2.8 24.1 Left Median/Ulnar Dig IV Comparison (Digit 4 - 14cm) Median Wr ? 2.5 <3.3 54.7 Median Wr Ulnar Wr 0.1 Ulnar Wr ? 2.6 <3.3 65.3 EMG ?Side Muscle Nerve Root Ins Act Fibs Psw Amp Dur Poly Recrt Int Pat Comment Left 1stDorInt Ulnar C8-T1 Nml Nml Nml Nml Nml 0 Nml Complete Left FlexCarRad Median C6-7 Nml Nml Nml Nml Nml 0 Nml Complete Left Biceps Musculocut C5-6 Nml Nml Nml Nml Nml 0 Nml Complete Left Triceps Radial C6-7-8 Nml Nml Nml Nml Nml 0 Nml Complete Left Deltoid Axillary C5-6 Nml Nml Nml Nml Nml 0 Nml Complete FINDINGS: All motor and sensory nerves tested showed normal latencies, amplitudes and conduction velocities. Concentric needle EMG was performed in selected muscles of the left upper extremity. Study did not reveal signs of electric abnormalities as shown in the table above. IMPRESSION: 1. This is a normal study. 2. There is no electrodiagnostic evidence for median neuropathy, ulnar neuropathy, brachial plexopathy, or cervical radiculopathy. Thank you for your kind referral. Tyesha Florian MD, MERRILL Board Certified, [place] Board of Physical Medicine and Rehabilitation (ABPMR) Board Certified, [place] Board of Electrodiagnostic Medicine (ABEM) CODIN [phone] [facility]
[2025-07-14 08:19] LABS: Alanine Aminotransferase 19 U/L (0-31); Albumin Level 4.5 g/dL (3.5-5.0); Alkaline Phosphatase 67 U/L (39-117); Anion Gap 11 (12-20); Aspartate Amino Transferase 23 U/L (5-31); Blood Urea Nitrogen 17 mg/dL (9-16); Calcium 9.4 mg/dL (8.4-10.2); Carbon Dioxide 26 mmol/L (22-29); Chloride 110 mmol/L (96-108); Cholesterol 249 mg/dL (<200); Estimated Glomerular Filt Rate > 60; HDL Cholesterol 86 mg/dL (>40); Potassium 4.0 mmol/L (3.3-5.1); Sodium 143 mmol/L (135-145); Total Protein 7.3 g/dL (6.5-8.0); Triglycerides 65 mg/dL (<150)
== END 2025-07-14 07:39 | disposition home or self-care (01) ==
LOC: HO.NEURO 07:38
PROVIDERS: Absent Provider Internal Medicine; PCP Internal Medicine; Visit Provider Physical Medicine & Rehabilitation
DX: R20.0 Anesthesia of skin (principal); R20.2 Paresthesia of skin; E78.5 Hyperlipidemia, unspecified; G44.52 New daily persistent headache (NDPH); E55.9 Vitamin D deficiency, unspecified
CPT/HCPCS: 36415; 80053; 80061; 82306; 95886; 95911

== ENCOUNTER → 2025-07-14 08:00 | Outpatient (BNV) | payer OTHER, SELFPAY | PROVIDERS: Absent Provider Internal Medicine; PCP Internal Medicine; Visit Provider Physical Medicine & Rehabilitation | DX: R20.0 Anesthesia of skin (principal) | CPT/HCPCS: 95886; 95911 ==

== ENCOUNTER 2025-07-15 08:23 | Outpatient (AMB) | payer OTHER, SELFPAY ==
--- NOTE | 2025-07-15 08:32 | A.OFFVIS_ITS ---
Intake Visit Reasons: 6m/Migraine Allergies varenicline (From Chantix) Adverse Reaction (Mild, Verified 07/15/25 08:35) depression, nightmares depomedrol Adverse Reaction (Intermediate, Uncoded 07/15/25 08:35) mouth bad taste Medication List - Last Reconciled 07/15/25 by Anastacia Bose CNP amitriptyline 10 mg PO BEDTIME 90 days [bio freeze roll As directed] cholecalciferol (vitamin D3) 10 mcg PO DAILY docusate sodium (Colace) 100 mg PO BID fremanezumab-vfrm (Ajovy) 225 mg (1.5 mL) subcut Q1M 30 days ibuprofen 800 mg PO Q8H lidocaine 4% (AsperFlex (lidocaine)) 1 patch topical DAILY PRN 30 days magnesium oxide 400 mg PO DAILY 90 days magnesium oxide 400 mg PO DAILY [medline phytoplex lotion As directed] ondansetron 4 mg PO DAILY PRN sumatriptan succinate take 1 tab at onset of headache; if no relief may repeat 1 tab after at least 2 hrs; PO 30 days tizanidine 2 mg PO TID PRN [Vitamin C ] HPI Comments Details: 54-year-old RH woman with headaches. She has been having headaches for more than 5 years. In 2023, headaches were happening almost daily. Pain was mostly in the back of the head, stabbing type, moderate to severe, worse with light and typically she would go to a quiet room and lay down. It could last for hours to all day. She was doing okay. She tried Emgality, which did not help and was back on Ajovy which worked well for her. Migraines were better with Ajovy and she was happy with this medication. She had headache about 2-3x week, but not bad. Sumatriptan as needed helped. Pain in neck was better with accupuncture. Sleep was okay. [facility] Medical History (Updated 04/29/25 @ 11:32 by Tyesha Florian MD) Migraine without aura Eczema Constipation by delayed colonic transit Hypovitaminosis D Abdominal pain Arthritis Bleeding hemorrhoids Migraine Hemorrhoids Surgical History History of hemorrhoidectomy H/O colonoscopy History of hysterectomy History of colon surgery Family History Mother Asthma Dementia Hypertension COPD (chronic obstructive pulmonary disease) Skin cancer Osteoarthritis Father Heart attack Prostate cancer Sister Osteoarthritis Social History (Reviewed 07/07/25 @ 08:52 by Patricia Sotomayor [facility]) Housing: Apartment Alcohol intake: former Patient Tobacco Use Status: Former Tobacco user Tobacco use type: Cigarette e-Cigarette/Vaping Use: Never Used Second Hand Smoke Exposure: No service: No Current occupational status: unemployed and disabled Cognitive needs: Yes Hearing needs: No Vision needs: Yes Review of Systems Const Denies chills, Denies daytime sleepiness, Denies difficulty sleeping, Denies fatigue, Denies fever(s), Denies frequent falls, Reports headache(s), Denies increased appetite, Denies poor appetite, Denies snoring, Denies weakness, Denies weight gain and Denies weight loss Eyes Denies loss of vision ENT Denies vertigo, Reports dizziness and Reports headache(s) Card Denies chest pain at rest, Denies chest pain with activity, Denies syncope, Denies leg edema and Denies palpitations Resp Denies snoring GI Denies constipation, Denies heartburn, Denies diarrhea and Denies nausea Denies urinary frequency, Denies urinary incontinence and Denies urinary urgency Musc Reports abnormal gait (balance difficulty), Reports numbness and Reports tingling Skin/Breast Denies dry skin and Denies rash Neuro Reports abnormal gait (balance difficulty), Denies vertigo, Reports dizziness, Denies syncope, Denies frequent falls, Reports headache(s), Denies lack of coordination, Denies loss of vision, Denies memory loss, Reports numbness, Denies restless legs, Denies seizure-like activity, Reports tingling, Denies paresthesias, Denies tremor(s) and Denies weakness Psych Denies anxiety, Denies depression, Denies auditory hallucinations, Denies memory loss, Denies visual hallucinations and Denies suicidal ideation Endo Denies fatigue and Denies palpitations Physical Exam Const Other: General Appearance:? normal, in no acute distress. Skin:? no rashes, no significant birthmarks. Heart:? S1, S2 normal, no murmurs. Lungs:? clear anteriorly and posteriorly. Extremities:? no edema. Psych:? alert, oriented, cognitive function intact, cooperative with exam. Neuro Other: Mental Status:?Normal attention, orientation, memory and affect.? Cranial Nerves:?Pupils are equal, round and reactive to light. External occular muscles are intact. Visual harry are full. Face is symmetrical. Facial sensations are normal. Tongue is midline. Palate elevates symmetrically. Shoulder shrugging is normal. Hearing to bedside conversation is normal. Sensory Exam:?....? Coordination:?No ataxia,?no titubation.? Gait Exam: Within normal limits. Cerebellar Signs:?Mllrto-eg-zdnd is okay. Extrapyramidal System:?No tremor, rigidity with normal facial expressions.? Pronator Drift:?Not present.? Involuntary Movements:?No tremors seen.? Speech:?Normal.? Results Reviewed Results Reviewed: MRI brain WO at [facility] in Jun 2024: Minimal MVD XRay LS spine at [facility] in Jul 2024: Mild DJD Assessment & Plan Assessment & Plan (1) Migraine without aura: Code(s): G43.009 - Migraine without aura, not intractable, without status migrainosus Category: Medical Qualifiers: Status migrainosus presence: without status migrainosus Intractability: not intractable Qualified Code(s): G43.009 - Migraine without aura, not intractable, without status migrainosus Plan: Continue Ajovy 225mg/1.5mL subcutaneous monthly. Continue sumatriptan 50mg 1 tablet as needed for migraines. Plan Meds tried: Propranalol, amitriptyline, topiramate, verapamil, depakote, ri zatriptan, sumatriptan, Emgality (did not work), Ajovy (worked) Coding Level of Care Code Est Pt Level 4 (95115) Diagnoses Migraine without aura and without status migrainosus, not intractable G43.009 Status migrainosus presence: without status migrainosus Intractability: not intractable
== END 2025-07-15 08:44 | disposition home or self-care (01) ==
LOC: HO.HSM 08:23
PROVIDERS: PCP Internal Medicine; Referring Provider Internal Medicine; Visit Provider Psychiatry & Neurology Neurology
DX: G43.009 Migraine without aura, not intractable, without status migrainosus (principal)
CPT/HCPCS: 99214

== ENCOUNTER → 2025-07-15 08:23 | Outpatient (BNVA) | payer OTHER, SELFPAY | PROVIDERS: PCP Internal Medicine; Referring Provider Internal Medicine; Visit Provider Psychiatry & Neurology Neurology | DX: G43.009 Migraine without aura, not intractable, without status migrainosus (principal) | CPT/HCPCS: 99212 ==

== ENCOUNTER 2025-07-19 07:29 | Outpatient (AMB) | payer OTHER, SELFPAY ==
--- OUTSIDE RECORDS SUMMARY | 2024-02-28 03:30 | XMS_ITS ---
Author Organization [facility] Address [address] [place] [phone] Care Team Providers Care Oil Field Laborer Name Role Phone Eusebia aClderon Primary Care Provider UnavailOwen Bernardo Unavailable [phone] REASON FOR VISIT screening,hx polyps Problems Problem Type SNOMED Code ICD Code Onset Dates Problem Status W/U Status Risk Notes Problem History of polyp of colon (situation) (781221198) Personal history of colonic polyps (Z86.010) Active confirmed Encounters Encounter Location Date Provider Diagnosis [facility] [place] [address] [place] [phone] 02/28/2024 Owen Simon Encounter for scre ening colonoscopy Z12.11 and Personal history of colonic polyps Z86.010 Assessments Encounter Date Diagnosis (ICD Code) Assessment Notes Treatment Notes Treatment Clinical Notes Section Notes 02/28/2024 Encounter for screening colonoscopy (ICD-10 - Z12.11) 02/28/2024 Personal history of colonic polyps (ICD-10 - Z86.010) Plan Of Treatment No Information Progress Notes * NEAL LIPSCOMBDOB: 0 (54 yo F)Acc No.[id number]:02/28/2024 COLON WITH MAC Patient: NEAL WEINSTEIN Provider: Maia Simon MD :1970 A ge:53 Y S ex:Female Date:02/28/2024 Address:[address] [place] [address] [address], [place], [place] Pcp:Eusebia Syed Subjective: * Chief Complaints: * [...] 0 02/28/2024 Generated for Yordy blum/Maxim/eTransmitting on: 07:33 AM EDT
--- OUTSIDE RECORDS SUMMARY | 2025-07-19 07:33 | XMS_ITS | Encounter Summary ---
Author Organization [facility] Address [address] [place] [address] Phone Care Team Providers Care Amusement Park Worker Name Role Phone Jonny Infante MD Primary Care Provider [phone] Jonny Infante MD Unavailable Jenni Baltazar MD Primary Care Provider [phone] Jenni Baltazar MD Unavailable [phone] Jenni Baltazar MD Primary Care Provider [phone]- [phone] Encounter Details Date Type Department Care Team (Late st Contact Info) Description 06/23/2018 Procedure Pass [facility], [facility] [address] [place] [address] Social History Tobacco Use Types Packs/Day Years [...] documented as of this encounter Care Teams Amusement Park Worker Relationship Specialty Start Date End Date Jonny Infante MD [address] [place] [address] [email or web address] PCP - General 10/31/17 01/27/19 Jenni Baltazar MD [address] [place] [address] PCP - General Family Medicine 01/28/19 09/18/24 Jenni Baltazar MD [address] [place] [phone] PCP - General Family Medicine 09/19/24 Jonny Infante MD [address] [place] [address] [email or web address] Insurance Assigned Provider 08/09/18 Jenni Baltazar MD [address] [place] [phone] Insurance Assigned Provider 04/11/1911/12/20 documented as of this encounter Additional Source Comments The information contained in this document represents components of the legal health record. It is not the complete legal health record.[facility]
--- OUTSIDE RECORDS SUMMARY | 2025-07-19 07:33 | XMS_ITS | Encounter Summary ---
Author Organization [facility] Address [address] [place] [address] Phone Care Team Providers Care Accredited Legal Secretary Name Role Phone Jonny Infante MD Primary Care Provider [phone] Jonny Infante MD Unavailable Jenni Baltazar MD Primary Care Provider [phone] Jenni Baltazar MD Unavailable [phone] Jenni Baltazar MD Primary Care Provider [phone]- [phone] Encounter Details Date Type Department Care Team (Latest Contact Info) Description 06/23/2018 Ancillary Orders Virtual Department [address] [place] [address] Salvador Godoy MD [address] [place] [phone] [email or web address] Lumbar radiculopathy Social History Tobacco Use Types [...] documented as of this encounter Care Teams Accredited Legal Secretary Relationship Specialty Start Date End Date Jonny Infante MD [address] [place] [address] [email or web address] PCP - General 10/31/17 01/27/19 Jenni Baltazar MD [address] [place] [address] PCP - General Family Medicine 01/28/19 09/18/24 Jenni Baltazar MD [address] [place] [address] PCP - General Family Medicine 09/19/24 Jonny Infante MD [address] [place] [address] [email or web address] Insurance Assigned Provider 08/09/18 Jenni Baltazar MD [address] [place] [address] Insurance Assigned Provider 04/11/1911/12/20 documented as of this encounter Additional Source Comments The information contained in this document represents components of the legal health record. It is not the complete legal health record.[facility]
--- OUTSIDE RECORDS SUMMARY | 2025-07-19 07:33 | XMS_ITS | Encounter Summary ---
Author Organization [facility] Address [address] [place] [address] Phone Care Team Providers Care Stave And Bolt Equalizer Name Role Phone Jonny Infante MD Primary Care Provider [phone] Jonny Infante MD Unavailable Jenni Baltazar MD Primary Care Provider [phone] Jenni Baltazar MD Unavailable [phone] Jenni Baltazar MD Primary Care Provider [phone] Encounter Details Date Type Department Care Team (Late st Contact Info) Description 03/20/2018 Procedure Pass [facility], Ct Scan - [facility] [address] [place] [address] Social History Tobacco Use Types Packs/Day Years [...] documented as of this encounter Care Teams Stave And Bolt Equalizer Relationship Specialty Start Date End Date Jonny Infante MD [address] [place] [phone] [email or web address] PCP - General 10/31/17 01/27/19 Jenni Baltazar MD [address] [place] [address] [email or web address] PCP - General Family Medicine 01/28/19 09/18/24 Jenni Baltazar MD [address] [place] [id number] [email or web address] PCP - General Family Medicine 09/19/24 Jonny Infante MD [address] [place] [address] [email or web address] Insurance Assigned Provider 08/09/18 Jenni Baltazar MD [address] [place] [address] [email or web address] Insurance Assigned Provider 04/11/1911/12/20 documented as of this encounter Additional Source Comments The information contained in this document represents components of the legal health record. It is not the complete legal health record.[facility]
--- OUTSIDE RECORDS SUMMARY | 2025-07-19 07:33 | XMS_ITS | Encounter Summary ---
Author Organization [facility] Address [address] [place] [address] Phone Care Team Providers Care Cellar Packer Name Role Phone Jenni Baltazar MD Primary Care Provider + [phone] Jenni Baltazar MD Primary Care Provider + [phone] Encounter Details Date Type Department Care Team (Late st Contact Info) Description 07/06/2022 Procedure Pass [facility], Ct Scan - [facility] [address] [place] [address] Social History Tobacco Use Types Packs/Day Years [...] 9:33 AM JAYNAT Harry Christie RN * [place] Suicide Severity Rating Scale (Screener/Recent Self-Report) Question [...] documented as of this encounter Care Teams Cellar Packer Relationship Specialty Start Date End Date Jenni Baltazar MD PCP - General Family Medicine 01/28/19 09/18/24 Jenni Baltazar MD [address] [place] [address] PCP - General Family Medicine 09/19/24 documented as of this encounter Additional Source Comments The information contained in this document represents components of the legal health record. It is not the complete legal health record.[facility]
--- OUTSIDE RECORDS SUMMARY | 2025-07-19 07:33 | XMS_ITS | Encounter Summary ---
Author Organization [facility] Address [address] [place] [address] Phone Care Team Providers Care Web Services Professional Name Role Phone Jonny Infante MD Primary Care Provider [phone] Jonny Infante MD Unavailable Jenni Baltazar MD Primary Care Provider [phone] Jenni Baltazar MD Unavailable [phone] Jenni Baltazar MD Primary Care Provider [phone] Encounter Details Date Type Department Care Team (Latest Contact Info) Description 06/23/2018 Ancillary Orders Virtual Department [address] [place] [address] Salvador Godoy MD [address] [place] [phone] [email or web address] Lumbar radiculopathy; Other intervertebral disc degeneration, lumbar [...] documented as of this encounter Care Teams Web Services Professional Relationship Specialty Start Date End Date Jonny Infante MD [address] [place] [phone] PCP - General 10/31/17 01/27/19 Jenni Baltazar MD [address] [place] [phone] [email or web address] PCP - General Family Medicine 01/28/19 09/18/24 Jenni Baltazar MD [address] [place] [address] PCP - General Family Medicine 09/19/24 Jonny Infante MD [address] [place] [phone] Insurance Assigned Provider 08/09/18 Jenni Baltazar MD [address] [place] [address] [email or web address] Insurance Assigned Provider 04/11/1911/12/20 documented as of this encounter Additional Source Comments The information contained in this document represents components of the legal health record. It is not the complete legal health record.[facility]
--- OUTSIDE RECORDS SUMMARY | 2025-07-19 07:33 | XMS_ITS | Encounter Summary ---
Author Organization [facility] Address [address] [place] [address] Phone Care Team Providers Care Probate Paralegal Name Role Phone Jenni Baltazar MD Primary Care Provider [phone] Jenni Baltazar MD Primary Care Provider [phone] Encounter Details Date Type Department Care Team (Latest Contact Info) Description 10/03/2021 Transcribe Orders Virtual Department [address] [place] [address] Jenni Baltazar MD [address] [place] [address] [email or web address] Encounter for laboratory testing for COVID-19 [...] documented as of this encounter Care Teams Probate Paralegal Relationship Specialty Start Date End Date Jenni Baltazar MD PCP - General Family Medicine 01/28/19 09/18/24 Jenni Baltazar MD [address] [place] [address] PCP - General Family Medicine 09/19/24 documented as of this encounter Additional Source Comments The information contained in this document represents components of the legal health record. It is not the complete legal health record.[facility]
--- OUTSIDE RECORDS SUMMARY | 2025-07-19 07:34 | XMS_ITS | Clinical Summary ---
Author Organization [facility] Address [address] [place] [address] Phone Care Team Providers Care Research Aide Name Role Phone Jenni Baltazar MD Primary Care Provider [phone] Allergies Active Allergy Reactions Criticality Noted Date [...] 6:27 PM EDT Emergency [facility] [address] [place] [address] Discharge Disposition: Home or Self Care from [...] 02/27/2029 02/27/2019, 12/27/2017 COLORECTAL CANCER SCREENING 02/27/2029 RSV VACCINE (1 - 1-dose 75+ series) 2045 HEPATITIS A VACCINES Aged Out No long [...] 48 Admit Type: Outpatient Gender: Female Room: [facility] Referring MD: Jenni Baltazar Exam Type: [...] bowel preparation was evaluated using the BBPS ([place] Bowel Preparation Scale) with scores of: Right [...] 10:08 AM Procedure Code(s): --- Professional --- 73195, Colonoscopy, flexible; diagnostic, including collection of specimen(s) by brushing or washing, when performed (separateprocedure) --- Technical --- 06225, Colonoscopy, flexible; diagnostic, including collection of specimen(s) by brushing or washing, when performed (separateprocedure) Diagnosis Code(s): --- Professional --- Z98.0, Intestinal bypass and anastomosis status K64.8, Other hemorrhoids Z86.010, Personal history of colonic polyps --- Technical --- Z98.0, Intestinal bypass and anastomosis status K64.8, Other hemorrhoids Z86.010, Personal history of colonic polyps CPT copyright 2016 [employer]. All rights reserved. The codes documented in this report are preliminary and upon manager talent reviewmay be revised to meet current compliance requirements. [address] [place] [address] Jenni Baltazar MD GI PROCEDURE ORDERABLES Yeni l Result from Last 3 Months or Most Recently Relevant to Health Maintenance Insurance MEDICARE REPLACEMENT [facility] MEDICARE REPL[place]EMENT [place] [address] [id number] [facility] MEDICARE [address] [id number] [facility] MEDICARE REPLACEMENT [facility] MEDICARE [facility]PLACEMENT [facility] MEDICARE REPLACEMENT [facility] MEDICARE REPLACEMENT JOON PADGETT [id number] Advance Directives For more information, please contact: [phone] (9AM - 5PM Eliane/[facility], Saturday-Saturday) * Full Code (Presumed) (Latest Code Status on File) Date Activated Date Inactivated Comments 07/01/2019 9:40 AM 07/01/2019 8:36 PM * Full Code (Presumed) Date Activated Date Inactivated Comments 01/14/2018 11:29 AM 01/17/2018 5:24 PM * Full Code (Presumed) Date Activated Date Inactivated Comments 01/14/2018 6:31 AM 01/14/2018 11:29 AM Care Teams Research Aide Relationship Specialty Start Date End Date Jenni Baltazar MD [address] [place] [address] [email or web address] PCP - General Family Medicine 09/19/24 Additional Source Comments The information contained in this document represents components of the legal health record. It is not the complete legal health record.[facility]
--- OUTSIDE RECORDS SUMMARY | 2025-07-19 07:34 | XMS_ITS | Patient Health Record ---
Author Organization [facility] Address [address] [place] [address] Care Team Providers Care Plate Grainer Name Role Phone Eusebia Calderon Primary Care Provider Owen Page Unavailable [phone] Allergies No Known Allergies Reason For Referral No Information Medications Medication SIG (Take, Route, Frequency, Duration) Notes Start Date End Date Status Dulcolax (colon prep) 5 MG take at 3:00 p.m and 7:00p.m. Orally two tablets twice a day for one day; Duration: 1 day 11/21/2023 Active MiraLax 17 GM 1 packet mixed with 8 ounces of fluid Orally Twice a day; Duration: 30 day(s) 11/21/2023 Active MiraLax (colon prep) 17 GM/SCOOP 1 238 Gm bottle mixed with Gatorade or Crystal Light Orally begin at 5:00 p.m. the day before the procedure; Duration: 1 day 11/21/2023 Active ibuprofen Active Docusate Sodium 100 MG Oral; Duration: 30 Active Cyclobenzaprine HCl 5 MG TAKE 1 TABLET B Y MOUTH UP TO TWICE DAILY FOR MUSCLE SPASM Oral; Duration: 85 Not-Taking Meloxicam 15 MG Oral; Duration: 90 Active Vitamin D Active Rizatriptan Benzoate 5 MG Oral; Duration: 30 Active Vitamin C Active Social History [...] Status Risk Notes Problem Colon cancer screening (829990424) Colon cancer screening (Z12.11) Active confirmed Problem History of polyp of colon (situation) (508183459) Personal history of colonic polyps (Z86.010) Active confirmed Problem History of polyp of colon (situation) (649594161) History of colon polyps (Z86.010) Active confirmed Problem Chronic constipation (248437603) Chronic constipation (K59.09) Active confirmed Plan Of Treatment Future Test Test Name Order Date COLONOSCOPY 11/21/2023 Insurance Providers Payer Name Payer Address Payer Phone Subscriber Number Group Number Insured Name Patient Relationship to Insured Coverage Start Date Coverage End Date [facility] [address] Attn Claims JOON Whitlock [id number] NEAL LIPSCOMB Self - patient is the insured Medical (General) History Medical History History ICD Code kidney stones She describes colonoscopies with removal of polyps and both [facility] and [facility] migraines Denies ID,DM,CVA,Lung disease,renal dise ase Surgical History Surgery Date(Month/Year) Some type of partial colecto my at [facility] for polyps Hysterectomy Hemorrhoids with Dr. Cormier in December
--- OUTSIDE RECORDS SUMMARY | 2025-07-19 07:34 | XMS_ITS | Encounter Summary ---
Author Organization [facility] Address [address] [place] [address] Phone Care Team Providers Care Turn Machine Operator Name Role Phone Jenni Baltazar MD Primary Care Provider + [phone] Jenni Baltazar MD Primary Care Provider + [phone] Encounter Details Date Type Department Care Team ([facility] st Contact Info) Description 01/04/2021 Procedure Pass OR Admitting Dept - Virtual Department [address] [place] [address] Social History Tobacco Use Types Packs/Day Years [...] documented as of this encounter Care Teams Turn Machine Operator Relationship Specialty Start Date End Date Jenni Baltazar MD PCP - General Family Medicine 01/28/19 09/18/24 Jenni Baltazar MD [address] [place] [address] [email or web address] PCP - General Family Medicine 09/19/24 documented as of this encounter Additional Source Comments The information contained in this document represents components of the legal health record. It is not the complete legal health record.[facility]
--- OUTSIDE RECORDS SUMMARY | 2025-07-19 07:34 | XMS_ITS | Encounter Summary ---
Author Organization [facility] Address [address] [place] [address] Phone Care Team Providers Care State Assessed Properties Director Name Role Phone Jonny Infante MD Unavailable Jenni Baltazar MD Primary Care Provider [phone] Jenni Baltazar MD Unavailable [phone] Jenni Baltazar MD Primary Care Provider [phone] Encounter Details Date Type Department Care Team (Late st Contact Info) Description 02/27/2019 Procedure Pass [facility] Endoscopy Admitting Dept Virtual Department [address] [place] [address] Social History Tobacco Use Types Packs/Day Years [...] documented as of this encounter Care Teams State Assessed Properties Director Relationship Specialty Start Date End Date Jenni Baltazar MD [address] [facility] [address] [place] [phone] [email or web address] PCP - General Family Medicine 01/28/19 09/18/24 Jenni Baltazar MD [address] [place] [address] [email or web address] PCP - General Family Medicine 09/19/24 Jonny Infante MD [address] [facility] [address] [place] [phone] [email or web address] Insurance Assigned Provider 08/09/18 Jenni Baltazar MD [address] [place] [phone] [email or web address] Insurance Assigned Provider 04/11/1911/12/20 documented as of this encounter Additional Source Comments The information contained in this document represents components of the legal health record. It is not the complete legal health record.[facility]
--- OUTSIDE RECORDS SUMMARY | 2025-07-19 07:34 | XMS_ITS | Clinical Summary ---
Author Organization [employer] [facility] Address [address] [place] [address] Care Team Providers Care Professional Development Director Name Role Phone Unavailable Primary Care Provider [...]
--- OUTSIDE RECORDS SUMMARY | 2025-07-19 07:34 | XMS_ITS | Encounter Summary ---
Author Organization [facility] Address [address] [place] [address] Phone Care Team Providers Care Bookstore Clerk Name Role Phone Jonny Infante MD Primary Care Provider [phone] Jonny Infante MD Unavailable Jenni Baltazar MD Primary Care Provider [phone] Jenni Baltazar MD Unavailable [phone] Jenni Baltazar MD Primary Care Provider [phone] Encounter Details Date Type Department Care Team (Late st Contact Info) Description 01/14/2018 Procedure Pass OR Admitting Dept - Virtual Department [address] [place] [address] Social History Tobacco Use Types Packs/Day Years [...] documented as of this encounter Care Teams Bookstore Clerk Relationship Specialty Start Date End Date Jonny Infante MD [address] [facility] [address] [place] [phone] [email or web address] PCP - General 10/31/17 01/27/19 Jenni Baltazar MD [address] [place] [phone] [email or web address] PCP - General Family Medicine 01/28/19 09/18/24 Jenni Baltazar MD [address] [place] [address] [email or web address] PCP - General Family Medicine 09/19/24 Jonny Infante MD [address] [place] [address] [email or web address] Insurance Assigned Provider 08/09/18 Jenni Baltazar MD [address] [place] [address] [email or web address] Insurance Assigned Provider 04/11/1911/12/20 documented as of this encounter Additional Source Comments The information contained in this document represents components of the legal health record. It is not the complete legal health record.[facility]
--- OUTSIDE RECORDS SUMMARY | 2025-07-19 07:34 | XMS_ITS | Encounter Summary ---
Author Organization [facility] Address [address] [place] [address] Phone Care Team Providers Care Fishing Vessel Operator Name Role Phone Jonny Infante MD Primary Care Provider [phone] Jonny Infante MD Unavailable Jenni Baltazar MD Primary Care Provider [phone] Jenni Baltazar MD Unavailable [phone] Jenni Baltazar MD Primary Care Provider [phone] Encounter Details Date Type Department Care Team (Late st Contact Info) Description 12/27/2017 Procedure Pass [facility] Endoscopy Admitting Dept Virtual Department [address] [place] [address] Social History Tobacco Use Types Packs/Day Years [...] documented as of this encounter Care Teams Fishing Vessel Operator Relationship Specialty Start Date End Date Jonny Infante MD [address] [place] [phone] [email or web address] PCP - General 10/31/17 01/27/19 Jenni Baltazar MD [address] [facility] [address] [place] [address] [email or web address] PCP - General Family Medicine 01/28/19 09/18/24 Jenni Baltazar MD [address] [place] [address] [email or web address] PCP - General Family Medicine 09/19/24 Jonny Infante MD [address] [facility] [place] [address] [email or web address] Insurance Assigned Provider 08/09/18 Jenni Baltazar MD [address] [place] [address] [email or web address] Insurance Assigned Provider 04/11/1911/12/20 documented as of this encounter Additional Source Comments The information contained in this document represents components of the legal health record. It is not the complete legal health record.[facility]
--- OUTSIDE RECORDS SUMMARY | 2025-07-19 07:34 | XMS_ITS | Data Portability ---
Author Organization [facility] [employer] Address [address] [place] [address] Care Team Providers Care Director Of Transportation Name Role Phone ANIBAL LARIOS Primary Care [...] Susanne zhou [address], [address] [place], [address], 1 16:48:17 Procedures None recorded. Surgeries None [...] Not available Not available Not available 01/16/2021 [id number] RxNorm [facility] 09:04:28 Medications Name Sig Start Date Stop [...] Updated DateTime 01/16/2021 157.48 cm 29.4 kg/m2 93436.37 g 12 /min [facility] 01/16/2021 09:04:09 Social History Question Answer Notes LastModified by Organizat ion Details LastModified Time Tobacco Smoking Status Current Every Day Smoker [facility] 01/16/2021 09:13:43 What Is Your Level Of [...] Codes Diagnosis Note 114 Eric Truong MD [facility] [address] [place] [address] [place] [address] 01/16/2021 08:56:23 01/16/2021 10:28:41 Migraine without aura 54327295 G43.009 Health Concerns Section Related Observation LastModified by Organization Detai ls LastModified Time None Recorded Concern Status LastModified by Organization Details LastModified Time None Recorded Advance Directives Directive None Recorded Payers Insurance Date Sequence Insurance Name Policy Number Policy Rushing Covered Member ID Rushing Member ID Guarantor Name 01/16/2021 1 [facility] - DOS PRIOR TO 2023 - DUAL ELIGIBLE (MEDICARE REPLACEMENT/AD VANTAGE - HMO) Padma Goncalveskacey [id number] Padmarobert Goncalveskacey 01/16/2021 2 [facility] - DOS PRIOR TO 2023 - DUAL ELIGIBLE (MEDICARE REPLACEMENT/AD VANTAGE - HMO) Padma Goncalveskacey [id number] Padma Goncalveskacey Notes Date Note Type Note [...] medicine bottles at home. Eric Truong MD [address] [place] [address] [place], [phone], [facility]ly [facility] 01/16/2021 10:20:08 OBGyn Episode No OBEpisode recorded.
--- OUTSIDE RECORDS SUMMARY | 2025-07-19 07:34 | XMS_ITS | Encounter Summary ---
Author Organization [facility] Address [address] [place] [address] Phone Care Team Providers Care Mutuel Cashier Name Role Phone Jenni Baltazar MD Primary Care Provider [phone] Jenni Baltazar MD Unavailable [phone] Jenni Baltazar MD Primary Care Provider [phone] Encounter Details Date Type Department Care Team (Late st Contact Info) Description 07/01/2019 Procedure Pass OR Admitting Dept - Virtual Department [address] [place] [address] Social History Tobacco Use Types Packs/Day Years [...] documented as of this encounter Care Teams Mutuel Cashier Relationship Specialty Start Date End Date Jenni Baltazar MD PCP - General Family Medicine 01/28/19 09/18/24 Jenni Baltazar MD [address] [place] [address] PCP - General Family Medicine 09/19/24 Jenni Baltazar MD [address] [place] [phone] Insurance Assigned Provider 04/11/1911/12/20 documented as of this encounter Additional Source Comments The information contained in this document represents components of the legal health record. It is not the complete legal health record.[facility]
[2025-07-19 07:38] VITALS: BP 128/82; PULSE 76; O2SAT 98; BMI 32.0
--- NOTE | 2025-07-19 07:38 | A.OFFPC_ITS ---
Vital Signs 07/19/25 07:38 Height 5 ft 2 in Weight 175 lb BMI 32.0 BP 128/82 Blood Pressure Location Lt brachial Position Sitting Pulse 76 Pulse Source Pulse Oximeter Pulse Oximetry (%) 98 Oxygen Delivery Method Room Air Intake Visit Reasons: annual exam Paper Conservator Required: No Accompanied by: Self / Same As Patient Allergies varenicline (From Chantix) Adverse Reaction (Mild, Verified 07/19/25 07:47) depression, nightmares depomedrol Adverse Reaction (Intermediate, Uncoded 07/19/25 07:47) mouth bad taste Medication List - Last Reconciled 07/19/25 by Eusebia Syed MD amitriptyline 10 mg PO BEDTIME 90 days [bio freeze roll As directed] cholecalciferol (vitamin D3) 10 mcg PO DAILY docusate sodium (Colace) 100 mg PO BID fremanezumab-vfrm (Ajovy) 225 mg (1.5 mL) subcut Q1M 30 days ibuprofen 800 mg PO Q8H lidocaine 4% (AsperFlex (lidocaine)) 1 patch topical DAILY PRN 30 days magnesium oxide 400 mg PO DAILY 90 days magnesium oxide 400 mg PO DAILY [medline phytoplex lotion As directed] ondansetron 4 mg PO DAILY PRN sumatriptan succinate take 1 tab at onset of headache; if no relief may repeat 1 tab after at least 2 hrs; PO 30 days tizanidine 2 mg PO TID PRN [Vitamin C ] Tobacco use date assessed: 01/11/25 Dental Screening Dental Screen Date: 01/11/25 HPI HPI Comments History of Present Illness Details The patient is a 54-year-old female presenting for a physical examination and preventative care. She has a history of allergic reactions to Chantix, which caused nightmares, and Depomedrol, which resulted in dizziness. She experiences plantar fasciitis, characterized by pain in the soles of her feet, especially upon waking and walking. The patient suffers from migraines, which have decreased in frequency with the use of Ajovy, now occurring two to three times a week. She also reports mild depression, for which she takes amitriptyline. She has a diagnosis of celiac disease and follows a gluten-free diet. Her cholesterol levels are elevated, but her [place] Risk Score indicates a low risk of cardiovascular events, thus not requiring medication. Preventative care measures include a tetanus vaccine, which is due, and a shingles vaccine recommended due to her age. Her last colonoscopy was in 2023, with the next one scheduled for 2026. - Tetanus vaccine due - Shingles vaccine recommended - Colonoscopy scheduled for 2026 - [place] Risk Score calculated at 1% for cardiovascular events PFSH Medical History Migraine without aura Eczema Constipation by delayed colonic transit Hypovitaminosis D Abdominal pain Arthritis Bleeding hemorrhoids Migraine Hemorrhoids Surgical History History of hemorrhoidectomy H/O colonoscopy History of hysterectomy History of colon surgery Family History Mother Asthma Dementia Hypertension COPD (chronic obstructive pulmonary disease) Skin cancer Osteoarthritis Father Heart attack Prostate cancer Sister Osteoarthritis Social History Housing: Apartment Alcohol intake: former Patient Tobacco Use Status: Former Tobacco user Tobacco use type: Cigarette e-Cigarette/Vaping Use: Never Used Second Hand Smoke Exposure: No service: No Current occupational status: unemployed and disabled Cognitive needs: Yes Hearing needs: No Vision needs: Yes Questionnaire PHQ-9 Over the last 2 weeks, how often have you been bothered by any of the following problems? 1. Little interest or pleasure in doing things: not at all 2. Feeling down, depressed, or hopeless: not at all 3. Trouble falling or staying asleep, or sleeping too much: nearly every day 4. Feeling tired or having little energy: nearly every day 5. Poor appetite or overeating: not at all 6. Feeling bad about yourself - or that you are a failure or have let yourself or your family down: not at all 7. Trouble concentrating on things, such as reading the newspaper or watching television: not at all 8. Moving or speaking so slowly that other people could have noticed. Or the opposite - being so fidgety or restless that you have been moving around a lot more than usual: not at all 9. Thoughts that you would be better off or of hurting yourself in some way: not at all Total score: 6 Depression Screening Interpretation: Positive Depression Screening Follow-up: Existing condition and Follow-up Visit Requested Depression Screening Done: Yes 24980 - PHQ-9 Billing: Yes Source: Developed by Drs. Owen Hernández, Jamila Lares, Ernie Garcia and colleagues, with an educational zia from [employer]. Thrive Questionnaire Date Thrive assessed: 01/11/25 I am a: Patient What is your living situation today?: I have a steady place to live Within the past 12 months, did the food you bought not last and you didn't have the money to get more?: Never true Within the past 12 months, did you worry whether your food would run out before you got money to buy more?: Never true Do you have trouble paying for medicines?: No Do you have trouble getting transportation to medical appointments?: No Do you have trouble paying your heating and electricity bill?: No Do you have trouble taking care of your child, family member or friend?: No Do you have trouble with day-to-day activities such as bathing, preparing meals, shopping, managing finances, etc.?: Yes Are you currently unemployed and looking for a job?: No Are you interested in more education?: No Please select the resources that you would like help with: None Currently or been in a relationship where the following occur: No concerns reported THRIVE Score: 0 AUDIT C Alcohol Use Questionnaire (AUDIT-C) 1. How often do you have a drink containing alcohol?: Never 3. How often do you have six or more drinks on one occasion?: Never Total Score: 0 Score Reviewed/Action Taken: No EDIN-7 AMB Questionnaire EDIN-7 Date EDIN - 7 assessed: 01/11/25 Feeling nervous, anxious, or on edge: 0 = Not at all Not being able to stop or control worryin = Not at all Worrying too much about different things: 0 = Not at all Trouble relaxin = Not at all Being so restless that it is hard to sit still: 0 = Not at all Becoming easily annoyed or irritable: 0 = Not at all Feeling afraid as if something awful might happen: 0 = Not at all Total EDIN-7 score (0-4 normal; 5-9 mild; 10-14 moderate; 15-21 severe): 0 Source: Developed by Drs. Owen Hernández, Jamila Lares, Ernie Garcia and colleagues, with an educational zia from [employer]. EDIN-7 Assessment Billing EDIN-7 Assessment Tool: EDIN-7 Assessment 38882 Review of Systems Const All systems reviewed & are unremarkable except as noted in HPI and below Card Denies chest pain at rest, Denies chest pain with activity, Denies edema, Denies irregular heart rhythm, Denies claudication, Denies dyspnea, Denies dyspnea on exertion, Denies orthopnea, Denies paroxysmal nocturnal dyspnea and Denies slow heart rate Resp Denies cough, Denies dyspnea and Denies dyspnea on exertion Physical exam (Primary Care) Vital Signs: Last Vital Signs Pulse 76 07/19/25 07:38 BP 128/82 07/19/25 07:38 Pulse Ox 98 07/19/25 07:38 Oxygen Delivery Method Room Air 07/19/25 07:38 BMI result Body Mass Index 32.0 BMI Assessment/Plan discussion: High BMI High, discussed plan: lifestyle, weight reduction, dietary and physical activity Tobacco/Smoking Status: Tobacco use Status Tobacco use date assessed 01/11/25 07/19/25 07:43 Patient Tobacco Use Status Former Tobacco user 07/19/25 07:43 Tobacco use type Cigarette 07/19/25 07:43 e-Cigarette/Vaping Use Never Used 07/19/25 07:43 PHQ-9: PHQ-9 Score PHQ-9: Total score 6 07/19/25 07:51 Depression Screening Interpretation: Positive Depression Screening Follow-up: Existing condition and Follow-up Visit Requested Thrive Assessment: Date of Thrive Assessment Date Thrive assessed 01/11/25 07/19/25 07:43 Currently or been in a relationship where the following occur: No concerns reported [facility] Head: Yes normal to inspection, Yes normocephalic and Yes atraumatic Ears: external ears normal Eyes General: appearance normal, both eyes and all related structures Eyelids: Yes eyelids normal Conjunctivae: conjunctivae normal Neck Neck: Yes normal visual inspection and Yes supple Resp Effort & Inspection: normal respiratory effort Auscultation: clear to auscultation bilaterally Cardio Jugular venous distension: no JVD Rate: regular rate Rhythm: regular rhythm Heart sounds: S1 normal heart sound present and S2 normal heart sound present GI Inspection: Yes normal to inspection Palpation (GI): Soft to palpation and nontender Auscultation: normal bowel sounds Skin General skin exam: no rashes or lesions noted Neuro General: no focal motor deficits Extrem General: Yes full ROM Psych Appearance: grossly normal Immunizations Boostrix Tdap 2.5 Lf unit-8 mcg-5 Lf/0.5 mL intramuscular syringe Performing Provider: Eusebia Syed MD [place] [facility] Administered by: Sofia Kaur CMA on 07/19/25 08:10 Dose Route Admin Location Dispensed Lot Number Expiration Date NDC Supervisor [place] 0.5 mL IM Left Deltoid 0.5 mL [id number] 08/05/27 [id number] [place] Total Dispensed Waste 0.5 mL 0 % VIS Given Date VIS Provided VIS Publication Date 07/19/25 Single Vaccine 21 Eligibility Eligibility Date Funding Source Not [facility] Eligible 07/19/25 Private Coding Level of Care Code Est Pt Level 3 (47085) Est Pt Prev Care 40-64y(46414) Diagnoses Physical exam Z00.00 Other chronic gastritis without hemorrhage K29.50 Chronicity: chronic Gastritis bleeding: without bleeding Gastritis type: other gastritis Additional Codes PHQ-9 - 81653 - PHQ-9 Billing: Yes ([id number]) EDIN-7 Assessment Billing - EDIN-7 Assessment Tool: EDIN-7 Assessment 08053 ([id number]) Time Spent (min) 35 Assessment & Plan Assessment & Plan (1) Physical exam: Code(s): Z00.00 - Encounter for general adult medical examination without abnormal findings Category: Medical (2) Gastritis: Code(s): K29.70 - Gastritis, unspecified, without bleeding Category: Medical Qualifiers: Chronicity: chronic Gastritis bleeding: without bleeding Gastritis type: other gastritis Qualified Code(s): K29.50 - Unspecified chronic gastritis without bleeding Plan Plan Patient was informed and verbally consented to the use of an ambient scribe for clinic note documentation during this visit. 1. Encounter for general adult medical examination without abnormal findings Z00.00 The patient is due for a tetanus vaccine and is recommended to receive a shingles vaccine due to age. A colonoscopy is scheduled for 2026 as part of routine sc 2. Plantar fascial fibromatosis M72.2 The patient is advised to perform stretching exercises using a cylindrical object to alleviate plantar fasciitis symptoms. Referral to a ocean clam boat captain is considered if symptoms persist, although initial conservative management with exercises is recommended. 3. Gastritis, unspecified, without bleeding K29.70 The patient is advised to follow up with gastroenterology for further evaluation and management of gastritis. During the visit, we discussed the patient's elevated cholesterol and determined that medication is not necessary due to a low [place] Risk Score of 1%. We also reviewed the need for a tetanus vaccine and recommended a shingles vaccine due to age. The patient was advised to follow up with gastroenterology for gastritis management and to perform exercises for plantar fasciitis. Orders: Orders TDaP Immunization Today Z23 - Encounter for immunization Referrals Gastroenterology Referral K29.70 - Gastritis, unspecified, without bleeding Medications: Changed From cholecalciferol (vitamin D3) 10 mcg PO DAILY To cholecalciferol (vitamin D3) 10 mcg PO DAILY 90 caps 3RF 90 days Patient Instructions: - Schedule and receive the tetanus and shingles vaccines. - Perform stretching exercises for plantar fasciitis using a cylindrical object. - Follow up with gastroenterology for gastritis evaluation. - Continue monitoring migraine frequency and response to Ajovy treatment.
== END 2025-07-19 08:16 | disposition home or self-care (01) ==
LOC: HO.HMCH 07:30
PROVIDERS: PCP Internal Medicine; Visit Provider Internal Medicine
DX: Z00.00 Encounter for general adult medical examination without abnormal findings (principal); K29.50 Unspecified chronic gastritis without bleeding; Z23 Encounter for immunization

== ENCOUNTER → 2025-07-19 07:29 | Outpatient (BNVA) | payer OTHER, SELFPAY | PROVIDERS: PCP Internal Medicine; Visit Provider Internal Medicine | DX: Z00.00 Encounter for general adult medical examination without abnormal findings (principal); Z23 Encounter for immunization; K29.50 Unspecified chronic gastritis without bleeding; M72.2 Plantar fascial fibromatosis; G43.909 Migraine, unspecified, not intractable, without status migrainosus; K90.0 Celiac disease; Z13.31 Encounter for screening for depression | CPT/HCPCS: 90471; 90715; 96127; 99396 ==

== ENCOUNTER 2025-09-16 13:55 | Outpatient (REF) | payer OTHER, SELFPAY ==
--- NOTE | ~2025-09-16 | XR_ITS ---
EXAMINATION: XR LUMBOSACRAL SPINE CLINICAL INFORMATION: M54.50 - Low back pain, unspecified COMPARISON: X-ray 07/13/2024 TECHNIQUE: Three views of the lumbosacral spine. FINDINGS: Vertebral body heights are maintained. No evidence of acute fracture or subluxation. Multilevel mild disc degeneration. Multilevel mild facet degeneration. No suspicious osseous lesion. SI joints are symmetric. XR/XR lumbar spine 2-3V IMPRESSION: Mild lumbar spondylosis. No acute osseous findings. Electronically signed by: Ganesh Davis MD 09/17/2025 01:02 PM [facility]
--- NOTE | ~2025-09-16 | XR_ITS ---
EXAMINATION: XR ABDOMEN 2 VIEWS SUPINE ERECT HISTORY: R10.9 - Unspecified abdominal pain COMPARISON: There are no prior studies available for comparison. FINDINGS: Supine and upright views of the abdomen are submitted. The bowel gas pattern is unremarkable, without evidence of mechanical obstruction. There is no free intraperitoneal gas. There are sutures in the left midabdomen. There are phleboliths in the left hemipelvis. There are no abnormal soft tissue masses. The bones are intact. XR/XR abdomen min 2V IMPRESSION: Unremarkable bowel gas pattern. Electronically signed by: Owen Goyal MD 09/16/2025 03:31 PM [facility]
== END 2025-09-16 13:56 | disposition home or self-care (01) ==
LOC: HO.XRAY 13:55
PROVIDERS: PCP Internal Medicine; Visit Provider Student in an Organized Health Care Education/Training Program
DX: M54.50 Low back pain, unspecified (principal); K57.92 Diverticulitis of intestine, part unspecified, without perforation or abscess without bleeding; R10.31 Right lower quadrant pain
CPT/HCPCS: 72100; 74019

== ENCOUNTER → 2025-09-16 14:57 | Outpatient (BNV) | payer OTHER, SELFPAY | PROVIDERS: PCP Internal Medicine; Visit Provider Radiology Diagnostic Radiology | DX: M47.816 Spondylosis without myelopathy or radiculopathy, lumbar region (principal) | CPT/HCPCS: 72100; 74019 ==

== ENCOUNTER 2025-10-04 11:07 | Outpatient (REF) | payer OTHER, SELFPAY ==
[2025-10-04 12:58] LABS: Lipase 26 U/L (8-78)
[2025-10-04 13:28] LABS: Folate 10.0 ng/mL (> or = 4.0); Vitamin B12 733 pg/mL (200-900)
== END 2025-10-04 11:08 | disposition home or self-care (01) ==
LOC: HO.LAB 11:07
PROVIDERS: PCP Internal Medicine; Visit Provider Nurse Practitioner Family
DX: K57.92 Diverticulitis of intestine, part unspecified, without perforation or abscess without bleeding (principal); K59.01 Slow transit constipation; K29.50 Unspecified chronic gastritis without bleeding; K64.9 Unspecified hemorrhoids; G89.29 Other chronic pain; R10.31 Right lower quadrant pain; R14.0 Abdominal distension (gaseous); R19.7 Diarrhea, unspecified
CPT/HCPCS: 36415; 82607; 82746; 83690; 84443; 86364; 99202

== ENCOUNTER 2025-10-04 11:07 | Outpatient (AMB) | payer OTHER, SELFPAY ==
--- OUTSIDE RECORDS SUMMARY | 2025-09-29 08:40 | XMS_ITS | Encounter Summary ---
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 Pt states she started coughing up phlegm with slight blood starting yesterday. Denies SOB but states hard to catch breath when cough. States chest hurts when coughing. Tried taking Robitussin, cold & flu, tea w/ honey with no relief. Encounter Details Date Type Department Care Team (Late st Contact Info) Description 09/29/2025 8:40 AM EST Office Visit [facility] [place] [address] [place] [address] Kristi Nevarez, ATTENUATOR [address] [place] [address] [email or web address] Acute cough (Primary Dx); Sore throat; Fever, unspecified; Influenza A; Shortness of breath Social History Tobacco Use Types Packs/Day Years Used Date Smoking Tobacco: Former Cigarettes 0.3 15 Smokeless Tobacco: Never Comments:smokes [...] as food, clothing, or medical care? No 09/11/2025 In the past 12 months have y ou been in a relationship with a person who hurts, threatens, or tries to control you? No 09/11/2025 Are you denied basic needs s uch as food, clothing, or medical care? No 09/11/2025 In the past 12 months have y ou been in a relationship with a person who hurts, threatens, or tries to control you? No 09/11/2025 Comments No Sex and Gender Information Value Date Recorded Sex Assigned at Female 07/06/2022 9:33 AM EDT Legal Sex Female 1:47 PM EST Gender Identity Female 07/06/2022 9:33 AM EDT Sexual Orientation Not on file documented as of this encounter Last Filed Vital Signs Vital Sign Reading Time Taken Comments Blood Pressure 150/97 09/29/2025 8:58 AM EST Pulse 94 09/29/2025 8:37 AM EST Temperature 37.1 C (98.8 F) 09/29/2025 8:37 AM EST Respiratory Rate 22 09/29/2025 8:37 AM EST Oxygen Saturation 99% 09/29/2025 8:37 AM EST Inhaled Oxygen Concentration - - Weight - - Height - - Body Mass Index - - documented in this encounter Patient Instructions * Patient Instructions* Kristi Nevarez, NAVEED - 09/29/2025 8:40 AM EST INFLUENZA: 1. Symptomatic treatment with increasing your fluids and rest. 2. You can take Tylenol and/or ibuprofen for body aches, fever, and minor pain. 3. You may gargle with warm salt water, take cough drops, throat lozenges or a few spoonful's of honey to help with sore throat. 4. You can take Mucinex or Sudafed for congestion. 5. If your symptoms worsen: you develop a worsening fever, dizziness, weakness, inability to tolerate foods or fluids, shortness of breath or any new or concerning symptoms you need to be re-evaluated. It is possible to get a bacterial infection on top of the viral influenza that would require an an tibiotic. Pay attention for worsening symptoms that would require re-evaluation. 6. If your symptoms are persisting for more than 5-7 days you should follow-up with your pcp. Cough: - Advised to drink plenty of liquids. - Advised to use lozenges, cough drops, vaporizers, and steamy showers may help soothe a cough. - Tiet-iej-vdqipat cough medicine may also help with a cough. - Spoonful of honey, with out a chaser. - Hot tea (Corky/Lemon) - Gargle with warm salt water. Sore Throat: In clinic testing was negative today for strep throat. - Patient advised to rest and increase fluids. - Advised to use warm salt water gargles 4-6 times a day, as needed - Advised to use Tylenol or ibuprofen for pain/fever - May use Flonase daily to help with ear/nasal congestion and postnasal drip - Advised to use ctet-uxa-bqgqdop decongestion such as Mucinex/Sudafed for 2 to 3 days, if congested - Advised to drink hot water with honey, slice of fresh corky, and/or lemon - Patient advised to take a couple of spoons of honey, to help coat and soothe the throat * Attachments The following attachments cannot be sent through Care Everywhere. * Sore Throat (Georgian) * Cough (Georgian) * Influenza (Georgian) * Metered Dose Inhalers With a Spacer (Georgian) documented in this encounter Progress Notes * Kristi Nevarez CNP - 09/29/2025 8:40 AM EST Images from the original note were not included. Subjective: Patient ID: Padma Melo is a 55 y.o. female. HPI History of Present Illness This is a 55-year-old female with a history of disability presenting with cough, sore throat, and fever for the past 2 days. She reports that her symptoms began a couple of days ago, including a cough, sore throat, fever, and difficulty catching her breath when coughing. She has been coughing up phlegm with slight blood since yesterday. She does not experience shortness of breath but finds it hard to catch her breath during coughing episodes. Additionally, she reports chest pain associated with coughing. Her cough is severe enough to disrupt her sleep. She also mentions experiencing chest tightness. She has tried Robitussin, cold and flu tea with honey, but these have not provided relief. She has been using a coughsyrup at night and drinking tea. She used an albuterol inhaler years ago. SOCIAL HISTORY She is currently unemployed due to disability. Review of Systems Constitutional: Positive for fever. HENT: Positive for congestion (Chest) and sore throat. Respiratory: Positive for cough, chest tightness and shortness of breath. All other systems reviewed and are negative. Vitals: 09/29/25 0837 09/29/25 0858 BP: (!) 141/87 (!) 150/97 BP Location: Left arm Right arm Patient Position: Sitting Sitting Cuff Size: Medium Medium Pulse: 94 Resp: 22 Temp: 37.1 ??C (98.8 ??F) TempSrc: Oral SpO2: 99% Objective: Physical Exam Vitals reviewed. Constitutional: Appearance: Normal appearance. She is ill-appearing. HENT: Head: Normocephalic. Right Ear: External ear normal. Left Ear: External ear normal. Nose: Congestion and rhinorrhea present. Mouth/Throat: Mouth: Mucous membranes are moist. Pharynx: Oropharyngeal exudate and posterior oropharyngeal erythema present. Comments: Postnasal drip Eyes: Conjunctiva/sclera: Conjunctivae normal. Cardiovascular: Rate and Rhythm: Normal rate and regular rhythm. Pulses: Normal pulses. Heart sounds: Normal heart sounds. Pulmonary: Breath sounds: Normal breath sounds. Decreased air movement present. Musculoskeletal: General: Normal range of motion. Cervical back: Normal range of motion and neck supple. No tenderness. Lymphadenopathy: Cervical: No cervical adenopathy. Skin: General: Skin is warm and dry. Capillary Refill: Capillary refill takes less than 2 seconds. Neurological: Mental Status: She is alert and oriented to person, place, and time. Psychiatric: Mood and Affect: Mood normal. Behavior: Behavior normal. Results for orders placed or performed in visit on 09/29/25 POCT Group A Streptococcus, PCR Result Value Ref Range Strep A, PCR Not Detected Not Detected POCT SARS-CoV-2, Influenza A/B, RSV, PCR Result Value Ref Range SARS-Cov-2 PCR Negative Negative POC Influenza A Positive (*) Negative POC Influenza B Negative Negative RSV PCR Negative Negative Procedure: Procedures Assessment/Plan: Diagnosis Plan 1. Acute cough 2. Sore throat 3. Fever, unspecified 4. Influenza A MDM Assessment & Plan Initial Assessment: 55-year-old female with cough, sore throat, fever for 2 days, coughing up phlegm with slight blood,chest pain when coughing, difficulty catching breath when coughing. Differential Diagnosis: - Influenza A: Positive test result. Viral infection causing symptoms. Self- limiting. Symptomatic treatment. - Strep throat: Considered due to sore throat. Testing performed. - COVID: Considered due to respiratory symptoms. Testing performed. - RSV: Considered due to respiratory symptoms. Testing performed. Urgent Care Course: - Positive influenza A test result. - Throat examination. - Heart and lung auscultation. Final Assessment: Positive influenza A test result. Symptomatic treatment provided. Throat examination and heart/lungauscultation performed. Clinical Impression: - Influenza A Patient Education: - Gargle with warm salt water for sore throat. - Drink hot tea with honey. - Use throat lozenges or cough drops. - Zwfb-hjb-xfqekvw throat spray for throat numbing. - Use Mucinex and increase fluid intake to thin mucus. - Tessalon Perles for nighttime cough relief. - Albuterol inhaler and spacer for chest tightness. - Stay home, rest, and drink fluids. - Use ibuprofen or Tylenol for fever and pain. I obtained verbal consent from the patient or their proxy to record this visit for purposes of producing a draft of the encounter documentation. documented in this encounter Plan of Treatment Not on file documented as of this encounter Procedures Procedure Name Priority Date/Time Associated Diagnosis Comments POCT GROUP A STREPTOCOCCUS, PCR Routine 09/29/2025 8:45 AM EST POCT SARS-COV-2, INFLUENZA A/B, RSV, PCR Routine 09/29/2025 8:45 AM EST documented in this encounter Results * (ABNORMAL) POCT SARS-CoV-2, Influenza A/B, RSV, PCR (09/29/2025 8:45 AM EST) [facility] SARS-Cov-2 PCR Negative Negative 09/29/2025 9:24 AM EST [facility] Influenza A Positive(A) Negative 09/29/2025 9:24 AM EST [facility] Influenza B Negative Negative 09/29/2025 9:24 AM EST [facility] RSV PCR Negative Negative 09/29/2025 9:24 AM EST [facility] Swab (Anterior Nares) 09/29/2025 8:45 AM EST 09/29/2025 9:24 AM EST Kristi Nevarez CNP LAB POCT DOCKED DEVICE UNSOLICTED RESULTS Final Result Performing Organization Address [facility] Co de Phone Number [facility] [address] [address], [facility] [place] [phone] * POCT Group A Streptococcus, PCR (09/29/2025 8:45 AM EST) [facility] Strep A, PCR Not Detected Not Detected 09/29/20 9:11 AM EST [facility] Swab (Throat) 09/29/2025 8:4 5 AM EST 09/29/2025 9:11 AM EST Kristi Nevarez CNP LAB POCT DOCKED DEVICE UNSOLICTED RESULTS Final Result Performing Organization Address [facility] de Phone Number [facility] [address] [address], [facility] [place] [phone] documented in this encounter Visit Diagnoses Diagnosis Acute cough- Primary Sore throat Acute pharyngitis Fever, unspecified Influenza A Influenza with other respiratory manifestations Shortness of breath documented in this encounter Additional Health Concerns Infection Onset Date Last Indicated Resolved Time Resp-Risk 09/29/2025 09/29/2025 09/29/2025 9:24 AM EST Influenza A 09/29/2025 09/29/2025 documented as of this encounter Care Teams Barrel Ribs Solderer Relationship Specialty Start Date End Date Eusebia Calderon MD [address] [place] [address] PCP - General Internal Medicine 09/04/25 documented as of this encounter Additional Source Comments The information contained in this document represents components of the legal health record. It is not the complete legal health record.Formerly [facility]
--- NOTE | 2025-10-04 11:24 | MHC.OFFVIS ---
Vital Signs 10/04/25 11:32 Height 5 ft 2 in Weight 168 lb BMI 30.7 BP 142/88 H Blood Pressure Location Rt brachial Position Sitting Pulse 76 Pulse Source Pulse Oximeter Pulse Oximetry (%) 98 Oxygen Delivery Method Room Air Intake Visit Reasons: diverticulitits Intake Note: New pt for initial eval of chronic abd pain + diverticulitis. Previously est w/ [facility]. CC; Pt no longer wishes to be managed by [facility]. C/O first time being diagnosed with diverticulitis. Epigastric and generalized abd pain, bloating / gas also reported. Evaluated at [facility] ED per sx, records obtained. Strand Galvanizer Required: No Accompanied by: Self / Same As Patient Allergies varenicline (From Chantix) Adverse Reaction (Mild, Verified 10/04/25 11:25) depression, nightmares methylprednisolone Adverse Reaction (Unknown, Verified 10/04/25 11:25) Unknown depomedrol Adverse Reaction (Intermediate, Uncoded 10/04/25 11:25) mouth bad taste HPI HPI diverticulitits: Details: COLONOSCOPY 02/28/[address] SIMON DESCRIPTION OF PROCEDURE: The patient was placed in the left lateral decubitus position. The digital rectal exam revealed no abnormalities. The Olympus video pediatric colonoscope was entered into the rectum and advanced easily to the region of the cecum. Once in the cecum I did identify cecal pouch with appendiceal orifice and a normal-appearing ileocecal valve. The terminal ileum was cannulated and appeared normal. The scope was withdrawn back in the colon. There was some residual stool in the cecum, which prevented complete visualization of the cecum, but the majority of the cecum was visualized and appeared normal. The scope was then slowly withdrawn assessing all mucosal surfaces carefully. Portions of the colon were obscured by some solid stool, but the majority of the colon was well visualized and did appear normal. The anastomosis was seen at approximately 60 cm and appeared normal. There was no sign of any narrowing. There was a mild amount of sigmoid diverticulosis. In the rectum, scope was retroflexed visualizing scarring from her previous hemorrhoid surgery, but no other pathology. The rectal mucosa appeared normal. I did not visualize any sign of polyps, colitis, nor angiodysplasia throughout the colon. The scope was withdrawn from the patient. She tolerated the procedure well and was returned to recovery area in stable condition. IMPRESSION: 1. Diverticulosis. 2. Normal anastomosis. PLAN: Given her previous history and the somewhat limited prep, I would recommend a repeat colonoscopy in 3 years. At that point, I would recommend a 2 day prep. She does report that her bowel movements have improved by using MiraLax twice a day on a regular basis and I did advise her to continue that. She will otherwise see me on a p.r.n. basis. TODAY'S VISIT 55-year-old female with past medical history of diverticulitis, gastritis, tendonitis, migraine headaches, abdominal pain, osteoarthritis, hemorrhoids, and anxiety, partial colectomy of transverse colon in January of 2018, partial hysterectomy 2014, breast reduction bilateral in 2018 is here today for initial consultation. Patient was seen in the ED and of August and then again on September 11. Patient was seen at [facility] both times. Chief complaint was abdominal pain and constipation. In August patient was seen in the ER for lower abdominal pain that started the day of the visit. Pain feel worse when patient was sitting due to feeling of a pressure. No fever, increase in bowel movements which are soft in consistency. Patient experienced nausea but had no vomiting. Patient reported intermittent bloating in the past 8 months. Her 2nd visit on September 11 patient was seen for abdominal pain and constipation. Patient reported no bowel movement for 9 days. Patient is trying herbal teas, however fvwk-pmq-ljlcrir medications as well and nothing has been working for her. Patient had a CT scan that showed diverticulitis. Patient previously seen by Dr. Simon and would like to get a 2nd opinion. Today patient presents with similar symptoms where she has severe abdominal bloating and no bowel movement for 2-3 days. Patient had colonoscopy in February of 2024, no polyps found, however recommendation was for patient to return in 5 years. Patient denies any acid reflux occasional only depending on what food she eats. Patient denies dyspepsia, dysphagia or odynophagia. [facility] Medical History Migraine without aura Eczema Constipation by delayed colonic transit Hypovitaminosis D Abdominal pain Arthritis Bleeding hemorrhoids Migraine Hemorrhoids Surgical History History of hemorrhoidectomy H/O colonoscopy History of hysterectomy History of colon surgery Family History Mother Asthma Dementia Hypertension COPD (chronic obstructive pulmonary disease) Skin cancer Osteoarthritis Father Heart attack Prostate cancer Sister Osteoarthritis Social History Housing: Apartment Alcohol intake: former Patient Tobacco Use Status: Former Tobacco user Tobacco use type: Cigarette e-Cigarette/Vaping Use: Never Used Second Hand Smoke Exposure: Yes service: No Current occupational status: unemployed and disabled Cognitive needs: Yes Hearing needs: No Vision needs: Yes Review of Systems Const Denies weight gain and Denies weight loss ENT Reports no additional complaints, Denies dysphagia and Denies odynophagia Card Reports no additional complaints Resp Reports no additional complaints GI Reports abdominal pain, Denies belching, Denies melena, Reports bloating, Denies change in bowel habits, Reports constipation, Denies dysphagia, Denies excessive flatus, Denies dyspepsia, Denies heartburn, Denies diarrhea, Denies loose stools, Denies nausea, Denies odynophagia and Denies vomiting Musc Reports no additional complaints Neuro Reports no additional complaints Psych Reports no additional complaints Endo Reports no additional complaints Physical Exam Vital Signs: BMI result Body Mass Index 30.7 Const General: healthy appearing, no acute distress and well developed Nutritional Appearance: well nourished and obese Orientation/consciousness: patient oriented x3 Resp Effort & Inspection: normal respiratory effort, able to speak in complete sentences, no tracheal deviation and symmetric chest movement Auscultation: clear to auscultation bilaterally Cardio Rate: regular rate GI Inspection: Yes normal to inspection, No distended and Yes obesity Palpation (GI): Soft to palpation, not firm, nontender and No hepatosplenomegaly present Auscultation: normal bowel sounds General: Yes no CVA tenderness Back/Spine/Pelvis Back: no CVA tenderness Skin General skin exam: elasticity normal, turgor normal and dry skin Neuro General: patient oriented x3 Psych Appearance: grossly normal Mental Status: mental status grossly normal Assessment & Plan Assessment & Plan (1) Gastritis: Code(s): K29.70 - Gastritis, unspecified, without bleeding Category: Medical Qualifiers: Gastritis type: other gastritis Chronicity: chronic Gastritis bleeding: without bleeding Qualified Code(s): K29.50 - Unspecified chronic gastritis without bleeding (2) Hemorrhoids: Code(s): K64.9 - Unspecified hemorrhoids Category: Medical Qualifiers: Hemorrhoid type: unspecified Qualified Code(s): K64.9 - Unspecified hemorrhoids (3) Constipation by delayed colonic transit: Code(s): K59.01 - Slow transit constipation Category: Medical (4) Diverticulitis: Code(s): K57.92 - Diverticulitis of intestine, part unspecified, without perforation or abscess without bleeding Category: Medical (5) Abdominal pain: Code(s): R10.9 - Unspecified abdominal pain Category: Medical Qualifiers: Abdominal location: right lower quadrant Qualified Code(s): R10.31 - Right lower quadrant pain (6) Postprandial abdominal bloating: Code(s): R14.0 - Abdominal distension (gaseous) Plan Patient reports epigastric pain will check transglutaminase, lipase. Constipation is an issue, no BM sometimes for a week. Patient can start taking Linzess daily. Increase fluid intake and activity to promote bowel motility. Patient can takes simethicone as needed. Patient will follow-up in 2 months. Patient was encouraged to call us if she will have any GI concerning symptoms. Patient is agreeable to this plan and verbalizes understanding of instructions. She was given the opportunity to ask questions and all questions answered. Thank you for allowing me to participate in her care Orders: Orders Transglutaminase IgA Today R10.9 - Unspecified abdominal pain Lipase Today R10.9 - Unspecified abdominal pain TSH reflex Free T4 Today K59.00 - Constipation, unspecified Vitamin B12 and Folate Today R19.7 - Diarrhea, unspecified Medications: New linaclotide (Linzess) 145 mcg PO DAILY 30 caps 2RF simethicone (Gas Relief (simethicone)) 125 mg PO BID-TID PRN 90 tabs 3RF abdominal distention Coding Level of Care Code New Pt Level 4 (12725) Diagnoses Other chronic gastritis without hemorrhage K29.50 Gastritis type: other gastritis Chronicity: chronic Gastritis bleeding: without bleeding Hemorrhoids, unspecified hemorrhoid type K64.9 Hemorrhoid type: unspecified Constipation by delayed colonic transit K59.01 Diverticulitis K57.92 Right lower quadrant abdominal pain R10.31 Abdominal location: right lower quadrant Postprandial abdominal bloating R14.0 Time Spent (min) 50 Comment 35 minutes spent with patient and additional 10 minutes spent reviewing his records
[2025-10-04 11:32] VITALS: BP 142/88; PULSE 76; O2SAT 98; BMI 30.7
--- OUTSIDE RECORDS SUMMARY | 2025-10-04 12:59 | XMS_ITS | Patient Health Record ---
Author Organization [facility] Address [address] [place] [id number] Care Team Providers Care Waybill Clerk Name Role Phone Eusebia Calderon Primary Care Provider Owen Page Unavailable [phone] Allergies No Known Allergies Reason For Referral No Information Medications Medication SIG (Take, Route, Frequency, Duration) Notes Start Date End Date Status Dulcolax (colon prep) 5 MG Tablet Delayed Release take at 3:00 p.m and 7:00p.m. Orally two tablets twice a day for one day; Duration: 1 day 11/21/2023 Active MiraLax 17 GM Packet 1 packet mixed with 8 ounces of fluid Orally Twice a day; Duration: 30 day(s) 11/21/2023 Active MiraLax (colon prep) 17 GM/SCOOP Powder 1 238 Gm bottle mixed with Gatorade or Crystal Light Orally begin at 5:00 p.m. the day before the procedure; Duration: 1 day 11/21/2023 Active ibuprofen Active Docusate Sodium 100 MG Capsule Oral; Duration: 30 Active Cyclobenzaprine HCl 5 MG Tablet TAKE 1 TABLET BY MOUTH UP TO TWICE DAILY FOR MUSCLE SPASM Oral; Duration: 85 Not-Taking/PRN Meloxicam 15 MG Tablet Oral; Duration: 90 Active Vitamin D Active Rizatriptan Benzoate 5 MG Tablet Oral; Duration: 30 Active Vitamin C Active Social History Tobacco Use: Social History Observation Description Date Details (start date - stop date) Never Smoker NA - NA Social History Drugs/Alcohol: Social Info Question Answer Notes Alcohol Screen Did you have a drink containing alcohol in the past year? No Points 0 Interpretation Negative Tobacco Use: Social Info Question Answer Notes Tobacco Use/Smoking Patient is a nonsmoker Additional Details Category Social Info Options Details Miscellaneous: Marital status: single Occupation: disabled Problems Problem Type SNOMED Code ICD Code Onset Dates Problem Status W/U Status Risk Notes Problem Colon cancer screening (584768708) Colon cancer screening (Z12.11) Active confirmed Problem History of polyp of colon (situation) (972159086) Personal history of colonic polyps (Z86.010) Active confirmed Problem History of polyp of colon (situation) (945178092) History of colon polyps (Z86.010) Active confirmed Problem Chronic constipation (810228407) Chronic constipation (K59.09) Active confirmed Plan Of Treatment Future Test Test Name Order Date COLONOSCOPY 11/21/2023 Insurance Providers Payer Name Payer Address Payer Phone Subscriber Number Group Number Insured Name Patient Relationship to Insured Coverage Start Date Coverage End Date [facility] [address] Attn Claims JOON [place] [id number] NEAL [id number] Self - patient is the insured Medical (General) History Medical History History ICD Code kidney stones She describes colonoscopies with removal of polyps and both [facility] and [facility] migraines Denies AR,DM,CVA,Lung disease,renal dise ase Surgical History Surgery Date(Month/Year) Some type of partial colecto my at [facility] for polyps Hysterectomy Hemorrhoids with Dr. Cormier in December
--- OUTSIDE RECORDS SUMMARY | 2025-10-04 12:59 | XMS_ITS | Encounter Summary ---
Author Organization [facility] Address [address] [place] [address] Phone Care Team Providers Care Button Broacher Name Role Phone Eusebia Calderon MD Primary Care Provid er Encounter Details Date Type Department Care Team (Late st Contact Info) Description 09/04/2025 Procedure Pass [facility], Ct Scan - [facility] [address] [place] [address] Social History Tobacco Use Types Packs/Day Years [...] as food, clothing, or medical care? No 09/03/2025 In the past 12 months have y ou been in a relationship with a person who hurts, threatens, or tries to control you? No 09/03/2025 Are you denied basic needs s uch as food, clothing, or medical care? No 09/03/2025 In the past 12 months have y ou been in a relationship with a person who hurts, threatens, or tries to control you? No 09/03/2025 Comments No Sex and Gender Information Value [...] documented as of this encounter Care Teams Button Broacher Relationship Specialty Start Date End Date Eusebia Calderon MD [address] [place] [address] PCP - General Internal Medicine 09/04/25 documented as of this encounter Additional Source Comments The information contained in this document represents components of the legal health record. It is not the complete legal health record.[facility]
--- OUTSIDE RECORDS SUMMARY | 2025-10-04 12:59 | XMS_ITS | Encounter Summary ---
Author Organization [facility] Address [address] [place] [address] Phone Care Team Providers Care Snow Removal Supervisor Name Role Phone Jenni Baltazar MD Primary Care Provider + [phone] Jenni Baltazar MD Primary Care Provider + [phone] Eusebia Calderon MD Primary Care Provid er Encounter Details Date Type Department Care Team (Late st Contact Info) Description 01/04/2021 Procedure Pass [place] Admitting Dept - Virtual Department [address] [place] [address] Social History Tobacco Use Types Packs/Day Years [...] CoV-Risk 09/19/2024 09/19/2024 09/30/2024 1:22 AM EST Resp-Risk 09/29/2025 09/29/2025 09/29/2025 9:24 AM EST Influenza A 09/29/2025 09/29/2025 documented as of this encounter Care Teams Snow Removal Supervisor Relationship Specialty Start Date End Date Jenni Baltazar MD [email or web address] PCP - General Family Medicine 01/28/19 09/18/24 Jenni Baltazar MD [address] [place] [id number] PCP - General Family Medicine 09/19/24 09/03/25 Eusebia Calderon MD [address] [place] [id number] PCP - General Internal Medicine 09/04/25 documented as of this encounter Additional Source Comments The information contained in this document represents components of the legal health record. It is not the complete legal health record.[facility]
--- OUTSIDE RECORDS SUMMARY | 2025-10-04 12:59 | XMS_ITS | Encounter Summary ---
Author Organization [facility] Address [address] [place] [address] Phone Care Team Providers Care Fisheries Technical Officer Name Role Phone Jonny Infante MD Primary Care Provider [phone] Jonny Infante MD Unavailable Jenni Baltazar MD Primary Care Provider [phone] Jenni Baltazar MD Unavailable +[phone] Jenni Baltazar MD Primary Care Provider [phone] Eusebia Calderon MD Primary Care Provid er Encounter Details Date Type Department Care Team (Late st Contact Info) Description 03/20/2018 Procedure Pass [facility], Ct Scan - [facility] [address] [place] [address] Social History Tobacco Use Types Packs/Day Years [...] documented as of this encounter Care Teams Fisheries Technical Officer Relationship Specialty Start Date End Date Jonny Infante MD [address] [place] [address] [email or web address] PCP - General 10/31/17 01/27/19 Jenni Baltazar MD [address] [place] [address] [email or web address] PCP - General Family Medicine 01/28/19 09/18/24 Jenni Baltazar MD [address] [place] [phone] [email or web address] PCP - General Family Medicine 09/19/24 09/03/25 Eusebia Calderon MD [address] [place] [id number] PCP - General Internal Medicine 09/04/25 Jonny Infante MD [address] [place] [address] [email or web address] Insurance Assigned Provider 08/09/18 04/11/19 Jenni Baltazar MD [address] [place] [address] [email or web address] Assigned Provider 04/11/19 11/12/20 documented as of this encounter Additional Source Comments The information contained in this document represents components of the legal health record. It is not the complete legal health record.[facility]
--- OUTSIDE RECORDS SUMMARY | 2025-10-04 12:59 | XMS_ITS | Clinical Summary ---
Author Organization [facility] Address [address] [place] [address] Phone Care Team Providers Care Truck Switcher Name Role Phone Eusebia Calderon MD Primary Care Provid er Allergies Active Allergy Reactions Criticality Noted Date Comments Varenicline Other (See Comments) Medium 06/25/2019 hallucinations Hydrocortisone Dizziness 09/29/2025 Medications citalopram (CELEXA) 40 MG tablet Take [...] TABLET TWICE DAILY NEEDED FOR ANXIETY 0 02/07/20 18 Active QUEtiapine (SEROQUEL) 50 MG tablet TAKE 1 TO 2 TABLETS BY MOUTH AT BEDTIME 2 03/18/20 18 Active cholecalciferol, vitamin D3, (VITAMIN D3 ORAL) Take by mouth daily. Active calcium carbonate (CALCIUM 500 ORAL) Take by mouth daily. Active ibuprofen (ADVIL,MOTRIN) 800 MG tablet Take 800 mg by mouth 3 (three) times a day as needed. 11/22/19 21 Active traZODone (DESYREL) 50 MG tablet Take 50 mg by mouth nightly at bedtime as needed. 11/16/19 21 Active cyclobenzaprine (FLEXERIL) 5 MG tablet TAKE 1 TABLET BY MOUTH UP TO TWICE DAILY FOR MUSCLE SPASM 11/17/19 21 Active gabapentin (NEURONTIN) 400 MG capsule TAKE 1 CAPSULE BY MOUTH EVERY DAY AT BEDTIME 10/11/19 21 Active ibuprofen (ADVIL,MOTRIN) 600 MG tablet Take 1 tablet (600 mg total) by mouth every 6 (six) hours as needed for pain (specific location in comments). 16 tablet 07/06/20 22 Active amoxicillin-clavul anate (AUGMENTIN) 875-125 mg per tablet Take 1 tablet (875 mg of amoxicillin total) by mouth 2 (two) times a day. 20 tablet 09/04/20 Active Additional Information Patient not taking.Reported on 09/29/2025 morphine (MSIR) 15 MG tablet Take 1 tablet (15 mg total) by mouth every 4 (four) hours as needed for pain (specific location in comments) (abdomen). Partial fill ok 8 tablet 09/04/20 Active Additional Information Patient not taking.Reported on 09/29/2025 AJOVY AUTOINJECTOR 225 mg/1.5 mL subcutaneous auto-injector Inject 225 mg under the skin every 30 (thirty) days. 09/20/20 Active magnesium oxide (MAG-OX) 400 mg (241.3 mg elemental) tablet Take 1 tablet by mouth every morning. 07/20/20 25 Active albuterol 90 mcg/actuation inhalerIndications :Acute cough,Influenza A,Shortness of breath Inhale 2 puffs into the lungs every 4 (four) hours as needed for wheezing or shortness of breath/dyspnea. Use with MDI spacer. 8 g 09/29/20 Active inhaler spacing device (AEROCHAMBER,BREAT HERITE) SpcrIndications:Ac iroquois cough,Influenza A,Shortness of breath Inhale 1 each into the lungs every 4 (four) hours as needed (Use with albuterol inhaler). 1 each 09/29/20 Active benzonatate (TESSALON) 100 MG capsuleIndications :Acute cough,Influenza A Take 2 capsules (200 mg total) by mouth nightly at bedtime as needed for cough. 20 capsule 09/29/20 25 026 Active ondansetron (ZOFRAN-ODT) 4 MG disintegrating tablet Take 1 tablet (4 mg total) by mouth every 8 (eight) hours as needed for nausea. 12 tablet 09/04/20 25 025 Additional Information Patient not taking.Reported on 09/29/2025 polyethylene glycol (MIRALAX) 17 gram packet Take 17 g by mouth 2 (two) times a day as needed for mild constipation. 14 packet 09/11/20 25 025 Active Problems Problem Noted Date Diagnosed Date [...] Encounters Date Type Department Care Team Description 09/29/2025 8:40 AM EST Office Visit [facility] [place] [address] [place] [address] Kristi Nevarez CNP Acute cough (Primary Dx); Sore throat; Fever, unspecified; Influenza A; Shortness of breath 09/11/2025 1:26 PM EST - 09/11/2025 8:32 PM EST Emergency [facility] [address] [place] [id number] Jorge Pacheco MD Discharge Disposition: Home or Self Care 09/11/2025 Procedure Pass [facility], Ct Scan - [facility] [address] [place] [address] 09/04/2025 Procedure Pass [facility], Ct Scan [facility] [address] [place] [address] 09/03/2025 11:13 PM EST - 09/04/2025 3:50 AM EST Emergency [facility] [address] [place] [address] Arik Lopez MD Andrade, Olyn Amanda, MD Discharge Disposition: Home or Self Care from [...] you interested in more education? Not on amuary e 02/01/2023 Are you concerned about learning? [...] EST Inhaled Oxygen Concentration - - Weight 76.2 kg (168 lb) 09/11/2025 12:21 PM EST Height 157.5 cm (5' 2 ) 09/11/2025 12:21 PM EST Body Mass Index 30.73 09/11/2025 12:21 PM EST Plan of Treatment Health Maintenance Due Date Last Done Comments DEPRESSION SCREENING 1982 SMOKING Hx and SMOKELESS TOBACCO SCREENING 1983 HEPATITIS C SCREENING 1988 HIV ONE-TIME SCREENING (18-6 5 YEARS) 1988 PAP SMEAR 1991 MAMMOGRAM 2010 COLOGUARD 2015 FIT TEST 2015 FOBT 2015 SIGMOIDOSCOPY 2015 VIRTUAL COLONOSCOPY 2015 PNEUMOCOCCAL VACCINES (50+ years) (1 of 1 - PCV) 2020 ZOSTER VACCINES (1 of 2) 2020 LIPID PANEL 11/19/2023 11/19/2018 INFLUENZA VACCINE (#1) 2025 COVID-19 VACCINE (3 - 2024-2 6 season) 2025 05/09/2021, 04/18/2021 SCREENING FOR DIABETES 09/11/2028 , 11/19/2018 COLONOSCOPY 02/27/2029 02/27/2019, 12/27/2017 COLORECTAL CANCER SCREENING 02/27/2029 Adult Td,Tdap Booster 07/19/2035 07/19/2025 , 04/06/2014 RSV VACCINE (1 - 1-dose 75+ series) [...] Name Priority Date/Time Associated Diagnosis Comments POCT SARS-COV-2, INFLUENZA A/B, RSV, PCR Routine 09/29/2025 8:45 AM EST POCT GROUP A STREPTOCOCCUS, PCR Routine 09/29/2025 8:[address] ABDOMEN/PELVIS WITH CONTRAST Routine 09/11/2025 3:50 PM EST URINALYSIS WITH REFLEX TO URINE CULTURE STAT 09/11/2025 1:32 PM EST CBC AND DIFFERENTIAL STAT 09/11/2025 12:43 PM EST LIPASE STAT 09/11/2025 12:43 PM EST LFTS (HEPATIC PANEL) STAT 09/11/2025 12:43 PM EST BASIC METABOLIC PANEL (BMP) STAT 09/11/2025 12:43 PM EST CBC AND DIFFERENTIAL STAT 09/11/2025 12:[address] ABDOMEN/PELVIS WITH CONTRAST Routine 09/04/2025 2:10 AM EST CBC AND DIFFERENTIAL STAT 09/03/2025 10:01 PM EST LIPASE STAT 09/03/2025 10:01 PM EST LFTS (HEPATIC PANEL) STAT 09/03/2025 10:01 PM EST BASIC METABOLIC PANEL (BMP) STAT 09/03/2025 10:01 PM EST CBC AND DIFFERENTIAL STAT 09/03/2025 10:01 PM EST URINALYSIS WITH REFLEX TO URINE CULTURE STAT 09/03/2025 9:56 PM EST ENDOSCOPY, COLON 02/27/2019 10:0 8 AM EDT from Last 3 Months or Most Recently Relevant to Health Maintenance Results * POCT Group A Streptococcus, PCR (09/29/2025 8:45 AM EST) [facility] Strep A, PCR Not Detected Not Detected 09/29/20 9:11 AM EST [facility] Swab (Throat) 09/29/2025 8:4 5 AM EST 09/29/2025 9:11 AM EST Kristi Nevarez FORECAST ANALYST LAB POCT DOCKED DEVICE UNSOLICTED RESULTS Final Result [facility] [address] [place] [address], [facility] [phone] * (ABNORMAL) POCT SARS-CoV-2, Influenza A/B, RSV, PCR (09/29/2025 8:45 AM EST) SARS-Cov-2 PCR Negative Negative 09/29/2025 9:24 AM EST [facility] Influenza A Positive(A) Negative 09/29/2025 9:24 AM EST [facility] Influenza B Negative Negative 09/29/2025 9:24 AM EST [facility] RSV PCR Negative Negative 09/29/2025 9:24 AM EST [facility] Swab (Anterior Nares) 09/29/2025 8:45 AM EST 09/29/2025 9:24 AM EST Kristi Nevarez FORECAST ANALYST LAB POCT DOCKED DEVICE UNSOLICTED RESULTS Final Result [facility] [address] [place] [address], [facility] [phone] * CT ABDOMEN/PELVIS WITH CONTRAST (09/11/2025 3:50 PM EST) Anatomical Region Laterality Modality Abdomen, Pelvis Computed Tomogra phy 09/11/2025 4:56 PM EST Impressions 09/11/2025 5:07 PM EST Colonic diverticulosis. There is mild stranding adjacent to a diverticulum in the sigmoid colon in the left lower quadrant which appears significantly improved compared to prior CT, likely representing resolving diverticulitis. No free air. No pericolonic collection. No bowel obstruction. Moderate colonic stool. Narrative 09/11/2025 5:[address] ABDOMEN/PELVIS WITH CONTRAST Referring clinician's provided indication for this examination in Epic: * Diverticulitis suspected; Recent diagnosis of diverticulitis, now worse, concern for abscess versus perforation TECHNIQUE: Multidetector-row CT of the abdomen and pelvis was performed after administration of intravenous contrast using tailored dose modulation techniques. Images were reconstructed in the axial, coronal, and sagittal planes. COMPARISON: 09/04/2025 FINDINGS: Lower Chest: No consolidation or pleural effusions. Linear subsegmental atelectasis in the lingula and lower lobes. Liver: No focal lesions. Biliary: Noninflamed gallbladder. No biliary ductal dilatation. Spleen: No splenomegaly or focal lesions. Pancreas: No masses or ductal dilatation. Suggestion of pancreatic divisum morphology. Adrenal Glands: No nodules. Kidneys/Ureters: No stones or hydronephrosis. Bowel: Colonic diverticulosis. There is trace stranding adjacent to a diverticulum in the sigmoid colon in the left lower quadrant (904:33), significantly improved compared to prior CT. No free air or organized pericolonic collection. Normal appendix. Postsurgical changes in the transverse colon with focal dilatation at the level of the anastomosis with moderate colonic stool. No bowel obstruction. Peritoneum/Retroperitoneum: No pneumoperitoneum or free fluid. Lymph Nodes: No lymphadenopathy. Pelvic Organs/Bladder: No significant abnormality. Status post hysterectomy. Partially distended urinary bladder.. Vessels: No abdominal aortic aneurysm. Bones/Soft Tissues: Degenerative changes of the spine. 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 Procedure Note Lorenzo Law, CASANDRA - 09/11/2025 CT ABDOMEN/PELVIS WITH CONTRAST Referring clinician's provided indication for this examination in Epic: *Diverticulitis suspected; Recent diagnosis of diverticulitis, now worse,concern for abscess versus perforation TECHNIQUE: Multidetector-row CT of the abdomen and pelvis was performedafter administration of intravenous contrast using tailored dosemodulation techniques. Images were reconstructed in the axial, coronal,and sagittal planes. COMPARISON: 09/04/2025 FINDINGS: Lower Chest: No consolidation or pleural effusions. Linear subsegmentalatelectasis in the lingula and lower lobes. Liver: No focal lesions. Biliary: Noninflamed gallbladder. No biliary ductal dilatation. Spleen: No splenomegaly or focal lesions. Pancreas: No masses or ductal dilatation. Suggestion of pancreatic divisummorphology. Adrenal Glands: No nodules. Kidneys/Ureters: No stones or hydronephrosis. Bowel: Colonic diverticulosis. There is trace stranding adjacent to adiverticulum in the sigmoid colon in the left lower quadrant (904:33),significantly improved compared to prior CT. No free air or organizedpericolonic collection. Normal appendix. Postsurgical changes in thetransverse colon with focal dilatation at the level of the anastomosiswith moderate colonic stool. No bowel obstruction. Peritoneum/Retroperitoneum: No pneumoperitoneum or free fluid. Lymph Nodes: No lymphadenopathy. Pelvic Organs/Bladder: No significant abnormality. Status posthysterectomy. Partially distended urinary bladder.. Vessels: No abdominal aortic aneurysm. Bones/Soft Tissues: Degenerative changes of the spine. Bilateral [id number] without significant listhesis. IMPRESSION: Colonic diverticulosis. There is mild stranding adjacent to a diverticulumin the sigmoid colon in the left lower quadrant which appearssignificantly improved compared to prior CT, likely representing resolvingdiverticulitis. No free air. No pericolonic collection. No bowelobstruction. Moderate colonic stool. us Jorge Pacheco MD IM CT ABD/PELVIS Final Res ult * Urinalysis with Reflex to Urine Culture (09/11/2025 1:32 PM EST) Only the most recent of2 resultswithin the time period is included. Color Yellow Yellow 09/11/2025 1:44 PM [facility] Clarity Clear Clear 09/11/2025 1:44 PM [facility] Glucose Negative Negative 09/11/2025 1:44 PM [facility] Bilirubin Urine Negative Negative 1:44 PM [facility] Ketone Urine Negative Negative 09/11/2025 1:44 PM [facility] Specific [place] 1.010 1.001 - 1.035 09/11/2025 1:44 PM [facility] Blood Negative Negative 09/11/2025 1:44 PM [facility] pH 6.0 5.0 - 8.0 09/11/2025 1:44 PM [facility] Protein Negative Negative 09/11/2025 1:44 PM [facility] Nitrites Negative Negative 09/11/2025 1:44 PM [facility] Leukocyte Esterase Negative Negative 09/11/2025 1:44 PM [facility] Urobilinogen Negative Negative 09/11/2025 1:44 PM [facility] Urine (Urine, Voided) Non-Blood Collection / Unknown 09/11/2025 1:32 PM EST 09/11/2025 1:37 PM EST us Sue Whelan DO LAB URINE ORDERABLES Final Resul t [facility] [address] [place] [address] * CBC and Differential (09/11/2025 12:43 PM EST) Only the most recent of2 resultswithin the time period is included. WBC 5.58 4.00 - 11.00 K/uL 09/11/2025 1:01 PM [facility] RBC 4.12 4.00 - 5.20 M/uL 09/11/2025 1:01 PM [facility] Hemoglobin 12.3 12.0 - 16.0 g/dL 09/11/2025 1:01 PM [facility] Hematocrit 37.2 36.0 - 46.0 % 09/11/2025 1:01 PM [facility] MCV 90.3 80.0 - 100.0 fL 09/11/2025 1:01 PM [facility] MCH 29.9 27.0 - 31.0 pg 09/11/2025 1:01 PM [facility] MCHC 33.1 32.0 - 36.0 g/dL 09/11/2025 1:01 PM [facility] MPV 9.0 8.4 - 12.0 fL 09/11/2025 1:01 PM [facility] RDW-CV 13.2 11.5 - 14.5 % 09/11/2025 1:01 PM [facility] PLT 367 150 - 450 K/uL 09/11/2025 1:01 PM [facility] Neutrophils 55.5 % 09/11/2025 1:01 PM [facility] Lymphocytes 31.9 % 09/11/2025 1:01 PM [facility] Monocytes 10.4 % 09/11/2025 1:01 PM [facility] Eosinophils 1.3 % 09/11/2025 1:01 PM [facility] Basophils 0.9 % 09/11/2025 1:01 PM [facility] Imm Grans 0.0 % 09/11/2025 1:01 PM [facility] NRBC 0.0 <=0.0 /100 WBCs 09/11/2025 1:01 PM [facility] Absolute Neutrophils 3.10 1.92 - 7.60 K/uL 09/11/2025 1:01 PM [facility] Absolute Lymphocytes 1.78 0.72 - 4.10 K/uL 09/11/2025 1:01 PM [facility] Absolute Monocytes 0.58 0.16 - 1.10 K/uL 09/11/2025 1:01 PM [facility] Absolute Eosinophils 0.07 0.00 - 0.50 K/uL 09/11/2025 1:01 PM [facility] Absolute Basophils 0.05 0.00 - 0.15 K/uL 09/11/2025 1:01 PM [facility] Absolute Imm Grans 0.00 0.00 - 0.09 K/uL 09/11/2025 1:01 PM [facility] Absolute NRBC 0.00 <=0.00 K cells/uL 09/11/2025 1:01 PM [facility] Absolute Neutrophils 3.10 1.92 - 7.60 K/uL 09/11/2025 1:01 PM [facility] Comment:Automated cell count . Manual ANC may differ if performed. Diff Type Auto 09/11/2025 1:01 PM [facility] Blood (Blood) Venipuncture / Unknown 09/11/2025 12:43 PM EST 09/11/2025 12:56 PM EST us Sue Whelan DO LAB BLOOD BKR ORDERABLES Final R esult [facility] [address] [place], [place] [id number] * Hepatic Panel (LFTs) (09/11/2025 12:43 PM EST) Only the most recent of2 resultswithin the time period is included. AST 17 <33 U/L 09/11/2025 1:32 PM [facility] ALT 14 <34 U/L 09/11/2025 1:32 PM [facility] Alkaline Phosphatase 79 40 - 130 U/L 09/11/2025 1:32 PM [facility] Bilirubin, Total 0.8 0.0 - 1.2 mg/dL 09/11/2025 1:32 PM [facility] Bilirubin, Direct 0.2 0.0 - 0.3 mg/dL 09/11/2025 1:32 PM [facility] Total Protein 7.7 6.4 - 8.3 g/dL 09/11/2025 1:32 PM [facility] Albumin 4.6 3.5 - 5.2 g/dL 09/11/2025 1:32 PM [facility] Globulin 3.1 1.9 - 4.1 g/dL 09/11/2025 1:32 PM [facility] Blood (Blood) Venipuncture / Unknown 09/11/2025 12:43 PM EST 09/11/2025 12:56 PM EST us Sue [facility] LAB BLOOD BKR ORDERABLES Final R esult Performing Organization Address City/[facility]/ZIP Co de Phone Number [address] [address] * Lipase (09/11/2025 12:43 PM EST) Only the most recent of2 resultswithin the time period is included. Lipase 15 13 - 60 U/L 09/11/2025 1:32 PM [facility] Blood (Blood) Venipuncture / Unknown 09/11/2025 12:43 PM EST 09/11/2025 12:56 PM EST [facility] BLOOD BKR ORDERABLES Final R esult [address] [address] * Basic Metabolic Panel (BMP) (09/11/2025 12:43 PM EST) Only the most recent of2 resultswithin the time period is included. Sodium 141 136 - 145 mmol/L 09/11/2025 1:32 PM [facility] Potassium 4.0 3.4 - 5.1 mmol/L 09/11/2025 1:32 PM [facility] Chloride 106 98 - 107 mmol/L 09/11/2025 1:32 PM [facility] CO2 25 20 - 31 mmol/L 09/11/2025 1:32 PM [facility] BUN 12 6 - 23 mg/dL 09/11/2025 1:32 PM [facility] Creatinine 0.60 0.50 - 1.00 mg/dL 09/11/2025 1:32 PM [facility] Glucose 93 70 - 99 mg/dL 09/11/2025 1:32 PM [facility] Calcium 9.9 8.5 - 10.5 mg/dL 09/11/2025 1:32 PM [facility] eGFR 106 >59 mL/min/1.7 3m2 09/11/2025 1:32 PM [facility] Comment:Estimated glomerular filtration rate calculated using the CKD-EPI refit equation. Anion Gap 10 3 - 17 mmol/L 09/11/2025 1:32 PM [facility] Blood (Blood) Venipuncture / Unknown 09/11/2025 12:43 PM EST 09/11/2025 12:56 PM EST us Sue Whelan DO LAB BLOOD BKR ORDERABLES Final R esult Performing Organization Address City/State/[facility] Co de Phone Number [address] [address] * CT ABDOMEN/PELVIS WITH CONTRAST (09/04/2025 2:10 AM EST) Anatomical Region Laterality Modality Abdomen, Pelvis Computed Tomogra phy 09/04/2025 2:41 AM EST Impressions 09/04/2025 2:48 AM EST Acute sigmoid diverticulitis. No perforation or abscess. Narrative 09/04/2025 2:[address] ABDOMEN/PELVIS WITH CONTRAST Referring clinician's provided indication for this examination in Epic: * LLQ abdominal pain TECHNIQUE: Multidetector-row CT of the abdomen and pelvis was performed after administration of intravenous contrast using tailored dose modulation techniques. Images were reconstructed in the axial, coronal, and sagittal planes. COMPARISON: CT ABDOMEN/PELVIS WITHOUT CONTRAST FINDINGS: Lower Chest: Bilateral lower lobe atelectasis. No pleural effusion Liver: Normal size and enhancement. No hepatic lesion or biliary dilation. Biliary: Gallbladder and common duct is unremarkable. No biliary obstruction. Spleen: Normal size and enhancement. No splenic lesion. Pancreas: Normal size and enhancement. No pancreatic lesion or surrounding inflammation. Adrenal Glands: Normal in size. No adrenal nodule. Kidneys/Ureters: The kidneys enhance symmetrically. No renal mass or cyst. No obstructing calculus. Bowel: The bowel is not obstructed. There is moderate thickening of the wall of the sigmoid colon with adjacent fatty stranding, sigmoid diverticulosis. Findings consistent with acute sigmoid diverticulitis. There is a small amount of adjacent fluid and left lower quadrant. No free air. The appendix is normal in appearance. Peritoneum/Retroperitoneum: Fatty stranding in the left lower quadrant with a small amount of fluid. No other fluid collection or free air. Lymph Nodes: A few small mesenteric and retroperitoneal nodes are present but not pathologically enlarged. Pelvic Organs/Bladder: Bladder is normal in appearance. Post hysterectomy. No adnexal lesion. Vessels: Aorta and IVC are normal in size. Bones/Soft Tissues: No acute osseous abnormality. No spondylolysis at L5-S1 without spondylolisthesis. Schmorl's nodes are present at multiple levels. No other acute osseous abnormality. Procedure Note Yoselin Booth MD, PhD - 09/04/2025 CT ABDOMEN/PELVIS WITH CONTRAST Referring clinician's provided indication for this examination in [facility]: *LLQ abdominal pain TECHNIQUE: Multidetector-row CT of the abdomen and pelvis was performedafter administration of intravenous contrast using tailored dosemodulation techniques. Images were reconstructed in the axial, coronal,and sagittal planes. COMPARISON: CT ABDOMEN/PELVIS WITHOUT CONTRAST FINDINGS: Lower Chest: Bilateral lower lobe atelectasis. No pleural effusion Liver: Normal size and enhancement. No hepatic lesion or biliary dilation. Biliary: Gallbladder and common duct is unremarkable. No biliaryobstruction. Spleen: Normal size and enhancement. No splenic lesion. Pancreas: Normal size and enhancement. No pancreatic lesion or surroundinginflammation. Adrenal Glands: Normal in size. No adrenal nodule. Kidneys/Ureters: The kidneys enhance symmetrically. No renal mass or cyst.No obstructing calculus. Bowel: The bowel is not obstructed. There is moderate thickening of thewall of the sigmoid colon with adjacent fatty stranding, sigmoiddiverticulosis. Findings consistent with acute sigmoid diverticulitis.There is a small amount of adjacent fluid and left lower quadrant. No freeair. The appendix is normal in appearance. Peritoneum/Retroperitoneum: Fatty stranding in the left lower quadrantwith a small amount of fluid. No other fluid collection or free air. Lymph Nodes: A few small mesenteric and retroperitoneal nodes are presentbut not pathologically enlarged. Pelvic Organs/Bladder: Bladder is normal in appearance. Post hysterectomy.No adnexal lesion. Vessels: Aorta and IVC are normal in size. Bones/Soft Tissues: No acute osseous abnormality. No spondylolysis atL5-S1 without spondylolisthesis. Schmorl's nodes are present at multiplelevels. No other acute osseous abnormality. IMPRESSION: Acute sigmoid diverticulitis. No perforation or abscess. Arik Lopez MD IMG CT ABD/PELVIS Final Re sult * ENDOSCOPY, COLON (02/27/2019 10:08 AM EDT) Narrative Transcriptions Gigi Cam MD - 02/27/2019 10:08 AM EDT Patient Name: Padma Melo Attending MD:: GIGI CAM MD, Procedure Date: 02/27/2019 10:08 AM Date of : 1970 Age: 48 Admit Type: Outpatient Gender: Female Room: [facility] Referring MD: Jenni Baltazar Exam Type: Colonoscopy [...] bowel preparation was evaluated using the BBPS (Concrete Bowel Preparation Scale) with scores of: Right [...] 10:08 AM Procedure Code(s): --- Professional --- 56341, Colonoscopy, flexible; diagnostic, including collection of specimen(s) by brushing or washing, when performed (separateprocedure) --- Technical --- 72966, Colonoscopy, flexible; diagnostic, including collection of specimen(s) by brushing or washing, when performed (separateprocedure) Diagnosis Code(s): --- Professional --- Z98.0, Intestinal bypass and anastomosis status K64.8, Other hemorrhoids Z86.010, Personal history of colonic polyps --- Technical --- Z98.0, Intestinal bypass and anastomosis status K64.8, Other hemorrhoids Z86.010, Personal history of colonic polyps CPT copyright 2016 [employer]. All rights reserved. The codes documented in this report are preliminary and upon workers' compensation magistrate reviewmay be revised to meet current compliance requirements. [address] [place] [id number] us Jenni Baltazar MD GI PROCEDURE ORDERABLES Yeni l Result from Last 3 Months or Most Recently Relevant to Health Maintenance Additional Health Concerns Infection Onset Date Last Indicated Influenza A 09/29/2025 09/29/2025 Insurance #[id number] [place] [address] MEDICARE PART A & B [facility] MEDICARE REPLACEMENT MEDICARE PART A & B [facility] MEDICARE REPLACEMENT MEDICARE PART A & B Member Subscriber Plan / Payer (Ef fective 2020-Present) Name:Sachacatherinebenito Padma Member ID:[id number] Relation to Subscriber:Self Name:SachaPadma erazo Subscriber ID:[id number] Payer ID:[id number] Group ID:Not on file Type:Medicare Address: [employer] [address] [place] [address] [place] [address] ONE CARE MEDICARE REPLACEMENT MEDICARE PART A & B [facility] ONE CARE MEDICARE REPLACEMENT MEDICARE PART A & B Member Subscriber Plan / Payer (Ef fective 2020-) Name:Padma Melo Member ID:[id number] Relation to Subscriber:Self Name:Padma Melo Subscriber ID:[id number] Payer ID:[id number] Group ID:Not on file Type:Medicare Address: [place] [address] ONE CARE MEDICARE REPLACEMENT JOON PADGETT [id number] MEDICARE PART A & B CARE MEDICARE REPLACEMENT MEDICARE PART A & B [place] ONE CARE MEDICARE REPLACEMENT JOON PADGETT [id number] MEDICARE PART A & B [facility] ONE CARE MEDICARE REPLACEMENT MEDICARE PART A & B [facility] ONE CARE MEDICARE REPLACEMENT Advance Directives For more information, please contact: [phone] (9AM - 5PM [facility], Saturday-Saturday) * Full Code (Presumed) (Latest Code Status on File) Date Activated Date Inactivated Comments 07/01/2019 9:40 AM 07/01/2019 8:36 PM * Full Code (Presumed) Date Activated Date Inactivated Comments 01/14/2018 11:29 AM 01/17/2018 5:24 PM * Full Code (Presumed) Date Activated Date Inactivated Comments 01/14/2018 6:31 AM 01/14/2018 11:29 AM Care Teams Truck Switcher Relationship Specialty Start Date End Date Eusebia Calderon MD [address] [place] [address] PCP - General Internal Medicine 09/04/25 Additional Source Comments The information contained in this document represents components of the legal health record. It is not the complete legal health record.[facility]
--- OUTSIDE RECORDS SUMMARY | 2025-10-04 12:59 | XMS_ITS | Encounter Summary ---
Author Organization [facility] Address [address] [place] [address] Phone Care Team Providers Care Instructor Bridge Name Role Phone Jenni Baltazar MD Primary Care Provider [phone] Jenni Baltazar MD Unavailable [phone] Jenni Baltazar MD Primary Care Provider [phone] Eusebia Calderon MD Primary Care Provid er Encounter Details Date Type Department Care Team (Late st Contact Info) Description 07/01/2019 Procedure Pass [place] Admitting Dept - Virtual Department [address] [place] [address] Social History Tobacco Use Types Packs/Day Years [...] documented as of this encounter Care Teams Instructor Bridge Relationship Specialty Start Date End Date Jenni Baltazar MD PCP - General Family Medicine 01/28/19 09/18/24 Jenni Baltazar MD [address] [place] [address] PCP - General Family Medicine 09/19/24 09/03/25 Eusebia Calderon MD [address] [place] [address] PCP - General Internal Medicine 09/04/25 Jenni Baltazar MD [address] [place] [address] Insurance Assigned Provider 04/11/19 11/12/20 documented as of this encounter Additional Source Comments The information contained in this document represents components of the legal health record. It is not the complete legal health record.[facility]
--- OUTSIDE RECORDS SUMMARY | 2025-10-04 12:59 | XMS_ITS | Encounter Summary ---
Author Organization [facility] Address [address] [place] [address] Phone Care Team Providers Care Dancing Master Name Role Phone Jenni Baltazar MD Primary Care Provider [phone] Jenni Baltazar MD Primary Care Provider [phone] Eusebia Calderon MD Primary Care Provid er Encounter Details Date Type Department Care Team (Latest Contact Info) Description 10/03/2021 Transcribe Orders Virtual Department [address] [place] [address] Jenni Baltazar MD [address] [place] [address] [email or web address] Encounter for laboratory [...] documented as of this encounter Care Teams Dancing Master Relationship Specialty Start Date End Date Jenni Baltazar MD PCP - General Family Medicine 01/28/19 09/18/24 Jenni Baltazar MD [address] [place] [address] PCP - General Family Medicine 09/19/24 09/03/25 Eusebia Calderon MD [address] [place] [address] PCP - General Internal Medicine 09/04/25 documented as of this encounter Additional Source Comments The information contained in this document represents components of the legal health record. It is not the complete legal health record.[facility]
--- OUTSIDE RECORDS SUMMARY | 2025-10-04 12:59 | XMS_ITS | Encounter Summary ---
Author Organization [facility] Address [address] [place] [address] Phone Care Team Providers Care Induction Coordination Power Engineer Name Role Phone Jonny Infante MD Primary Care Provider [phone] Jonny Infante MD Unavailable Jenni Baltazar MD Primary Care Provider [phone] Jenni Baltazar MD Unavailable [phone] Jenni Baltazar MD Primary Care Provider [phone] Eusebia Calderon MD Primary Care Provid er Encounter Details Date Type Department Care Team (Late st Contact Info) Description 06/23/2018 Procedure Pass [facility] [address] [place] [address] Social History Tobacco Use Types Packs/Day Years [...] Date Last Indicated Resolved Time CoV-Risk 09/19/2024 09/19/202409/3009/30/2024 1:22 AM EST Resp-Risk 09/29/2025 09/29/2025 09/29/2025 9:24 AM EST Influenza A 09/29/2025 09/29/2025 documented as of this encounter Care Teams Induction Coordination Power Engineer Relationship Specialty Start Date End Date Jonny Infante MD [address] [place] [address] [email or web address] PCP - General 10/31/17 01/27/19 Jenni Baltazar MD [address] [place] [address] [email or web address] PCP - General Family Medicine 01/28/19 09/18/24 Jenni Baltazar MD [address] [place] [address] [email or web address] PCP - General Family Medicine 09/19/24 09/03/25 Eusebia Calderon MD [address] [place] [address] PCP - General Internal Medicine 09/04/25 Jonny Infante MD [address] [place] [address] [email or web address] Insurance Assigned Provider 08/09/18 04/11/19 Jenni Baltazar MD [address] [place] [address] [email or web address] Insurance Assigned Provider 04/11/19 11/12/20 documented as of this encounter Additional Source Comments The information contained in this document represents components of the legal health record. It is not the complete legal health record.[facility]
--- OUTSIDE RECORDS SUMMARY | 2025-10-04 12:59 | XMS_ITS | Encounter Summary ---
Author Organization [facility] Address [address] [place] [address] Phone Care Team Providers Care Retail Seasonal Specialist Name Role Phone Jonny Infante MD Primary Care Provider [phone] Jonny Infante MD Unavailable Jenni Baltazar MD Primary Care Provider Jenni Baltazar MD Unavailable [phone] Jenni Baltazar MD Primary Care Provider Eusebia Calderon MD Primary Care Provid er Encounter Details Date Type Department Care Team (Latest Contact Info) Description 06/23/2018 Ancillary Orders Virtual Department [address] [place] [address] Salvador Godoy MD [address] [place] [phone] [email or web address] Lumbar radiculopathy; Other intervertebral disc degeneration, lumbar [...] documented as of this encounter Care Teams Retail Seasonal Specialist Relationship Specialty Start Date End Date Jonny Infante MD [address] [facility] [address] [place] [address] [email or web address] PCP - General 10/31/17 01/27/19 Jenni Baltazar MD [address] [facility] [address] [place] [phone] [email or web address] PCP - General Family Medicine 01/28/19 09/18/24 Jenni Baltazar MD [address] [place] [address] PCP - General Family Medicine 09/19/24 09/03/25 Eusebia Calderon MD [address] [place] [address] PCP - General Internal Medicine 09/04/25 Jonny Infante MD [address] [place] [address] [email or web address] Insurance Assigned Provider 08/09/18 04/11/19 Jenni Baltazar MD [address] [place] [address] [email or web address] Insurance Assigned Provider 04/11/19 11/12/20 documented as of this encounter Additional Source Comments The information contained in this document represents components of the legal health record. It is not the complete legal health record.[facility]
--- OUTSIDE RECORDS SUMMARY | 2025-10-04 12:59 | XMS_ITS | Encounter Summary ---
Author Organization [facility] Address [address] [place] [address] Phone Care Team Providers Care Digital Marketing Lead Name Role Phone Jenni Baltazar MD Primary Care Provider [phone] Jenni Baltazar MD Primary Care Provider [phone] Eusebia Calderon MD Primary Care Provid er Encounter Details Date Type Department Care Team (Late st Contact Info) Description 07/06/2022 Procedure Pass [facility], Ct Scan - [facility] [address] [place] [address] Social History Tobacco Use Types Packs/Day Years [...] documented as of this encounter Care Teams Digital Marketing Lead Relationship Specialty Start Date End Date Jenni Baltazar MD [email or web address] PCP - General Family Medicine 01/28/19 09/18/24 Jenni Baltazar MD [address] [place] [address] PCP - General Family Medicine 09/19/24 09/03/25 Eusebia Calderon MD [address] [place] [address] PCP - General Internal Medicine 09/04/25 documented as of this encounter Additional Source Comments The information contained in this document represents components of the legal health record. It is not the complete legal health record.[facility]
--- OUTSIDE RECORDS SUMMARY | 2025-10-04 12:59 | XMS_ITS | Encounter Summary ---
Author Organization [facility] Address [address] [place] [address] Phone Care Team Providers Care Library Monitor Name Role Phone Jonny Infante MD Primary Care Provider [phone] Jonny Infante MD Unavailable Jenni Baltazar MD Primary Care Provider Jenni Baltazar MD Unavailable [phone] Jenni Baltazar MD Primary Care Provider Eusebia Calderon MD Primary Care Provid er Encounter Details Date Type Department Care Team (Latest Contact Info) Description 06/23/2018 Ancillary Orders Virtual Department [address] [place] [address] Salvador Godoy MD [address] [place] [phone] [email or web address] Lumbar radiculopathy Social History Tobacco Use Types [...] documented as of this encounter Care Teams Library Monitor Relationship Specialty Start Date End Date Jonny Infante MD [address] [place] [address] [email or web address] PCP - General 10/31/17 01/27/19 Jenni Baltazar MD [address] [place] [address] [place] [address] [email or web address] PCP - General Family Medicine 01/28/19 09/18/24 Jenni Baltazar MD [address] [place] [address] [email or web address] PCP - General Family Medicine 09/19/24 09/03/25 Eusebia Calderon MD [address] [place] [address] PCP - General Internal Medicine 09/04/25 Jonny Infante MD [address] [place] [address] [email or web address] Insurance Assigned Provider 08/09/18 04/11/19 Jenni Baltazar MD [address] [place] [address] [email or web address] Insurance Assigned Provider 04/11/19 11/12/20 documented as of this encounter Additional Source Comments The information contained in this document represents components of the legal health record. It is not the complete legal health record.[facility]
--- OUTSIDE RECORDS SUMMARY | 2025-10-04 12:59 | XMS_ITS | Encounter Summary ---
Author Organization [facility] Address [address] [place] [address] Phone Care Team Providers Care Piano Mechanic Apprentice Name Role Phone Eusebia Calderon MD Primary Care Provid er Encounter Details Date Type Department Care Team (Late st Contact Info) Description 09/11/2025 Procedure Pass [facility], Ct Scan - [facility] [address] [place] [address] Social History Tobacco Use Types Packs/Day Years [...] documented as of this encounter Care Teams Piano Mechanic Apprentice Relationship Specialty Start Date End Date Eusebia Calderon MD [address] [place] [address] PCP - General Internal Medicine 09/04/25 documented as of this encounter Additional Source Comments The information contained in this document represents components of the legal health record. It is not the complete legal health record.[facility]
--- OUTSIDE RECORDS SUMMARY | 2025-10-04 12:59 | XMS_ITS | Encounter Summary ---
Author Organization [facility] Address [address] [place] [address] Phone Care Team Providers Care Naturopathic Doctor Name Role Phone Jonny Infante MD Primary Care Provider [phone] Jonny Infante MD Unavailable Jenni Baltazar MD Primary Care Provider [phone] Jenni Baltazar MD Unavailable [phone] Jenni Baltazar MD Primary Care Provider [phone] Eusebia Calderon MD Primary Care Provid er Encounter Details Date Type Department Care Team (Late st Contact Info) Description 12/27/2017 Procedure Pass [facility] Endoscopy Admitting Dept Virtual Department [address] [place] [address] Social History Tobacco Use Types Packs/Day Years [...] documented as of this encounter Care Teams Naturopathic Doctor Relationship Specialty Start Date End Date Jonny Infante MD [address] [place] [address] [email or web address] PCP - General 10/31/17 01/27/19 Jenni Baltazar MD [address] [place] [phone] PCP - General Family Medicine 01/28/19 09/18/24 Jenni Baltaazr MD [address] [place] [address] PCP - General Family Medicine 09/19/24 09/03/25 Eusebia Calderon MD [address] [place] [address] PCP - General Internal Medicine 09/04/25 Jonny Infante MD [address] [facility] [address] [place] [phone] [email or web address] Insurance Assigned Provider 08/09/18 04/11/19 Jenni Baltazar MD [address] [place] [address] Insurance Assigned Provider 04/11/19 11/12/20 documented as of this encounter Additional Source Comments The information contained in this document represents components of the legal health record. It is not the complete legal health record.[facility]
--- OUTSIDE RECORDS SUMMARY | 2025-10-04 12:59 | XMS_ITS | Clinical Summary ---
Author Organization [facility] Prior to 03/06/[address] [place] [address] Care Team Providers Care Hoop Coiling Machine Operator Name Role Phone Unavailable Primary [...]
--- OUTSIDE RECORDS SUMMARY | 2025-10-04 12:59 | XMS_ITS | Encounter Summary ---
Author Organization [facility] Address [address] [place] [address] Phone Care Team Providers Care Velvet Cutter Name Role Phone Jonny Infante MD Unavailable Jenni Baltazar MD Primary Care Provider Jenni Baltazar MD Unavailable [phone] Jenni Baltazar MD Primary Care Provider [phone] Eusebia Calderon MD Primary Care Provid er Encounter Details Date Type Department Care Team (Late st Contact Info) Description 02/27/2019 Procedure Pass [facility]oscopy Admitting Dept Virtual Department [address] [place] [address] Social History Tobacco Use Types Packs/Day Years [...] documented as of this encounter Care Teams Velvet Cutter Relationship Specialty Start Date End Date Jenni Baltazar MD 230 [facility] [address] [place] [address] PCP - General Family Medicine 01/28/19 09/18/24 Jenni Baltazar MD [address] [place] [address] PCP - General Family Medicine 09/19/24 09/03/25 Eusebia Calderon MD [address] [place] [address] PCP - General Internal Medicine 09/04/25 Jonny Infante MD [address] [facility] [address] [place] [address] [email or web address] Insurance Assigned Provider 08/09/18 04/11/19 Jenni Baltazar MD [address] [place] [phone] Insurance Assigned Provider 04/11/19 11/12/20 documented as of this encounter Additional Source Comments The information contained in this document represents components of the legal health record. It is not the complete legal health record.[facility]
--- OUTSIDE RECORDS SUMMARY | 2025-10-04 13:00 | XMS_ITS | Encounter Summary ---
Author Organization [facility] Address [address] [place] [address] Phone Care Team Providers Care Content Management Consultant Name Role Phone Jonny Infante MD Primary Care Provider [phone] Jonny Infante MD Unavailable Jenni Baltazar MD Primary Care Provider [phone] Jenni Baltazar MD Unavailable [phone] Jenni Baltazar MD Primary Care Provider [phone] Eusebia Calderon MD Primary Care Provid er Encounter Details Date Type Department Care Team (Late st Contact Info) Description 01/14/2018 Procedure Pass [place] Admitting Dept - Virtual Department [address] [place] [address] Social History Tobacco Use Types Packs/Day Years [...] Date Last Indicated Resolved Time CoV-Risk 09/19/2024 09/19/202409/30/2024 1:22 AM EST Resp-Risk 09/29/2025 09/29/2025 09/29/2025 9:24 AM EST Influenza A 09/29/2025 09/29/2025 documented as of this encounter Care Teams Content Management Consultant Relationship Specialty Start Date End Date Jonny Infante MD [address] [place] [address] [email or web address] PCP - General 10/31/17 01/27/19 Jenni Baltazar MD [address] [facility] [address] [place] [address] PCP - General Family Medicine 01/28/19 09/18/24 Jenni Baltazar MD [address] [place] [address] PCP - General Family Medicine 09/19/24 09/03/25 Eusebia Calderon MD [address] [place] [address] PCP - General Internal Medicine 09/04/25 Jonny Infante MD [address] [place] [address] [email or web address] Insurance Assigned Provider 08/09/18 04/11/19 Jenni Baltazar MD [address] [place] [address] [email or web address] Insurance Assigned Provider 04/11/19 11/12/20 documented as of this encounter Additional Source Comments The information contained in this document represents components of the legal health record. It is not the complete legal health record.[facility]
== END 2025-10-04 11:55 | disposition home or self-care (01) ==
LOC: HO.HGI 11:07
PROVIDERS: PCP Internal Medicine; Visit Provider Nurse Practitioner Family
DX: K29.50 Unspecified chronic gastritis without bleeding (principal); K64.9 Unspecified hemorrhoids; K59.01 Slow transit constipation; K57.92 Diverticulitis of intestine, part unspecified, without perforation or abscess without bleeding; R10.31 Right lower quadrant pain; R14.0 Abdominal distension (gaseous)
CPT/HCPCS: 99204